=== PATIENT | male | born 1960 | race Caucasian/White ===

== ENCOUNTER 2017-11-13 08:59 | Emergency (ER) | payer OTHER ==
--- OUTSIDE RECORDS SUMMARY | 2017-11-13 09:12 | XMS REPORT ---
:1960 [facility] Address [address] [place], [place] [address] [place] [address] Care Team Providers Name Role Phone NASRIN YOUSUF LOERA Unavailable Unavailable FANNY, ARIF Unavailable Unavailable CIVUNIGUNTA, CRYSTAL Unavailable Unavailable CELIACATALINA JOSE J Unavailable Unavailable GADICHERBEATRIZ, JOSE MURALINATH Unavailable Unavailable TEAGUEDWIGHT FLORES Unavailable Unavailable YOUSUF NATHAN Unavailable Unavailable NATHALIE TERRAZAS Unavailable Unavailable ANDRESSA SCHILLING GO Unavailable Unavailable MINDIKNAIN KAYE JEFFERSON Unavailable Unavailable YOSEF RAMOS Unavailable Unavailable Problems This patient has no known problems. Allergies, Adverse Reactions, Alerts This patient has no known allergies or adverse reactions. Medications This patient has no known medications. Results Test Description Test Time Test Comments Text Results Atomic Results Result Comments SIROLIMUS LEVEL 2017-11-12 12:52:00 Test Item Value Reference Range Comments SIROLIMUS LEVEL BLOOD (BEAKER) (test ywzq=171) 6.8 ng/mL 5.0-15.0 [id number] 11:34:00 Test Item Value Reference Range Comments MAGNESIUM (BEAKER) (test vetl=516) 2.1 mg/dL 1.6-2.6 COMPREHENSIVE METABOLIC [id number] 11:34:00 Test Item Value Reference Range Comments TOTAL PROTEIN (BEAKER) 6.5 gm/dL 6.0-8.3 (test oihf=722) ALBUMIN (BEAKER) (test 3.3 g/dL 3.5-5.0 kksa=6554) ALKALINE PHOSPHATASE 96 U/L 40-150 (BEAKER) (test pqps=275) BILIRUBIN TOTAL (BEAKER) 0.4 mg/dL 0.2-1.2 (test lriv=199) SODIUM (BEAKER) (test 136 meq/L 136-145 vkto=549) POTASSIUM (BEAKER) (test 4.3 meq/L 3.5-5.1 cazo=444) CHLORIDE (BEAKER) (test 101 meq/L 98-107 egll=083) CO2 (BEAKER) (test 25 meq/L 22-29 tenp=744) BLOOD UREA NITROGEN 20 mg/dL 7-21 (BEAKER) (test ktvl=478) CREATININE (BEAKER) (test 0.72 mg/dL 0.57-1.25 ppec=082) GLUCOSE RANDOM (BEAKER) 103 mg/dL 70-105 (test hhwt=746) CALCIUM (BEAKER) (test 9.3 mg/dL 8.4-10.2 msap=580) AST (SGOT) (BEAKER) (test 16 U/L 5-34 dogg=550) ALT (SGPT) (BEAKER) (test 22 U/L 6-55 ykph=692) EGFR (BEAKER) (test 113 mL/min/1.73 sq ESTIMATED GFR IS NOT adcf=4459) m ACCURATE CREATININE CLEARANCE IN PREDICTING GLOMERULAR FILTRATION RATE. ESTIMATED GFR IS NOT APPLICABLE FOR DIALYSIS PATIENTS. BILIRUBIN, [id number] 11:34:00 Test Item Value Reference Range Comments BILIRUBIN DIRECT (BEAKER) (test lufj=641) 0.3 mg/dL 0.1-0.5 CBC W/PLT COUNT & AUTO [id number] 11:22:00 Test Item Value Reference Range Comments WHITE BLOOD CELL COUNT (BEAKER) (test izwn=897) 4.6 K/ L 3.5-10.5 RED BLOOD CELL COUNT (BEAKER) (test hmkm=816) 2.32 M/ L 4.63-6.08 HEMOGLOBIN (BEAKER) (test sqqt=357) 6.9 GM/DL 13.7-17.5 HEMATOCRIT (BEAKER) (test jegi=214) 20.7 % 40.1-51.0 MEAN CORPUSCULAR VOLUME (BEAKER) (test aqeg=044) 89.2 fL 79.0-92.2 MEAN CORPUSCULAR HEMOGLOBIN (BEAKER) (test 29.7 pg 25.7-32.2 jnis=092) MEAN CORPUSCULAR HEMOGLOBIN CONC (BEAKER) (test 33.3 GM/DL 32.3-36.5 qwfk=129) RED CELL DISTRIBUTION WIDTH (BEAKER) (test 15.8 % 11.6-14.4 rzml=571) PLATELET COUNT (BEAKER) (test sqzd=610) 143 K/CU MM 150-450 MEAN PLATELET VOLUME (BEAKER) (test gqss=622) 8.8 fL 9.4-12.4 NUCLEATED RED BLOOD CELLS (BEAKER) (test 0 /100 WBC 0-0 dxej=527) NEUTROPHILS RELATIVE PERCENT (BEAKER) (test 74 % xsvt=251) LYMPHOCYTES RELATIVE PERCENT (BEAKER) (test 11 % ujap=029) MONOCYTES RELATIVE PERCENT (BEAKER) (test 9 % xjoc=774) EOSINOPHILS RELATIVE PERCENT (BEAKER) (test 2 % zizz=646) BASOPHILS RELATIVE PERCENT (BEAKER) (test 0 % fcnr=803) NEUTROPHILS ABSOLUTE COUNT (BEAKER) (test 3.39 K/ L 1.78-5.38 eukm=843) LYMPHOCYTES ABSOLUTE COUNT (BEAKER) (test 0.52 K/ L 1.32-3.57 vtlw=910) MONOCYTES ABSOLUTE COUNT (BEAKER) (test 0.43 K/ L 0.30-0.82 lfgk=560) EOSINOPHILS ABSOLUTE COUNT (BEAKER) (test 0.09 K/ L 0.04-0.54 nhna=648) BASOPHILS ABSOLUTE COUNT (BEAKER) (test 0.01 K/ L 0.01-0.08 edhk=339) IMMATURE GRANULOCYTES-RELATIVE PERCENT (BEAKER) 3 % 0-1 (test gljo=2239) SIROLIMUS [id number] 13:26:00 Test Item Value Reference Range Comments SIROLIMUS LEVEL BLOOD (BEAKER) (test kqek=160) 9.1 ng/mL 5.0-15.0 [id number] 11:22:00 Test Item Value Reference Range Comments MAGNESIUM (BEAKER) (test teix=389) 2.2 mg/dL 1.6-2.6 COMPREHENSIVE METABOLIC [id number] 11:22:00 Test Item Value Reference Range Comments TOTAL PROTEIN (BEAKER) 6.4 gm/dL 6.0-8.3 (test vmla=539) ALBUMIN (BEAKER) (test 3.2 g/dL 3.5-5.0 kyck=3329) ALKALINE PHOSPHATASE 88 U/L 40-150 (BEAKER) (test xprs=775) BILIRUBIN TOTAL (BEAKER) 0.4 mg/dL 0.2-1.2 (test feyh=555) SODIUM (BEAKER) (test 138 meq/L 136-145 njnh=306) POTASSIUM (BEAKER) (test 4.2 meq/L 3.5-5.1 nvhb=629) CHLORIDE (BEAKER) (test 102 meq/L 98-107 zgqo=712) CO2 (BEAKER) (test 24 meq/L 22-29 araa=460) BLOOD UREA NITROGEN 17 mg/dL 7-21 (BEAKER) (test fqes=741) CREATININE (BEAKER) (test 0.75 mg/dL 0.57-1.25 jcqf=767) GLUCOSE RANDOM (BEAKER) 100 mg/dL 70-105 (test fcsf=480) CALCIUM (BEAKER) (test 9.5 mg/dL 8.4-10.2 cebv=259) AST (SGOT) (BEAKER) (test 13 U/L 5-34 gdcc=200) ALT (SGPT) (BEAKER) (test 16 U/L 6-55 ktoy=854) EGFR (BEAKER) (test 108 mL/min/1.73 sq ESTIMATED GFR IS NOT yaon=7677) m ACCURATE CREATININE CLEARANCE IN PREDICTING GLOMERULAR FILTRATION RATE. ESTIMATED GFR IS NOT APPLICABLE FOR DIALYSIS PATIENTS. BILIRUBIN, [id number] 11:22:00 Test Item Value Reference Range Comments BILIRUBIN DIRECT (BEAKER) (test qmgo=651) 0.3 mg/dL 0.1-0.5 CBC W/PLT COUNT & AUTO [id number] 10:32:00 Test Item Value Reference Range Comments WHITE BLOOD CELL COUNT (BEAKER) (test wyzd=853) 4.6 K/ L 3.5-10.5 RED BLOOD CELL COUNT (BEAKER) (test mqap=083) 2.78 M/ L 4.63-6.08 HEMOGLOBIN (BEAKER) (test smit=302) 8.3 GM/DL 13.7-17.5 HEMATOCRIT (BEAKER) (test pihl=647) 24.8 % 40.1-51.0 MEAN CORPUSCULAR VOLUME (BEAKER) (test acev=318) 89.2 fL 79.0-92.2 MEAN CORPUSCULAR HEMOGLOBIN (BEAKER) (test 29.9 pg 25.7-32.2 uirw=863) MEAN CORPUSCULAR HEMOGLOBIN CONC (BEAKER) (test 33.5 GM/DL 32.3-36.5 khre=117) RED CELL DISTRIBUTION WIDTH (BEAKER) (test 15.3 % 11.6-14.4 pbyc=469) PLATELET COUNT (BEAKER) (test lgxq=494) 180 K/CU MM 150-450 MEAN PLATELET VOLUME (BEAKER) (test ftsr=139) 8.9 fL 9.4-12.4 NUCLEATED RED BLOOD CELLS (BEAKER) (test 0 /100 WBC 0-0 yuyl=756) NEUTROPHILS RELATIVE PERCENT (BEAKER) (test 77 % mvbz=750) LYMPHOCYTES RELATIVE PERCENT (BEAKER) (test 10 % qypl=647) MONOCYTES RELATIVE PERCENT (BEAKER) (test 7 % qset=773) EOSINOPHILS RELATIVE PERCENT (BEAKER) (test 2 % jobn=467) BASOPHILS RELATIVE PERCENT (BEAKER) (test 0 % tzxn=103) NEUTROPHILS ABSOLUTE COUNT (BEAKER) (test 3.55 K/ L 1.78-5.38 wuqj=860) LYMPHOCYTES ABSOLUTE COUNT (BEAKER) (test 0.48 K/ L 1.32-3.57 upxa=072) MONOCYTES ABSOLUTE COUNT (BEAKER) (test 0.33 K/ L 0.30-0.82 ymjt=884) EOSINOPHILS ABSOLUTE COUNT (BEAKER) (test 0.10 K/ L 0.04-0.54 jrgm=930) BASOPHILS ABSOLUTE COUNT (BEAKER) (test 0.02 K/ L 0.01-0.08 lprl=970) IMMATURE GRANULOCYTES-RELATIVE PERCENT (BEAKER) 3 % 0-1 (test ydpf=6795) POCT-GLUCOSE [id number] 16:08:00 Test Item Value Reference Range Comments POC-GLUCOSE METER (BEAKER) 224 mg/dL 70-110 TESTED AT [facility] [address] [facility] (test zxdq=7410) [facility] [address] [id number] 15:31:00 Test Item Value Reference Range Comments FERRITIN (BEAKER) (test gdon=566) 1840 ng/mL 5-275 VITAMIN B12 AND [id number] 15:31:00 Test Item Value Reference Range Comments VITAMIN B12 (BEAKER) (test ppyv=599) 631 pg/mL 213-816 FOLATE (BEAKER) (test srux=717) 12.9 ng/mL >=7.0 IRON, TIBC, % SAT. (WITHOUT FERRITIN)2017-10-29 14:56:00 Test Item Value Reference Range Comments IRON (BEAKER) (test asoq=513) 24 ug/dL 40-160 TOTAL IRON BINDING CAPACITY (BEAKER) (test 168 ug/dL 250-450 ecop=928) IRON % SATURATION (2) (BEAKER) (test gddq=4106) 14 % 20-55 [id number] 14:33:00 Test Item Value Reference Range Comments MAGNESIUM (BEAKER) (test ghug=201) 2.0 mg/dL 1.6-2.6 BASIC METABOLIC [id number] 14:33:00 Test Item Value Reference Range Comments SODIUM (BEAKER) (test 135 meq/L 136-145 jnmo=777) POTASSIUM (BEAKER) (test 4.6 meq/L 3.5-5.1 sjgh=090) CHLORIDE (BEAKER) (test 99 meq/L 98-107 cusc=546) CO2 (BEAKER) (test 26 meq/L 22-29 mtzs=812) BLOOD UREA NITROGEN 19 mg/dL 7-21 (BEAKER) (test mbli=692) CREATININE (BEAKER) (test 0.82 mg/dL 0.57-1.25 jjmi=141) GLUCOSE RANDOM (BEAKER) 163 mg/dL 70-105 (test fqdq=929) CALCIUM (BEAKER) (test 9.3 mg/dL 8.4-10.2 frek=573) EGFR (BEAKER) (test 97 mL/min/1.73 sq m ESTIMATED GFR IS NOT lpdp=1859) ACCURATE CREATININE CLEARANCE IN PREDICTING GLOMERULAR FILTRATION RATE. ESTIMATED GFR IS NOT APPLICABLE FOR DIALYSIS PATIENTS. [id number] 14:28:00 Test Item Value Reference Range Comments PROTIME (BEAKER) (test rhfk=098) 14.5 seconds 11.7-14.7 INR (BEAKER) (test hsxs=415) 1.1 <=5.9 PARTIAL THROMBOPLASTIN TIME (BEAKER) (test 33.2 seconds 22.5-36.0 vtdn=514) RECOMMENDED COUMADIN/WARFARIN INR THERAPY RANGESSTANDARD DOSE: 2.0 - 3.0 Includes: PROPHYLAXIS forvenous thrombosis, systemic embolization; TREATMENT for venous thrombosis and/or pulmonary embolus.HIGH RISK: Target INR is 2.5-3.5 for patients with mechanical heart valves.CBC W/PLT COUNT & AUTO [id number] 14:28:00 Test Item Value Reference Range Comments WHITE BLOOD CELL COUNT (BEAKER) (test pqrw=495) 6.9 K/ L 3.5-10.5 RED BLOOD CELL COUNT (BEAKER) (test zsfq=929) 2.21 M/ L 4.63-6.08 HEMOGLOBIN (BEAKER) (test ycig=546) 6.5 GM/DL 13.7-17.5 HEMATOCRIT (BEAKER) (test hrnx=203) 19.5 % 40.1-51.0 MEAN CORPUSCULAR VOLUME (BEAKER) (test vybt=018) 88.2 fL 79.0-92.2 MEAN CORPUSCULAR HEMOGLOBIN (BEAKER) (test 29.4 pg 25.7-32.2 wahl=711) MEAN CORPUSCULAR HEMOGLOBIN CONC (BEAKER) (test 33.3 GM/DL 32.3-36.5 ukbu=630) RED CELL DISTRIBUTION WIDTH (BEAKER) (test 15.5 % 11.6-14.4 xqfy=174) PLATELET COUNT (BEAKER) (test xogi=523) 301 K/CU MM 150-450 MEAN PLATELET VOLUME (BEAKER) (test euhr=087) 8.5 fL 9.4-12.4 NUCLEATED RED BLOOD CELLS (BEAKER) (test 0 /100 WBC 0-0 xamt=116) NEUTROPHILS RELATIVE PERCENT (BEAKER) (test 85 % lobw=154) LYMPHOCYTES RELATIVE PERCENT (BEAKER) (test 5 % nlka=323) MONOCYTES RELATIVE PERCENT (BEAKER) (test 5 % cmhq=985) EOSINOPHILS RELATIVE PERCENT (BEAKER) (test 0 % cntw=946) BASOPHILS RELATIVE PERCENT (BEAKER) (test 0 % ymgz=924) NEUTROPHILS ABSOLUTE COUNT (BEAKER) (test 5.85 K/ L 1.78-5.38 ibat=746) LYMPHOCYTES ABSOLUTE COUNT (BEAKER) (test 0.34 K/ L 1.32-3.57 rikx=724) MONOCYTES ABSOLUTE COUNT (BEAKER) (test 0.33 K/ L 0.30-0.82 mgpu=069) EOSINOPHILS ABSOLUTE COUNT (BEAKER) (test 0.02 K/ L 0.04-0.54 pktb=714) BASOPHILS ABSOLUTE COUNT (BEAKER) (test 0.02 K/ L 0.01-0.08 pkyi=177) IMMATURE GRANULOCYTES-RELATIVE PERCENT (BEAKER) 5 % 0-1 (test ymmg=6775) SIROLIMUS [id number] 13:39:00 Test Item Value Reference Range Comments SIROLIMUS LEVEL BLOOD (BEAKER) (test pbln=380) 7.1 ng/mL 5.0-15.0 [id number] 09:05:00 Test Item Value Reference Range Comments MAGNESIUM (BEAKER) (test jdrx=775) 2.0 mg/dL 1.6-2.6 COMPREHENSIVE METABOLIC [id number] 09:05:00 Test Item Value Reference Range Comments TOTAL PROTEIN (BEAKER) 6.2 gm/dL 6.0-8.3 (test rvjb=588) ALBUMIN (BEAKER) (test 3.2 g/dL 3.5-5.0 rphu=0066) ALKALINE PHOSPHATASE 86 U/L 40-150 (BEAKER) (test xbsw=968) BILIRUBIN TOTAL (BEAKER) 0.4 mg/dL 0.2-1.2 (test zkgj=782) SODIUM (BEAKER) (test 136 meq/L 136-145 snuz=129) POTASSIUM (BEAKER) (test 4.5 meq/L 3.5-5.1 fjel=618) CHLORIDE (BEAKER) (test 101 meq/L 98-107 rpqw=990) CO2 (BEAKER) (test 25 meq/L 22-29 qxqs=900) BLOOD UREA NITROGEN 18 mg/dL 7-21 (BEAKER) (test snpa=534) CREATININE (BEAKER) (test 0.79 mg/dL 0.57-1.25 kkhn=580) GLUCOSE RANDOM (BEAKER) 119 mg/dL 70-105 (test qtua=734) CALCIUM (BEAKER) (test 9.1 mg/dL 8.4-10.2 ocfv=123) AST (SGOT) (BEAKER) (test 11 U/L 5-34 vosv=688) ALT (SGPT) (BEAKER) (test 13 U/L 6-55 clma=555) EGFR (BEAKER) (test 101 mL/min/1.73 sq ESTIMATED GFR IS NOT eazc=9473) m ACCURATE CREATININE CLEARANCE IN PREDICTING GLOMERULAR FILTRATION RATE. ESTIMATED GFR IS NOT APPLICABLE FOR DIALYSIS PATIENTS. BILIRUBIN, [id number] 09:05:00 Test Item Value Reference Range Comments BILIRUBIN DIRECT (BEAKER) (test hlhq=338) 0.3 mg/dL 0.1-0.5 CBC W/PLT COUNT & AUTO [id number] 09:01:00 Test Item Value Reference Range Comments WHITE BLOOD CELL COUNT (BEAKER) (test ctmi=203) 5.4 K/ L 3.5-10.5 RED BLOOD CELL COUNT (BEAKER) (test pygl=645) 2.15 M/ L 4.63-6.08 HEMOGLOBIN (BEAKER) (test afws=079) 6.2 GM/DL 13.7-17.5 HEMATOCRIT (BEAKER) (test mokg=358) 18.7 % 40.1-51.0 MEAN CORPUSCULAR VOLUME (BEAKER) (test nlcr=313) 87.0 fL 79.0-92.2 MEAN CORPUSCULAR HEMOGLOBIN (BEAKER) (test 28.8 pg 25.7-32.2 mcew=386) MEAN CORPUSCULAR HEMOGLOBIN CONC (BEAKER) (test 33.2 GM/DL 32.3-36.5 lfnk=255) RED CELL DISTRIBUTION WIDTH (BEAKER) (test 15.6 % 11.6-14.4 qxrz=429) PLATELET COUNT (BEAKER) (test xxup=501) 299 K/CU MM 150-450 MEAN PLATELET VOLUME (BEAKER) (test bgcv=491) 9.0 fL 9.4-12.4 NUCLEATED RED BLOOD CELLS (BEAKER) (test 0 /100 WBC 0-0 wtya=433) NEUTROPHILS RELATIVE PERCENT (BEAKER) (test 73 % ukzt=542) LYMPHOCYTES RELATIVE PERCENT (BEAKER) (test 12 % ngym=823) MONOCYTES RELATIVE PERCENT (BEAKER) (test 10 % vusg=948) EOSINOPHILS RELATIVE PERCENT (BEAKER) (test 1 % qzpg=465) BASOPHILS RELATIVE PERCENT (BEAKER) (test 1 % unfy=060) NEUTROPHILS ABSOLUTE COUNT (BEAKER) (test 3.96 K/ L 1.78-5.38 zotp=314) LYMPHOCYTES ABSOLUTE COUNT (BEAKER) (test 0.66 K/ L 1.32-3.57 llus=957) MONOCYTES ABSOLUTE COUNT (BEAKER) (test 0.53 K/ L 0.30-0.82 xmsa=642) EOSINOPHILS ABSOLUTE COUNT (BEAKER) (test 0.03 K/ L 0.04-0.54 djeh=562) BASOPHILS ABSOLUTE COUNT (BEAKER) (test 0.03 K/ L 0.01-0.08 gvak=133) IMMATURE GRANULOCYTES-RELATIVE PERCENT (BEAKER) 4 % 0-1 (test fvxi=3214) CBC W/PLT COUNT & AUTO [id number] 16:48:00 Test Item Value Reference Range Comments WHITE BLOOD CELL COUNT (BEAKER) (test mlnw=917) 3.1 K/ L 3.5-10.5 RED BLOOD CELL COUNT (BEAKER) (test eosy=479) 2.57 M/ L 4.63-6.08 HEMOGLOBIN (BEAKER) (test ytig=256) 7.6 GM/DL 13.7-17.5 HEMATOCRIT (BEAKER) (test doak=011) 23.0 % 40.1-51.0 MEAN CORPUSCULAR VOLUME (BEAKER) (test imys=922) 89.5 fL 79.0-92.2 MEAN CORPUSCULAR HEMOGLOBIN (BEAKER) (test 29.6 pg 25.7-32.2 rncv=441) MEAN CORPUSCULAR HEMOGLOBIN CONC (BEAKER) (test 33.0 GM/DL 32.3-36.5 tqlg=595) RED CELL DISTRIBUTION WIDTH (BEAKER) (test 15.2 % 11.6-14.4 qswc=792) PLATELET COUNT (BEAKER) (test muld=244) 278 K/CU MM 150-450 MEAN PLATELET VOLUME (BEAKER) (test wtyo=338) 9.3 fL 9.4-12.4 NUCLEATED RED BLOOD CELLS (BEAKER) (test 0 /100 WBC 0-0 bfbc=316) SIROLIMUS [id number] 14:58:00 Test Item Value Reference Range Comments SIROLIMUS LEVEL BLOOD (BEAKER) (test ycll=831) 5.2 ng/mL 5.0-15.0 [id number] 12:04:00 Test Item Value Reference Range Comments MAGNESIUM (BEAKER) (test rddq=285) 1.6 mg/dL 1.6-2.6 COMPREHENSIVE METABOLIC [id number] 12:04:00 Test Item Value Reference Range Comments TOTAL PROTEIN (BEAKER) 6.1 gm/dL 6.0-8.3 (test eljg=116) ALBUMIN (BEAKER) (test 3.2 g/dL 3.5-5.0 qusg=2104) ALKALINE PHOSPHATASE 106 U/L 40-150 (BEAKER) (test nuam=397) BILIRUBIN TOTAL (BEAKER) 0.6 mg/dL 0.2-1.2 (test izbi=743) SODIUM (BEAKER) (test 136 meq/L 136-145 hnxi=505) POTASSIUM (BEAKER) (test 4.2 meq/L 3.5-5.1 tgwg=215) CHLORIDE (BEAKER) (test 101 meq/L 98-107 irxz=774) CO2 (BEAKER) (test 26 meq/L 22-29 nqem=511) BLOOD UREA NITROGEN 19 mg/dL 7-21 (BEAKER) (test lujy=809) CREATININE (BEAKER) (test 0.77 mg/dL 0.57-1.25 ldgd=962) GLUCOSE RANDOM (BEAKER) 100 mg/dL 70-105 (test hgwy=360) CALCIUM (BEAKER) (test 8.9 mg/dL 8.4-10.2 qqbk=770) AST (SGOT) (BEAKER) (test 15 U/L 5-34 fbja=319) ALT (SGPT) (BEAKER) (test 22 U/L 6-55 zfgb=898) EGFR (BEAKER) (test 105 mL/min/1.73 sq ESTIMATED GFR IS NOT jezz=5927) m ACCURATE CREATININE CLEARANCE IN PREDICTING GLOMERULAR FILTRATION RATE. ESTIMATED GFR IS NOT APPLICABLE FOR DIALYSIS PATIENTS. BILIRUBIN, [id number] 12:04:00 Test Item Value Reference Range Comments BILIRUBIN DIRECT (BEAKER) (test nggu=482) 0.4 mg/dL 0.1-0.5 BLOOD [id number] 18:00:00 Test Item Value Reference Range Comments CULTURE (BEAKER) (test ydrm=5614) No growth in 5 days BLOOD [id number] 18:00:00 Test Item Value Reference Range Comments CULTURE (BEAKER) (test ddpu=6367) No growth in 5 days SIROLIMUS [id number] 11:01:00 Test Item Value Reference Range Comments SIROLIMUS LEVEL BLOOD (BEAKER) (test gdey=532) 11.9 ng/mL 5.0-15.0 CBC W/PLT COUNT & AUTO [id number] 10:11:00 Test Item Value Reference Range Comments WHITE BLOOD CELL COUNT (BEAKER) (test rrth=331) 3.0 K/ L 3.5-10.5 RED BLOOD CELL COUNT (BEAKER) (test ztte=188) 3.23 M/ L 4.63-6.08 HEMOGLOBIN (BEAKER) (test lvbj=085) 9.4 GM/DL 13.7-17.5 HEMATOCRIT (BEAKER) (test ymqw=813) 28.5 % 40.1-51.0 MEAN CORPUSCULAR VOLUME (BEAKER) (test ptcv=615) 88.2 fL 79.0-92.2 MEAN CORPUSCULAR HEMOGLOBIN (BEAKER) (test 29.1 pg 25.7-32.2 mtay=794) MEAN CORPUSCULAR HEMOGLOBIN CONC (BEAKER) (test 33.0 GM/DL 32.3-36.5 ymhp=356) RED CELL DISTRIBUTION WIDTH (BEAKER) (test 15.7 % 11.6-14.4 ckii=685) PLATELET COUNT (BEAKER) (test wcru=364) 95 K/CU MM 150-450 MEAN PLATELET VOLUME (BEAKER) (test zwyi=693) 9.6 fL 9.4-12.4 NUCLEATED RED BLOOD CELLS (BEAKER) (test 0 /100 WBC 0-0 pigi=249) NEUTROPHILS RELATIVE PERCENT (BEAKER) (test 73 % nfmp=758) LYMPHOCYTES RELATIVE PERCENT (BEAKER) (test 17 % agxd=655) MONOCYTES RELATIVE PERCENT (BEAKER) (test 8 % nopz=397) EOSINOPHILS RELATIVE PERCENT (BEAKER) (test 2 % payz=364) BASOPHILS RELATIVE PERCENT (BEAKER) (test 0 % necb=665) NEUTROPHILS ABSOLUTE COUNT (BEAKER) (test 2.17 K/ L 1.78-5.38 rrwg=891) LYMPHOCYTES ABSOLUTE COUNT (BEAKER) (test 0.50 K/ L 1.32-3.57 ksgt=270) MONOCYTES ABSOLUTE COUNT (BEAKER) (test brkp=063) 0.23 K/ L 0.30-0.82 EOSINOPHILS ABSOLUTE COUNT (BEAKER) (test 0.05 K/ L 0.04-0.54 byrn=855) BASOPHILS ABSOLUTE COUNT (BEAKER) (test vlgt=800) 0.01 K/ L 0.01-0.08 IMMATURE GRANULOCYTES-RELATIVE PERCENT (BEAKER) 1 % 0-1 (test nlyv=0653) VITAMIN D, [id number] 09:37:00 Test Item Value Reference Range Comments VITAMIN D 25-OH (BEAKER) (test hefw=2361) 17.6 ng/mL 6.6-49.9 Effective 03/04/2017: Reference Range ChangeNew: 6.6-49.9 ng/mL Previous: 13.0 -47.8 ng/mLRecommended Vitamin D Target Range: 30.0-40.0 ng/[id number] 09:23:00 Test Item Value Reference Range Comments PHOSPHORUS (BEAKER) (test vltg=362) 2.8 mg/dL 2.3-4.7 [id number] 09:23:00 Test Item Value Reference Range Comments MAGNESIUM (BEAKER) (test xdpr=963) 1.5 mg/dL 1.6-2.6 COMPREHENSIVE METABOLIC [id number] 09:23:00 Test Item Value Reference Range Comments TOTAL PROTEIN (BEAKER) 5.9 gm/dL 6.0-8.3 (test dpix=690) ALBUMIN (BEAKER) (test 3.1 g/dL 3.5-5.0 trwk=4807) ALKALINE PHOSPHATASE 130 U/L 40-150 (BEAKER) (test pwun=684) BILIRUBIN TOTAL (BEAKER) 1.0 mg/dL 0.2-1.2 (test qafk=323) SODIUM (BEAKER) (test 136 meq/L 136-145 ncso=693) POTASSIUM (BEAKER) (test 4.6 meq/L 3.5-5.1 bngd=673) CHLORIDE (BEAKER) (test 103 meq/L 98-107 gmzm=212) CO2 (BEAKER) (test 24 meq/L 22-29 uzfh=179) BLOOD UREA NITROGEN 16 mg/dL 7-21 (BEAKER) (test imng=150) CREATININE (BEAKER) (test 0.72 mg/dL 0.57-1.25 vdgv=468) GLUCOSE RANDOM (BEAKER) 81 mg/dL 70-105 (test ejjv=537) CALCIUM (BEAKER) (test 9.5 mg/dL 8.4-10.2 imxm=903) AST (SGOT) (BEAKER) (test 16 U/L 5-34 coop=569) ALT (SGPT) (BEAKER) (test 23 U/L 6-55 zday=998) EGFR (BEAKER) (test 113 mL/min/1.73 sq ESTIMATED GFR IS NOT izuw=9358) m ACCURATE CREATININE CLEARANCE IN PREDICTING GLOMERULAR FILTRATION RATE. ESTIMATED GFR IS NOT APPLICABLE FOR DIALYSIS PATIENTS. BILIRUBIN, [id number] 09:23:00 Test Item Value Reference Range Comments BILIRUBIN DIRECT (BEAKER) (test gdmm=103) 0.6 mg/dL 0.1-0.5 EBV VIRAL [id number] 15:13:00 Test Item Value Reference Range Comments EBV VIRAL LOAD - NEGATIVE Negative or below the linear (BEAKER) (test hpcm=8069) range of the assay (<500 copies/mL) This assay was performed by real-time PCR for the detection of the Kala-Soliz virus (EBV) gene EBNA-1. The test is composed of (1) DNA extraction from patient specimen, and (2) real-time PCR amplification and detection with EBNA-1- specific primers and probes. A well-conserved region of the EBNA-1 gene is targeted, along with an internal control sequence used to confirm PCR amplification. Asymptomatic carriers and viral genetic variation, among other factors, can affect the accuracy of nucleic acid testing; therefore, results should be interpreted in light of clinical data.This test was developedand its performance characteristics determined by the [facility] Pathology Department, Section of Molecular Pathology. It has not been cleared or approved by the U.S. Food and Drug Administration (FDA), since FDA approval is not required for clinical use of the test. Validation was doneas required by The Clinical Laboratory Improvement Amendments of 1988.HEPATITIS C PCR, [id number] 13:45:00 Test Item Value Reference Range Comments HCV RESULT COMPONENT (BEAKER) HCV RNA not detected HCV RNA not detected (test hkyu=2298) This test uses a Real-Time Polymerase Chain Reaction (RT-PCR) methodology and was performed using [employer] Ampliprep/KACEY TaqMan HCV test kit version 2.0 ( [employer]).Reportable range for this assay is 15 - 100,000, 000 IU per mL (1.18 - 8.00 Log IU/mL).URINE [id number] 10:51:00 Test Item Value Reference Range Comments CULTURE (BEAKER) (test qnyv=1218) No growth CMV PCR, [id number] 14:50:00 Test Item Value Reference Range Comments CMV VIRAL LOAD - NEGATIVE Negative or below the linear (BEAKER) (test jkbw=3776) range of the assay (<375 copies/mL) Cytomegalovirus (CMV) infection can cause significant disease in immunosuppressed patients. However,it is common for CMV to manifest as a limited infection which is of no clinical significance in immunosuppressed patients or in healthy individuals.Viral load measurements are helpful to identify clinical CMV infection and to guide the pre-emptive management of antiviral therapy. For treatment of CMVinfection due to reactivation in transplant recipients, a threshold between 4,000 and 5,000 copies/mL is suggested. For treatment of primary CMV infection, a lower threshold can be used.CMV infection may also be monitored using weekly serial measurements. Serial measurements of CMV DNA viral load canbe evaluated by identifying a 10- fold change, as well as assessing the CMV DNA viral load and the clinical context for each patient.The plasma CMV DNA viral load was detected using quantitative polymerase chain reaction and fluorescent monitoring of a specific hybridized probe. Genetic variation and other factors can affect the accuracy of nucleic acid testing. Therefore, the results should be interpreted in light of clinical data. A negative result may not exclude the presence of CMV disease.This test was developed and its performance characteristics determined by the [facility] Pathology Department, Section of Molecular Pathology. It has not been cleared or approved by the U.S. Food and Drug Administration (FDA), since FDA approval is not required for clinical use of the test. Validation was done as required by The Clinical Laboratory Improvement Amendments of 1988.POCT-GLUCOSE [id number] 12:26:00 Test Item Value Reference Range Comments POC-GLUCOSE METER (BEAKER) 115 mg/dL 70-110 TESTED AT [facility] [address] [facility] (test yzzv=7483) [facility] [address] BLOOD [id number] 12:00:00 Test Item Value Reference Range Comments CULTURE (BEAKER) (test hkcv=1466) No growth in 5 days BLOOD [id number] 12:00:00 Test Item Value Reference Range Comments CULTURE (BEAKER) (test whbd=8466) No growth in 5 days SIROLIMUS [id number] 10:04:00 Test Item Value Reference Range Comments SIROLIMUS LEVEL BLOOD (BEAKER) (test bazz=786) 10.2 ng/mL 5.0-15.0 POCT-GLUCOSE [id number] 08:08:00 Test Item Value Reference Range Comments POC-GLUCOSE METER (BEAKER) 103 mg/dL 70-110 TESTED AT [facility] [address] [facility] (test jyzz=3704) [facility] [address] [id number] 06:34:00 Test Item Value Reference Range Comments PHOSPHORUS (BEAKER) (test kgin=625) 4.0 mg/dL 2.3-4.7 [id number] 06:34:00 Test Item Value Reference Range Comments MAGNESIUM (BEAKER) (test ezql=717) 2.0 mg/dL 1.6-2.6 BASIC METABOLIC [id number] 06:34:00 Test Item Value Reference Range Comments SODIUM (BEAKER) (test 141 meq/L 136-145 kelp=847) POTASSIUM (BEAKER) (test 4.2 meq/L 3.5-5.1 furp=044) CHLORIDE (BEAKER) (test 107 meq/L 98-107 ffrw=805) CO2 (BEAKER) (test 25 meq/L 22-29 pges=409) BLOOD UREA NITROGEN 16 mg/dL 7-21 (BEAKER) (test dctt=017) CREATININE (BEAKER) (test 0.65 mg/dL 0.57-1.25 yvrq=738) GLUCOSE RANDOM (BEAKER) 87 mg/dL 70-105 (test xokr=945) CALCIUM (BEAKER) (test 8.7 mg/dL 8.4-10.2 sfqk=380) EGFR (BEAKER) (test 127 mL/min/1.73 sq m ESTIMATED GFR IS NOT ouck=7429) ACCURATE CREATININE CLEARANCE IN PREDICTING GLOMERULAR FILTRATION RATE. ESTIMATED GFR IS NOT APPLICABLE FOR DIALYSIS PATIENTS. HEPATIC FUNCTION [id number] 06:34:00 Test Item Value Reference Range Comments TOTAL PROTEIN (BEAKER) (test jsla=033) 5.5 gm/dL 6.0-8.3 ALBUMIN (BEAKER) (test swew=7146) 2.9 g/dL 3.5-5.0 BILIRUBIN TOTAL (BEAKER) (test ikds=488) 1.1 mg/dL 0.2-1.2 BILIRUBIN DIRECT (BEAKER) (test ivng=859) 0.6 mg/dL 0.1-0.5 ALKALINE PHOSPHATASE (BEAKER) (test wvrb=794) 119 U/L 40-150 AST (SGOT) (BEAKER) (test egur=151) 16 U/L 5-34 ALT (SGPT) (BEAKER) (test ruua=215) 23 U/L 6-55 [id number] 06:32:00 Test Item Value Reference Range Comments AMMONIA (BEAKER) (test xdel=893) 29 mol/L 18-72 [id number] 06:32:00 Test Item Value Reference Range Comments PARTIAL THROMBOPLASTIN TIME (BEAKER) (test 37.9 seconds 22.5-36.0 obok=031) PROTHROMBIN [id number] 06:31:00 Test Item Value Reference Range Comments PROTIME (BEAKER) (test gmje=833) 14.7 seconds 11.7-14.7 INR (BEAKER) (test aiyj=596) 1.2 <=5.9 RECOMMENDED COUMADIN/WARFARIN INR THERAPY RANGESSTANDARD DOSE: 2.0 - 3.0 Includes: PROPHYLAXIS forvenous thrombosis, systemic embolization; TREATMENT for venous thrombosis and/or pulmonary embolus.HIGH RISK: Target INR is 2.5-3.5 for patients with mechanical heart valves.CBC W/PLT COUNT & AUTO [id number] 06:05:00 Test Item Value Reference Range Comments WHITE BLOOD CELL COUNT (BEAKER) (test jfyg=588) 3.2 K/ L 3.5-10.5 RED BLOOD CELL COUNT (BEAKER) (test bket=135) 3.13 M/ L 4.63-6.08 HEMOGLOBIN (BEAKER) (test pwxe=168) 9.2 GM/DL 13.7-17.5 HEMATOCRIT (BEAKER) (test kymb=708) 27.6 % 40.1-51.0 MEAN CORPUSCULAR VOLUME (BEAKER) (test cmhm=474) 88.2 fL 79.0-92.2 MEAN CORPUSCULAR HEMOGLOBIN (BEAKER) (test 29.4 pg 25.7-32.2 dmdo=997) MEAN CORPUSCULAR HEMOGLOBIN CONC (BEAKER) (test 33.3 GM/DL 32.3-36.5 vyuz=635) RED CELL DISTRIBUTION WIDTH (BEAKER) (test 17.0 % 11.6-14.4 yqhp=931) PLATELET COUNT (BEAKER) (test tvvi=419) 66 K/CU MM 150-450 MEAN PLATELET VOLUME (BEAKER) (test ybka=149) 9.4 fL 9.4-12.4 NUCLEATED RED BLOOD CELLS (BEAKER) (test 0 /100 WBC 0-0 wnxl=363) NEUTROPHILS RELATIVE PERCENT (BEAKER) (test 78 % sxiw=530) LYMPHOCYTES RELATIVE PERCENT (BEAKER) (test 14 % zmpm=520) MONOCYTES RELATIVE PERCENT (BEAKER) (test 7 % zafh=495) EOSINOPHILS RELATIVE PERCENT (BEAKER) (test 1 % tttx=551) BASOPHILS RELATIVE PERCENT (BEAKER) (test 0 % wlzd=217) NEUTROPHILS ABSOLUTE COUNT (BEAKER) (test 2.50 K/ L 1.78-5.38 okdl=706) LYMPHOCYTES ABSOLUTE COUNT (BEAKER) (test 0.45 K/ L 1.32-3.57 fnnn=721) MONOCYTES ABSOLUTE COUNT (BEAKER) (test kqra=276) 0.23 K/ L 0.30-0.82 EOSINOPHILS ABSOLUTE COUNT (BEAKER) (test 0.03 K/ L 0.04-0.54 mzhw=788) BASOPHILS ABSOLUTE COUNT (BEAKER) (test ffrt=510) 0.00 K/ L 0.01-0.08 IMMATURE GRANULOCYTES-RELATIVE PERCENT (BEAKER) 1 % 0-1 (test xkek=0190) POCT-GLUCOSE [id number] 21:35:00 Test Item Value Reference Range Comments POC-GLUCOSE METER (BEAKER) 174 mg/dL 70-110 TESTED AT [facility] [address] (test voan=0865) [facility] [address] POCT-GLUCOSE [id number] 17:01:00 Test Item Value Reference Range Comments POC-GLUCOSE METER (BEAKER) 160 mg/dL 70-110 TESTED AT [facility] [address] [facility] (test hnhw=2503) [facility] [address] POCT-GLUCOSE [id number] 16:32:00 Test Item Value Reference Range Comments POC-GLUCOSE METER (BEAKER) 143 mg/dL 70-110 TESTED AT [facility] [address] [facility] (test nvik=7762) [facility] [address] URINALYSIS W/ REFLEX URINE [id number] 14:27:00 Test Item Value Reference Range Comments COLOR (BEAKER) (test iztn=122) Yellow CLARITY (BEAKER) (test qkcs=617) Clear SPECIFIC GRAVITY UA (BEAKER) (test bzpo=928) 1.007 1.001-1.035 PH UA (BEAKER) (test qcet=389) 6.0 5.0-8.0 PROTEIN UA (BEAKER) (test upxa=136) 50 mg/dL Negative GLUCOSE UA (BEAKER) (test leti=249) Negative Negative KETONES UA (BEAKER) (test beur=699) Negative Negative BILIRUBIN UA (BEAKER) (test mjsy=725) Negative Negative BLOOD UA (BEAKER) (test behr=719) Negative Negative NITRITE UA (BEAKER) (test ayee=420) Negative Negative LEUKOCYTE ESTERASE UA (BEAKER) (test lhur=418) Negative Negative UROBILINOGEN UA (BEAKER) (test ykeo=299) 0.2 mg/dL 0.2-1.0 RBC UA (BEAKER) (test zivz=505) < /HPF WBC UA (BEAKER) (test dzjb=936) 1 /HPF SQUAMOUS EPITHELIAL (BEAKER) (test pkkp=052) < /HPF CRYSTALS, URINE (BEAKER) (test fgem=2079) Rare SOURCE(BEAKER) (test uczg=9551) HEPATITIS B [id number] 12:02:00 Test Item Value Reference Range Comments HEPATITIS B CORE TOTAL ANTIBODY (BEAKER) (test Nonreactive Nonreactive epyr=905) HEPATITIS B SURFACE ANTIBODY (BEAKER) (test < mIU/mL <8.0 aums=465) HEPATITIS B SURFACE ANTIGEN (2) (BEAKER) (test Nonreactive Nonreactive pubg=7427) HEPATITIS A [id number] 11:56:00 Test Item Value Reference Range Comments HEPATITIS A IGM ANTIBODY (BEAKER) (test Nonreactive Nonreactive bhyq=687) HEPATITIS A IGG ANTIBODY (BEAKER) (test Reactive Nonreactive jvro=3805) SIROLIMUS [id number] 09:57:00 Test Item Value Reference Range Comments SIROLIMUS LEVEL BLOOD (BEAKER) (test uqst=450) 12.2 ng/mL 5.0-15.0 POCT-GLUCOSE [id number] 08:04:00 Test Item Value Reference Range Comments POC-GLUCOSE METER (BEAKER) 102 mg/dL 70-110 TESTED AT [facility] [address] [facility] (test ljnz=0338) [facility] [address] [id number] 07:00:00 Test Item Value Reference Range Comments PHOSPHORUS (BEAKER) (test zakd=803) 2.0 mg/dL 2.3-4.7 [id number] 07:00:00 Test Item Value Reference Range Comments MAGNESIUM (BEAKER) (test bnzx=017) 1.5 mg/dL 1.6-2.6 BASIC METABOLIC [id number] 07:00:00 Test Item Value Reference Range Comments SODIUM (BEAKER) (test 137 meq/L 136-145 uvdt=058) POTASSIUM (BEAKER) (test 4.3 meq/L 3.5-5.1 visp=486) CHLORIDE (BEAKER) (test 105 meq/L 98-107 dypi=532) CO2 (BEAKER) (test 25 meq/L 22-29 auqy=382) BLOOD UREA NITROGEN 16 mg/dL 7-21 (BEAKER) (test wuwz=803) CREATININE (BEAKER) (test 0.61 mg/dL 0.57-1.25 lhey=700) GLUCOSE RANDOM (BEAKER) 98 mg/dL 70-105 (test hgaw=027) CALCIUM (BEAKER) (test 8.7 mg/dL 8.4-10.2 jdgt=012) EGFR (BEAKER) (test 137 mL/min/1.73 sq m ESTIMATED GFR IS NOT tiay=9648) ACCURATE CREATININE CLEARANCE IN PREDICTING GLOMERULAR FILTRATION RATE. ESTIMATED GFR IS NOT APPLICABLE FOR DIALYSIS PATIENTS. HEPATIC FUNCTION [id number] 07:00:00 Test Item Value Reference Range Comments TOTAL PROTEIN (BEAKER) (test kjca=828) 5.2 gm/dL 6.0-8.3 ALBUMIN (BEAKER) (test qipr=8672) 2.9 g/dL 3.5-5.0 BILIRUBIN TOTAL (BEAKER) (test lqcj=997) 0.7 mg/dL 0.2-1.2 BILIRUBIN DIRECT (BEAKER) (test rljg=892) 0.5 mg/dL 0.1-0.5 ALKALINE PHOSPHATASE (BEAKER) (test ylyt=233) 118 U/L 40-150 AST (SGOT) (BEAKER) (test rzqx=769) 14 U/L 5-34 ALT (SGPT) (BEAKER) (test uqik=959) 22 U/L 6-55 [id number] 06:52:00 Test Item Value Reference Range Comments PREALBUMIN (BEAKER) (test zvkm=858) 15 mg/dL 14-45 [id number] 06:35:00 Test Item Value Reference Range Comments PARTIAL THROMBOPLASTIN TIME (BEAKER) (test 40.2 seconds 22.5-36.0 vkxq=304) PROTHROMBIN [id number] 06:34:00 Test Item Value Reference Range Comments PROTIME (BEAKER) (test pqdf=194) 15.2 seconds 11.7-14.7 INR (BEAKER) (test fvam=807) 1.2 <=5.9 RECOMMENDED COUMADIN/WARFARIN INR THERAPY RANGESSTANDARD DOSE: 2.0 - 3.0 Includes: PROPHYLAXIS forvenous thrombosis, systemic embolization; TREATMENT for venous thrombosis and/or pulmonary embolus.HIGH RISK: Target INR is 2.5-3.5 for patients with mechanical heart valves.CBC W/PLT COUNT & AUTO [id number] 06:32:00 Test Item Value Reference Range Comments WHITE BLOOD CELL COUNT (BEAKER) (test lsns=543) 3.5 K/ L 3.5-10.5 RED BLOOD CELL COUNT (BEAKER) (test krsp=358) 2.40 M/ L 4.63-6.08 HEMOGLOBIN (BEAKER) (test opxh=071) 7.2 GM/DL 13.7-17.5 HEMATOCRIT (BEAKER) (test ujmp=030) 21.9 % 40.1-51.0 MEAN CORPUSCULAR VOLUME (BEAKER) (test suad=233) 91.3 fL 79.0-92.2 MEAN CORPUSCULAR HEMOGLOBIN (BEAKER) (test 30.0 pg 25.7-32.2 djvn=429) MEAN CORPUSCULAR HEMOGLOBIN CONC (BEAKER) (test 32.9 GM/DL 32.3-36.5 kmjs=660) RED CELL DISTRIBUTION WIDTH (BEAKER) (test 15.6 % 11.6-14.4 zoct=418) PLATELET COUNT (BEAKER) (test tors=150) 59 K/CU MM 150-450 MEAN PLATELET VOLUME (BEAKER) (test ekfo=424) 9.5 fL 9.4-12.4 NUCLEATED RED BLOOD CELLS (BEAKER) (test 0 /100 WBC 0-0 jnmf=140) NEUTROPHILS RELATIVE PERCENT (BEAKER) (test 76 % ucuw=716) LYMPHOCYTES RELATIVE PERCENT (BEAKER) (test 14 % prwa=453) MONOCYTES RELATIVE PERCENT (BEAKER) (test 8 % jrwq=833) EOSINOPHILS RELATIVE PERCENT (BEAKER) (test 1 % wfez=696) BASOPHILS RELATIVE PERCENT (BEAKER) (test 0 % ufww=827) NEUTROPHILS ABSOLUTE COUNT (BEAKER) (test 2.70 K/ L 1.78-5.38 atgb=849) LYMPHOCYTES ABSOLUTE COUNT (BEAKER) (test 0.48 K/ L 1.32-3.57 pjcn=760) MONOCYTES ABSOLUTE COUNT (BEAKER) (test mzak=934) 0.29 K/ L 0.30-0.82 EOSINOPHILS ABSOLUTE COUNT (BEAKER) (test 0.03 K/ L 0.04-0.54 cjpb=077) BASOPHILS ABSOLUTE COUNT (BEAKER) (test kqkn=150) 0.00 K/ L 0.01-0.08 IMMATURE GRANULOCYTES-RELATIVE PERCENT (BEAKER) 1 % 0-1 (test ynwa=6359) [id number] 17:56:00 Test Item Value Reference Range Comments PROTIME (BEAKER) (test xepy=637) 66.5 seconds 11.7-14.7 INR (BEAKER) (test bjlp=450) 7.9 <=5.9 PARTIAL THROMBOPLASTIN TIME (BEAKER) (test 55.9 seconds 22.5-36.0 pnfd=612) RECOMMENDED COUMADIN/WARFARIN INR THERAPY RANGESSTANDARD DOSE: 2.0 - 3.0 Includes: PROPHYLAXIS forvenous thrombosis, systemic embolization; TREATMENT for venous thrombosis and/or pulmonary embolus.HIGH RISK: Target INR is 2.5-3.5 for patients with mechanical heart valves.POCT-GLUCOSE [id number] 15:54:00 Test Item Value Reference Range Comments POC-GLUCOSE METER (BEAKER) 274 mg/dL 70-110 TESTED AT [facility] [address] (test yfac=3955) [facility] [address] [id number] 14:52:00 Test Item Value Reference Range Comments PHOSPHORUS (BEAKER) (test zakt=311) 2.0 mg/dL 2.3-4.7 [id number] 14:52:00 Test Item Value Reference Range Comments MAGNESIUM (BEAKER) (test mnpj=010) 1.8 mg/dL 1.6-2.6 BASIC METABOLIC [id number] 14:52:00 Test Item Value Reference Range Comments SODIUM (BEAKER) (test 136 meq/L 136-145 bmmi=943) POTASSIUM (BEAKER) (test 4.3 meq/L 3.5-5.1 mmsz=545) CHLORIDE (BEAKER) (test 104 meq/L 98-107 erfe=187) CO2 (BEAKER) (test 25 meq/L 22-29 nlwv=709) BLOOD UREA NITROGEN 18 mg/dL 7-21 (BEAKER) (test qsbe=949) CREATININE (BEAKER) (test 0.66 mg/dL 0.57-1.25 utzm=409) GLUCOSE RANDOM (BEAKER) 172 mg/dL 70-105 (test btol=376) CALCIUM (BEAKER) (test 8.4 mg/dL 8.4-10.2 qput=118) EGFR (BEAKER) (test 125 mL/min/1.73 sq m ESTIMATED GFR IS NOT uizu=6649) ACCURATE CREATININE CLEARANCE IN PREDICTING GLOMERULAR FILTRATION RATE. ESTIMATED GFR IS NOT APPLICABLE FOR DIALYSIS PATIENTS. HEPATIC FUNCTION [id number] 14:52:00 Test Item Value Reference Range Comments TOTAL PROTEIN (BEAKER) (test hhgu=783) 5.4 gm/dL 6.0-8.3 ALBUMIN (BEAKER) (test yhel=2415) 3.0 g/dL 3.5-5.0 BILIRUBIN TOTAL (BEAKER) (test fqws=314) 1.0 mg/dL 0.2-1.2 BILIRUBIN DIRECT (BEAKER) (test iezs=786) 0.7 mg/dL 0.1-0.5 ALKALINE PHOSPHATASE (BEAKER) (test onsp=383) 134 U/L 40-150 AST (SGOT) (BEAKER) (test vpfq=688) 15 U/L 5-34 ALT (SGPT) (BEAKER) (test hvan=945) 22 U/L 6-55 CBC W/PLT COUNT & AUTO [id number] 12:05:00 Test Item Value Reference Range Comments WHITE BLOOD CELL COUNT (BEAKER) (test nqjt=015) 4.2 K/ L 3.5-10.5 RED BLOOD CELL COUNT (BEAKER) (test pfhf=569) 2.85 M/ L 4.63-6.08 HEMOGLOBIN (BEAKER) (test uxdr=130) 8.7 GM/DL 13.7-17.5 HEMATOCRIT (BEAKER) (test qblz=476) 26.5 % 40.1-51.0 MEAN CORPUSCULAR VOLUME (BEAKER) (test dbrw=922) 93.0 fL 79.0-92.2 MEAN CORPUSCULAR HEMOGLOBIN (BEAKER) (test 30.5 pg 25.7-32.2 jzck=182) MEAN CORPUSCULAR HEMOGLOBIN CONC (BEAKER) (test 32.8 GM/DL 32.3-36.5 xxws=366) RED CELL DISTRIBUTION WIDTH (BEAKER) (test 15.9 % 11.6-14.4 huvd=821) PLATELET COUNT (BEAKER) (test xbzt=307) 89 K/CU MM 150-450 MEAN PLATELET VOLUME (BEAKER) (test kgqe=802) 9.7 fL 9.4-12.4 NUCLEATED RED BLOOD CELLS (BEAKER) (test 0 /100 WBC 0-0 tnvv=485) NEUTROPHILS RELATIVE PERCENT (BEAKER) (test 78 % wvxr=925) LYMPHOCYTES RELATIVE PERCENT (BEAKER) (test 14 % jkdb=305) MONOCYTES RELATIVE PERCENT (BEAKER) (test 6 % dpmv=338) EOSINOPHILS RELATIVE PERCENT (BEAKER) (test 1 % uhvt=209) BASOPHILS RELATIVE PERCENT (BEAKER) (test 0 % azxe=512) NEUTROPHILS ABSOLUTE COUNT (BEAKER) (test 3.29 K/ L 1.78-5.38 jthl=026) LYMPHOCYTES ABSOLUTE COUNT (BEAKER) (test 0.58 K/ L 1.32-3.57 wabe=954) MONOCYTES ABSOLUTE COUNT (BEAKER) (test vrsk=418) 0.26 K/ L 0.30-0.82 EOSINOPHILS ABSOLUTE COUNT (BEAKER) (test 0.04 K/ L 0.04-0.54 wgww=233) BASOPHILS ABSOLUTE COUNT (BEAKER) (test wcbe=685) 0.01 K/ L 0.01-0.08 IMMATURE GRANULOCYTES-RELATIVE PERCENT (BEAKER) 1 % 0-1 (test llfz=7031) POCT-GLUCOSE [id number] 11:58:00 Test Item Value Reference Range Comments POC-GLUCOSE METER (BEAKER) 146 mg/dL 70-110 TESTED AT [facility] [address] (test nniq=2053) [facility] [address] [id number] 10:44:00 Test Item Value Reference Range Comments MAGNESIUM (BEAKER) (test 2.0 mg/dL 1.6-2.6 Specimen slightly hemolyzed kkvz=181) [id number] 10:44:00 Test Item Value Reference Range Comments PHOSPHORUS (BEAKER) (test 2.1 mg/dL 2.3-4.7 Specimen slightly hemolyzed vxed=159) BASIC METABOLIC [id number] 10:44:00 Test Item Value Reference Range Comments SODIUM (BEAKER) (test 137 meq/L 136-145 hhoq=706) POTASSIUM (BEAKER) (test 4.3 meq/L 3.5-5.1 Specimen slightly hizb=234) hemolyzed CHLORIDE (BEAKER) (test 104 meq/L 98-107 ajfk=368) CO2 (BEAKER) (test 22 meq/L 22-29 xnei=440) BLOOD UREA NITROGEN 19 mg/dL 7-21 (BEAKER) (test ckti=920) CREATININE (BEAKER) (test 0.65 mg/dL 0.57-1.25 Specimen slightly jzht=572) hemolyzed GLUCOSE RANDOM (BEAKER) 91 mg/dL 70-105 (test zuir=040) CALCIUM (BEAKER) (test 8.5 mg/dL 8.4-10.2 uxbn=141) EGFR (BEAKER) (test 127 mL/min/1.73 sq m ESTIMATED GFR IS NOT ojtf=7451) ACCURATE CREATININE CLEARANCE IN PREDICTING GLOMERULAR FILTRATION RATE. ESTIMATED GFR IS NOT APPLICABLE FOR DIALYSIS PATIENTS. HEPATIC FUNCTION [id number] 10:44:00 Test Item Value Reference Range Comments TOTAL PROTEIN (BEAKER) (test 5.7 gm/dL 6.0-8.3 Specimen slightly hemolyzed twbe=679) ALBUMIN (BEAKER) (test 3.0 g/dL 3.5-5.0 Specimen slightly hemolyzed pdus=0132) BILIRUBIN TOTAL (BEAKER) (test 0.8 mg/dL 0.2-1.2 Specimen slightly hemolyzed twkp=280) BILIRUBIN DIRECT (BEAKER) (test 0.4 mg/dL 0.1-0.5 Specimen slightly hemolyzed dxdd=102) ALKALINE PHOSPHATASE (BEAKER) 134 U/L 40-150 (test rnwz=597) AST (SGOT) (BEAKER) (test 20 U/L 5-34 Specimen slightly hemolyzed hdlf=653) ALT (SGPT) (BEAKER) (test 23 U/L 6-55 Specimen slightly hemolyzed ngrx=516) PROTHROMBIN [id number] 10:29:00 Test Item Value Reference Range Comments PROTIME (BEAKER) (test mzsi=551) 14.8 seconds 11.7-14.7 INR (BEAKER) (test nwmc=044) 1.2 <=5.9 RECOMMENDED COUMADIN/WARFARIN INR THERAPY RANGESSTANDARD DOSE: 2.0 - 3.0 Includes: PROPHYLAXIS forvenous thrombosis, systemic embolization; TREATMENT for venous thrombosis and/or pulmonary embolus.HIGH RISK: Target INR is 2.5-3.5 for patients with mechanical heart valves.[id number] 10:29:00 Test Item Value Reference Range Comments PARTIAL THROMBOPLASTIN TIME (BEAKER) (test 37.7 seconds 22.5-36.0 ghuq=592) SIROLIMUS [id number] 09:59:00 Test Item Value Reference Range Comments SIROLIMUS LEVEL BLOOD (BEAKER) (test mwxc=194) 14.6 ng/mL 5.0-15.0 POCT-GLUCOSE [id number] 07:26:00 Test Item Value Reference Range Comments POC-GLUCOSE METER (BEAKER) 130 mg/dL 70-110 TESTED AT [address] (test hjqz=5370) [place] [address] POCT-GLUCOSE [id number] 23:05:00 Test Item Value Reference Range Comments POC-GLUCOSE METER (BEAKER) 163 mg/dL 70-110 TESTED AT [address] (test mucb=9451) [place] [address] POCT-GLUCOSE [id number] 18:01:00 Test Item Value Reference Range Comments POC-GLUCOSE METER (BEAKER) 144 mg/dL 70-110 TESTED AT [address] (test giwx=9000) [place] [address] POCT-GLUCOSE [id number] 13:21:00 Test Item Value Reference Range Comments POC-GLUCOSE METER (BEAKER) 128 mg/dL 70-110 TESTED AT [address] (test kpve=5311) [place] [address] SIROLIMUS [id number] 11:52:00 Test Item Value Reference Range Comments SIROLIMUS LEVEL BLOOD (BEAKER) (test nepq=546) 24.3 ng/mL 5.0-15.0 POCT-GLUCOSE [id number] 06:38:00 Test Item Value Reference Range Comments POC-GLUCOSE METER (BEAKER) 100 mg/dL 70-110 TESTED AT [address] (test amgg=1068) [place] [address] POCT-GLUCOSE [id number] 17:50:00 Test Item Value Reference Range Comments POC-GLUCOSE METER (BEAKER) 209 mg/dL 70-110 TESTED AT [address] (test prmu=8097) [place] [address] TOXOPLASMA GONDII ANTIBODY, [id number] 14:56:00 Test Item Value Reference Range Comments TOXOPLASMA IGM ANTIBODY (BEAKER) (test ottk=245) Negative URINE [id number] 14:19:00 Test Item Value Reference Range Comments CULTURE (BEAKER) (test eede=9801) No growth POCT-GLUCOSE [id number] 12:07:00 Test Item Value Reference Range Comments POC-GLUCOSE METER (BEAKER) 154 mg/dL 70-110 TESTED AT [address] (test kvxl=2480) [place] [address] SIROLIMUS [id number] 10:44:00 Test Item Value Reference Range Comments SIROLIMUS LEVEL BLOOD (BEAKER) (test xzec=621) 9.5 ng/mL 5.0-15.0 [id number] 08:12:00 Test Item Value Reference Range Comments PHOSPHORUS (BEAKER) (test cavv=961) 2.5 mg/dL 2.3-4.7 [id number] 08:12:00 Test Item Value Reference Range Comments MAGNESIUM (BEAKER) (test zhsh=570) 1.7 mg/dL 1.6-2.6 BASIC METABOLIC [id number] 08:12:00 Test Item Value Reference Range Comments SODIUM (BEAKER) (test 139 meq/L 136-145 cqxb=661) POTASSIUM (BEAKER) (test 3.3 meq/L 3.5-5.1 jnqd=155) CHLORIDE (BEAKER) (test 108 meq/L 98-107 madp=257) CO2 (BEAKER) (test 22 meq/L 22-29 uzii=551) BLOOD UREA NITROGEN 28 mg/dL 7-21 (BEAKER) (test evep=587) CREATININE (BEAKER) (test 0.64 mg/dL 0.57-1.25 xcxo=315) GLUCOSE RANDOM (BEAKER) 114 mg/dL 70-105 (test kofd=968) CALCIUM (BEAKER) (test 8.3 mg/dL 8.4-10.2 txny=825) EGFR (BEAKER) (test 129 mL/min/1.73 sq m ESTIMATED GFR IS NOT nsec=0167) ACCURATE CREATININE CLEARANCE IN PREDICTING GLOMERULAR FILTRATION RATE. ESTIMATED GFR IS NOT APPLICABLE FOR DIALYSIS PATIENTS. HEPATIC FUNCTION [id number] 08:12:00 Test Item Value Reference Range Comments TOTAL PROTEIN (BEAKER) (test ghip=826) 5.2 gm/dL 6.0-8.3 ALBUMIN (BEAKER) (test cvab=2599) 2.9 g/dL 3.5-5.0 BILIRUBIN TOTAL (BEAKER) (test dnjy=209) 0.8 mg/dL 0.2-1.2 BILIRUBIN DIRECT (BEAKER) (test hywr=737) 0.5 mg/dL 0.1-0.5 ALKALINE PHOSPHATASE (BEAKER) (test sjnh=853) 127 U/L 40-150 AST (SGOT) (BEAKER) (test nmod=057) 16 U/L 5-34 ALT (SGPT) (BEAKER) (test ovlb=776) 21 U/L 6-55 PROTHROMBIN [id number] 08:03:00 Test Item Value Reference Range Comments PROTIME (BEAKER) (test eapy=855) 14.2 seconds 11.7-14.7 INR (BEAKER) (test auvl=591) 1.1 <=5.9 RECOMMENDED COUMADIN/WARFARIN INR THERAPY RANGESSTANDARD DOSE: 2.0 - 3.0 Includes: PROPHYLAXIS forvenous thrombosis, systemic embolization; TREATMENT for venous thrombosis and/or pulmonary embolus.HIGH RISK: Target INR is 2.5-3.5 for patients with mechanical heart valves.CBC W/PLT COUNT & AUTO [id number] 07:52:00 Test Item Value Reference Range Comments WHITE BLOOD CELL COUNT (BEAKER) (test uvus=263) 5.2 K/ L 3.5-10.5 RED BLOOD CELL COUNT (BEAKER) (test gtmy=295) 2.71 M/ L 4.63-6.08 HEMOGLOBIN (BEAKER) (test btmc=145) 8.3 GM/DL 13.7-17.5 HEMATOCRIT (BEAKER) (test ylwn=698) 24.7 % 40.1-51.0 MEAN CORPUSCULAR VOLUME (BEAKER) (test kpjf=487) 91.1 fL 79.0-92.2 MEAN CORPUSCULAR HEMOGLOBIN (BEAKER) (test 30.6 pg 25.7-32.2 lwmp=775) MEAN CORPUSCULAR HEMOGLOBIN CONC (BEAKER) (test 33.6 GM/DL 32.3-36.5 empa=981) RED CELL DISTRIBUTION WIDTH (BEAKER) (test 16.5 % 11.6-14.4 farv=676) PLATELET COUNT (BEAKER) (test orid=775) 57 K/CU MM 150-450 MEAN PLATELET VOLUME (BEAKER) (test srkg=509) 9.7 fL 9.4-12.4 NUCLEATED RED BLOOD CELLS (BEAKER) (test 0 /100 WBC 0-0 pkjb=056) NEUTROPHILS RELATIVE PERCENT (BEAKER) (test 80 % kjfo=435) LYMPHOCYTES RELATIVE PERCENT (BEAKER) (test 10 % gjgn=913) MONOCYTES RELATIVE PERCENT (BEAKER) (test 7 % ciiz=566) EOSINOPHILS RELATIVE PERCENT (BEAKER) (test 2 % ttca=643) BASOPHILS RELATIVE PERCENT (BEAKER) (test 0 % tuhh=983) NEUTROPHILS ABSOLUTE COUNT (BEAKER) (test 4.14 K/ L 1.78-5.38 uaqh=129) LYMPHOCYTES ABSOLUTE COUNT (BEAKER) (test 0.53 K/ L 1.32-3.57 zwkx=607) MONOCYTES ABSOLUTE COUNT (BEAKER) (test gcbf=326) 0.35 K/ L 0.30-0.82 EOSINOPHILS ABSOLUTE COUNT (BEAKER) (test 0.08 K/ L 0.04-0.54 smlq=786) BASOPHILS ABSOLUTE COUNT (BEAKER) (test enia=245) 0.01 K/ L 0.01-0.08 IMMATURE GRANULOCYTES-RELATIVE PERCENT (BEAKER) 2 % 0-1 (test atjp=5206) POCT-GLUCOSE [id number] 05:35:00 Test Item Value Reference Range Comments POC-GLUCOSE METER (BEAKER) 129 mg/dL 70-110 TESTED AT [address] (test dfqg=6631) [place] [address] POCT-GLUCOSE [id number] 23:44:00 Test Item Value Reference Range Comments POC-GLUCOSE METER (BEAKER) 175 mg/dL 70-110 TESTED AT [address] (test qsot=1070) [place] [address] POCT-GLUCOSE [id number] 17:21:00 Test Item Value Reference Range Comments POC-GLUCOSE METER (BEAKER) 161 mg/dL 70-110 TESTED AT [address] (test udpp=7176) [place] [address] POCT-GLUCOSE [id number] 13:11:00 Test Item Value Reference Range Comments POC-GLUCOSE METER (BEAKER) 189 mg/dL 70-110 TESTED AT [address] (test anlv=5497) [place] [address] URINALYSIS W/ REFLEX URINE [id number] 11:46:00 Test Item Value Reference Range Comments COLOR (BEAKER) (test fubn=843) Yellow CLARITY (BEAKER) (test lcgf=620) Clear SPECIFIC GRAVITY UA (BEAKER) (test wixt=678) 1.012 1.001-1.035 PH UA (BEAKER) (test eytl=487) 6.0 5.0-8.0 PROTEIN UA (BEAKER) (test coqe=399) 70 mg/dL Negative GLUCOSE UA (BEAKER) (test bmel=143) Negative Negative KETONES UA (BEAKER) (test untw=685) Negative Negative BILIRUBIN UA (BEAKER) (test qrxc=296) Negative Negative BLOOD UA (BEAKER) (test nbvp=068) Trace Negative NITRITE UA (BEAKER) (test rhvr=378) Negative Negative LEUKOCYTE ESTERASE UA (BEAKER) (test roia=064) Negative Negative UROBILINOGEN UA (BEAKER) (test heye=831) 0.2 mg/dL 0.2-1.0 RBC UA (BEAKER) (test qumw=165) < /HPF WBC UA (BEAKER) (test axbb=824) 1 /HPF MUCUS (BEAKER) (test mdht=2017) Rare SQUAMOUS EPITHELIAL (BEAKER) (test qabu=710) < /HPF AMORPHOUS CRYSTALS (BEAKER) (test uezy=1172) Rare SOURCE(BEAKER) (test uohw=5845) SIROLIMUS [id number] 09:13:00 Test Item Value Reference Range Comments SIROLIMUS LEVEL BLOOD (BEAKER) (test unke=201) 8.8 ng/mL 5.0-15.0 POCT-GLUCOSE [id number] 08:36:00 Test Item Value Reference Range Comments POC-GLUCOSE METER (BEAKER) 132 mg/dL 70-110 TESTED AT [facility] [address] [facility] (test fcka=5206) [facility] [address] CBC W/PLT COUNT & AUTO [id number] 08:25:00 Test Item Value Reference Range Comments WHITE BLOOD CELL COUNT (BEAKER) (test mjif=394) 5.5 K/ L 3.5-10.5 RED BLOOD CELL COUNT (BEAKER) (test kbed=006) 2.68 M/ L 4.63-6.08 HEMOGLOBIN (BEAKER) (test xjsl=313) 8.1 GM/DL 13.7-17.5 HEMATOCRIT (BEAKER) (test hwdm=108) 24.3 % 40.1-51.0 MEAN CORPUSCULAR VOLUME (BEAKER) (test hpcx=075) 90.7 fL 79.0-92.2 MEAN CORPUSCULAR HEMOGLOBIN (BEAKER) (test 30.2 pg 25.7-32.2 ldbq=788) MEAN CORPUSCULAR HEMOGLOBIN CONC (BEAKER) (test 33.3 GM/DL 32.3-36.5 tcvq=713) RED CELL DISTRIBUTION WIDTH (BEAKER) (test 16.7 % 11.6-14.4 tnuv=280) PLATELET COUNT (BEAKER) (test zham=495) 42 K/CU MM 150-450 MEAN PLATELET VOLUME (BEAKER) (test yuzf=547) 10.4 fL 9.4-12.4 NUCLEATED RED BLOOD CELLS (BEAKER) (test 0 /100 WBC 0-0 poyl=182) NEUTROPHILS RELATIVE PERCENT (BEAKER) (test 80 % krrp=549) LYMPHOCYTES RELATIVE PERCENT (BEAKER) (test 9 % tvtp=129) MONOCYTES RELATIVE PERCENT (BEAKER) (test 7 % qsns=548) EOSINOPHILS RELATIVE PERCENT (BEAKER) (test 1 % gvgl=169) BASOPHILS RELATIVE PERCENT (BEAKER) (test 0 % jbhg=815) NEUTROPHILS ABSOLUTE COUNT (BEAKER) (test 4.42 K/ L 1.78-5.38 vgtf=543) LYMPHOCYTES ABSOLUTE COUNT (BEAKER) (test 0.52 K/ L 1.32-3.57 bsqp=617) MONOCYTES ABSOLUTE COUNT (BEAKER) (test vrsj=329) 0.41 K/ L 0.30-0.82 EOSINOPHILS ABSOLUTE COUNT (BEAKER) (test 0.05 K/ L 0.04-0.54 uxub=218) BASOPHILS ABSOLUTE COUNT (BEAKER) (test krtg=501) 0.01 K/ L 0.01-0.08 IMMATURE GRANULOCYTES-RELATIVE PERCENT (BEAKER) 2 % 0-1 (test ydxr=3820) [id number] 07:21:00 Test Item Value Reference Range Comments PHOSPHORUS (BEAKER) (test xzgm=641) 1.7 mg/dL 2.3-4.7 [id number] 07:21:00 Test Item Value Reference Range Comments MAGNESIUM (BEAKER) (test rloj=752) 1.8 mg/dL 1.6-2.6 BASIC METABOLIC [id number] 07:21:00 Test Item Value Reference Range Comments SODIUM (BEAKER) (test 140 meq/L 136-145 siaf=328) POTASSIUM (BEAKER) (test 3.5 meq/L 3.5-5.1 tayw=673) CHLORIDE (BEAKER) (test 111 meq/L 98-107 ienu=068) CO2 (BEAKER) (test 23 meq/L 22-29 qdkj=157) BLOOD UREA NITROGEN 35 mg/dL 7-21 (BEAKER) (test xabz=224) CREATININE (BEAKER) (test 0.68 mg/dL 0.57-1.25 yxgo=483) GLUCOSE RANDOM (BEAKER) 118 mg/dL 70-105 (test iilp=523) CALCIUM (BEAKER) (test 8.2 mg/dL 8.4-10.2 hsfb=841) EGFR (BEAKER) (test 121 mL/min/1.73 sq m ESTIMATED GFR IS NOT alkg=6801) ACCURATE CREATININE CLEARANCE IN PREDICTING GLOMERULAR FILTRATION RATE. ESTIMATED GFR IS NOT APPLICABLE FOR DIALYSIS PATIENTS. HEPATIC FUNCTION [id number] 07:21:00 Test Item Value Reference Range Comments TOTAL PROTEIN (BEAKER) (test kzdt=737) 4.9 gm/dL 6.0-8.3 ALBUMIN (BEAKER) (test fzww=2862) 2.9 g/dL 3.5-5.0 BILIRUBIN TOTAL (BEAKER) (test wmyc=517) 0.7 mg/dL 0.2-1.2 BILIRUBIN DIRECT (BEAKER) (test tjji=523) 0.5 mg/dL 0.1-0.5 ALKALINE PHOSPHATASE (BEAKER) (test ecgt=308) 134 U/L 40-150 AST (SGOT) (BEAKER) (test hwou=343) 13 U/L 5-34 ALT (SGPT) (BEAKER) (test usov=746) 24 U/L 6-55 [id number] 07:17:00 Test Item Value Reference Range Comments PREALBUMIN (BEAKER) (test jjhe=895) 15 mg/dL 14-45 [id number] 07:06:00 Test Item Value Reference Range Comments PARTIAL THROMBOPLASTIN TIME (BEAKER) (test 40.1 seconds 22.5-36.0 zpfz=610) PROTHROMBIN TIME/[id number] 07:05:00 Test Item Value Reference Range Comments PROTIME (BEAKER) (test ihwr=831) 14.9 seconds 11.7-14.7 INR (BEAKER) (test tpab=405) 1.2 <=5.9 RECOMMENDED COUMADIN/WARFARIN INR THERAPY RANGESSTANDARD DOSE: 2.0 - 3.0 Includes: PROPHYLAXIS forvenous thrombosis, systemic embolization; TREATMENT for venous thrombosis and/or pulmonary embolus.HIGH RISK: Target INR is 2.5-3.5 for patients with mechanical heart valves.POCT-GLUCOSE [id number] 21:58:00 Test Item Value Reference Range Comments POC-GLUCOSE METER (BEAKER) 202 mg/dL 70-110 TESTED AT [address] (test pyup=6596) [place] [address] POCT-GLUCOSE [id number] 16:56:00 Test Item Value Reference Range Comments POC-GLUCOSE METER (BEAKER) 164 mg/dL 70-110 TESTED AT [address] (test suuz=8435) [place] [address] POCT-GLUCOSE [id number] 12:28:00 Test Item Value Reference Range Comments POC-GLUCOSE METER (BEAKER) 128 mg/dL 70-110 TESTED AT [address] (test mhyk=7639) [place] [address] POCT-GLUCOSE [id number] 09:36:00 Test Item Value Reference Range Comments POC-GLUCOSE METER (BEAKER) 132 mg/dL 70-110 TESTED AT [address] (test rgnl=2535) [place] [address] SIROLIMUS [id number] 09:36:00 Test Item Value Reference Range Comments SIROLIMUS LEVEL BLOOD (BEAKER) (test pjur=046) 8.6 ng/mL 5.0-15.0 SIROLIMUS [id number] 09:36:00 Test Item Value Reference Range Comments SIROLIMUS LEVEL BLOOD (BEAKER) (test ijmy=480) 7.8 ng/mL 5.0-15.0 POCT-GLUCOSE [id number] 09:23:00 Test Item Value Reference Range Comments POC-GLUCOSE METER (BEAKER) 122 mg/dL 70-110 TESTED AT [address] (test cssh=4240) [place] [address] TOXOPLASMA GONDII ANTIBODY, [id number] 08:33:00 Test Item Value Reference Range Comments TOXOPLASMA GONDII IGG (BEAKER) (test bggq=856) Negative [id number] 06:50:00 Test Item Value Reference Range Comments PHOSPHORUS (BEAKER) (test xozt=616) 2.4 mg/dL 2.3-4.7 [id number] 06:50:00 Test Item Value Reference Range Comments MAGNESIUM (BEAKER) (test jsbv=821) 1.5 mg/dL 1.6-2.6 BASIC METABOLIC [id number] 06:50:00 Test Item Value Reference Range Comments SODIUM (BEAKER) (test 140 meq/L 136-145 mdlq=550) POTASSIUM (BEAKER) (test 3.0 meq/L 3.5-5.1 etnz=091) CHLORIDE (BEAKER) (test 114 meq/L 98-107 krfy=329) CO2 (BEAKER) (test 21 meq/L 22-29 dlpw=923) BLOOD UREA NITROGEN 42 mg/dL 7-21 (BEAKER) (test myzf=822) CREATININE (BEAKER) (test 0.73 mg/dL 0.57-1.25 lnog=850) GLUCOSE RANDOM (BEAKER) 109 mg/dL 70-105 (test snmf=787) CALCIUM (BEAKER) (test 8.2 mg/dL 8.4-10.2 uwug=919) EGFR (BEAKER) (test 111 mL/min/1.73 sq m ESTIMATED GFR IS NOT nrsf=5707) ACCURATE CREATININE CLEARANCE IN PREDICTING GLOMERULAR FILTRATION RATE. ESTIMATED GFR IS NOT APPLICABLE FOR DIALYSIS PATIENTS. HEPATIC FUNCTION [id number] 06:50:00 Test Item Value Reference Range Comments TOTAL PROTEIN (BEAKER) (test meig=751) 4.7 gm/dL 6.0-8.3 ALBUMIN (BEAKER) (test ahru=9278) 2.8 g/dL 3.5-5.0 BILIRUBIN TOTAL (BEAKER) (test azpg=361) 1.0 mg/dL 0.2-1.2 BILIRUBIN DIRECT (BEAKER) (test zcgg=993) 0.6 mg/dL 0.1-0.5 ALKALINE PHOSPHATASE (BEAKER) (test raii=773) 161 U/L 40-150 AST (SGOT) (BEAKER) (test sxgx=717) 15 U/L 5-34 ALT (SGPT) (BEAKER) (test zgew=546) 27 U/L 6-55 GAMMA GLUTAMYL TRANSFERASE (GGT)2017-10-07 06:50:00 Test Item Value Reference Range Comments GAMMA GLUTAMYL TRANSFERASE (BEAKER) (test lvio=511) 177 U/L 9-64 [id number] 06:47:00 Test Item Value Reference Range Comments PARTIAL THROMBOPLASTIN TIME (BEAKER) (test 38.8 seconds 22.5-36.0 qvju=473) PROTHROMBIN TIME/[id number] 06:46:00 Test Item Value Reference Range Comments PROTIME (BEAKER) (test ahle=544) 14.8 seconds 11.7-14.7 INR (BEAKER) (test kzek=645) 1.2 <=5.9 RECOMMENDED COUMADIN/WARFARIN INR THERAPY RANGESSTANDARD DOSE: 2.0 - 3.0 Includes: PROPHYLAXIS forvenous thrombosis, systemic embolization; TREATMENT for venous thrombosis and/or pulmonary embolus.HIGH RISK: Target INR is 2.5-3.5 for patients with mechanical heart valves.CBC W/PLT COUNT & AUTO [id number] 06:31:00 Test Item Value Reference Range Comments WHITE BLOOD CELL COUNT (BEAKER) (test gvxs=524) 5.1 K/ L 3.5-10.5 RED BLOOD CELL COUNT (BEAKER) (test jywc=677) 2.45 M/ L 4.63-6.08 HEMOGLOBIN (BEAKER) (test sjjx=273) 7.5 GM/DL 13.7-17.5 HEMATOCRIT (BEAKER) (test liwj=712) 22.8 % 40.1-51.0 MEAN CORPUSCULAR VOLUME (BEAKER) (test wqvq=048) 93.1 fL 79.0-92.2 MEAN CORPUSCULAR HEMOGLOBIN (BEAKER) (test 30.6 pg 25.7-32.2 moei=205) MEAN CORPUSCULAR HEMOGLOBIN CONC (BEAKER) (test 32.9 GM/DL 32.3-36.5 jkso=989) RED CELL DISTRIBUTION WIDTH (BEAKER) (test 16.9 % 11.6-14.4 vtpc=153) PLATELET COUNT (BEAKER) (test svov=490) 37 K/CU MM 150-450 MEAN PLATELET VOLUME (BEAKER) (test sgzx=673) 10.7 fL 9.4-12.4 NUCLEATED RED BLOOD CELLS (BEAKER) (test 0 /100 WBC 0-0 avpp=794) NEUTROPHILS RELATIVE PERCENT (BEAKER) (test 77 % fcml=637) LYMPHOCYTES RELATIVE PERCENT (BEAKER) (test 12 % cphu=945) MONOCYTES RELATIVE PERCENT (BEAKER) (test 7 % mjlq=178) EOSINOPHILS RELATIVE PERCENT (BEAKER) (test 2 % ttam=170) BASOPHILS RELATIVE PERCENT (BEAKER) (test 0 % dysl=627) NEUTROPHILS ABSOLUTE COUNT (BEAKER) (test 3.94 K/ L 1.78-5.38 orhh=997) LYMPHOCYTES ABSOLUTE COUNT (BEAKER) (test 0.59 K/ L 1.32-3.57 xuut=376) MONOCYTES ABSOLUTE COUNT (BEAKER) (test pbbk=491) 0.35 K/ L 0.30-0.82 EOSINOPHILS ABSOLUTE COUNT (BEAKER) (test 0.12 K/ L 0.04-0.54 fntq=158) BASOPHILS ABSOLUTE COUNT (BEAKER) (test pied=996) 0.00 K/ L 0.01-0.08 IMMATURE GRANULOCYTES-RELATIVE PERCENT (BEAKER) 2 % 0-1 (test nysb=3652) POCT-GLUCOSE [id number] 00:26:00 Test Item Value Reference Range Comments POC-GLUCOSE METER (BEAKER) 122 mg/dL 70-110 TESTED AT [address] (test ilev=3629) [place] [address] BLOOD [id number] 18:00:00 Test Item Value Reference Range Comments CULTURE (BEAKER) (test abzs=3717) No growth in 5 days BLOOD [id number] 18:00:00 Test Item Value Reference Range Comments CULTURE (BEAKER) (test ktuh=3688) No growth in 5 days POCT-GLUCOSE [id number] 17:15:00 Test Item Value Reference Range Comments POC-GLUCOSE METER (BEAKER) 192 mg/dL 70-110 TESTED AT [address] (test cbdd=6469) [place] [address] POCT-GLUCOSE [id number] 12:58:00 Test Item Value Reference Range Comments POC-GLUCOSE METER (BEAKER) 190 mg/dL 70-110 TESTED AT [address] (test qkus=2578) [place] [address] SIROLIMUS [id number] 09:49:00 Test Item Value Reference Range Comments SIROLIMUS LEVEL BLOOD (BEAKER) (test yqfl=603) 3.7 ng/mL 5.0-15.0 POCT-GLUCOSE [id number] 08:32:00 Test Item Value Reference Range Comments POC-GLUCOSE METER (BEAKER) 106 mg/dL 70-110 TESTED AT [facility] [address] [facility] [facility] (test ykdz=4269) [facility] [address] [id number] 08:23:00 Test Item Value Reference Range Comments PREALBUMIN (BEAKER) (test sbfq=288) 17 mg/dL 14-45 [id number] 08:10:00 Test Item Value Reference Range Comments PHOSPHORUS (BEAKER) (test lzhf=868) 2.2 mg/dL 2.3-4.7 [id number] 08:10:00 Test Item Value Reference Range Comments MAGNESIUM (BEAKER) (test gqfb=937) 1.8 mg/dL 1.6-2.6 BASIC METABOLIC [id number] 08:10:00 Test Item Value Reference Range Comments SODIUM (BEAKER) (test 146 meq/L 136-145 qszn=933) POTASSIUM (BEAKER) (test 3.2 meq/L 3.5-5.1 xvjq=173) CHLORIDE (BEAKER) (test 119 meq/L 98-107 asdh=377) CO2 (BEAKER) (test 18 meq/L 22-29 mbae=935) BLOOD UREA NITROGEN 51 mg/dL 7-21 (BEAKER) (test ewxd=584) CREATININE (BEAKER) (test 0.85 mg/dL 0.57-1.25 mtkm=409) GLUCOSE RANDOM (BEAKER) 125 mg/dL 70-105 (test oqhz=296) CALCIUM (BEAKER) (test 8.3 mg/dL 8.4-10.2 izta=298) EGFR (BEAKER) (test 93 mL/min/1.73 sq m ESTIMATED GFR IS NOT ojnq=9436) ACCURATE CREATININE CLEARANCE IN PREDICTING GLOMERULAR FILTRATION RATE. ESTIMATED GFR IS NOT APPLICABLE FOR DIALYSIS PATIENTS. HEPATIC FUNCTION [id number] 08:10:00 Test Item Value Reference Range Comments TOTAL PROTEIN (BEAKER) (test vegj=271) 4.6 gm/dL 6.0-8.3 ALBUMIN (BEAKER) (test pnyb=5364) 2.9 g/dL 3.5-5.0 BILIRUBIN TOTAL (BEAKER) (test unqo=912) 1.2 mg/dL 0.2-1.2 BILIRUBIN DIRECT (BEAKER) (test vjll=515) 0.7 mg/dL 0.1-0.5 ALKALINE PHOSPHATASE (BEAKER) (test szme=815) 207 U/L 40-150 AST (SGOT) (BEAKER) (test yysf=671) 18 U/L 5-34 ALT (SGPT) (BEAKER) (test jfmu=922) 37 U/L 6-55 GAMMA GLUTAMYL TRANSFERASE (GGT)2017-10-06 08:10:00 Test Item Value Reference Range Comments GAMMA GLUTAMYL TRANSFERASE (BEAKER) (test oyux=873) 256 U/L 9-64 [id number] 06:48:00 Test Item Value Reference Range Comments FIBRINOGEN LEVEL (BEAKER) (test fylh=745) 384 mg/dl 225-434 [id number] 06:47:00 Test Item Value Reference Range Comments PARTIAL THROMBOPLASTIN TIME (BEAKER) (test 30.9 seconds 22.5-36.0 kelo=639) PROTHROMBIN TIME/[id number] 06:46:00 Test Item Value Reference Range Comments PROTIME (BEAKER) (test bdzl=399) 13.9 seconds 11.7-14.7 INR (BEAKER) (test zjgv=314) 1.1 <=5.9 RECOMMENDED COUMADIN/WARFARIN INR THERAPY RANGESSTANDARD DOSE: 2.0 - 3.0 Includes: PROPHYLAXIS forvenous thrombosis, systemic embolization; TREATMENT for venous thrombosis and/or pulmonary embolus.HIGH RISK: Target INR is 2.5-3.5 for patients with mechanical heart valves.CBC W/PLT COUNT & AUTO [id number] 06:27:00 Test Item Value Reference Range Comments WHITE BLOOD CELL COUNT (BEAKER) (test yzbx=354) 4.3 K/ L 3.5-10.5 RED BLOOD CELL COUNT (BEAKER) (test abmr=476) 2.65 M/ L 4.63-6.08 HEMOGLOBIN (BEAKER) (test qsug=888) 8.0 GM/DL 13.7-17.5 HEMATOCRIT (BEAKER) (test xujz=617) 24.4 % 40.1-51.0 MEAN CORPUSCULAR VOLUME (BEAKER) (test dlsu=180) 92.1 fL 79.0-92.2 MEAN CORPUSCULAR HEMOGLOBIN (BEAKER) (test 30.2 pg 25.7-32.2 kmqi=887) MEAN CORPUSCULAR HEMOGLOBIN CONC (BEAKER) (test 32.8 GM/DL 32.3-36.5 tulh=698) RED CELL DISTRIBUTION WIDTH (BEAKER) (test 16.9 % 11.6-14.4 vtqw=091) PLATELET COUNT (BEAKER) (test terh=200) 32 K/CU MM 150-450 MEAN PLATELET VOLUME (BEAKER) (test ouiy=903) 10.7 fL 9.4-12.4 NUCLEATED RED BLOOD CELLS (BEAKER) (test 0 /100 WBC 0-0 gqli=647) NEUTROPHILS RELATIVE PERCENT (BEAKER) (test 74 % xofs=885) LYMPHOCYTES RELATIVE PERCENT (BEAKER) (test 12 % fusp=537) MONOCYTES RELATIVE PERCENT (BEAKER) (test 6 % zcrn=783) EOSINOPHILS RELATIVE PERCENT (BEAKER) (test 3 % kmox=415) BASOPHILS RELATIVE PERCENT (BEAKER) (test 0 % nccv=166) NEUTROPHILS ABSOLUTE COUNT (BEAKER) (test 3.21 K/ L 1.78-5.38 pqby=239) LYMPHOCYTES ABSOLUTE COUNT (BEAKER) (test 0.52 K/ L 1.32-3.57 iuhb=074) MONOCYTES ABSOLUTE COUNT (BEAKER) (test xopa=727) 0.25 K/ L 0.30-0.82 EOSINOPHILS ABSOLUTE COUNT (BEAKER) (test 0.12 K/ L 0.04-0.54 zhws=676) BASOPHILS ABSOLUTE COUNT (BEAKER) (test bewq=162) 0.01 K/ L 0.01-0.08 IMMATURE GRANULOCYTES-RELATIVE PERCENT (BEAKER) 5 % 0-1 (test ccnq=1823) POCT-GLUCOSE [id number] 01:43:00 Test Item Value Reference Range Comments POC-GLUCOSE METER (BEAKER) 136 mg/dL 70-110 TESTED AT [facility] [address] [facility] (test xbcs=7008) [facility] [address] BLOOD [id number] 18:00:00 Test Item Value Reference Range Comments CULTURE (BEAKER) (test dnsw=5342) No growth in 5 days BLOOD [id number] 18:00:00 Test Item Value Reference Range Comments CULTURE (BEAKER) (test mneo=4986) No growth in 5 days POCT-GLUCOSE [id number] 16:28:00 Test Item Value Reference Range Comments POC-GLUCOSE METER (BEAKER) 196 mg/dL 70-110 TESTED AT [facility] [address] [facility] (test qdwr=6896) [facility] [address] CBC W/PLT COUNT & AUTO [id number] 14:16:00 Test Item Value Reference Range Comments WHITE BLOOD CELL COUNT (BEAKER) (test ppja=723) 4.7 K/ L 3.5-10.5 RED BLOOD CELL COUNT (BEAKER) (test xbjs=351) 2.80 M/ L 4.63-6.08 HEMOGLOBIN (BEAKER) (test cmvv=595) 8.6 GM/DL 13.7-17.5 HEMATOCRIT (BEAKER) (test mrfj=380) 25.6 % 40.1-51.0 MEAN CORPUSCULAR VOLUME (BEAKER) (test mejs=966) 91.4 fL 79.0-92.2 MEAN CORPUSCULAR HEMOGLOBIN (BEAKER) (test 30.7 pg 25.7-32.2 hseb=522) MEAN CORPUSCULAR HEMOGLOBIN CONC (BEAKER) (test 33.6 GM/DL 32.3-36.5 pcld=107) RED CELL DISTRIBUTION WIDTH (BEAKER) (test 16.7 % 11.6-14.4 dnct=095) PLATELET COUNT (BEAKER) (test btsb=321) 25 K/CU MM 150-450 MEAN PLATELET VOLUME (BEAKER) (test rrbd=950) 10.7 fL 9.4-12.4 NUCLEATED RED BLOOD CELLS (BEAKER) (test 0 /100 WBC 0-0 rogf=038) SIROLIMUS [id number] 12:32:00 Test Item Value Reference Range Comments SIROLIMUS LEVEL BLOOD (BEAKER) (test dycy=200) 3.0 ng/mL 5.0-15.0 GAMMA GLUTAMYL TRANSFERASE (GGT)2017-10-05 11:28:00 Test Item Value Reference Range Comments GAMMA GLUTAMYL TRANSFERASE (BEAKER) (test khhd=680) 347 U/L 9-64 EEG AWAKE AND [id number] 11:09:00For STAT EEG- after 5 PM weekdays, weekends and holidays, page the on-call EEG TechReason for exam:->AMS, seizuresDATE OF REPORT: 10/05/2017ACC: [id number]: [id number] time: 08:53Stop time: 09:17ICD-10: R56.9, R41.82CPT Code: 06357 HISTORY: 57 y/o man with a 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 DESCRIPTION OF RECORD: During the maximally alert state a 7-7.5 Hz posterior dominant rhythm was seen thatwas symmetric and reactive to eye opening. Generalized 5-7 Hz theta is further admixed in the background. More anteriorly, low voltage frontocentral beta predominated. Drowsiness was characterized byalpha attenuation and increased frontocentral theta, vertex sharp transients and POSTS. Stage 2 sleep was not reached. HV: Hyperventilation was not performed. . PHOTIC STIMULATION: Flash stimulationwas done from 3-30 Hz; no photic driving was seen; photoparoxysmal responses were absent. EVENTS: The patient had an event characterized clinically by moaning, left leg shaking, drawing his arms up with elbow flexion lasting 3 minutes. There are no associated epileptiform EEG changes. EKG: The EKG lead shows a regular rhythm and rate of 68 bpm. IMPRESSION: Abnormal awake and drowsy EEG 1. Mildslowing of the posterior dominant rhythm 2. Generalized theta range background slowing, reactive 3. Recorded event without EEG changes. There is one event characterized clinically by moaning, left leg shaking, and drawing arms up which is not associated with an epileptiform EEG change. CLINICAL CORRELATION: Background slowing as seen in this record is consistent with a mild degree of encephalopathy. An EEG without epileptiform discharges does not exclude the possibility of epilepsy. If the clinical suspicion of epilepsy remains, consider additional EEG recordings. Noy Jones MDNeurophysiology Fellow Darion Marquez M.D., FACNSProfessor of NeurologyBellflower Medical CenterDirector, [facility] Epile[facility] PROTHROMBIN TIME /[id number] 08:04:00 Test Item Value Reference Range Comments PROTIME (BEAKER) (test dtwi=505) 15.3 seconds 11.7-14.7 INR (BEAKER) (test xmti=938) 1.2 <=5.9 RECOMMENDED COUMADIN/WARFARIN INR THERAPY RANGESSTANDARD DOSE: 2.0 - 3.0 Includes: PROPHYLAXIS forvenous thrombosis, systemic embolization; TREATMENT for venous thrombosis and/or pulmonary embolus.HIGH RISK: Target INR is 2.5-3.5 for patients with mechanical heart valves.[id number] 08:02:00 Test Item Value Reference Range Comments PHOSPHORUS (BEAKER) (test mdpg=738) 2.1 mg/dL 2.3-4.7 [id number] 08:02:00 Test Item Value Reference Range Comments MAGNESIUM (BEAKER) (test zaqv=725) 1.5 mg/dL 1.6-2.6 BASIC METABOLIC [id number] 08:02:00 Test Item Value Reference Range Comments SODIUM (BEAKER) (test 142 meq/L 136-145 pgzo=638) POTASSIUM (BEAKER) (test 3.3 meq/L 3.5-5.1 uxqg=262) CHLORIDE (BEAKER) (test 116 meq/L 98-107 pely=492) CO2 (BEAKER) (test 22 meq/L 22-29 aucw=745) BLOOD UREA NITROGEN 56 mg/dL 7-21 (BEAKER) (test uawx=691) CREATININE (BEAKER) (test 0.90 mg/dL 0.57-1.25 fzcy=052) GLUCOSE RANDOM (BEAKER) 87 mg/dL 70-105 (test mumh=094) CALCIUM (BEAKER) (test 8.5 mg/dL 8.4-10.2 mmmv=624) EGFR (BEAKER) (test 87 mL/min/1.73 sq m ESTIMATED GFR IS NOT czkl=5447) ACCURATE CREATININE CLEARANCE IN PREDICTING GLOMERULAR FILTRATION RATE. ESTIMATED GFR IS NOT APPLICABLE FOR DIALYSIS PATIENTS. HEPATIC FUNCTION [id number] 08:02:00 Test Item Value Reference Range Comments TOTAL PROTEIN (BEAKER) (test zvws=663) 4.6 gm/dL 6.0-8.3 ALBUMIN (BEAKER) (test otih=6185) 2.9 g/dL 3.5-5.0 BILIRUBIN TOTAL (BEAKER) (test kcrj=205) 2.3 mg/dL 0.2-1.2 BILIRUBIN DIRECT (BEAKER) (test qijx=901) 1.5 mg/dL 0.1-0.5 ALKALINE PHOSPHATASE (BEAKER) (test yyzr=913) 237 U/L 40-150 AST (SGOT) (BEAKER) (test gczp=269) 30 U/L 5-34 ALT (SGPT) (BEAKER) (test maof=187) 45 U/L 6-55 [id number] 05:02:00 Test Item Value Reference Range Comments FIBRINOGEN LEVEL (BEAKER) (test njut=684) 356 mg/dl 225-434 [id number] 04:54:00 Test Item Value Reference Range Comments PREALBUMIN (BEAKER) (test xgsa=065) 18 mg/dL 14-45 POCT-GLUCOSE [id number] 23:40:00 Test Item Value Reference Range Comments POC-GLUCOSE METER (BEAKER) 122 mg/dL 70-110 TESTED AT [address] (test plei=5181) [facility] [id number] POCT-GLUCOSE [id number] 15:22:00 Test Item Value Reference Range Comments POC-GLUCOSE METER (BEAKER) 207 mg/dL 70-110 TESTED AT [address] (test esje=0601) [facility] [address] PROTHROMBIN [id number] 09:45:00 Test Item Value Reference Range Comments PROTIME (BEAKER) (test jdos=921) 15.4 seconds 11.7-14.7 INR (BEAKER) (test tjsr=851) 1.2 <=5.9 RECOMMENDED COUMADIN/WARFARIN INR THERAPY RANGESSTANDARD DOSE: 2.0 - 3.0 Includes: PROPHYLAXIS forvenous thrombosis, systemic embolization; TREATMENT for venous thrombosis and/or pulmonary embolus.HIGH RISK: Target INR is 2.5-3.5 for patients with mechanical heart valves.[id number] 09:45:00 Test Item Value Reference Range Comments FIBRINOGEN LEVEL (BEAKER) (test xjtv=693) 328 mg/dl 225-434 [id number] 09:45:00 Test Item Value Reference Range Comments PARTIAL THROMBOPLASTIN TIME (BEAKER) (test 28.6 seconds 22.5-36.0 knrm=069) PLATELET [id number] 09:33:00 Test Item Value Reference Range Comments PLATELET COUNT (BEAKER) (test uhgx=152) 32 K/CU MM 150-450 SIROLIMUS [id number] 09:03:00 Test Item Value Reference Range Comments SIROLIMUS LEVEL BLOOD (BEAKER) (test edrq=769) < ng/mL 5.0-15.0 POCT-GLUCOSE [id number] 06:37:00 Test Item Value Reference Range Comments POC-GLUCOSE METER (BEAKER) 161 mg/dL 70-110 TESTED AT [facility] [address] [facility] (test ubae=9551) [facility] [address] [id number] 06:35:00 Test Item Value Reference Range Comments PHOSPHORUS (BEAKER) (test hjha=927) 2.6 mg/dL 2.3-4.7 [id number] 06:35:00 Test Item Value Reference Range Comments MAGNESIUM (BEAKER) (test vvyg=719) 1.9 mg/dL 1.6-2.6 BASIC METABOLIC [id number] 06:35:00 Test Item Value Reference Range Comments SODIUM (BEAKER) (test 141 meq/L 136-145 cjso=260) POTASSIUM (BEAKER) (test 3.6 meq/L 3.5-5.1 agjp=115) CHLORIDE (BEAKER) (test 113 meq/L 98-107 luky=628) CO2 (BEAKER) (test 19 meq/L 22-29 dcyf=869) BLOOD UREA NITROGEN 70 mg/dL 7-21 (BEAKER) (test vlzn=963) CREATININE (BEAKER) (test 1.55 mg/dL 0.57-1.25 xexr=001) GLUCOSE RANDOM (BEAKER) 115 mg/dL 70-105 (test vhjh=553) CALCIUM (BEAKER) (test 8.8 mg/dL 8.4-10.2 ekao=858) EGFR (BEAKER) (test 47 mL/min/1.73 sq m ESTIMATED GFR IS NOT zsvn=5816) ACCURATE CREATININE CLEARANCE IN PREDICTING GLOMERULAR FILTRATION RATE. ESTIMATED GFR IS NOT APPLICABLE FOR DIALYSIS PATIENTS. HEPATIC FUNCTION [id number] 06:35:00 Test Item Value Reference Range Comments TOTAL PROTEIN (BEAKER) (test oxps=196) 4.9 gm/dL 6.0-8.3 ALBUMIN (BEAKER) (test zuzn=9649) 3.2 g/dL 3.5-5.0 BILIRUBIN TOTAL (BEAKER) (test yqtm=908) 2.2 mg/dL 0.2-1.2 BILIRUBIN DIRECT (BEAKER) (test zdjt=144) 1.4 mg/dL 0.1-0.5 ALKALINE PHOSPHATASE (BEAKER) (test fvge=733) 260 U/L 40-150 AST (SGOT) (BEAKER) (test gppz=343) 37 U/L 5-34 ALT (SGPT) (BEAKER) (test yggs=939) 44 U/L 6-55 CBC W/PLT COUNT & AUTO [id number] 06:00:00 Test Item Value Reference Range Comments WHITE BLOOD CELL COUNT (BEAKER) (test yjwq=051) 5.9 K/ L 3.5-10.5 RED BLOOD CELL COUNT (BEAKER) (test gbtw=426) 3.02 M/ L 4.63-6.08 HEMOGLOBIN (BEAKER) (test thyt=187) 9.1 GM/DL 13.7-17.5 HEMATOCRIT (BEAKER) (test rykp=631) 26.8 % 40.1-51.0 MEAN CORPUSCULAR VOLUME (BEAKER) (test xhmp=964) 88.7 fL 79.0-92.2 MEAN CORPUSCULAR HEMOGLOBIN (BEAKER) (test 30.1 pg 25.7-32.2 juya=793) MEAN CORPUSCULAR HEMOGLOBIN CONC (BEAKER) (test 34.0 GM/DL 32.3-36.5 fwyb=952) RED CELL DISTRIBUTION WIDTH (BEAKER) (test 16.6 % 11.6-14.4 lhxb=695) PLATELET COUNT (BEAKER) (test mrth=321) 29 K/CU MM 150-450 MEAN PLATELET VOLUME (BEAKER) (test nszb=510) 10.6 fL 9.4-12.4 NUCLEATED RED BLOOD CELLS (BEAKER) (test 0 /100 WBC 0-0 bfqj=533) NEUTROPHILS RELATIVE PERCENT (BEAKER) (test 77 % xiqr=465) LYMPHOCYTES RELATIVE PERCENT (BEAKER) (test 7 % jtvl=952) MONOCYTES RELATIVE PERCENT (BEAKER) (test 9 % vhgy=934) EOSINOPHILS RELATIVE PERCENT (BEAKER) (test 4 % yozt=207) BASOPHILS RELATIVE PERCENT (BEAKER) (test 0 % dchv=216) NEUTROPHILS ABSOLUTE COUNT (BEAKER) (test 4.52 K/ L 1.78-5.38 apdk=261) LYMPHOCYTES ABSOLUTE COUNT (BEAKER) (test 0.44 K/ L 1.32-3.57 pxcu=853) MONOCYTES ABSOLUTE COUNT (BEAKER) (test piua=181) 0.52 K/ L 0.30-0.82 EOSINOPHILS ABSOLUTE COUNT (BEAKER) (test 0.24 K/ L 0.04-0.54 wdxy=303) BASOPHILS ABSOLUTE COUNT (BEAKER) (test segi=049) 0.02 K/ L 0.01-0.08 IMMATURE GRANULOCYTES-RELATIVE PERCENT (BEAKER) 3 % 0-1 (test zxll=0313) POCT-GLUCOSE [id number] 18:50:00 Test Item Value Reference Range Comments POC-GLUCOSE METER (BEAKER) 184 mg/dL 70-110 TESTED AT [address] (test qwbj=6085) [place] [address] HEMOGLOBIN AND [id number] 17:54:00 Test Item Value Reference Range Comments HEMOGLOBIN (BEAKER) (test xhzh=333) 9.5 GM/DL 13.7-17.5 HEMATOCRIT (BEAKER) (test uocd=439) 27.4 % 40.1-51.0 URINE [id number] 11:36:00 Test Item Value Reference Range Comments CULTURE (BEAKER) (test qutb=7427) No growth POCT-GLUCOSE [id number] 11:31:00 Test Item Value Reference Range Comments POC-GLUCOSE METER (BEAKER) 137 mg/dL 70-110 TESTED AT [address] (test raua=8488) [place] [address] SIROLIMUS [id number] 10:23:00 Test Item Value Reference Range Comments SIROLIMUS LEVEL BLOOD (BEAKER) (test kwee=099) < ng/mL 5.0-15.0 POCT-GLUCOSE [id number] 06:34:00 Test Item Value Reference Range Comments POC-GLUCOSE METER (BEAKER) 88 mg/dL 70-110 TESTED AT [address] (test bwnv=6770) [facility] [address] POCT-GLUCOSE [id number] 06:34:00 Test Item Value Reference Range Comments POC-GLUCOSE METER (BEAKER) 217 mg/dL 70-110 TESTED AT [address] (test mbby=7299) [facility] [address] BLOOD [id number] 06:00:00 Test Item Value Reference Range Comments CULTURE (BEAKER) (test jach=6299) No growth in 5 days CBC W/PLT COUNT & AUTO [id number] 05:55:00 Test Item Value Reference Range Comments WHITE BLOOD CELL COUNT (BEAKER) (test gqqh=669) 5.9 K/ L 3.5-10.5 RED BLOOD CELL COUNT (BEAKER) (test xzwn=731) 2.63 M/ L 4.63-6.08 HEMOGLOBIN (BEAKER) (test ubfk=785) 8.1 GM/DL 13.7-17.5 HEMATOCRIT (BEAKER) (test kykk=838) 23.1 % 40.1-51.0 MEAN CORPUSCULAR VOLUME (BEAKER) (test xfeo=842) 87.8 fL 79.0-92.2 MEAN CORPUSCULAR HEMOGLOBIN (BEAKER) (test 30.8 pg 25.7-32.2 jpii=086) MEAN CORPUSCULAR HEMOGLOBIN CONC (BEAKER) (test 35.1 GM/DL 32.3-36.5 ekbi=516) RED CELL DISTRIBUTION WIDTH (BEAKER) (test 17.1 % 11.6-14.4 rlbv=806) PLATELET COUNT (BEAKER) (test dkzc=389) 25 K/CU MM 150-450 MEAN PLATELET VOLUME (BEAKER) (test nhrc=264) 11.2 fL 9.4-12.4 NUCLEATED RED BLOOD CELLS (BEAKER) (test 0 /100 WBC 0-0 tyxm=045) NEUTROPHILS RELATIVE PERCENT (BEAKER) (test 85 % fzim=492) LYMPHOCYTES RELATIVE PERCENT (BEAKER) (test 6 % ettm=220) MONOCYTES RELATIVE PERCENT (BEAKER) (test 7 % vfaa=498) EOSINOPHILS RELATIVE PERCENT (BEAKER) (test 1 % acgk=536) BASOPHILS RELATIVE PERCENT (BEAKER) (test 0 % ylgc=326) NEUTROPHILS ABSOLUTE COUNT (BEAKER) (test 5.02 K/ L 1.78-5.38 autk=572) LYMPHOCYTES ABSOLUTE COUNT (BEAKER) (test 0.34 K/ L 1.32-3.57 xmuf=922) MONOCYTES ABSOLUTE COUNT (BEAKER) (test ofgz=353) 0.39 K/ L 0.30-0.82 EOSINOPHILS ABSOLUTE COUNT (BEAKER) (test 0.06 K/ L 0.04-0.54 hbam=812) BASOPHILS ABSOLUTE COUNT (BEAKER) (test tlzi=693) 0.00 K/ L 0.01-0.08 IMMATURE GRANULOCYTES-RELATIVE PERCENT (BEAKER) 2 % 0-1 (test uogy=5716) [id number] 05:35:00 Test Item Value Reference Range Comments MAGNESIUM (BEAKER) (test 2.1 mg/dL 1.6-2.6 Specimen slightly hemolyzed otoa=303) [id number] 05:35:00 Test Item Value Reference Range Comments PHOSPHORUS (BEAKER) (test 4.2 mg/dL 2.3-4.7 Specimen slightly hemolyzed schy=489) BASIC METABOLIC [id number] 05:35:00 Test Item Value Reference Range Comments SODIUM (BEAKER) (test 139 meq/L 136-145 tkkm=309) POTASSIUM (BEAKER) (test 3.7 meq/L 3.5-5.1 Specimen slightly pbqx=790) hemolyzed CHLORIDE (BEAKER) (test 111 meq/L 98-107 xnnb=745) CO2 (BEAKER) (test 19 meq/L 22-29 kuol=622) BLOOD UREA NITROGEN 71 mg/dL 7-21 (BEAKER) (test ehtx=476) CREATININE (BEAKER) (test 1.87 mg/dL 0.57-1.25 Specimen slightly ddqv=841) hemolyzed GLUCOSE RANDOM (BEAKER) 105 mg/dL 70-105 (test rbtm=478) CALCIUM (BEAKER) (test 9.0 mg/dL 8.4-10.2 umjf=910) EGFR (BEAKER) (test 38 mL/min/1.73 sq m ESTIMATED GFR IS NOT guwe=2158) ACCURATE CREATININE CLEARANCE IN PREDICTING GLOMERULAR FILTRATION RATE. ESTIMATED GFR IS NOT APPLICABLE FOR DIALYSIS PATIENTS. HEPATIC FUNCTION [id number] 05:35:00 Test Item Value Reference Range Comments TOTAL PROTEIN (BEAKER) (test 4.9 gm/dL 6.0-8.3 Specimen slightly hemolyzed aewr=155) ALBUMIN (BEAKER) (test 3.3 g/dL 3.5-5.0 Specimen slightly hemolyzed ffqr=3746) BILIRUBIN TOTAL (BEAKER) (test 2.0 mg/dL 0.2-1.2 Specimen slightly hemolyzed svba=829) BILIRUBIN DIRECT (BEAKER) (test 1.1 mg/dL 0.1-0.5 Specimen slightly hemolyzed twhe=673) ALKALINE PHOSPHATASE (BEAKER) 191 U/L 40-150 (test orgo=232) AST (SGOT) (BEAKER) (test 32 U/L 5-34 Specimen slightly hemolyzed toct=424) ALT (SGPT) (BEAKER) (test 50 U/L 6-55 Specimen slightly hemolyzed qgse=006) PROTHROMBIN [id number] 05:10:00 Test Item Value Reference Range Comments PROTIME (BEAKER) (test dkix=872) 19.5 seconds 11.7-14.7 INR (BEAKER) (test cjdn=653) 1.7 <=5.9 RECOMMENDED COUMADIN/WARFARIN INR THERAPY RANGESSTANDARD DOSE: 2.0 - 3.0 Includes: PROPHYLAXIS forvenous thrombosis, systemic embolization; TREATMENT for venous thrombosis and/or pulmonary embolus.HIGH RISK: Target INR is 2.5-3.5 for patients with mechanical heart valves.CRYPTOCOCCAL [id number] 01:44: 00 Test Item Value Reference Range Comments CRYPTOCOCCAL ANTIGEN, SERUM (BEAKER) (test Negative Negative, Interference giqf=2004) RAD, ABDOMEN/KUB, 1 VIEW [id number] 00:45:00Reason for exam:->corpack placementShould this be performed at the bedside?->YesFINAL REPORT Abdomen one view Comparison: None. Reason for exam: corpack placement Findings: There is a feeding tube with tip in the second portion of the duodenum. There is mild gaseous distention of multiple small bowel loops which may represent an ileus. There are surgical skin adela overlying the abdomen. Signed: Cintia Small MDReport Verified Date/Time: 10/03/2017 00:45: 38 Reading Location: [facility] C013T Transitional Reading Room RAD, CHEST, 1 VIEW, NON [id number] 15:16:00Reason for exam:->central line placement Should this be performed at the bedside?->YesFINAL REPORT Chest one view AP 10/02/2017 3:15 PM CLINICAL INDICATION: centralline placement COMPARISON: 10/02/2017 at 0906 IMPRESSION: No pneumothorax is evident status post right internal jugular CVC placement, the tip of which projects over the superior vena cava. Hazy opacityin the right lower lung and hemithorax suggesting combination of small volume pleural fluid and atelectasis. There is subsegmental atelectasis in the left lower lung. Superimposed pneumonia should be excluded clinically. Signed: Alexander Fallonort Verified Date/Time: 15:16:31 ReadingLocation: [facility] C013W Consult Reading Room CT, BRAIN , WITHOUT [id number] 15:09:00[facility] contrast CLINICAL HISTORY: Encephalopathy TECHNIQUE: Contiguous axial images through the head without contrast. This exam was performed according to the departmental dose optimization program which includes automated exposure control, adjustment of the mA and/or kV according to the patient size, and/or use of an iterative reconstruction technique. COMPARISON: 09/01/2017 FINDINGS: There is no CT evidence of acute infarct or intracranial hemorrhage. 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 There is periventricular and subcortical white matter hypodensity which is nonspecific but compatible with chronic microvascular ischemic change. There are atherosclerotic calcifications of the intracranial circulation. There is generalized parenchymal volume loss without hydrocephalus, midline shift, or apparent mass effect. There are no extra-axial fluid collections. The skull is intact. The visualized paranasal sinuses are well-aerated. IMPRESSION: No CT evidence of acute infarct, hemorrhage, or hydrocephalus. Signed: Celestino Robins MDReport Verified Date/Time: 10/02/2017 15:09:11 Reading Location: [facility] B1 C013V Neuro Reading Room EBV VIRAL [id number] 14:24:00 Test Item Value Reference Range Comments EBV VIRAL LOAD - NEGATIVE Negative or below the linear (BEAKER) (test qcls=9356) range of the assay (<500 copies/mL) This assay was performed by real-time PCR for the detection of the Kala-Soliz virus (EBV) gene EBNA-1. The test is composed of (1) DNA extraction from patient specimen, and (2) real-time PCR amplification and detection with EBNA-1- specific primers and probes. A well-conserved region of the EBNA-1 gene is targeted, along with an internal control sequence used to confirm PCR amplification. Asymptomatic carriers and viral genetic variation, among other factors, can affect the accuracy of nucleic acid testing; therefore, results should be interpreted in light of clinical data.This test was developedand its performance characteristics determined by the [facility] Pathology Department, Section of Molecular Pathology. It has not been cleared or approved by the U.S. Food and Drug Administration (FDA), since FDA approval is not required for clinical use of the test. Validation was doneas required by The Clinical Laboratory Improvement Amendments of 1988.CMV PCR, [id number] 14:17:00 Test Item Value Reference Range Comments CMV VIRAL LOAD - NEGATIVE Negative or below the linear (BEAKER) (test aiux=1703) range of the assay (<375 copies/mL) Cytomegalovirus (CMV) infection can cause significant disease in immunosuppressed patients. However,it is common for CMV to manifest as a limited infection which is of no clinical significance in immunosuppressed patients or in healthy individuals.Viral load measurements are helpful to identify clinical CMV infection and to guide the pre-emptive management of antiviral therapy. For treatment of CMVinfection due to reactivation in transplant recipients, a threshold between 4,000 and 5,000 copies/mL is suggested. For treatment of primary CMV infection, a lower threshold can be used.CMV infection may also be monitored using weekly serial measurements. Serial measurements of CMV DNA viral load canbe evaluated by identifying a 10- fold change, as well as assessing the CMV DNA viral load and the clinical context for each patient.The plasma CMV DNA viral load was detected using quantitative polymerase chain reaction and fluorescent monitoring of a specific hybridized probe. Genetic variation and other factors can affect the accuracy of nucleic acid testing. Therefore, the results should be interpreted in light of clinical data. A negative result may not exclude the presence of CMV disease.This test was developed and its performance characteristics determined by the [facility] Pathology Department, Section of Molecular Pathology. It has not been cleared or approved by the U.S. Food and Drug Administration (FDA), since FDA approval is not required for clinical use of the test. Validation was done as required by The Clinical Laboratory Improvement Amendments of 1988.POCT-GLUCOSE [id number] 12:40:00 Test Item Value Reference Range Comments POC-GLUCOSE METER ([facility]) 103 mg/dL 70-110 TESTED AT [address] (test dfdg=5994) [facility] [address] TACROLIMUS [id number] 09:43:00 Test Item Value Reference Range Comments TACROLIMUS BLOOD ([facility]) (test fzok=434) 4.4 ng/mL 10.0-20.0 RAD, CHEST, 1 VIEW, NON [id number] 09:23:00Reason for exam:->Post- opShould this be performed at the bedside?->YesFINAL REPORT Chest one view AP 10/02/2017 9:23 AM CLINICAL INDICATION: Post- opCOMPARISON: 10/01/2017 IMPRESSION: Support hardware is unchanged in position. Cardiomediastinal contours are stable. There is mild pulmonary edema. There is a small volume right pleural effusion with adjacent dependent atelectasis. Superimposed pneumonia should be excluded clinically. Signed: Alexander Fallon Verified Date/Time: 10/02/2017 09:23:30 Reading Location: [facility] Radiology Reading Room POCT-GLUCOSE [id number] 08:15:00 Test Item Value Reference Range Comments POC-GLUCOSE METER (BEAKER) 93 mg/dL 70-110 TESTED AT [address] (test qkuo=7503) [facility] [address] POCT-GLUCOSE [id number] 08:15:00 Test Item Value Reference Range Comments POC-GLUCOSE METER (BEAKER) 81 mg/dL 70-110 TESTED AT [address] (test tgqc=2191) [facility] [address] POCT-GLUCOSE [id number] 08:15:00 Test Item Value Reference Range Comments POC-GLUCOSE METER (BEAKER) 213 mg/dL 70-110 TESTED AT [address] (test pjfo=7044) [facility] [address] POCT-GLUCOSE [id number] 08:15:00 Test Item Value Reference Range Comments POC-GLUCOSE METER (BEAKER) 98 mg/dL 70-110 TESTED AT [address] (test gxda=6736) [facility] [address] POCT-GLUCOSE [id number] 08:15:00 Test Item Value Reference Range Comments POC-GLUCOSE METER (BEAKER) 106 mg/dL 70-110 TESTED AT [address] (test utpp=7240) [facility] [address] HEPATIC FUNCTION [id number] 07:30:00 Test Item Value Reference Range Comments TOTAL PROTEIN (BEAKER) (test pvff=775) 5.1 gm/dL 6.0-8.3 ALBUMIN (BEAKER) (test xilg=9622) 3.5 g/dL 3.5-5.0 BILIRUBIN TOTAL (BEAKER) (test lkro=771) 2.7 mg/dL 0.2-1.2 BILIRUBIN DIRECT (BEAKER) (test adya=690) 2.1 mg/dL 0.1-0.5 ALKALINE PHOSPHATASE (BEAKER) (test tvig=491) 168 U/L 40-150 AST (SGOT) (BEAKER) (test wpzx=456) 84 U/L 5-34 ALT (SGPT) (BEAKER) (test qasb=574) 53 U/L 6-55 Specimen slightly ictericBASIC METABOLIC [id number] 04:21:00 Test Item Value Reference Range Comments SODIUM (BEAKER) (test 137 meq/L 136-145 sgzn=310) POTASSIUM (BEAKER) (test 3.5 meq/L 3.5-5.1 sooi=755) CHLORIDE (BEAKER) (test 108 meq/L 98-107 eula=818) CO2 (BEAKER) (test 18 meq/L 22-29 jlzu=205) BLOOD UREA NITROGEN 74 mg/dL 7-21 (BEAKER) (test izzd=668) CREATININE (BEAKER) (test 2.31 mg/dL 0.57-1.25 upxi=093) GLUCOSE RANDOM (BEAKER) 84 mg/dL 70-105 (test uyap=973) CALCIUM (BEAKER) (test 9.1 mg/dL 8.4-10.2 sdvm=171) EGFR (BEAKER) (test 29 mL/min/1.73 sq m ESTIMATED GFR IS NOT rihc=1117) ACCURATE CREATININE CLEARANCE IN PREDICTING GLOMERULAR FILTRATION RATE. ESTIMATED GFR IS NOT APPLICABLE FOR DIALYSIS PATIENTS. [id number] 04:18:00 Test Item Value Reference Range Comments PHOSPHORUS (BEAKER) (test ubns=962) 5.2 mg/dL 2.3-4.7 [id number] 04:18:00 Test Item Value Reference Range Comments MAGNESIUM (BEAKER) (test rcvz=407) 2.1 mg/dL 1.6-2.6 GAMMA GLUTAMYL TRANSFERASE (GGT)[id number] 04:18:00 Test Item Value Reference Range Comments GAMMA GLUTAMYL TRANSFERASE (BEAKER) (test wsmd=042) 237 U/L 9-64 PROTHROMBIN [id number] 04:14:00 Test Item Value Reference Range Comments PROTIME (BEAKER) (test rnie=295) 27.2 seconds 11.7-14.7 INR (BEAKER) (test frmx=023) 2.5 <=5.9 RECOMMENDED COUMADIN/WARFARIN INR THERAPY RANGESSTANDARD DOSE: 2.0 - 3.0 Includes: PROPHYLAXIS forvenous thrombosis, systemic embolization; TREATMENT for venous thrombosis and/or pulmonary embolus.HIGH RISK: Target INR is 2.5-3.5 for patients with mechanical heart valves.[id number] 04:14:00 Test Item Value Reference Range Comments PROTIME (BEAKER) (test ixym=248) 27.2 seconds 11.7-14.7 INR (BEAKER) (test udtl=944) 2.5 <=5.9 PARTIAL THROMBOPLASTIN TIME (BEAKER) (test 39.6 seconds 22.5-36.0 vogh=612) RECOMMENDED COUMADIN/WARFARIN INR THERAPY RANGESSTANDARD DOSE: 2.0 - 3.0 Includes: PROPHYLAXIS forvenous thrombosis, systemic embolization; TREATMENT for venous thrombosis and/or pulmonary embolus.HIGH RISK: Target INR is 2.5-3.5 for patients with mechanical heart valves.OXYGEN SATURATION, [id number] 04:13:00 Test Item Value Reference Range Comments O2 SATURATION (MEASURED) (BEAKER) (test qcml=8366) 56.9 % CBC W/PLT COUNT & AUTO [id number] 04:10:00 Test Item Value Reference Range Comments WHITE BLOOD CELL COUNT (BEAKER) (test lpsn=579) 6.4 K/ L 3.5-10.5 RED BLOOD CELL COUNT (BEAKER) (test hpgp=318) 2.91 M/ L 4.63-6.08 HEMOGLOBIN (BEAKER) (test udcx=585) 9.0 GM/DL 13.7-17.5 HEMATOCRIT (BEAKER) (test mdqi=133) 25.6 % 40.1-51.0 MEAN CORPUSCULAR VOLUME (BEAKER) (test xsls=821) 88.0 fL 79.0-92.2 MEAN CORPUSCULAR HEMOGLOBIN (BEAKER) (test 30.9 pg 25.7-32.2 dmdz=516) MEAN CORPUSCULAR HEMOGLOBIN CONC (BEAKER) (test 35.2 GM/DL 32.3-36.5 vjmp=097) RED CELL DISTRIBUTION WIDTH (BEAKER) (test 17.3 % 11.6-14.4 xrmv=371) PLATELET COUNT (BEAKER) (test zgsw=250) 20 K/CU MM 150-450 MEAN PLATELET VOLUME (BEAKER) (test ozrn=553) 9.6 fL 9.4-12.4 NUCLEATED RED BLOOD CELLS (BEAKER) (test 0 /100 WBC 0-0 bhkw=647) NEUTROPHILS RELATIVE PERCENT (BEAKER) (test 83 % ftya=228) LYMPHOCYTES RELATIVE PERCENT (BEAKER) (test 7 % skfe=511) MONOCYTES RELATIVE PERCENT (BEAKER) (test 7 % nlys=684) EOSINOPHILS RELATIVE PERCENT (BEAKER) (test 1 % eeuk=533) BASOPHILS RELATIVE PERCENT (BEAKER) (test 0 % jxfq=938) NEUTROPHILS ABSOLUTE COUNT (BEAKER) (test 5.31 K/ L 1.78-5.38 lqwz=059) LYMPHOCYTES ABSOLUTE COUNT (BEAKER) (test 0.47 K/ L 1.32-3.57 ibvk=958) MONOCYTES ABSOLUTE COUNT (BEAKER) (test dydi=310) 0.46 K/ L 0.30-0.82 EOSINOPHILS ABSOLUTE COUNT (BEAKER) (test 0.06 K/ L 0.04-0.54 stnb=923) BASOPHILS ABSOLUTE COUNT (BEAKER) (test jtdj=288) 0.00 K/ L 0.01-0.08 IMMATURE GRANULOCYTES-RELATIVE PERCENT (BEAKER) 2 % 0-1 (test nsnb=3946) HEPATITIS PANEL, [id number] 19:26:00 Test Item Value Reference Range Comments HEPATITIS A IGM ANTIBODY (BEAKER) (test Nonreactive Nonreactive oesi=188) HEPATITIS B CORE IGM ANTIBODY (BEAKER) (test Nonreactive Nonreactive dpva=772) HEPATITIS C ANTIBODY (BEAKER) (test trau=915) Nonreactive Nonreactive HEPATITIS B SURFACE ANTIGEN (2) (BEAKER) (test Nonreactive Nonreactive lsri=7189) U/S, ABDOMINAL, [id number] 13:15:00Abdomen limited area? Add comment if clarification is needed.->LiverReason for exam:->AMS s/p liver transplantShould this be performed at the bedside?->YesFINAL REPORT TECHNIQUE: Grayscale ultrasound of the right abdomen. INDICATION : 57-year-old man with altered mental status after recent liver transplant. COMPARISON: None. FINDINGS: MIDLINE VASCULATURE: The visualized inferior vena cava and abdominal aorta are unremarkable. Portal vein is patent and measures 1.1 cm in diameter. LIVER: Recent orthotopic liver transplantation. The transplanted liver is normal in size and echogenicity. Smooth liver contour. No focal lesions. BILIARY:Gallbladder: Recent cholecystectomy.Common bile duct measures 0.6 cm, within normal limits. No intrahepatic biliary ductal dilatation. PANCREAS: Visualized portions of the pancreas are unremarkable.PERITONEUM: Trace ascites. RIGHT KIDNEY: Normal in size. No hydronephrosis. No sonographically evident solid mass lesion. OTHER FINDINGS: Right pleural effusion. IMPRESSION:Unremarkable appearance of the recently transplanted liver. Portal vein is patent. Trace ascites. Signed: Nohemy Lewis MDReport Verified Date/Time: 10/01/2017 13:15:28 Reading Location: [facility] P006J Ultrasound Reading Room URINALYSIS W/ REFLEX URINE [id number] 12:09:00 Test Item Value Reference Range Comments COLOR (BEAKER) (test zemh=250) Yellow CLARITY (BEAKER) (test krss=482) Cloudy SPECIFIC GRAVITY UA (BEAKER) (test hycn=082) 1.013 1.001-1.035 PH UA (BEAKER) (test lajp=064) 5.5 5.0-8.0 PROTEIN UA (BEAKER) (test pxui=184) 50 mg/dL Negative GLUCOSE UA (BEAKER) (test kcmo=316) Negative Negative KETONES UA (BEAKER) (test tmnh=490) Negative Negative BILIRUBIN UA (BEAKER) (test jjod=553) Negative Negative BLOOD UA (BEAKER) (test sfsf=337) Moderate Negative NITRITE UA (BEAKER) (test zzzk=922) Negative Negative LEUKOCYTE ESTERASE UA (BEAKER) (test gfut=300) Negative Negative UROBILINOGEN UA (BEAKER) (test cyjk=955) 0.2 mg/dL 0.2-1.0 RBC UA (BEAKER) (test djgv=510) 63 /HPF WBC UA (BEAKER) (test krvw=440) 6 /HPF MUCUS (BEAKER) (test wvub=8909) Rare GRANULAR CASTS (BEAKER) (test wjjl=706) 40 /LPF SOURCE(BEAKER) (test ljad=4867) RAD, CHEST, 1 VIEW, NON [id number] 09:53:00Reason for exam:->ams s/p liver transplantShould this be performed at the bedside?->YesFINAL REPORT Chest one view AP 10/01/2017 9:52 AM CLINICAL INDICATION: ams s/pliver transplant COMPARISON: 09/28/2017 IMPRESSION: Cardiomediastinal contours are stable. There is mild pulmonary edema. Hazy bibasilar opacities suggesting combination of trace pleural fluid and atelectasis. A right IJ CVC is present. Signed: Alexander Fallon MDReport Verified Date/Time: 10/01/2017 09: 53:04 Reading Location: [facility] Radiology Reading Room TACROLIMUS [id number] 09:42:00 Test Item Value Reference Range Comments TACROLIMUS BLOOD (BEAKER) (test jxgu=193) 3.1 ng/mL 10.0-20.0 HEPATIC FUNCTION [id number] 06:36:00 Test Item Value Reference Range Comments TOTAL PROTEIN (BEAKER) (test cowf=879) 5.6 gm/dL 6.0-8.3 ALBUMIN (BEAKER) (test sedv=7869) 4.1 g/dL 3.5-5.0 BILIRUBIN TOTAL (BEAKER) (test vgfg=163) 2.8 mg/dL 0.2-1.2 BILIRUBIN DIRECT (BEAKER) (test sljg=912) 1.9 mg/dL 0.1-0.5 ALKALINE PHOSPHATASE (BEAKER) (test vgdx=216) 123 U/L 40-150 AST (SGOT) (BEAKER) (test tadh=772) 115 U/L 5-34 ALT (SGPT) (BEAKER) (test lpob=403) 61 U/L 6-55 Specimen slightly [id number] 05:09:00 Test Item Value Reference Range Comments PHOSPHORUS (BEAKER) (test wpwd=710) 6.3 mg/dL 2.3-4.7 [id number] 05:09:00 Test Item Value Reference Range Comments MAGNESIUM (BEAKER) (test upvs=423) 2.4 mg/dL 1.6-2.6 BASIC METABOLIC [id number] 05:09:00 Test Item Value Reference Range Comments SODIUM (BEAKER) (test 134 meq/L 136-145 xlyw=994) POTASSIUM (BEAKER) (test 4.0 meq/L 3.5-5.1 cure=606) CHLORIDE (BEAKER) (test 105 meq/L 98-107 jnfe=873) CO2 (BEAKER) (test 16 meq/L 22-29 dsak=428) BLOOD UREA NITROGEN 67 mg/dL 7-21 (BEAKER) (test cbmq=055) CREATININE (BEAKER) (test 2.42 mg/dL 0.57-1.25 cblg=818) GLUCOSE RANDOM (BEAKER) 106 mg/dL 70-105 (test oyus=948) CALCIUM (BEAKER) (test 9.2 mg/dL 8.4-10.2 ykcm=682) EGFR (BEAKER) (test 28 mL/min/1.73 sq m ESTIMATED GFR IS NOT rrbe=7045) ACCURATE CREATININE CLEARANCE IN PREDICTING GLOMERULAR FILTRATION RATE. ESTIMATED GFR IS NOT APPLICABLE FOR DIALYSIS PATIENTS. CALCIUM, [id number] 04:50:00 Test Item Value Reference Range Comments CALCIUM IONIZED (BEAKER) (test azfp=138) 1.16 mmol/L 1.12-1.27 PH, BLOOD (BEAKER) (test xgqq=5828) 7.40 [id number] 04:47:00 Test Item Value Reference Range Comments PROTIME (BEAKER) (test raqw=585) 21.1 seconds 11.7-14.7 INR (BEAKER) (test jbwn=100) 1.8 <=5.9 PARTIAL THROMBOPLASTIN TIME (BEAKER) (test 25.1 seconds 22.5-36.0 yzse=739) RECOMMENDED COUMADIN/WARFARIN INR THERAPY RANGESSTANDARD DOSE: 2.0 - 3.0 Includes: PROPHYLAXIS forvenous thrombosis, systemic embolization; TREATMENT for venous thrombosis and/or pulmonary embolus.HIGH RISK: Target INR is 2.5-3.5 for patients with mechanical heart valves.CBC W/PLT COUNT & AUTO [id number] 04:41:00 Test Item Value Reference Range Comments WHITE BLOOD CELL COUNT (BEAKER) (test kwng=771) 6.2 K/ L 3.5-10.5 RED BLOOD CELL COUNT (BEAKER) (test eeli=421) 2.96 M/ L 4.63-6.08 HEMOGLOBIN (BEAKER) (test lvkb=746) 9.0 GM/DL 13.7-17.5 HEMATOCRIT (BEAKER) (test spqg=140) 25.8 % 40.1-51.0 MEAN CORPUSCULAR VOLUME (BEAKER) (test ykes=834) 87.2 fL 79.0-92.2 MEAN CORPUSCULAR HEMOGLOBIN (BEAKER) (test 30.4 pg 25.7-32.2 feac=973) MEAN CORPUSCULAR HEMOGLOBIN CONC (BEAKER) (test 34.9 GM/DL 32.3-36.5 kwez=178) RED CELL DISTRIBUTION WIDTH (BEAKER) (test 17.8 % 11.6-14.4 bafw=808) PLATELET COUNT (BEAKER) (test kily=214) 18 K/CU MM 150-450 MEAN PLATELET VOLUME (BEAKER) (test yaoe=150) 9.7 fL 9.4-12.4 NUCLEATED RED BLOOD CELLS (BEAKER) (test 0 /100 WBC 0-0 gszb=494) NEUTROPHILS RELATIVE PERCENT (BEAKER) (test 84 % anrs=107) LYMPHOCYTES RELATIVE PERCENT (BEAKER) (test 6 % even=555) MONOCYTES RELATIVE PERCENT (BEAKER) (test 8 % aqdt=200) EOSINOPHILS RELATIVE PERCENT (BEAKER) (test 0 % zrmj=793) BASOPHILS RELATIVE PERCENT (BEAKER) (test 0 % gfuz=324) NEUTROPHILS ABSOLUTE COUNT (BEAKER) (test 5.21 K/ L 1.78-5.38 rcmn=866) LYMPHOCYTES ABSOLUTE COUNT (BEAKER) (test 0.39 K/ L 1.32-3.57 wsnn=039) MONOCYTES ABSOLUTE COUNT (BEAKER) (test gfbu=274) 0.48 K/ L 0.30-0.82 EOSINOPHILS ABSOLUTE COUNT (BEAKER) (test 0.01 K/ L 0.04-0.54 odyw=841) BASOPHILS ABSOLUTE COUNT (BEAKER) (test nhym=641) 0.00 K/ L 0.01-0.08 IMMATURE GRANULOCYTES-RELATIVE PERCENT (BEAKER) 2 % 0-1 (test nedo=4842) POCT-GLUCOSE [id number] 01:04:00 Test Item Value Reference Range Comments POC-GLUCOSE METER (BEAKER) 135 mg/dL 70-110 TESTED AT [address] (test vynu=8722) [facility] [address] POCT-GLUCOSE [id number] 01:04:00 Test Item Value Reference Range Comments POC-GLUCOSE METER (BEAKER) 133 mg/dL 70-110 TESTED AT [address] (test nnyy=6385) [facility] [address] POCT-GLUCOSE [id number] 01:04:00 Test Item Value Reference Range Comments POC-GLUCOSE METER (BEAKER) 155 mg/dL 70-110 TESTED AT [address] (test xdlm=1024) [facility] [address] BODY FLUID CULTURE + GRAM [id number] 16:23:00 Test Item Value Reference Range Comments CULTURE (BEAKER) (test oegt=4578) No growth GRAM STAIN RESULT (BEAKER) (test <1+ WBCs mtgg=9287) GRAM STAIN RESULT (BEAKER) (test No organisms seen khwt=38526) RAPID DRUG SCREEN, [id number] 15:56:00 Test Item Value Reference Range Comments BARBITURATE URINE (BEAKER) (test sovn=121) Negative Negative BENZODIAZEPINE SCREEN URINE (BEAKER) (test Positive Negative fpxt=464) COCAINE (METAB.) SCREEN (BEAKER) (test pinu=0755) Negative Negative METHADONE SCREEN (BEAKER) (test tbxl=2194) Negative Negative OPIATE SCREEN URINE (BEAKER) (test miyt=794) Negative Negative CANNABINOID SCREEN URINE (BEAKER) (test ipav=621) Negative Negative AMPH/METHAMPH SCREEN (BEAKER) (test kkne=0740) Negative Negative PHENCYCLIDINE SCREEN URINE (BEAKER) (test nrmq=883) Negative Negative OXYCODONE SCREEN URINE (BEAKER) (test vind=5793) Negative Negative DRUG CUTOFF CONC.Cocaine 300 ng/mL Cannabinoid 50 ng/mL Benzodiazepine 200 ng/mLBarbiturate 200 ng/ mLPhencyclidine 25 ng/mLOpiate 300 ng/mLMethadone 300 ng/mLAmphetamine/ 1000 ng/mL MethamphetamineOxycodone 300 ng/mLThis assay provides an unconfirmed qualitative test result for the clinical management of patients in emergency situations. Chain of custody not maintained. Some tduo-lkf-upkwwgz medications, as well as adulterants, may cause inaccurate results. Clinical correlation should be applied. A more comprehensive drug screen or confirmation of a detected drug may be performed upon request.POCT-GLUCOSE [id number] 15:53:00 Test Item Value Reference Range Comments POC-GLUCOSE METER (BEAKER) 151 mg/dL 70-110 TESTED AT [place] [id number] [facility] (test imgm=1279) [facility] [address] POCT-GLUCOSE [id number] 15:53:00 Test Item Value Reference Range Comments POC-GLUCOSE METER (BEAKER) 130 mg/dL 70-110 TESTED AT [facility] [address] (test hmnl=6747) [facility] [address] BLOOD GAS, [id number] 15:50:00 Test Item Value Reference Range Comments PH ARTERIAL (BEAKER) (test qsjy=686) 7.41 7.35-7.45 PCO2 ARTERIAL (BEAKER) (test kwko=899) 32 mmHg 35-45 PO2 ARTERIAL (BEAKER) (test qppo=006) 65 mmHg 80-90 O2 SATURATION ARTERIAL (BEAKER) (test pldo=766) 93.7 % 96.0-97.0 HCO3 ARTERIAL (BEAKER) (test wvgo=367) 20 mmol/L 21-29 BASE EXCESS ARTERIAL (BEAKER) (test zcac=117) -3.9 mmol/L -2.0-3.0 PATIENT TEMPERATURE (BEAKER) (test sgib=0971) 36.7 C FIO2 (BEAKER) (test iplx=1077) 60.0 % URINALYSIS W/ REFLEX URINE [id number] 15:49:00 Test Item Value Reference Range Comments COLOR (BEAKER) (test ltay=945) Red CLARITY (BEAKER) (test htom=171) Cloudy SPECIFIC GRAVITY UA (BEAKER) (test igap=188) 1.014 1.001-1.035 PH UA (BEAKER) (test mpjw=709) 5.5 5.0-8.0 PROTEIN UA (BEAKER) (test bdml=622) 100 mg/dL Negative GLUCOSE UA (BEAKER) (test qjlb=404) Negative Negative KETONES UA (BEAKER) (test eoen=850) Negative Negative BILIRUBIN UA (BEAKER) (test slrt=818) Negative Negative BLOOD UA (BEAKER) (test zuis=760) Large Negative NITRITE UA (BEAKER) (test lpny=290) Negative Negative LEUKOCYTE ESTERASE UA (BEAKER) (test mvyx=655) Small Negative UROBILINOGEN UA (BEAKER) (test zwjz=480) 0.2 mg/dL 0.2-1.0 RBC UA (BEAKER) (test iojt=617) > /HPF WBC UA (BEAKER) (test acdb=091) > /HPF MUCUS (BEAKER) (test uoic=5051) Few SOURCE(BESHAILA) (test pvge=2568) HEMOGLOBIN AND [id number] 11:22:00 Test Item Value Reference Range Comments HEMOGLOBIN (BEAKER) (test pvsp=870) 9.1 GM/DL 13.7-17.5 HEMATOCRIT (BEAKER) (test nksk=278) 26.9 % 40.1-51.0 After transfusionTISSUE [id number] 11:07:00Surgical Pathology Report Case: [id number] Authorizing Provider: Yousuf Hogan MD Collected: 09/28/2017 0859 Ordering Location: [facility] Received: 1107 PERIOPERATIVE SERVICES Pathologist: Eleno Dawn MD Specimens: A) - Liver, [place] Liver B) - Gallbladder, Donor Gallbladder A. CADDO LIVER, EXPLANT- CIRRHOSIS- NEGATIVE CYSTIC DUCT, HEPATIC ARTERY AND PORTAL VEIN MARGINS- GALLBLADDERCHRONIC CHOLECYSTITIS CHOLELITHIASIS CYSTIC DUCT, NO DIAGNOSTIC ALTERATIONB. GALLBLADDER, CHOLECYSTECTOMY- CHRONIC CHOLECYSTITIS- CYSTIC DUCT, NO DIAGNOSTIC ALTERATION Signing Pathologist Direct Phone Line: [phone] signed by Eleno Dawn MD on 09/30/2017 at11:07 [id number] x 4Alcoholic cirrhosis of liver with ascitesA. [place] liver; B. Donor gallbladderSpecimen A: Received fresh labeled "liver", description "[place] liver" is an 885 gm, 19.5 x 12.5 x 6.0 cm liver with attached 8.3 x 5.0 x 1.0 cm intact distended gallbladder. The capsular surface of the liver is purple-alfonso to hammonds-white, dusky, focally ragged and nodular. The liver is seriallysectioned to reveal a white-alfonso to hammonds-white, homogeneous, dense, nodular cut surface throughout. No discrete masses are identified. The serosal surface of the gallbladder is purple -alfonso and smooth. The lumen contains yellow-green to red mucoid bile and multiple irregular black calculi ranging in sizefrom 0.2 to 0.3 cm in greatest dimension. The mucosal surface is yellow-green to red, velvety and glistening. The wall measures up to 0.2 cm in maximum thickness. Section code: A1, parallel common bile duct, hepatic artery and portal vein resection margins; A2 , segment 1; A3, segment 2; A4, segment 3; A5, segment 4A; A6, segment 4B; A7, segment 5; A8, segment 6; A9, segment 7; A10, segment 8; A11, parallel cystic duct resection margin and one bisected cystic duct lymph node; A12, contact representative section of gallbladder. Specimen B: Received fresh labeled "gallbladder", description "donor gallbladder" is a 7.0 x 3.0 x 2.0 cm focally disrupted gallbladder. The serosal surface is purple-alfonso and exhibits cautery artifact on the hepatic surface. The lumen contains dark red mucoid bile and clotted blood. No calculi are observed. The mucosal surface is dark red, velvety and glistening. The wall measuresup to 0.2 cm in maximum thickness. Section code: B1, parallel cystic duct resection margin; B2, contact representative section of gallbladder. DB/pl A. Sections show nodular cirrhosis with hepatocyte ballooning. The fibrous bands show chronic inflammation as well as increased bile ducts and bile focally within the ducts. The common bile duct, hepatic artery and portal vein resection margins are negative. Trichrome and reticulin stains highlight thick bands of fibrosis. The iron stain shows an increase iron. PAS with diastase stain is negative for ybfxd-5-jnkncazgryf globules. The gallbladder shows an unremarkable cystic duct. The gallbladder walll has a thickened muscular layer with unremarkable mucosa. No malignancy is detected. The following special studies were performed on this case and the interpretation is incorporated in the diagnostic report above:PAS-D Negative for ctyud-9-swaobtblzge globulesTrichrome Highlights thick bands of fibrosisReticulin Highlights thick bands of fibrosisIron Increased ironTACROLIMUS [id number] 09:01:00 Test Item Value Reference Range Comments TACROLIMUS BLOOD (BEAKER) (test eqib=926) < ng/mL 10.0-20.0 BASIC METABOLIC [id number] 05:36:00 Test Item Value Reference Range Comments SODIUM (BEAKER) (test 132 meq/L 136-145 nzcr=937) POTASSIUM (BEAKER) (test 4.4 meq/L 3.5-5.1 huhd=656) CHLORIDE (BEAKER) (test 102 meq/L 98-107 amag=713) CO2 (BEAKER) (test 20 meq/L 22-29 dlmo=283) BLOOD UREA NITROGEN 56 mg/dL 7-21 (BEAKER) (test khpn=100) CREATININE (BEAKER) (test 2.33 mg/dL 0.57-1.25 jyiy=087) GLUCOSE RANDOM (BEAKER) 129 mg/dL 70-105 (test wyhc=988) CALCIUM (BEAKER) (test 8.9 mg/dL 8.4-10.2 uukx=923) EGFR (BEAKER) (test 29 mL/min/1.73 sq m ESTIMATED GFR IS NOT szlb=6749) ACCURATE CREATININE CLEARANCE IN PREDICTING GLOMERULAR FILTRATION RATE. ESTIMATED GFR IS NOT APPLICABLE FOR DIALYSIS PATIENTS. [id number] 05:30:00 Test Item Value Reference Range Comments PHOSPHORUS (BEAKER) (test dzaz=122) 6.8 mg/dL 2.3-4.7 [id number] 05:30:00 Test Item Value Reference Range Comments MAGNESIUM (BEAKER) (test jbcl=249) 2.3 mg/dL 1.6-2.6 HEPATIC FUNCTION [id number] 05:30:00 Test Item Value Reference Range Comments TOTAL PROTEIN (BEAKER) (test ihge=962) 5.1 gm/dL 6.0-8.3 ALBUMIN (BEAKER) (test mdra=5818) 3.7 g/dL 3.5-5.0 BILIRUBIN TOTAL (BEAKER) (test nyrx=841) 1.5 mg/dL 0.2-1.2 BILIRUBIN DIRECT (BEAKER) (test wlhj=514) 1.1 mg/dL 0.1-0.5 ALKALINE PHOSPHATASE (BEAKER) (test txdj=538) 77 U/L 40-150 AST (SGOT) (BEAKER) (test hhpm=178) 160 U/L 5-34 ALT (SGPT) (BEAKER) (test ejui=267) 127 U/L 6-55 [id number] 05:27:00 Test Item Value Reference Range Comments PARTIAL THROMBOPLASTIN TIME (BEAKER) (test 34.1 seconds 22.5-36.0 dirk=211) PROTHROMBIN [id number] 05:26:00 Test Item Value Reference Range Comments PROTIME (BEAKER) (test uzzo=363) 19.0 seconds 11.7-14.7 INR (BEAKER) (test nocc=417) 1.6 <=5.9 RECOMMENDED COUMADIN/WARFARIN INR THERAPY RANGESSTANDARD DOSE: 2.0 - 3.0 Includes: PROPHYLAXIS forvenous thrombosis, systemic embolization; TREATMENT for venous thrombosis and/or pulmonary embolus.HIGH RISK: Target INR is 2.5-3.5 for patients with mechanical heart valves.CBC W/PLT COUNT & AUTO [id number] 05:16:00 Test Item Value Reference Range Comments WHITE BLOOD CELL COUNT (BEAKER) (test qtxf=901) 5.5 K/ L 3.5-10.5 RED BLOOD CELL COUNT (BEAKER) (test imgl=051) 2.25 M/ L 4.63-6.08 HEMOGLOBIN (BEAKER) (test glna=355) 6.9 GM/DL 13.7-17.5 HEMATOCRIT (BEAKER) (test bpnn=019) 20.2 % 40.1-51.0 MEAN CORPUSCULAR VOLUME (BEAKER) (test jbam=516) 89.8 fL 79.0-92.2 MEAN CORPUSCULAR HEMOGLOBIN (BEAKER) (test 30.7 pg 25.7-32.2 nmvt=520) MEAN CORPUSCULAR HEMOGLOBIN CONC (BEAKER) (test 34.2 GM/DL 32.3-36.5 llop=965) RED CELL DISTRIBUTION WIDTH (BEAKER) (test 18.8 % 11.6-14.4 xhfi=927) PLATELET COUNT (BEAKER) (test mkkr=268) 20 K/CU MM 150-450 MEAN PLATELET VOLUME (BEAKER) (test kfyr=424) 10.2 fL 9.4-12.4 NUCLEATED RED BLOOD CELLS (BEAKER) (test 0 /100 WBC 0-0 cuwd=843) NEUTROPHILS RELATIVE PERCENT (BEAKER) (test 82 % crhy=956) LYMPHOCYTES RELATIVE PERCENT (BEAKER) (test 7 % wuhv=578) MONOCYTES RELATIVE PERCENT (BEAKER) (test 9 % zszf=021) EOSINOPHILS RELATIVE PERCENT (BEAKER) (test 0 % oads=178) BASOPHILS RELATIVE PERCENT (BEAKER) (test 0 % ttxo=851) NEUTROPHILS ABSOLUTE COUNT (BEAKER) (test 4.48 K/ L 1.78-5.38 ajmw=585) LYMPHOCYTES ABSOLUTE COUNT (BEAKER) (test 0.39 K/ L 1.32-3.57 bdlb=768) MONOCYTES ABSOLUTE COUNT (BEAKER) (test rwmq=120) 0.48 K/ L 0.30-0.82 EOSINOPHILS ABSOLUTE COUNT (BEAKER) (test 0.01 K/ L 0.04-0.54 tmde=667) BASOPHILS ABSOLUTE COUNT (BEAKER) (test fglp=213) 0.01 K/ L 0.01-0.08 IMMATURE GRANULOCYTES-RELATIVE PERCENT (BEAKER) 2 % 0-1 (test moad=3491) POCT-GLUCOSE [id number] 01:06:00 Test Item Value Reference Range Comments POC-GLUCOSE METER (BEAKER) 153 mg/dL 70-110 TESTED AT [facility] [address] [facility] (test yltu=7316) [facility] [address] [id number] 18:22:00 Test Item Value Reference Range Comments POTASSIUM (BEAKER) (test ojin=759) 4.5 meq/L 3.5-5.1 [id number] 18:22:00 Test Item Value Reference Range Comments MAGNESIUM (BEAKER) (test cztw=039) 2.3 mg/dL 1.6-2.6 [id number] 18:22:00 Test Item Value Reference Range Comments GLUCOSE RANDOM (BEAKER) (test jqyz=761) 122 mg/dL 70-105 HEMOGLOBIN AND [id number] 17:54:00 Test Item Value Reference Range Comments HEMOGLOBIN (BEAKER) (test uohw=075) 8.6 GM/DL 13.7-17.5 HEMATOCRIT (BEAKER) (test vxsa=804) 25.4 % 40.1-51.0 BASIC METABOLIC [id number] 17:06:00 Test Item Value Reference Range Comments SODIUM (BEAKER) (test 134 meq/L 136-145 urdi=861) POTASSIUM (BEAKER) (test 4.5 meq/L 3.5-5.1 xiir=579) CHLORIDE (BEAKER) (test 104 meq/L 98-107 qlqn=346) CO2 (BEAKER) (test 20 meq/L 22-29 lmxv=693) BLOOD UREA NITROGEN 47 mg/dL 7-21 (BEAKER) (test nitf=527) CREATININE (BEAKER) (test 2.14 mg/dL 0.57-1.25 itsm=978) GLUCOSE RANDOM (BEAKER) 110 mg/dL 70-105 (test hxfj=300) CALCIUM (BEAKER) (test 8.9 mg/dL 8.4-10.2 mgpt=157) EGFR (BEAKER) (test 32 mL/min/1.73 sq m ESTIMATED GFR IS NOT wgaj=6622) ACCURATE CREATININE CLEARANCE IN PREDICTING GLOMERULAR FILTRATION RATE. ESTIMATED GFR IS NOT APPLICABLE FOR DIALYSIS PATIENTS. POCT-GLUCOSE [id number] 13:38:00 Test Item Value Reference Range Comments POC-GLUCOSE METER (BEAKER) 150 mg/dL 70-110 TESTED AT [address] (test dyka=9772) [place] [address] POCT-GLUCOSE [id number] 13:38:00 Test Item Value Reference Range Comments POC-GLUCOSE METER (BEAKER) 167 mg/dL 70-110 TESTED AT [address] (test lrow=5088) [place] [address] [id number] 09:21:00 Test Item Value Reference Range Comments PARTIAL THROMBOPLASTIN TIME (BEAKER) (test 40.4 seconds 22.5-36.0 kzxd=335) PROTHROMBIN TIME/[id number] 09:20:00 Test Item Value Reference Range Comments PROTIME (BEAKER) (test smuc=285) 18.5 seconds 11.7-14.7 INR (BEAKER) (test ffua=130) 1.5 <=5.9 RECOMMENDED COUMADIN/WARFARIN INR THERAPY RANGESSTANDARD DOSE: 2.0 - 3.0 Includes: PROPHYLAXIS forvenous thrombosis, systemic embolization; TREATMENT for venous thrombosis and/or pulmonary embolus.HIGH RISK: Target INR is 2.5-3.5 for patients with mechanical heart valves.POCT-GLUCOSE [id number] 08:59:00 Test Item Value Reference Range Comments POC-GLUCOSE METER (BEAKER) 130 mg/dL 70-110 TESTED AT [address] (test tfle=8477) [place] [address] CBC W/PLT COUNT & AUTO [id number] 08:32:00 Test Item Value Reference Range Comments WHITE BLOOD CELL COUNT (BEAKER) (test jnnh=075) 6.4 K/ L 3.5-10.5 RED BLOOD CELL COUNT (BEAKER) (test fkgx=982) 2.90 M/ L 4.63-6.08 HEMOGLOBIN (BEAKER) (test ydsu=856) 8.8 GM/DL 13.7-17.5 HEMATOCRIT (BEAKER) (test ujyn=643) 24.8 % 40.1-51.0 MEAN CORPUSCULAR VOLUME (BEAKER) (test vnky=795) 85.5 fL 79.0-92.2 MEAN CORPUSCULAR HEMOGLOBIN (BEAKER) (test 30.3 pg 25.7-32.2 kkgg=238) MEAN CORPUSCULAR HEMOGLOBIN CONC (BEAKER) (test 35.5 GM/DL 32.3-36.5 qdbp=209) RED CELL DISTRIBUTION WIDTH (BEAKER) (test 18.5 % 11.6-14.4 tisb=370) PLATELET COUNT (BEAKER) (test dskp=619) 26 K/CU MM 150-450 MEAN PLATELET VOLUME (BEAKER) (test lrsf=967) 10.4 fL 9.4-12.4 NUCLEATED RED BLOOD CELLS (BEAKER) (test 0 /100 WBC 0-0 hasm=232) NEUTROPHILS RELATIVE PERCENT (BEAKER) (test 87 % mtxf=902) LYMPHOCYTES RELATIVE PERCENT (BEAKER) (test 4 % pqov=945) MONOCYTES RELATIVE PERCENT (BEAKER) (test 7 % epdq=281) EOSINOPHILS RELATIVE PERCENT (BEAKER) (test 0 % qlfi=664) BASOPHILS RELATIVE PERCENT (BEAKER) (test 0 % osft=615) NEUTROPHILS ABSOLUTE COUNT (BEAKER) (test 5.55 K/ L 1.78-5.38 wazp=843) LYMPHOCYTES ABSOLUTE COUNT (BEAKER) (test 0.28 K/ L 1.32-3.57 tkpy=062) MONOCYTES ABSOLUTE COUNT (BEAKER) (test tncn=638) 0.44 K/ L 0.30-0.82 EOSINOPHILS ABSOLUTE COUNT (BEAKER) (test 0.00 K/ L 0.04-0.54 wwko=363) BASOPHILS ABSOLUTE COUNT (BEAKER) (test cjsx=952) 0.01 K/ L 0.01-0.08 IMMATURE GRANULOCYTES-RELATIVE PERCENT (BEAKER) 1 % 0-1 (test iwlk=6015) [id number] 05:06:00 Test Item Value Reference Range Comments PHOSPHORUS (BEAKER) (test maea=405) 4.2 mg/dL 2.3-4.7 [id number] 05:06:00 Test Item Value Reference Range Comments MAGNESIUM (BEAKER) (test kqoz=212) 2.0 mg/dL 1.6-2.6 BASIC METABOLIC [id number] 05:06:00 Test Item Value Reference Range Comments SODIUM (BEAKER) (test 139 meq/L 136-145 plgp=796) POTASSIUM (BEAKER) (test 4.1 meq/L 3.5-5.1 tcvs=916) CHLORIDE (BEAKER) (test 109 meq/L 98-107 cqrb=930) CO2 (BEAKER) (test 19 meq/L 22-29 thdb=407) BLOOD UREA NITROGEN 36 mg/dL 7-21 (BEAKER) (test kudg=743) CREATININE (BEAKER) (test 1.54 mg/dL 0.57-1.25 drlu=418) GLUCOSE RANDOM (BEAKER) 130 mg/dL 70-105 (test vuil=163) CALCIUM (BEAKER) (test 8.7 mg/dL 8.4-10.2 avyb=284) EGFR (BEAKER) (test 47 mL/min/1.73 sq m ESTIMATED GFR IS NOT uiro=3810) ACCURATE CREATININE CLEARANCE IN PREDICTING GLOMERULAR FILTRATION RATE. ESTIMATED GFR IS NOT APPLICABLE FOR DIALYSIS PATIENTS. HEPATIC FUNCTION [id number] 05:06:00 Test Item Value Reference Range Comments TOTAL PROTEIN (BEAKER) (test xlmg=701) 4.9 gm/dL 6.0-8.3 ALBUMIN (BEAKER) (test nyxc=6716) 3.3 g/dL 3.5-5.0 BILIRUBIN TOTAL (BEAKER) (test izqj=785) 2.4 mg/dL 0.2-1.2 BILIRUBIN DIRECT (BEAKER) (test umrt=956) 1.8 mg/dL 0.1-0.5 ALKALINE PHOSPHATASE (BEAKER) (test kkww=010) 72 U/L 40-150 AST (SGOT) (BEAKER) (test eybr=436) 297 U/L 5-34 ALT (SGPT) (BEAKER) (test agea=978) 259 U/L 6-55 [id number] 04:57:00 Test Item Value Reference Range Comments PARTIAL THROMBOPLASTIN TIME (BEAKER) (test 39.7 seconds 22.5-36.0 imny=136) POCT-GLUCOSE [id number] 02:19:00 Test Item Value Reference Range Comments POC-GLUCOSE METER (BEAKER) 137 mg/dL 70-110 TESTED AT [address] (test nvgn=4946) [place] [id number] POCT-GLUCOSE [id number] 00:15:00 Test Item Value Reference Range Comments POC-GLUCOSE METER (BEAKER) 127 mg/dL 70-110 TESTED AT [address] (test cape=2249) [place] [address] POCT-GLUCOSE [id number] 23:24:00 Test Item Value Reference Range Comments POC-GLUCOSE METER (BEAKER) 124 mg/dL 70-110 TESTED AT [address] (test hjdj=9774) [place] [address] POCT-GLUCOSE [id number] 22:18:00 Test Item Value Reference Range Comments POC-GLUCOSE METER (BEAKER) 144 mg/dL 70-110 TESTED AT [address] (test goxi=7871) [place] [address] POCT-GLUCOSE [id number] 21:47:00 Test Item Value Reference Range Comments POC-GLUCOSE METER (BEAKER) 193 mg/dL 70-110 TESTED AT [address] (test xqgj=6717) [place] [address] POCT-GLUCOSE [id number] 21:18:00 Test Item Value Reference Range Comments POC-GLUCOSE METER (BEAKER) 155 mg/dL 70-110 TESTED AT [address] (test qrtv=2179) [place] [address] POCT-GLUCOSE [id number] 20:25:00 Test Item Value Reference Range Comments POC-GLUCOSE METER (BEAKER) 165 mg/dL 70-110 TESTED AT [address] (test nuyt=9920) [place] [address] [id number] 17:42:00 Test Item Value Reference Range Comments POTASSIUM (BEAKER) (test vohh=647) 4.1 meq/L 3.5-5.1 PRN - repeat potassium levels every 1 hour until glucose level is less than 450 mg/dLBLOOD GAS, [id number] 17:38:00 Test Item Value Reference Range Comments PH ARTERIAL (BEAKER) (test ieuj=295) 7.45 7.35-7.45 PCO2 ARTERIAL (BEAKER) (test amxk=711) 29 mmHg 35-45 PO2 ARTERIAL (BEAKER) (test rqdf=583) 203 mmHg 80-90 O2 SATURATION ARTERIAL (BEAKER) (test wisq=919) 99.5 % 96.0-97.0 HCO3 ARTERIAL (BEAKER) (test filu=746) 20 mmol/L 21-29 BASE EXCESS ARTERIAL (BEAKER) (test itvc=657) -3.4 mmol/L -2.0-3.0 PATIENT TEMPERATURE (BEAKER) (test higd=9672) 36.4 C FIO2 (BEAKER) (test yjqy=3137) 40.0 % POCT-GLUCOSE [id number] 17:27:00 Test Item Value Reference Range Comments POC-GLUCOSE METER (BEAKER) 209 mg/dL 70-110 TESTED AT [address] (test uxev=4186) [facility] [address] POCT-GLUCOSE [id number] 17:27:00 Test Item Value Reference Range Comments POC-GLUCOSE METER (BEAKER) 207 mg/dL 70-110 TESTED AT [address] (test daok=6047) [facility] [address] [id number] 16:13:00 Test Item Value Reference Range Comments MAGNESIUM (BEAKER) (test qshh=417) 1.6 mg/dL 1.6-2.6 [id number] 14:43:00 Test Item Value Reference Range Comments FIBRINOGEN LEVEL (BEAKER) (test msfg=404) 180 mg/dl 225-434 [id number] 14:43:00 Test Item Value Reference Range Comments PARTIAL THROMBOPLASTIN TIME (BEAKER) (test 63.7 seconds 22.5-36.0 cnva=152) PROTHROMBIN [id number] 14:42:00 Test Item Value Reference Range Comments PROTIME (BEAKER) (test dyrc=893) 25.7 seconds 11.7-14.7 INR (BEAKER) (test nxrc=244) 2.4 <=5.9 RECOMMENDED COUMADIN/WARFARIN INR THERAPY RANGESSTANDARD DOSE: 2.0 - 3.0 Includes: PROPHYLAXIS forvenous thrombosis, systemic embolization; TREATMENT for venous thrombosis and/or pulmonary embolus.HIGH RISK: Target INR is 2.5-3.5 for patients with mechanical heart valves.CBC W/PLT COUNT & AUTO [id number] 14:38:00 Test Item Value Reference Range Comments WHITE BLOOD CELL COUNT (BEAKER) (test epey=209) 3.1 K/ L 3.5-10.5 RED BLOOD CELL COUNT (BEAKER) (test duui=722) 3.18 M/ L 4.63-6.08 HEMOGLOBIN (BEAKER) (test lmvw=163) 9.6 GM/DL 13.7-17.5 HEMATOCRIT (BEAKER) (test zjkz=361) 28.2 % 40.1-51.0 MEAN CORPUSCULAR VOLUME (BEAKER) (test wwic=307) 88.7 fL 79.0-92.2 MEAN CORPUSCULAR HEMOGLOBIN (BEAKER) (test 30.2 pg 25.7-32.2 gmrx=715) MEAN CORPUSCULAR HEMOGLOBIN CONC (BEAKER) (test 34.0 GM/DL 32.3-36.5 khko=756) RED CELL DISTRIBUTION WIDTH (BEAKER) (test 17.0 % 11.6-14.4 sqwg=252) PLATELET COUNT (BEAKER) (test hsqq=108) 33 K/CU MM 150-450 MEAN PLATELET VOLUME (BEAKER) (test coqh=712) 9.9 fL 9.4-12.4 NUCLEATED RED BLOOD CELLS (BEAKER) (test 0 /100 WBC 0-0 gzaa=955) NEUTROPHILS RELATIVE PERCENT (BEAKER) (test 74 % duzk=447) LYMPHOCYTES RELATIVE PERCENT (BEAKER) (test 10 % yoss=153) MONOCYTES RELATIVE PERCENT (BEAKER) (test 14 % gqhu=162) EOSINOPHILS RELATIVE PERCENT (BEAKER) (test 0 % dtsb=657) BASOPHILS RELATIVE PERCENT (BEAKER) (test 0 % fued=315) NEUTROPHILS ABSOLUTE COUNT (BEAKER) (test 2.27 K/ L 1.78-5.38 rsle=549) LYMPHOCYTES ABSOLUTE COUNT (BEAKER) (test 0.31 K/ L 1.32-3.57 iqlq=609) MONOCYTES ABSOLUTE COUNT (BEAKER) (test jecs=284) 0.43 K/ L 0.30-0.82 EOSINOPHILS ABSOLUTE COUNT (BEAKER) (test 0.01 K/ L 0.04-0.54 hkpw=475) BASOPHILS ABSOLUTE COUNT (BEAKER) (test bfen=807) 0.00 K/ L 0.01-0.08 IMMATURE GRANULOCYTES-RELATIVE PERCENT (BEAKER) 1 % 0-1 (test mwmm=3144) BASIC METABOLIC [id number] 14:29:00 Test Item Value Reference Range Comments SODIUM (BEAKER) (test 141 meq/L 136-145 klqk=120) POTASSIUM (BEAKER) (test 3.2 meq/L 3.5-5.1 awxq=481) CHLORIDE (BEAKER) (test 110 meq/L 98-107 jmmm=956) CO2 (BEAKER) (test 22 meq/L 22-29 mzfd=343) BLOOD UREA NITROGEN 26 mg/dL 7-21 (BEAKER) (test tfcb=220) CREATININE (BEAKER) (test 1.50 mg/dL 0.57-1.25 flfg=861) GLUCOSE RANDOM (BEAKER) 243 mg/dL 70-105 (test mvqd=485) CALCIUM (BEAKER) (test 8.9 mg/dL 8.4-10.2 tmgn=391) EGFR (BEAKER) (test 48 mL/min/1.73 sq m ESTIMATED GFR IS NOT rhmq=3770) ACCURATE CREATININE CLEARANCE IN PREDICTING GLOMERULAR FILTRATION RATE. ESTIMATED GFR IS NOT APPLICABLE FOR DIALYSIS PATIENTS. Specimen slightly ictericLACTIC ACID, VENOUS, WHOLE [id number] 14:22:00 Test Item Value Reference Range Comments LACTATE BLOOD VENOUS (2) (BEAKER) (test 2.5 mmol/L 0.5-2.2 irui=0171) Effective 09/26/2015: Units/Reference Range ChangeNew: 0.5-2.2 mmol/L Previous: 5 -20 mg/dLSpecimen slightly ictericRAD, CHEST, 1 VIEW, NON [id number] 14:10: 00Reason for exam:->Central line placement, right IJ Reason for exam:-> ETT placement. Should this be performed at the bedside?->YesFINAL REPORT Chest 2 views AP 09/28/2017 2:10 PM CLINICAL INDICATION: Central line placement, right IJETT placement. COMPARISON: 09/27/2017 IMPRESSION: Support hardware is in satisfactory radiographic position. Cardiomediastinal contours are stable. The central pulmonary vasculatureis not engorged. The lungs are well aerated. Signed: Alxeander Fallon Verified Date/Time: 14:10:59 Reading Location: [facility] B1 [id number] Consult Reading Room POTASSIUM -STAT [id number] 14:03:00 Test Item Value Reference Range Comments POTASSIUM (BEAKER) (test lzcl=847) 3.0 meq/L 3.6-5.5 HGB/HCT (H&H) - STAT [id number] 14:03:00 Test Item Value Reference Range Comments HEMOGLOBIN (BEAKER) (test bkai=659) 11.8 g/dL 13.0-16.8 HEMATOCRIT (BEAKER) (test ilmm=964) 35.0 % 40.0-50.0 SODIUM NA-STAT [id number] 14:02:00 Test Item Value Reference Range Comments SODIUM (BEAKER) (test ewgd=771) 137 meq/L 135-148 CALCIUM, [id number] 14:02:00 Test Item Value Reference Range Comments CALCIUM IONIZED (BEAKER) (test tlez=620) 1.20 mmol/L 1.12-1.27 PH, BLOOD (BEAKER) (test phat=7038) 7.36 BLOOD GAS, [id number] 14:02:00 Test Item Value Reference Range Comments PH ARTERIAL (BEAKER) (test uvov=715) 7.37 7.35-7.45 PCO2 ARTERIAL (BEAKER) (test nnjt=214) 40 mmHg 35-45 PO2 ARTERIAL (BEAKER) (test riev=277) 260 mmHg 80-90 O2 SATURATION ARTERIAL (BEAKER) (test ooyl=929) 99.6 % 96.0-97.0 HCO3 ARTERIAL (BEAKER) (test vyqa=411) 23 mmol/L 21-29 BASE EXCESS ARTERIAL (BEAKER) (test wnnl=165) -2.1 mmol/L -2.0-3.0 PATIENT TEMPERATURE (BEAKER) (test ghsu=4301) 36.3 C FIO2 (BEAKER) (test jiwk=9979) 60.0 % GLUCOSE-STAT [id number] 14:02:00 Test Item Value Reference Range Comments GLUCOSE RANDOM (BEAKER) (test hvjb=575) 234 mg/dL 70-110 URINE [id number] 13:41:00 Test Item Value Reference Range Comments CULTURE (BEAKER) (test khti=9031) See comment <10,000 col/mL Gram Negative rods>100,000 col/mL skin floraBLOOD GAS, [id number] 12:11:00 Test Item Value Reference Range Comments PH ARTERIAL (BEAKER) (test hiuk=656) 7.41 7.35-7.45 PCO2 ARTERIAL (BEAKER) (test skzs=834) 36 mmHg 35-45 PO2 ARTERIAL (BEAKER) (test bmvo=631) 218 mmHg 80-90 O2 SATURATION ARTERIAL (BEAKER) (test jjvu=291) 99.5 % 96.0-97.0 HCO3 ARTERIAL (BEAKER) (test hiar=621) 23 mmol/L 21-29 BASE EXCESS ARTERIAL (BEAKER) (test ffgw=929) -2.0 mmol/L -2.0-3.0 PATIENT TEMPERATURE (BEAKER) (test yrzw=3974) 35.0 C FIO2 (BEAKER) (test vlxx=6508) 40.0 % GLUCOSE-STAT [id number] 12:11:00 Test Item Value Reference Range Comments GLUCOSE RANDOM (BEAKER) (test ybdr=321) 251 mg/dL 70-110 POTASSIUM-STAT [id number] 12:11:00 Test Item Value Reference Range Comments POTASSIUM (BEAKER) (test btmd=522) 3.4 meq/L 3.6-5.5 HGB/HCT (H&H) - STAT [id number] 12:11:00 Test Item Value Reference Range Comments HEMOGLOBIN (BEAKER) (test lfhl=998) 10.0 g/dL 13.0-16.8 HEMATOCRIT (BEAKER) (test yvqe=285) 29.0 % 40.0-50.0 SODIUM NA-STAT [id number] 12:10:00 Test Item Value Reference Range Comments SODIUM (BEAKER) (test pyiu=845) 138 meq/L 135-148 CALCIUM, [id number] 12:10:00 Test Item Value Reference Range Comments CALCIUM IONIZED (BEAKER) (test iech=665) 1.11 mmol/L 1.12-1.27 PH, BLOOD (BEAKER) (test hmnc=9626) 7.38 CALCIUM, [id number] 11:17:00 Test Item Value Reference Range Comments CALCIUM IONIZED (BEAKER) (test pmrt=553) 1.30 mmol/L 1.12-1.27 PH, BLOOD (BEAKER) (test gzpb=8586) 7.22 BLOOD GAS, [id number] 11:17:00 Test Item Value Reference Range Comments PH ARTERIAL (BEAKER) (test rnip=025) 7.23 7.35-7.45 PCO2 ARTERIAL (BEAKER) (test yesf=998) 42 mmHg 35-45 PO2 ARTERIAL (BEAKER) (test drov=349) 194 mmHg 80-90 O2 SATURATION ARTERIAL (BEAKER) (test fhnw=347) 99.1 % 96.0-97.0 HCO3 ARTERIAL (BEAKER) (test agck=189) 18 mmol/L 21-29 BASE EXCESS ARTERIAL (BEAKER) (test jpcw=692) -9.7 mmol/L -2.0-3.0 PATIENT TEMPERATURE (BEAKER) (test hfky=7219) 35.8 C FIO2 (BEAKER) (test nahy=8712) 100.0 % GLUCOSE-STAT [id number] 11:17:00 Test Item Value Reference Range Comments GLUCOSE RANDOM (BEAKER) (test eqpl=265) 268 mg/dL 70-110 SODIUM NA-STAT [id number] 11:17:00 Test Item Value Reference Range Comments SODIUM (BEAKER) (test xdbk=278) 133 meq/L 135-148 HGB/HCT (H&H) - STAT [id number] 11:17:00 Test Item Value Reference Range Comments HEMOGLOBIN (BEAKER) (test zalv=720) 11.2 g/dL 13.0-16.8 HEMATOCRIT (BEAKER) (test lwnv=171) 33.0 % 40.0-50.0 POTASSIUM-STAT [id number] 11:16:00 Test Item Value Reference Range Comments POTASSIUM (BEAKER) (test gzpt=335) 4.2 meq/L 3.6-5.5 CALCIUM, [id number] 10:33:00 Test Item Value Reference Range Comments CALCIUM IONIZED (BEAKER) (test prgs=575) 1.44 mmol/L 1.12-1.27 PH, BLOOD (BEAKER) (test nwyr=3461) 7.25 BLOOD GAS, [id number] 10:33:00 Test Item Value Reference Range Comments PH ARTERIAL (BEAKER) (test qlww=487) 7.28 7.35-7.45 PCO2 ARTERIAL (BEAKER) (test cmmb=786) 38 mmHg 35-45 PO2 ARTERIAL (BEAKER) (test oual=268) 232 mmHg 80-90 O2 SATURATION ARTERIAL (BEAKER) (test wxud=097) 99.4 % 96.0-97.0 HCO3 ARTERIAL (BEAKER) (test ogik=066) 18 mmol/L 21-29 BASE EXCESS ARTERIAL (BEAKER) (test knlz=342) -8.5 mmol/L -2.0-3.0 PATIENT TEMPERATURE (BEAKER) (test uwoo=2255) 34.6 C FIO2 (BEAKER) (test mxfb=7695) 40.0 % SODIUM NA-STAT [id number] 10:33:00 Test Item Value Reference Range Comments SODIUM (BEAKER) (test pcmv=408) 134 meq/L 135-148 POTASSIUM-STAT [id number] 10:33:00 Test Item Value Reference Range Comments POTASSIUM (BEAKER) (test yewh=178) 3.4 meq/L 3.6-5.5 GLUCOSE-STAT [id number] 10:33:00 Test Item Value Reference Range Comments GLUCOSE RANDOM (BEAKER) (test ofsl=875) 218 mg/dL 70-110 HGB/HCT (H&H) - STAT [id number] 10:33:00 Test Item Value Reference Range Comments HEMOGLOBIN (BEAKER) (test zpbh=022) 8.3 g/dL 13.0-16.8 HEMATOCRIT (BEAKER) (test lkmf=479) 24.0 % 40.0-50.0 BLOOD GAS, [id number] 09:22:00 Test Item Value Reference Range Comments PH ARTERIAL (BEAKER) (test uayj=950) 7.27 7.35-7.45 PCO2 ARTERIAL (BEAKER) (test tnic=776) 40 mmHg 35-45 PO2 ARTERIAL (BEAKER) (test qsay=885) 288 mmHg 80-90 O2 SATURATION ARTERIAL (BEAKER) (test rpqx=336) 99.6 % 96.0-97.0 HCO3 ARTERIAL (BEAKER) (test cigy=407) 18 mmol/L 21-29 BASE EXCESS ARTERIAL (BEAKER) (test nnap=174) -8.7 mmol/L -2.0-3.0 PATIENT TEMPERATURE (BEAKER) (test zumm=5355) 35.6 C FIO2 (BEAKER) (test jnpp=4181) 50.0 % GLUCOSE-STAT [id number] 09:22:00 Test Item Value Reference Range Comments GLUCOSE RANDOM (BEAKER) (test ikdl=534) 146 mg/dL 70-110 CALCIUM, [id number] 09:22:00 Test Item Value Reference Range Comments CALCIUM IONIZED (BEAKER) (test dwfi=158) 1.08 mmol/L 1.12-1.27 PH, BLOOD (BEAKER) (test cvsk=0495) 7.25 HGB/HCT (H&H) - STAT [id number] 09:22:00 Test Item Value Reference Range Comments HEMOGLOBIN (BEAKER) (test odfo=628) 10.6 g/dL 13.0-16.8 HEMATOCRIT (BEAKER) (test ovde=919) 31.0 % 40.0-50.0 SODIUM NA-STAT [id number] 09:22:00 Test Item Value Reference Range Comments SODIUM (BEAKER) (test jgko=101) 131 meq/L 135-148 POTASSIUM-STAT [id number] 09:21:00 Test Item Value Reference Range Comments POTASSIUM (BEAKER) (test cnxi=905) 3.6 meq/L 3.6-5.5 CALCIUM, [id number] 08:11:00 Test Item Value Reference Range Comments CALCIUM IONIZED (BEAKER) (test oxoa=064) 1.14 mmol/L 1.12-1.27 PH, BLOOD (BEAKER) (test ujov=0564) 7.44 SODIUM NA-STAT [id number] 08:11:00 Test Item Value Reference Range Comments SODIUM (BEAKER) (test ccou=800) 130 meq/L 135-148 POTASSIUM-STAT [id number] 08:11:00 Test Item Value Reference Range Comments POTASSIUM (BEAKER) (test aewz=838) 3.3 meq/L 3.6-5.5 HGB/HCT (H&H) - STAT [id number] 08:11:00 Test Item Value Reference Range Comments HEMOGLOBIN (BEAKER) (test cjzw=944) 8.8 g/dL 13.0-16.8 HEMATOCRIT (BEAKER) (test twox=559) 26.0 % 40.0-50.0 GLUCOSE-STAT [id number] 08:11:00 Test Item Value Reference Range Comments GLUCOSE RANDOM (BEAKER) (test cwce=541) 111 mg/dL 70-110 BLOOD GAS, [id number] 08:11:00 Test Item Value Reference Range Comments PH ARTERIAL (BEAKER) (test wkya=347) 7.45 7.35-7.45 PCO2 ARTERIAL (BEAKER) (test qfko=083) 29 mmHg 35-45 PO2 ARTERIAL (BEAKER) (test gexu=463) 375 mmHg 80-90 O2 SATURATION ARTERIAL (BEAKER) (test nopi=440) 99.8 % 96.0-97.0 HCO3 ARTERIAL (BEAKER) (test wszy=455) 20 mmol/L 21-29 BASE EXCESS ARTERIAL (BEAKER) (test omap=541) -3.6 mmol/L -2.0-3.0 PATIENT TEMPERATURE (BEAKER) (test rxzy=8094) 36.0 C FIO2 (BEAKER) (test trry=7646) 100.0 % [id number] 05:08:00 Test Item Value Reference Range Comments PARTIAL THROMBOPLASTIN TIME (BEAKER) (test 36.3 seconds 22.5-36.0 hfkq=232) HEPATIC FUNCTION [id number] 00:35:00 Test Item Value Reference Range Comments TOTAL PROTEIN (BEAKER) (test irnj=324) 7.2 gm/dL 6.0-8.3 ALBUMIN (BEAKER) (test hpwt=2992) 4.1 g/dL 3.5-5.0 BILIRUBIN TOTAL (BEAKER) (test axzw=748) 2.6 mg/dL 0.2-1.2 BILIRUBIN DIRECT (BEAKER) (test ersa=499) 1.0 mg/dL 0.1-0.5 ALKALINE PHOSPHATASE (BEAKER) (test qubt=863) 136 U/L 40-150 AST (SGOT) (BEAKER) (test sgns=893) 52 U/L 5-34 ALT (SGPT) (BEAKER) (test pgcp=155) 56 U/L 6-55 Specimen slightly [id number] 19:45:00 Test Item Value Reference Range Comments PREALBUMIN (BEAKER) (test txjz=900) 7 mg/dL 14-45 BASIC METABOLIC [id number] 19:43:00 Test Item Value Reference Range Comments SODIUM (BEAKER) (test 130 meq/L 136-145 oyca=796) POTASSIUM (BEAKER) (test 4.1 meq/L 3.5-5.1 mpir=307) CHLORIDE (BEAKER) (test 100 meq/L 98-107 btcz=585) CO2 (BEAKER) (test 17 meq/L 22-29 oppp=733) BLOOD UREA NITROGEN 22 mg/dL 7-21 (BEAKER) (test tira=441) CREATININE (BEAKER) (test 1.63 mg/dL 0.57-1.25 qlkq=251) GLUCOSE RANDOM (BEAKER) 150 mg/dL 70-105 (test wvbd=258) CALCIUM (BEAKER) (test 9.6 mg/dL 8.4-10.2 lyxt=822) EGFR (BEAKER) (test 44 mL/min/1.73 sq m ESTIMATED GFR IS NOT thdd=3714) ACCURATE CREATININE CLEARANCE IN PREDICTING GLOMERULAR FILTRATION RATE. ESTIMATED GFR IS NOT APPLICABLE FOR DIALYSIS PATIENTS. Specimen slightly [id number] 19:41:00 Test Item Value Reference Range Comments ETHANOL (BEAKER) (test yxwt=105) < mg/dL <=10 PROTHROMBIN TIME/[id number] 19:30:00 Test Item Value Reference Range Comments PROTIME (BEAKER) (test voov=754) 18.4 seconds 11.7-14.7 INR (BEAKER) (test phgm=240) 1.5 <=5.9 RECOMMENDED COUMADIN/WARFARIN INR THERAPY RANGESSTANDARD DOSE: 2.0 - 3.0 Includes: PROPHYLAXIS forvenous thrombosis, systemic embolization; TREATMENT for venous thrombosis and/or pulmonary embolus.HIGH RISK: Target INR is 2.5-3.5 for patients with mechanical heart valves.CBC W/PLT COUNT & AUTO [id number] 19:27:00 Test Item Value Reference Range Comments WHITE BLOOD CELL COUNT 7.3 K/ L 3.5-10.5 (BEAKER) (test iond=387) RED BLOOD CELL COUNT (BEAKER) 3.00 M/ L 4.63-6.08 (test gyvp=802) HEMOGLOBIN (BEAKER) (test 9.7 GM/DL 13.7-17.5 hdqh=829) HEMATOCRIT (BEAKER) (test 29.8 % 40.1-51.0 skqv=596) MEAN CORPUSCULAR VOLUME 99.3 fL 79.0-92.2 Discordant from previous (BEAKER) (test sbyz=243) results. Patient Transfused MEAN CORPUSCULAR HEMOGLOBIN 32.3 pg 25.7-32.2 (BEAKER) (test mcre=854) MEAN CORPUSCULAR HEMOGLOBIN 32.6 GM/DL 32.3-36.5 CONC (BEAKER) (test gbqb=979) RED CELL DISTRIBUTION WIDTH 19.9 % 11.6-14.4 (BEAKER) (test aivy=634) PLATELET COUNT (BEAKER) (test 73 K/CU MM 150-450 algv=145) MEAN PLATELET VOLUME (BEAKER) 9.5 fL 9.4-12.4 (test tnzf=037) NUCLEATED RED BLOOD CELLS 0 /100 WBC 0-0 (BEAKER) (test zksc=936) NEUTROPHILS RELATIVE PERCENT 72 % (BEAKER) (test iqxw=399) LYMPHOCYTES RELATIVE PERCENT 10 % (BEAKER) (test dill=694) MONOCYTES RELATIVE PERCENT 12 % (BEAKER) (test lque=853) EOSINOPHILS RELATIVE PERCENT 4 % (BEAKER) (test ryhi=770) BASOPHILS RELATIVE PERCENT 1 % (BEAKER) (test dhaw=293) NEUTROPHILS ABSOLUTE COUNT 5.32 K/ L 1.78-5.38 (BEAKER) (test hapk=067) LYMPHOCYTES ABSOLUTE COUNT 0.76 K/ L 1.32-3.57 (BEAKER) (test ijne=323) MONOCYTES ABSOLUTE COUNT 0.89 K/ L 0.30-0.82 (BEAKER) (test wkhj=276) EOSINOPHILS ABSOLUTE COUNT 0.27 K/ L 0.04-0.54 (BEAKER) (test hnky=684) BASOPHILS ABSOLUTE COUNT 0.05 K/ L 0.01-0.08 (BEAKER) (test cvzm=830) IMMATURE GRANULOCYTES-RELATIVE 1 % 0-1 PERCENT (BEAKER) (test hhla=1331) RAD, CHEST, 1 VIEW, NON [id number] 15:59:00Reason for exam:->r/o infectionShould this be performed at the bedside?->YesFINAL REPORT Chest one view AP 09/27/2017 3:58 PM CLINICAL INDICATION: infection COMPARISON: 09/26/2017 IMPRESSION: The lungs are hypoinflated, with bibasilar subsegmental atelectasis. Cardiomediastinal contours are within normal limits. The central pulmonary vasculature is not engorged. Signed: Alexander Fallon Verified Date/Time: 09/27/2017 15:59:08 Reading Location: [address] Neuro Reading Room Electronically signed by: ALEXANDER FALLON M.D. on 2017 03:59 PMCBC W/PLT COUNT & AUTO [id number] 11:59:00 Test Item Value Reference Range Comments WHITE BLOOD CELL COUNT (BEAKER) (test bylc=651) 4.6 K/ L 3.5-10.5 RED BLOOD CELL COUNT (BEAKER) (test lmnh=812) 2.39 M/ L 4.63-6.08 HEMOGLOBIN (BEAKER) (test rzhg=800) 7.8 GM/DL 13.7-17.5 HEMATOCRIT (BEAKER) (test mxsl=665) 22.3 % 40.1-51.0 MEAN CORPUSCULAR VOLUME (BEAKER) (test lcig=234) 93.3 fL 79.0-92.2 MEAN CORPUSCULAR HEMOGLOBIN (BEAKER) (test 32.6 pg 25.7-32.2 rcpa=969) MEAN CORPUSCULAR HEMOGLOBIN CONC (BEAKER) (test 35.0 GM/DL 32.3-36.5 afke=806) RED CELL DISTRIBUTION WIDTH (BEAKER) (test 19.3 % 11.6-14.4 bifh=945) PLATELET COUNT (BEAKER) (test yljp=618) 53 K/CU MM 150-450 MEAN PLATELET VOLUME (BEAKER) (test oubh=468) 9.7 fL 9.4-12.4 NUCLEATED RED BLOOD CELLS (BEAKER) (test 0 /100 WBC 0-0 jcxw=052) LACTIC ACID, VENOUS, WHOLE [id number] 11:53:00 Test Item Value Reference Range Comments LACTATE BLOOD VENOUS (2) (BEAKER) (test 1.1 mmol/L 0.5-2.2 rlnu=2633) Effective 09/26/2015: Units/Reference Range ChangeNew: 0.5-2.2 mmol/L Previous: 5 -20 mg/[id number] 11:51:00 Test Item Value Reference Range Comments AMMONIA (BEAKER) (test spjs=298) 116 mol/L 18-72 PT/[id number] 11:33:00 Test Item Value Reference Range Comments PROTIME (BEAKER) (test fnoi=648) 19.2 seconds 11.7-14.7 INR (BEAKER) (test lozl=455) 1.6 <=5.9 PARTIAL THROMBOPLASTIN TIME (BEAKER) (test 36.9 seconds 22.5-36.0 hdbv=654) RECOMMENDED COUMADIN/WARFARIN INR THERAPY RANGESSTANDARD DOSE: 2.0 - 3.0 Includes: PROPHYLAXIS forvenous thrombosis, systemic embolization; TREATMENT for venous thrombosis and/or pulmonary embolus.HIGH RISK: Target INR is 2.5-3.5 for patients with mechanical heart valves.URINALYSIS W/ [id number] 22 :52:00 Test Item Value Reference Range Comments COLOR (BEAKER) (test gktf=610) Yellow CLARITY (BEAKER) (test vzgb=955) Clear SPECIFIC GRAVITY UA (BEAKER) (test 1.014 1.001-1.035 anlw=273) PH UA (BEAKER) (test rpxj=059) 5.5 5.0-8.0 PROTEIN UA (BEAKER) (test rjtj=358) Negative Negative GLUCOSE UA (BEAKER) (test tosq=682) Negative Negative KETONES UA (BEAKER) (test lzvo=140) Negative Negative BILIRUBIN UA (BEAKER) (test txwu=665) Negative Negative BLOOD UA (BEAKER) (test fhxd=333) Negative Negative NITRITE UA (BEAKER) (test rxgo=536) Negative Negative LEUKOCYTE ESTERASE UA (BEAKER) (test Negative Negative oaiz=545) UROBILINOGEN UA (BEAKER) (test eusm=297) 0.2 mg/dL 0.2-1.0 RBC UA (BEAKER) (test aefb=493) 0 /HPF WBC UA (BEAKER) (test hmcm=632) 2 /HPF MUCUS (BEAKER) (test nukr=6131) Rare SOURCE(BEAKER) (test kdgk=5821) Urine, Clean Catch [id number] 18:55:00 Test Item Value Reference Range Comments T4 TOTAL (BEAKER) (test arfh=381) 3.3 ug/dL 4.9-11.7 [id number] 18:55:00 Test Item Value Reference Range Comments THYROID STIMULATING HORMONE (BEAKER) (test 1.26 uIU/mL 0.35-4.94 pyws=663) [id number] 18:55:00 Test Item Value Reference Range Comments T3 TOTAL (BEAKER) (test ovfd=373) 53 ng/dL 48-159 [id number] 18:32:00 Test Item Value Reference Range Comments PARTIAL THROMBOPLASTIN TIME (BEAKER) (test 36.6 seconds 22.5-36.0 weca=572) COMPREHENSIVE METABOLIC [id number] 18:32:00 Test Item Value Reference Range Comments TOTAL PROTEIN (BEAKER) 6.7 gm/dL 6.0-8.3 Specimen slightly (test ppbr=883) hemolyzed ALBUMIN (BEAKER) (test 3.9 g/dL 3.5-5.0 Specimen slightly jkha=1157) hemolyzed ALKALINE PHOSPHATASE 130 U/L 40-150 (BEAKER) (test ycgf=278) BILIRUBIN TOTAL (BEAKER) 2.3 mg/dL 0.2-1.2 Specimen slightly (test ypzn=494) hemolyzed SODIUM (BEAKER) (test 127 meq/L 136-145 zalk=302) POTASSIUM (BEAKER) (test 4.8 meq/L 3.5-5.1 Specimen slightly icde=216) hemolyzed CHLORIDE (BEAKER) (test 98 meq/L 98-107 olps=153) CO2 (BEAKER) (test 21 meq/L 22-29 yepf=843) BLOOD UREA NITROGEN 22 mg/dL 7-21 (BEAKER) (test zrda=217) CREATININE (BEAKER) (test 1.64 mg/dL 0.57-1.25 Specimen slightly sepg=145) hemolyzed GLUCOSE RANDOM (BEAKER) 118 mg/dL 70-105 (test uhmq=760) CALCIUM (BEAKER) (test 9.4 mg/dL 8.4-10.2 bxpy=536) AST (SGOT) (BEAKER) (test 60 U/L 5-34 Specimen slightly tugr=426) hemolyzed ALT (SGPT) (BEAKER) (test 56 U/L 6-55 Specimen slightly qpcq=491) hemolyzed EGFR (BEAKER) (test 44 mL/min/1.73 sq m ESTIMATED GFR IS NOT cttk=4807) ACCURATE CREATININE CLEARANCE IN PREDICTING GLOMERULAR FILTRATION RATE. ESTIMATED GFR IS NOT APPLICABLE FOR DIALYSIS PATIENTS. Specimen slightly ictericPROTHROMBIN TIME/[id number] 18:31:00 Test Item Value Reference Range Comments PROTIME (BEAKER) (test onnh=960) 18.6 seconds 11.7-14.7 INR (BEAKER) (test pyxa=061) 1.6 <=5.9 RECOMMENDED COUMADIN/WARFARIN INR THERAPY RANGESSTANDARD DOSE: 2.0 - 3.0 Includes: PROPHYLAXIS forvenous thrombosis, systemic embolization; TREATMENT for venous thrombosis and/or pulmonary embolus.HIGH RISK: Target INR is 2.5-3.5 for patients with mechanical heart valves.CBC W/PLT COUNT & AUTO [id number] 18:22:00 Test Item Value Reference Range Comments WHITE BLOOD CELL COUNT (BEAKER) (test lzcf=256) 4.3 K/ L 3.5-10.5 RED BLOOD CELL COUNT (BEAKER) (test lbmy=993) 2.59 M/ L 4.63-6.08 HEMOGLOBIN (BEAKER) (test onpc=356) 8.5 GM/DL 13.7-17.5 HEMATOCRIT (BEAKER) (test ocwd=068) 24.9 % 40.1-51.0 MEAN CORPUSCULAR VOLUME (BEAKER) (test gzjm=495) 96.1 fL 79.0-92.2 MEAN CORPUSCULAR HEMOGLOBIN (BEAKER) (test 32.8 pg 25.7-32.2 jweb=752) MEAN CORPUSCULAR HEMOGLOBIN CONC (BEAKER) (test 34.1 GM/DL 32.3-36.5 kjes=179) RED CELL DISTRIBUTION WIDTH (BEAKER) (test 19.8 % 11.6-14.4 qchm=119) PLATELET COUNT (BEAKER) (test smjr=775) 72 K/CU MM 150-450 MEAN PLATELET VOLUME (BEAKER) (test kbkx=245) 10.4 fL 9.4-12.4 NUCLEATED RED BLOOD CELLS (BEAKER) (test 0 /100 WBC 0-0 zanp=510) NEUTROPHILS RELATIVE PERCENT (BEAKER) (test 65 % dqtw=230) LYMPHOCYTES RELATIVE PERCENT (BEAKER) (test 13 % zmbs=432) MONOCYTES RELATIVE PERCENT (BEAKER) (test 16 % kzlv=634) EOSINOPHILS RELATIVE PERCENT (BEAKER) (test 4 % dwgx=217) BASOPHILS RELATIVE PERCENT (BEAKER) (test 0 % xqqt=259) NEUTROPHILS ABSOLUTE COUNT (BEAKER) (test 2.83 K/ L 1.78-5.38 yqqm=361) LYMPHOCYTES ABSOLUTE COUNT (BEAKER) (test 0.57 K/ L 1.32-3.57 jmuq=264) MONOCYTES ABSOLUTE COUNT (BEAKER) (test weyf=546) 0.67 K/ L 0.30-0.82 EOSINOPHILS ABSOLUTE COUNT (BEAKER) (test 0.19 K/ L 0.04-0.54 okeq=911) BASOPHILS ABSOLUTE COUNT (BEAKER) (test scyf=865) 0.01 K/ L 0.01-0.08 IMMATURE GRANULOCYTES-RELATIVE PERCENT (BEAKER) 1 % 0-1 (test fgwd=2772) RAD, CHEST, 1 VIEW, NON [id number] 18:05:00Chronic Liver Failure pending Transplantation.Reason for exam:->pre-opShould this be performed atthe bedside?->YesFINAL REPORT TECHNIQUE: Frontal view of the chest. INDICATION: 57-year-old man for preoperative evaluation. COMPARISON: Chest radiograph 08/26/2017. FINDINGS: LINES/TUBES: None. LUNGS: The lungs are well inflated and clear. PLEURA: No pneumothorax or significant pleural effusion.HEART AND MEDIASTINUM: The cardiomediastinal silhouette is within normal limits. SOFT TISSUES AND BONES: Degenerative changes of the visualized spine. Soft tissues are unremarkable. IMPRESSION:No acute cardiopulmonary abnormalities. Signed: Nohemy Lewis MDReport Verified Date/Time: 09/26/2017 18:05:27 Reading Location: [facility] C013Y CT Body Reading Room BODY FLUID CELL COUNT WITH [id number] 19:26:00 Test Item Value Reference Range Comments APPEARANCE FLUID (BEAKER) (test tyzp=708) Slightly Hazy Clear COLOR FLUID (BEAKER) (test utih=933) Yellow Colorless, Straw RBC FLUID (BEAKER) (test kchv=620) 1000 /cu mm <=1 ADJUSTED WBC FLUID (BEAKER) (test tfsu=5227) 68 /cu mm <=5 LINING CELLS (BEAKER) (test jqby=5232) 2 /cu mm <=1 NEUTROPHILS FLUID (BEAKER) (test xfnz=2516) 1 % LYMPHS FLUID (BEAKER) (test cbgq=224) 43 % MONO/MACROPHAGE FLUID (BEAKER) (test 56 % mwua=661) EOSINOPHILS FLUID (BEAKER) (test kemm=029) 0 % BASO FLUID (BEAKER) (test jabf=747) 0 % CONTAINER BODY FLUID (BEAKER) (test EDTA Tube fmqs=8178) U/S, [id number] 16:14:00Please limit to 5-6 litersReason for exam:-& gt;ascitesFINAL REPORT Paracentesis: Performing MD: Eulalia Craig M.D.Preoperative Diagnosis:AscitesPostoperative Diagnosis: AscitesAssistant: noneSpecimen: As requestedEstimated Blood Loss: less than 10 ccComplications: noneAnesthesia: local 2% subcutaneously at the insertion site Grafts or Implants: noneModality: sonographySedation: noneApproach: Right lower quadrant, anterior abdominalwall Technique: After informed written consent was obtained, the patient was prepped and draped in the usual sterile manner. Access was obtained using sonographic guidance. Images documented fluid.The images were saved to PACS. The right lower quadrant anterior abdominal wall was instrumented.A small bore catheter was advanced into the peritoneal space. The patient tolerated the procedure well. Impression:Successful, uncomplicated ultrasound guided paracentesis of the right lower quadrant peritoneal space. 6000 cc of serous fluid was removed. Signed: Eulalia Craig MDReport Verified Date/Time: 09/22/2017 16:14:49 Reading Location: [facility] P006J Ultrasound Reading Room [id number] 02:04:00 Test Item Value Reference Range Comments FERRITIN (BEAKER) (test nmcj=347) 998 ng/mL 5-275 VITAMIN B12 AND [id number] 02:04:00 Test Item Value Reference Range Comments VITAMIN B12 (BEAKER) (test jthp=732) 1195 pg/mL 213-816 FOLATE (BEAKER) (test ssso=398) 12.6 ng/mL >=7.0 COMPREHENSIVE METABOLIC [id number] 01:33:00 Test Item Value Reference Range Comments TOTAL PROTEIN (BEAKER) 6.4 gm/dL 6.0-8.3 (test zdnh=934) ALBUMIN (BEAKER) (test 3.7 g/dL 3.5-5.0 cpgg=4416) ALKALINE PHOSPHATASE 108 U/L 40-150 (BEAKER) (test ollx=692) BILIRUBIN TOTAL (BEAKER) 4.7 mg/dL 0.2-1.2 (test syla=336) SODIUM (BEAKER) (test 129 meq/L 136-145 hcbu=125) POTASSIUM (BEAKER) (test 4.7 meq/L 3.5-5.1 qryv=762) CHLORIDE (BEAKER) (test 98 meq/L 98-107 mnxw=036) CO2 (BEAKER) (test 22 meq/L 22-29 mflh=784) BLOOD UREA NITROGEN 28 mg/dL 7-21 (BEAKER) (test kvne=396) CREATININE (BEAKER) (test 1.47 mg/dL 0.57-1.25 xyix=851) GLUCOSE RANDOM (BEAKER) 91 mg/dL 70-105 (test lkzf=462) CALCIUM (BEAKER) (test 9.6 mg/dL 8.4-10.2 jteh=169) AST (SGOT) (BEAKER) (test 51 U/L 5-34 ncho=450) ALT (SGPT) (BEAKER) (test 60 U/L 6-55 vtxa=825) EGFR (BEAKER) (test 50 mL/min/1.73 sq m ESTIMATED GFR IS NOT hudv=4674) ACCURATE CREATININE CLEARANCE IN PREDICTING GLOMERULAR FILTRATION RATE. ESTIMATED GFR IS NOT APPLICABLE FOR DIALYSIS PATIENTS. Specimen moderately ictericIRON, TIBC, % SAT. (WITHOUT FERRITIN)2017-09-22 01:33 :00 Test Item Value Reference Range Comments IRON (BEAKER) (test gdbl=589) 124 ug/dL 40-160 TOTAL IRON BINDING CAPACITY (BEAKER) (test 121 ug/dL 250-450 vzwx=950) IRON % SATURATION (2) (BEAKER) (test kuvb=4311) 102 % 20-55 [id number] 01:27:00 Test Item Value Reference Range Comments PARTIAL THROMBOPLASTIN TIME (BEAKER) (test 36.7 seconds 22.5-36.0 tbtk=002) PROTHROMBIN TIME/[id number] 01:26:00 Test Item Value Reference Range Comments PROTIME (BEAKER) (test ucoz=078) 18.9 seconds 11.7-14.7 INR (BEAKER) (test vyyl=373) 1.6 <=5.9 RECOMMENDED COUMADIN/WARFARIN INR THERAPY RANGESSTANDARD DOSE: 2.0 - 3.0 Includes: PROPHYLAXIS forvenous thrombosis, systemic embolization; TREATMENT for venous thrombosis and/or pulmonary embolus.HIGH RISK: Target INR is 2.5-3.5 for patients with mechanical heart valves.[id number] 01:21:00 Test Item Value Reference Range Comments AMMONIA (BEAKER) (test guhe=226) 63 mol/L 18-72 CBC W/PLT COUNT & AUTO [id number] 01:17:00 Test Item Value Reference Range Comments WHITE BLOOD CELL COUNT (BEAKER) (test ctee=702) 5.2 K/ L 3.5-10.5 RED BLOOD CELL COUNT (BEAKER) (test avbz=774) 2.75 M/ L 4.63-6.08 HEMOGLOBIN (BEAKER) (test qipp=670) 8.8 GM/DL 13.7-17.5 HEMATOCRIT (BEAKER) (test fkuu=748) 26.0 % 40.1-51.0 MEAN CORPUSCULAR VOLUME (BEAKER) (test cfyc=404) 94.5 fL 79.0-92.2 MEAN CORPUSCULAR HEMOGLOBIN (BEAKER) (test 32.0 pg 25.7-32.2 ytqs=257) MEAN CORPUSCULAR HEMOGLOBIN CONC (BEAKER) (test 33.8 GM/DL 32.3-36.5 rjwa=356) RED CELL DISTRIBUTION WIDTH (BEAKER) (test 20.2 % 11.6-14.4 mqqw=351) PLATELET COUNT (BEAKER) (test aoqy=109) 55 K/CU MM 150-450 MEAN PLATELET VOLUME (BEAKER) (test cctd=637) 9.9 fL 9.4-12.4 NUCLEATED RED BLOOD CELLS (BEAKER) (test 0 /100 WBC 0-0 hmht=043) NEUTROPHILS RELATIVE PERCENT (BEAKER) (test 57 % ngyq=711) LYMPHOCYTES RELATIVE PERCENT (BEAKER) (test 17 % pxzt=673) MONOCYTES RELATIVE PERCENT (BEAKER) (test 16 % wetv=417) EOSINOPHILS RELATIVE PERCENT (BEAKER) (test 10 % accj=188) BASOPHILS RELATIVE PERCENT (BEAKER) (test 1 % botb=858) NEUTROPHILS ABSOLUTE COUNT (BEAKER) (test 2.95 K/ L 1.78-5.38 vhqw=379) LYMPHOCYTES ABSOLUTE COUNT (BEAKER) (test 0.86 K/ L 1.32-3.57 oiim=196) MONOCYTES ABSOLUTE COUNT (BEAKER) (test hwed=621) 0.80 K/ L 0.30-0.82 EOSINOPHILS ABSOLUTE COUNT (BEAKER) (test 0.50 K/ L 0.04-0.54 pcpy=446) BASOPHILS ABSOLUTE COUNT (BEAKER) (test ymxu=844) 0.03 K/ L 0.01-0.08 IMMATURE GRANULOCYTES-RELATIVE PERCENT (BEAKER) 1 % 0-1 (test hwob=5631) BODY FLUID CELL COUNT WITH [id number] 20:04:00 Test Item Value Reference Range Comments APPEARANCE FLUID (BEAKER) (test cwwo=123) Hazy Clear COLOR FLUID (BEAKER) (test mihp=591) Yellow Colorless, Straw RBC FLUID (BEAKER) (test axgb=985) 1310 /cu mm <=1 ADJUSTED WBC FLUID (BEAKER) (test bqsc=3812) 65 /cu mm <=5 LINING CELLS (BEAKER) (test glut=3487) 5 /cu mm <=1 NEUTROPHILS FLUID (BEAKER) (test lesh=3524) 1 % LYMPHS FLUID (BEAKER) (test drrw=560) 27 % MONO/MACROPHAGE FLUID (BEAKER) (test zmox=479) 72 % EOSINOPHILS FLUID (BEAKER) (test hjdb=908) 0 % BASO FLUID (BEAKER) (test umxm=817) 0 % CONTAINER BODY FLUID (BEAKER) (test yhom=9714) EDTA Tube U/S, [id number] 17:12:00Administer 200 mL of albumin 25% (50 grams) IV x1 after paracentesis if 3 or more liters removed.Send ascitic fluid for cell count and differential.Reason for Exam:->ascitesFINAL REPORT Ultrasound guided paracentesis, 09/14/2017. Clinical History: Ascites. Sedation: None. External Auditor: Kade Buck MD Towboat Captain: None. Estimated Blood Loss: < 1 cc. Specimen: 9000 cc of clear yellow fluid, samples sent to laboratory. Technique: Informed consent was obtained. The risks of pain, bleeding, infection, bowel perforation, injury to adjacent structures, and adverse medication reactions were discussed with the patient. After informed consent was obtained, the patient's abdomen was scanned. The right lower quadrant of theabdomen was selected for paracentesis. After the largest fluid pocket area was marked, and the anterior abdominal wall was evaluated with color Doppler to exclude presence of blood vessels traversing the area, the skin was prepped and draped in the usual sterile manner. After local anesthesia was achieved with 1% lidocaine, a 5 Indonesian one-step catheter was advanced into the peritoneal cavity under ultrasound guidance. After completion of drainage, the catheter was removed. There was no evidence ofcomplication. Patient Disposition: The patient was discharged from the ultrasound department after the paracentesis, in good condition. Impression:Successful ultrasound guided paracentesis. Signed: Kade Buck MDReport Verified Date/Time: 09/14/2017 17:12:27 Reading Location: [facility] [id number] Ultrasound Reading Room BLOOD [id number] 06:42:00 Test Item Value Reference Range Comments CULTURE (BEAKER) (test bpbu=7044) No growth in 5 days CALCIUM, [id number] 08:04:00 Test Item Value Reference Range Comments CALCIUM IONIZED (BEAKER) (test oidy=382) 1.09 mmol/L 1.12-1.27 PH, BLOOD (BEAKER) (test imku=3144) 7.49 [id number] 07:30:00 Test Item Value Reference Range Comments PHOSPHORUS (BEAKER) (test vvjc=358) 2.4 mg/dL 2.3-4.7 [id number] 07:30:00 Test Item Value Reference Range Comments MAGNESIUM (BEAKER) (test zhpg=971) 1.6 mg/dL 1.6-2.6 BASIC METABOLIC [id number] 07:30:00 Test Item Value Reference Range Comments SODIUM (BEAKER) (test 139 meq/L 136-145 urys=668) POTASSIUM (BEAKER) (test 3.8 meq/L 3.5-5.1 bzpe=011) CHLORIDE (BEAKER) (test 107 meq/L 98-107 ydji=722) CO2 (BEAKER) (test 23 meq/L 22-29 tcnu=566) BLOOD UREA NITROGEN 29 mg/dL 7-21 (BEAKER) (test pprn=519) CREATININE (BEAKER) (test 1.23 mg/dL 0.57-1.25 gdup=507) GLUCOSE RANDOM (BEAKER) 118 mg/dL 70-105 (test aaaj=077) CALCIUM (BEAKER) (test 9.3 mg/dL 8.4-10.2 qqmh=727) EGFR (BEAKER) (test 61 mL/min/1.73 sq m ESTIMATED GFR IS NOT hbxz=7482) ACCURATE CREATININE CLEARANCE IN PREDICTING GLOMERULAR FILTRATION RATE. ESTIMATED GFR IS NOT APPLICABLE FOR DIALYSIS PATIENTS. Specimen slightly ictericHEPATIC FUNCTION [id number] 07:30:00 Test Item Value Reference Range Comments TOTAL PROTEIN (BEAKER) (test edsi=975) 5.7 gm/dL 6.0-8.3 ALBUMIN (BEAKER) (test tslb=8177) 3.9 g/dL 3.5-5.0 BILIRUBIN TOTAL (BEAKER) (test ocyu=688) 3.8 mg/dL 0.2-1.2 BILIRUBIN DIRECT (BEAKER) (test dgbj=493) 0.8 mg/dL 0.1-0.5 ALKALINE PHOSPHATASE (BEAKER) (test ukqg=067) 79 U/L 40-150 AST (SGOT) (BEAKER) (test jfmr=813) 58 U/L 5-34 ALT (SGPT) (BEAKER) (test cgpu=150) 53 U/L 6-55 Specimen slightly ictericPROTHROMBIN [id number] 07:19:00 Test Item Value Reference Range Comments PROTIME (BEAKER) (test nnie=427) 20.4 seconds 11.7-14.7 INR (BEAKER) (test zhnb=845) 1.8 <=5.9 RECOMMENDED COUMADIN/WARFARIN INR THERAPY RANGESSTANDARD DOSE: 2.0 - 3.0 Includes: PROPHYLAXIS forvenous thrombosis, systemic embolization; TREATMENT for venous thrombosis and/or pulmonary embolus.HIGH RISK: Target INR is 2.5-3.5 for patients with mechanical heart valves.CBC W/PLT COUNT & AUTO [id number] 07:16:00 Test Item Value Reference Range Comments WHITE BLOOD CELL COUNT (BEAKER) (test gpqw=680) 10.2 K/ L 3.5-10.5 RED BLOOD CELL COUNT (BEAKER) (test upfy=680) 2.46 M/ L 4.63-6.08 HEMOGLOBIN (BEAKER) (test ytrw=958) 7.7 GM/DL 13.7-17.5 HEMATOCRIT (BEAKER) (test ajig=266) 23.2 % 40.1-51.0 MEAN CORPUSCULAR VOLUME (BEAKER) (test negu=874) 94.3 fL 79.0-92.2 MEAN CORPUSCULAR HEMOGLOBIN (BEAKER) (test 31.3 pg 25.7-32.2 xifg=338) MEAN CORPUSCULAR HEMOGLOBIN CONC (BEAKER) (test 33.2 GM/DL 32.3-36.5 auux=536) RED CELL DISTRIBUTION WIDTH (BEAKER) (test 18.6 % 11.6-14.4 xgwv=966) PLATELET COUNT (BEAKER) (test aahj=168) 32 K/CU MM 150-450 MEAN PLATELET VOLUME (BEAKER) (test ggbi=186) 10.3 fL 9.4-12.4 NUCLEATED RED BLOOD CELLS (BEAKER) (test 0 /100 WBC 0-0 lmjk=215) NEUTROPHILS RELATIVE PERCENT (BEAKER) (test 81 % zwua=467) LYMPHOCYTES RELATIVE PERCENT (BEAKER) (test 9 % qdea=014) MONOCYTES RELATIVE PERCENT (BEAKER) (test 8 % opbl=436) EOSINOPHILS RELATIVE PERCENT (BEAKER) (test 2 % uycm=570) BASOPHILS RELATIVE PERCENT (BEAKER) (test 0 % rpal=020) NEUTROPHILS ABSOLUTE COUNT (BEAKER) (test 8.23 K/ L 1.78-5.38 uvuk=286) LYMPHOCYTES ABSOLUTE COUNT (BEAKER) (test 0.88 K/ L 1.32-3.57 nolz=371) MONOCYTES ABSOLUTE COUNT (BEAKER) (test zscc=061) 0.80 K/ L 0.30-0.82 EOSINOPHILS ABSOLUTE COUNT (BEAKER) (test 0.20 K/ L 0.04-0.54 qozt=301) BASOPHILS ABSOLUTE COUNT (BEAKER) (test lcqe=882) 0.01 K/ L 0.01-0.08 IMMATURE GRANULOCYTES-RELATIVE PERCENT (BEAKER) 1 % 0-1 (test rcvn=1980) BLOOD [id number] 18:00:00 Test Item Value Reference Range Comments CULTURE (BEAKER) (test egmk=3286) No growth in 5 days BODY FLUID CULTURE + GRAM [id number] 11:05:00 Test Item Value Reference Range Comments CULTURE (BEAKER) (test xvnn=0625) No growth GRAM STAIN RESULT (BEAKER) (test 1+ WBCs lqph=5969) GRAM STAIN RESULT (BEAKER) (test No organisms seen gzkb=97869) CALCIUM, [id number] 07:48:00 Test Item Value Reference Range Comments CALCIUM IONIZED (BEAKER) (test wtel=952) 1.12 mmol/L 1.12-1.27 PH, BLOOD (BEAKER) (test kzxf=4334) 7.48 [id number] 07:23:00 Test Item Value Reference Range Comments PHOSPHORUS (BEAKER) (test fgzd=747) 2.7 mg/dL 2.3-4.7 [id number] 07:23:00 Test Item Value Reference Range Comments MAGNESIUM (BEAKER) (test bxcv=851) 1.8 mg/dL 1.6-2.6 COMPREHENSIVE METABOLIC [id number] 07:23:00 Test Item Value Reference Range Comments TOTAL PROTEIN (BEAKER) 5.5 gm/dL 6.0-8.3 (test ewdy=465) ALBUMIN (BEAKER) (test 3.8 g/dL 3.5-5.0 xcxm=0271) ALKALINE PHOSPHATASE 83 U/L 40-150 (BEAKER) (test ieyd=170) BILIRUBIN TOTAL (BEAKER) 2.9 mg/dL 0.2-1.2 (test jzbd=286) SODIUM (BEAKER) (test 139 meq/L 136-145 fdtc=939) POTASSIUM (BEAKER) (test 3.8 meq/L 3.5-5.1 vzor=946) CHLORIDE (BEAKER) (test 108 meq/L 98-107 mfzs=899) CO2 (BEAKER) (test 22 meq/L 22-29 glwu=104) BLOOD UREA NITROGEN 33 mg/dL 7-21 (BEAKER) (test njye=049) CREATININE (BEAKER) (test 1.40 mg/dL 0.57-1.25 rppr=886) GLUCOSE RANDOM (BEAKER) 130 mg/dL 70-105 (test covq=670) CALCIUM (BEAKER) (test 9.2 mg/dL 8.4-10.2 zapf=980) AST (SGOT) (BEAKER) (test 57 U/L 5-34 idqi=706) ALT (SGPT) (BEAKER) (test 51 U/L 6-55 xczb=522) EGFR (BEAKER) (test 52 mL/min/1.73 sq m ESTIMATED GFR IS NOT vtqc=7982) ACCURATE CREATININE CLEARANCE IN PREDICTING GLOMERULAR FILTRATION RATE. ESTIMATED GFR IS NOT APPLICABLE FOR DIALYSIS PATIENTS. Specimen slightly ictericHEPATIC FUNCTION [id number] 07:23:00 Test Item Value Reference Range Comments TOTAL PROTEIN (BEAKER) (test fheg=641) 5.5 gm/dL 6.0-8.3 ALBUMIN (BEAKER) (test tzdz=4576) 3.8 g/dL 3.5-5.0 BILIRUBIN TOTAL (BEAKER) (test inea=518) 2.9 mg/dL 0.2-1.2 BILIRUBIN DIRECT (BEAKER) (test dutr=310) 0.7 mg/dL 0.1-0.5 ALKALINE PHOSPHATASE (BEAKER) (test dgfs=064) 83 U/L 40-150 AST (SGOT) (BEAKER) (test ywyp=337) 57 U/L 5-34 ALT (SGPT) (BEAKER) (test jkui=023) 51 U/L 6-55 Specimen slightly ictericPROTHROMBIN [id number] 07:20:00 Test Item Value Reference Range Comments PROTIME (BEAKER) (test vbpl=232) 21.3 seconds 11.7-14.7 INR (BEAKER) (test omus=731) 1.9 <=5.9 RECOMMENDED COUMADIN/WARFARIN INR THERAPY RANGESSTANDARD DOSE: 2.0 - 3.0 Includes: PROPHYLAXIS forvenous thrombosis, systemic embolization; TREATMENT for venous thrombosis and/or pulmonary embolus.HIGH RISK: Target INR is 2.5-3.5 for patients with mechanical heart valves.CBC W/PLT COUNT & AUTO [id number] 07:13:00 Test Item Value Reference Range Comments WHITE BLOOD CELL COUNT (BEAKER) (test vnvz=143) 7.4 K/ L 3.5-10.5 RED BLOOD CELL COUNT (BEAKER) (test egom=872) 2.25 M/ L 4.63-6.08 HEMOGLOBIN (BEAKER) (test hjnd=707) 6.9 GM/DL 13.7-17.5 HEMATOCRIT (BEAKER) (test lcje=024) 21.3 % 40.1-51.0 MEAN CORPUSCULAR VOLUME (BEAKER) (test kztd=417) 94.7 fL 79.0-92.2 MEAN CORPUSCULAR HEMOGLOBIN (BEAKER) (test 30.7 pg 25.7-32.2 ymad=784) MEAN CORPUSCULAR HEMOGLOBIN CONC (BEAKER) (test 32.4 GM/DL 32.3-36.5 zncd=125) RED CELL DISTRIBUTION WIDTH (BEAKER) (test 19.3 % 11.6-14.4 nfzq=148) PLATELET COUNT (BEAKER) (test glwi=164) 43 K/CU MM 150-450 MEAN PLATELET VOLUME (BEAKER) (test futp=193) 11.0 fL 9.4-12.4 NUCLEATED RED BLOOD CELLS (BEAKER) (test 0 /100 WBC 0-0 hjgn=224) NEUTROPHILS RELATIVE PERCENT (BEAKER) (test 73 % otvy=014) LYMPHOCYTES RELATIVE PERCENT (BEAKER) (test 11 % tfap=055) MONOCYTES RELATIVE PERCENT (BEAKER) (test 11 % yiay=077) EOSINOPHILS RELATIVE PERCENT (BEAKER) (test 4 % ywaz=845) BASOPHILS RELATIVE PERCENT (BEAKER) (test 0 % ymvs=913) NEUTROPHILS ABSOLUTE COUNT (BEAKER) (test 5.36 K/ L 1.78-5.38 qmmf=096) LYMPHOCYTES ABSOLUTE COUNT (BEAKER) (test 0.81 K/ L 1.32-3.57 leod=121) MONOCYTES ABSOLUTE COUNT (BEAKER) (test wvyh=434) 0.82 K/ L 0.30-0.82 EOSINOPHILS ABSOLUTE COUNT (BEAKER) (test 0.30 K/ L 0.04-0.54 ahsu=970) BASOPHILS ABSOLUTE COUNT (BEAKER) (test jrbv=579) 0.01 K/ L 0.01-0.08 IMMATURE GRANULOCYTES-RELATIVE PERCENT (BEAKER) 1 % 0-1 (test gnhn=6595) CALCIUM, [id number] 06:40:00 Test Item Value Reference Range Comments CALCIUM IONIZED (BEAKER) (test itsi=842) 1.15 mmol/L 1.12-1.27 PH, BLOOD (BEAKER) (test ytal=9246) 7.53 [id number] 05:37:00 Test Item Value Reference Range Comments PHOSPHORUS (BEAKER) (test gypn=412) 2.4 mg/dL 2.3-4.7 [id number] 05:37:00 Test Item Value Reference Range Comments MAGNESIUM (BEAKER) (test owla=026) 1.8 mg/dL 1.6-2.6 COMPREHENSIVE METABOLIC [id number] 05:37:00 Test Item Value Reference Range Comments TOTAL PROTEIN (BEAKER) 5.8 gm/dL 6.0-8.3 (test vxsj=440) ALBUMIN (BEAKER) (test 4.1 g/dL 3.5-5.0 avpz=8212) ALKALINE PHOSPHATASE 74 U/L 40-150 (BEAKER) (test czum=035) BILIRUBIN TOTAL (BEAKER) 2.6 mg/dL 0.2-1.2 (test gplg=664) SODIUM (BEAKER) (test 137 meq/L 136-145 kewy=832) POTASSIUM (BEAKER) (test 3.8 meq/L 3.5-5.1 dnvl=014) CHLORIDE (BEAKER) (test 104 meq/L 98-107 luvw=948) CO2 (BEAKER) (test 24 meq/L 22-29 poea=999) BLOOD UREA NITROGEN 37 mg/dL 7-21 (BEAKER) (test ksts=329) CREATININE (BEAKER) (test 1.31 mg/dL 0.57-1.25 vujp=720) GLUCOSE RANDOM (BEAKER) 110 mg/dL 70-105 (test dkdq=811) CALCIUM (BEAKER) (test 9.9 mg/dL 8.4-10.2 vlaz=643) AST (SGOT) (BEAKER) (test 71 U/L 5-34 msod=849) ALT (SGPT) (BEAKER) (test 50 U/L 6-55 lhpv=699) EGFR (BEAKER) (test 57 mL/min/1.73 sq m ESTIMATED GFR IS NOT mdrv=7448) ACCURATE CREATININE CLEARANCE IN PREDICTING GLOMERULAR FILTRATION RATE. ESTIMATED GFR IS NOT APPLICABLE FOR DIALYSIS PATIENTS. Specimen slightly ictericHEPATIC FUNCTION [id number] 05:37:00 Test Item Value Reference Range Comments TOTAL PROTEIN (BEAKER) (test bvis=025) 5.8 gm/dL 6.0-8.3 ALBUMIN (BEAKER) (test zfvr=2600) 4.1 g/dL 3.5-5.0 BILIRUBIN TOTAL (BEAKER) (test sguj=336) 2.6 mg/dL 0.2-1.2 BILIRUBIN DIRECT (BEAKER) (test xtij=759) 0.7 mg/dL 0.1-0.5 ALKALINE PHOSPHATASE (BEAKER) (test ljqu=214) 74 U/L 40-150 AST (SGOT) (BEAKER) (test ynan=992) 71 U/L 5-34 ALT (SGPT) (BEAKER) (test owdz=259) 50 U/L 6-55 Specimen slightly ictericCBC W/PLT COUNT & AUTO [id number] 05:20 :00 Test Item Value Reference Range Comments WHITE BLOOD CELL COUNT (BEAKER) (test vrso=604) 7.5 K/ L 3.5-10.5 RED BLOOD CELL COUNT (BEAKER) (test grky=340) 2.26 M/ L 4.63-6.08 HEMOGLOBIN (BEAKER) (test mjjp=328) 7.0 GM/DL 13.7-17.5 HEMATOCRIT (BEAKER) (test sjuf=378) 21.0 % 40.1-51.0 MEAN CORPUSCULAR VOLUME (BEAKER) (test pczx=781) 92.9 fL 79.0-92.2 MEAN CORPUSCULAR HEMOGLOBIN (BEAKER) (test 31.0 pg 25.7-32.2 bmna=274) MEAN CORPUSCULAR HEMOGLOBIN CONC (BEAKER) (test 33.3 GM/DL 32.3-36.5 fzym=216) RED CELL DISTRIBUTION WIDTH (BEAKER) (test 18.6 % 11.6-14.4 rkvv=715) PLATELET COUNT (BEAKER) (test fjcb=150) 37 K/CU MM 150-450 MEAN PLATELET VOLUME (BEAKER) (test jxix=303) 10.5 fL 9.4-12.4 NUCLEATED RED BLOOD CELLS (BEAKER) (test 0 /100 WBC 0-0 zvge=521) NEUTROPHILS RELATIVE PERCENT (BEAKER) (test 71 % sexh=925) LYMPHOCYTES RELATIVE PERCENT (BEAKER) (test 14 % kzrf=437) MONOCYTES RELATIVE PERCENT (BEAKER) (test 12 % ttzv=595) EOSINOPHILS RELATIVE PERCENT (BEAKER) (test 2 % ncly=601) BASOPHILS RELATIVE PERCENT (BEAKER) (test 0 % jyxu=277) NEUTROPHILS ABSOLUTE COUNT (BEAKER) (test 5.36 K/ L 1.78-5.38 cizz=840) LYMPHOCYTES ABSOLUTE COUNT (BEAKER) (test 1.07 K/ L 1.32-3.57 eitk=349) MONOCYTES ABSOLUTE COUNT (BEAKER) (test dvtq=859) 0.93 K/ L 0.30-0.82 EOSINOPHILS ABSOLUTE COUNT (BEAKER) (test 0.11 K/ L 0.04-0.54 rqzt=196) BASOPHILS ABSOLUTE COUNT (BEAKER) (test vkdd=231) 0.00 K/ L 0.01-0.08 IMMATURE GRANULOCYTES-RELATIVE PERCENT (BEAKER) 0 % 0-1 (test trux=5104) PROTHROMBIN [id number] 05:17:00 Test Item Value Reference Range Comments PROTIME (BEAKER) (test kkop=029) 22.0 seconds 11.7-14.7 INR (BEAKER) (test dufh=292) 1.9 <=5.9 RECOMMENDED COUMADIN/WARFARIN INR THERAPY RANGESSTANDARD DOSE: 2.0 - 3.0 Includes: PROPHYLAXIS forvenous thrombosis, systemic embolization; TREATMENT for venous thrombosis and/or pulmonary embolus.HIGH RISK: Target INR is 2.5-3.5 for patients with mechanical heart valves.CALCIUM, [id number] 03:48:00 Test Item Value Reference Range Comments CALCIUM IONIZED (BEAKER) (test frez=985) 1.15 mmol/L 1.12-1.27 PH, BLOOD (BEAKER) (test sxop=6444) 7.46 [id number] 03:39:00 Test Item Value Reference Range Comments PHOSPHORUS (BEAKER) (test sfbo=862) 2.9 mg/dL 2.3-4.7 [id number] 03:39:00 Test Item Value Reference Range Comments MAGNESIUM (BEAKER) (test jzho=339) 2.2 mg/dL 1.6-2.6 BASIC METABOLIC [id number] 03:39:00 Test Item Value Reference Range Comments SODIUM (BEAKER) (test 139 meq/L 136-145 stxw=093) POTASSIUM (BEAKER) (test 4.2 meq/L 3.5-5.1 uzgp=439) CHLORIDE (BEAKER) (test 104 meq/L 98-107 xrrg=895) CO2 (BEAKER) (test 22 meq/L 22-29 rvfe=583) BLOOD UREA NITROGEN 45 mg/dL 7-21 (BEAKER) (test drng=350) CREATININE (BEAKER) (test 1.65 mg/dL 0.57-1.25 wjdx=551) GLUCOSE RANDOM (BEAKER) 147 mg/dL 70-105 (test lxub=224) CALCIUM (BEAKER) (test 10.7 mg/dL 8.4-10.2 ugcm=375) EGFR (BEAKER) (test 43 mL/min/1.73 sq m ESTIMATED GFR IS NOT vxpl=7537) ACCURATE CREATININE CLEARANCE IN PREDICTING GLOMERULAR FILTRATION RATE. ESTIMATED GFR IS NOT APPLICABLE FOR DIALYSIS PATIENTS. Specimen slightly ictericHEPATIC FUNCTION [id number] 03:39:00 Test Item Value Reference Range Comments TOTAL PROTEIN (BEAKER) (test ohad=476) 7.1 gm/dL 6.0-8.3 ALBUMIN (BEAKER) (test eods=7503) 5.1 g/dL 3.5-5.0 BILIRUBIN TOTAL (BEAKER) (test bqbi=295) 2.9 mg/dL 0.2-1.2 BILIRUBIN DIRECT (BEAKER) (test eybf=850) 0.8 mg/dL 0.1-0.5 ALKALINE PHOSPHATASE (BEAKER) (test qnam=545) 94 U/L 40-150 AST (SGOT) (BEAKER) (test yiyh=768) 81 U/L 5-34 ALT (SGPT) (BEAKER) (test jind=635) 53 U/L 6-55 Specimen slightly ictericPROTHROMBIN [id number] 03:32:00 Test Item Value Reference Range Comments PROTIME (BEAKER) (test spdd=907) 20.8 seconds 11.7-14.7 INR (BEAKER) (test qede=003) 1.8 <=5.9 RECOMMENDED COUMADIN/WARFARIN INR THERAPY RANGESSTANDARD DOSE: 2.0 - 3.0 Includes: PROPHYLAXIS forvenous thrombosis, systemic embolization; TREATMENT for venous thrombosis and/or pulmonary embolus.HIGH RISK: Target INR is 2.5-3.5 for patients with mechanical heart valves.CBC W/PLT COUNT & AUTO [id number] 03:19:00 Test Item Value Reference Range Comments WHITE BLOOD CELL COUNT (BEAKER) (test wqip=506) 6.5 K/ L 3.5-10.5 RED BLOOD CELL COUNT (BEAKER) (test vaso=202) 2.57 M/ L 4.63-6.08 HEMOGLOBIN (BEAKER) (test mgdn=543) 8.1 GM/DL 13.7-17.5 HEMATOCRIT (BEAKER) (test ukls=017) 24.3 % 40.1-51.0 MEAN CORPUSCULAR VOLUME (BEAKER) (test trdb=522) 94.6 fL 79.0-92.2 MEAN CORPUSCULAR HEMOGLOBIN (BEAKER) (test 31.5 pg 25.7-32.2 jlpn=910) MEAN CORPUSCULAR HEMOGLOBIN CONC (BEAKER) (test 33.3 GM/DL 32.3-36.5 xiwq=989) RED CELL DISTRIBUTION WIDTH (BEAKER) (test 18.7 % 11.6-14.4 ennj=015) PLATELET COUNT (BEAKER) (test vztq=874) 48 K/CU MM 150-450 MEAN PLATELET VOLUME (BEAKER) (test rxuy=674) 10.6 fL 9.4-12.4 NUCLEATED RED BLOOD CELLS (BEAKER) (test 0 /100 WBC 0-0 glzy=016) NEUTROPHILS RELATIVE PERCENT (BEAKER) (test 77 % yiex=639) LYMPHOCYTES RELATIVE PERCENT (BEAKER) (test 12 % opqp=647) MONOCYTES RELATIVE PERCENT (BEAKER) (test 10 % ovkk=263) EOSINOPHILS RELATIVE PERCENT (BEAKER) (test 0 % ixbx=101) BASOPHILS RELATIVE PERCENT (BEAKER) (test 0 % typk=154) NEUTROPHILS ABSOLUTE COUNT (BEAKER) (test 4.99 K/ L 1.78-5.38 jexp=917) LYMPHOCYTES ABSOLUTE COUNT (BEAKER) (test 0.81 K/ L 1.32-3.57 tvrz=529) MONOCYTES ABSOLUTE COUNT (BEAKER) (test tmbc=641) 0.63 K/ L 0.30-0.82 EOSINOPHILS ABSOLUTE COUNT (BEAKER) (test 0.02 K/ L 0.04-0.54 jzmo=407) BASOPHILS ABSOLUTE COUNT (BEAKER) (test bgju=448) 0.00 K/ L 0.01-0.08 IMMATURE GRANULOCYTES-RELATIVE PERCENT (BEAKER) 1 % 0-1 (test cgpx=7048) U/S, [id number] 17:24:00Reason for exam:->ascites, abdominal distentionFINAL REPORT Ultrasound guided paracentesis Clinical History: Ascites LocalAnesthesia: 5 cc of 1% lidocaine Technique: Informed consent is obtained. The risks of pain, bleeding, infection, bowel perforation, injury to adjacent structures, and adverse medication reactions are discussed with the patient. After informed consent is obtained, the patient's abdomen is scanned. The right lower quadrant of the abdomen is selected for paracentesis. After the largest fluid pocket area is marked, and the anterior abdominal wall is evaluated with color Doppler to exclude presence of blood vessels traversing the area, the skin is prepped and draped in the usual sterile manner.After local anesthesia is achieved, a 5 [place] catheter is advanced into the peritoneal cavity. Approximately 4000 cc. of serous fluid is drained, without immediate complications. Fluid is sent for analysis. Patient Disposition: The patient is discharged from the ultrasound department after the paracentesis, in good condition. Impression: Successful and uncomplicated ultrasound guided paracentesis is performed. Signed: Kade Ford MDReport Verified Date/Time: 09/06/2017 17:24:10 Reading Location: [facility] C013Y CT Body Reading Room BODY FLUID CELL COUNT WITH [id number] 16:55:00 Test Item Value Reference Range Comments APPEARANCE FLUID (BEAKER) (test siwc=766) Slightly Hazy Clear COLOR FLUID (BEAKER) (test ntdl=431) [place] Colorless, Straw RBC FLUID (BEAKER) (test zuwa=522) 3000 /cu mm <=1 ADJUSTED WBC FLUID (BEAKER) (test mnih=5680) 29 /cu mm <=5 LINING CELLS (BEAKER) (test ugbu=4980) 1 /cu mm <=1 NEUTROPHILS FLUID (BEAKER) (test awpk=8829) 1 % LYMPHS FLUID (BEAKER) (test suwa=847) 19 % MONO/MACROPHAGE FLUID (BEAKER) (test 80 % yczf=935) EOSINOPHILS FLUID (BEAKER) (test qlng=122) 0 % BASO FLUID (BEAKER) (test ohcb=107) 0 % CONTAINER BODY FLUID (BEAKER) (test EDTA Tube ufnr=4424) BLOOD [id number] 11:00:00 Test Item Value Reference Range Comments CULTURE (BEAKER) (test odbl=4190) No growth in 5 days CALCIUM, [id number] 07:42:00 Test Item Value Reference Range Comments CALCIUM IONIZED (BEAKER) (test dpwf=651) 1.12 mmol/L 1.12-1.27 PH, BLOOD (BEAKER) (test tkmt=3074) 7.42 [id number] 06:45:00 Test Item Value Reference Range Comments PHOSPHORUS (BEAKER) (test loug=611) 2.9 mg/dL 2.3-4.7 [id number] 06:45:00 Test Item Value Reference Range Comments MAGNESIUM (BEAKER) (test bufa=155) 2.0 mg/dL 1.6-2.6 BASIC METABOLIC [id number] 06:45:00 Test Item Value Reference Range Comments SODIUM (BEAKER) (test 138 meq/L 136-145 gqeq=956) POTASSIUM (BEAKER) (test 3.6 meq/L 3.5-5.1 zioi=711) CHLORIDE (BEAKER) (test 102 meq/L 98-107 ffow=396) CO2 (BEAKER) (test 23 meq/L 22-29 adfg=736) BLOOD UREA NITROGEN 52 mg/dL 7-21 (BEAKER) (test orsv=221) CREATININE (BEAKER) (test 1.93 mg/dL 0.57-1.25 tfsw=846) GLUCOSE RANDOM (BEAKER) 124 mg/dL 70-105 (test dzkx=120) CALCIUM (BEAKER) (test 10.1 mg/dL 8.4-10.2 hxuk=822) EGFR (BEAKER) (test 36 mL/min/1.73 sq m ESTIMATED GFR IS NOT tvgh=5060) ACCURATE CREATININE CLEARANCE IN PREDICTING GLOMERULAR FILTRATION RATE. ESTIMATED GFR IS NOT APPLICABLE FOR DIALYSIS PATIENTS. Specimen slightly ictericHEPATIC FUNCTION [id number] 06:45:00 Test Item Value Reference Range Comments TOTAL PROTEIN (BEAKER) (test lsky=409) 6.7 gm/dL 6.0-8.3 ALBUMIN (BEAKER) (test nvkv=3458) 4.5 g/dL 3.5-5.0 BILIRUBIN TOTAL (BEAKER) (test danf=602) 2.8 mg/dL 0.2-1.2 BILIRUBIN DIRECT (BEAKER) (test wotp=660) 0.8 mg/dL 0.1-0.5 ALKALINE PHOSPHATASE (BEAKER) (test vjtx=998) 101 U/L 40-150 AST (SGOT) (BEAKER) (test nbvn=631) 102 U/L 5-34 ALT (SGPT) (BEAKER) (test ocvn=907) 54 U/L 6-55 Specimen slightly ictericCBC W/PLT COUNT & AUTO [id number] 06:36 :00 Test Item Value Reference Range Comments WHITE BLOOD CELL COUNT (BEAKER) (test eqmy=336) 6.6 K/ L 3.5-10.5 RED BLOOD CELL COUNT (BEAKER) (test rsur=672) 2.66 M/ L 4.63-6.08 HEMOGLOBIN (BEAKER) (test bnbb=357) 8.2 GM/DL 13.7-17.5 HEMATOCRIT (BEAKER) (test iwcf=456) 25.1 % 40.1-51.0 MEAN CORPUSCULAR VOLUME (BEAKER) (test hoho=674) 94.4 fL 79.0-92.2 MEAN CORPUSCULAR HEMOGLOBIN (BEAKER) (test 30.8 pg 25.7-32.2 fput=315) MEAN CORPUSCULAR HEMOGLOBIN CONC (BEAKER) (test 32.7 GM/DL 32.3-36.5 erjr=545) RED CELL DISTRIBUTION WIDTH (BEAKER) (test 18.6 % 11.6-14.4 cvhq=040) PLATELET COUNT (BEAKER) (test nzxj=864) 53 K/CU MM 150-450 MEAN PLATELET VOLUME (BEAKER) (test uxdt=203) 10.3 fL 9.4-12.4 NUCLEATED RED BLOOD CELLS (BEAKER) (test 0 /100 WBC 0-0 koge=728) NEUTROPHILS RELATIVE PERCENT (BEAKER) (test 74 % lwts=028) LYMPHOCYTES RELATIVE PERCENT (BEAKER) (test 12 % abda=502) MONOCYTES RELATIVE PERCENT (BEAKER) (test 13 % jjvw=803) EOSINOPHILS RELATIVE PERCENT (BEAKER) (test 1 % xpvl=141) BASOPHILS RELATIVE PERCENT (BEAKER) (test 0 % jadg=108) NEUTROPHILS ABSOLUTE COUNT (BEAKER) (test 4.95 K/ L 1.78-5.38 ylhh=546) LYMPHOCYTES ABSOLUTE COUNT (BEAKER) (test 0.77 K/ L 1.32-3.57 ncbw=206) MONOCYTES ABSOLUTE COUNT (BEAKER) (test xlik=091) 0.84 K/ L 0.30-0.82 EOSINOPHILS ABSOLUTE COUNT (BEAKER) (test 0.03 K/ L 0.04-0.54 lrqf=720) BASOPHILS ABSOLUTE COUNT (BEAKER) (test fgbv=190) 0.00 K/ L 0.01-0.08 IMMATURE GRANULOCYTES-RELATIVE PERCENT (BEAKER) 1 % 0-1 (test fhol=8373) PROTHROMBIN [id number] 06:00:00 Test Item Value Reference Range Comments PROTIME (BEAKER) (test xjck=358) 20.4 seconds 11.7-14.7 INR (BEAKER) (test ximk=357) 1.7 <=5.9 RECOMMENDED COUMADIN/WARFARIN INR THERAPY RANGESSTANDARD DOSE: 2.0 - 3.0 Includes: PROPHYLAXIS forvenous thrombosis, systemic embolization; TREATMENT for venous thrombosis and/or pulmonary embolus.HIGH RISK: Target INR is 2.5-3.5 for patients with mechanical heart valves.[id number] 04:23:00 Test Item Value Reference Range Comments PHOSPHORUS (BEAKER) (test qdqk=015) 3.5 mg/dL 2.3-4.7 [id number] 04:23:00 Test Item Value Reference Range Comments MAGNESIUM (BEAKER) (test esvf=606) 2.0 mg/dL 1.6-2.6 BASIC METABOLIC [id number] 04:23:00 Test Item Value Reference Range Comments SODIUM (BEAKER) (test 142 meq/L 136-145 wqlb=760) POTASSIUM (BEAKER) (test 3.8 meq/L 3.5-5.1 kure=273) CHLORIDE (BEAKER) (test 108 meq/L 98-107 xyje=405) CO2 (BEAKER) (test 22 meq/L 22-29 fnqp=751) BLOOD UREA NITROGEN 61 mg/dL 7-21 (BEAKER) (test tnje=227) CREATININE (BEAKER) (test 2.27 mg/dL 0.57-1.25 lnil=058) GLUCOSE RANDOM (BEAKER) 131 mg/dL 70-105 (test imxd=334) CALCIUM (BEAKER) (test 9.7 mg/dL 8.4-10.2 nksi=237) EGFR (BEAKER) (test 30 mL/min/1.73 sq m ESTIMATED GFR IS NOT tewx=0791) ACCURATE CREATININE CLEARANCE IN PREDICTING GLOMERULAR FILTRATION RATE. ESTIMATED GFR IS NOT APPLICABLE FOR DIALYSIS PATIENTS. Specimen slightly ictericHEPATIC FUNCTION [id number] 04:23:00 Test Item Value Reference Range Comments TOTAL PROTEIN (BEAKER) (test dqtr=147) 5.8 gm/dL 6.0-8.3 ALBUMIN (BEAKER) (test ahaq=2492) 3.9 g/dL 3.5-5.0 BILIRUBIN TOTAL (BEAKER) (test xsmm=584) 3.0 mg/dL 0.2-1.2 BILIRUBIN DIRECT (BEAKER) (test woqw=962) 0.9 mg/dL 0.1-0.5 ALKALINE PHOSPHATASE (BEAKER) (test vrne=827) 81 U/L 40-150 AST (SGOT) (BEAKER) (test loia=212) 57 U/L 5-34 ALT (SGPT) (BEAKER) (test ohud=740) 31 U/L 6-55 Specimen slightly ictericCBC W/PLT COUNT & AUTO [id number] 04:16 :00 Test Item Value Reference Range Comments WHITE BLOOD CELL COUNT (BEAKER) (test jiyi=152) 7.0 K/ L 3.5-10.5 RED BLOOD CELL COUNT (BEAKER) (test mkqq=509) 2.48 M/ L 4.63-6.08 HEMOGLOBIN (BEAKER) (test hpap=417) 7.6 GM/DL 13.7-17.5 HEMATOCRIT (BEAKER) (test qvdg=762) 22.4 % 40.1-51.0 MEAN CORPUSCULAR VOLUME (BEAKER) (test ldzr=181) 90.3 fL 79.0-92.2 MEAN CORPUSCULAR HEMOGLOBIN (BEAKER) (test 30.6 pg 25.7-32.2 vglg=361) MEAN CORPUSCULAR HEMOGLOBIN CONC (BEAKER) (test 33.9 GM/DL 32.3-36.5 rbxw=497) RED CELL DISTRIBUTION WIDTH (BEAKER) (test 18.1 % 11.6-14.4 xsmk=873) PLATELET COUNT (BEAKER) (test gigp=867) 60 K/CU MM 150-450 MEAN PLATELET VOLUME (BEAKER) (test emeq=577) 10.4 fL 9.4-12.4 NUCLEATED RED BLOOD CELLS (BEAKER) (test 0 /100 WBC 0-0 jlij=513) NEUTROPHILS RELATIVE PERCENT (BEAKER) (test 75 % tsoh=132) LYMPHOCYTES RELATIVE PERCENT (BEAKER) (test 10 % simg=737) MONOCYTES RELATIVE PERCENT (BEAKER) (test 13 % emoi=364) EOSINOPHILS RELATIVE PERCENT (BEAKER) (test 1 % obbk=264) BASOPHILS RELATIVE PERCENT (BEAKER) (test 0 % cqhh=074) NEUTROPHILS ABSOLUTE COUNT (BEAKER) (test 5.28 K/ L 1.78-5.38 lwlq=960) LYMPHOCYTES ABSOLUTE COUNT (BEAKER) (test 0.71 K/ L 1.32-3.57 iznn=126) MONOCYTES ABSOLUTE COUNT (BEAKER) (test sqoy=517) 0.93 K/ L 0.30-0.82 EOSINOPHILS ABSOLUTE COUNT (BEAKER) (test 0.06 K/ L 0.04-0.54 wpgv=915) BASOPHILS ABSOLUTE COUNT (BEAKER) (test qagq=578) 0.01 K/ L 0.01-0.08 IMMATURE GRANULOCYTES-RELATIVE PERCENT (BEAKER) 1 % 0-1 (test lvyk=5424) PROTHROMBIN [id number] 04:15:00 Test Item Value Reference Range Comments PROTIME (BEAKER) (test aztf=542) 20.4 seconds 11.7-14.7 INR (BEAKER) (test kgjq=605) 1.7 <=5.9 RECOMMENDED COUMADIN/WARFARIN INR THERAPY RANGESSTANDARD DOSE: 2.0 - 3.0 Includes: PROPHYLAXIS forvenous thrombosis, systemic embolization; TREATMENT for venous thrombosis and/or pulmonary embolus.HIGH RISK: Target INR is 2.5-3.5 for patients with mechanical heart valves.CALCIUM, [id number] 04:07:00 Test Item Value Reference Range Comments CALCIUM IONIZED (BEAKER) (test ztgr=465) 1.07 mmol/L 1.12-1.27 PH, BLOOD (BEAKER) (test shpo=5175) 7.56 BODY FLUID CULTURE + GRAM [id number] 11:28:00 Test Item Value Reference Range Comments CULTURE (BEAKER) (test erso=3848) No growth GRAM STAIN RESULT (BEAKER) (test No WBCs dbmy=6660) GRAM STAIN RESULT (BEAKER) (test No organisms seen znir=88606) CALCIUM, [id number] 09:14:00 Test Item Value Reference Range Comments CALCIUM IONIZED (BEAKER) (test trnk=095) 1.01 mmol/L 1.12-1.27 PH, BLOOD (BEAKER) (test gthg=5064) 7.56 CBC W/PLT COUNT & AUTO [id number] 06:47:00 Test Item Value Reference Range Comments WHITE BLOOD CELL COUNT (BEAKER) (test kjrv=546) 6.9 K/ L 3.5-10.5 RED BLOOD CELL COUNT (BEAKER) (test acbl=304) 2.21 M/ L 4.63-6.08 HEMOGLOBIN (BEAKER) (test tpmb=928) 7.0 GM/DL 13.7-17.5 HEMATOCRIT (BEAKER) (test razf=204) 20.2 % 40.1-51.0 MEAN CORPUSCULAR VOLUME (BEAKER) (test tlfy=523) 91.4 fL 79.0-92.2 MEAN CORPUSCULAR HEMOGLOBIN (BEAKER) (test 31.7 pg 25.7-32.2 ohcc=740) MEAN CORPUSCULAR HEMOGLOBIN CONC (BEAKER) (test 34.7 GM/DL 32.3-36.5 uzfh=271) RED CELL DISTRIBUTION WIDTH (BEAKER) (test 17.8 % 11.6-14.4 zios=110) PLATELET COUNT (BEAKER) (test hekd=934) 50 K/CU MM 150-450 MEAN PLATELET VOLUME (BEAKER) (test lbas=218) 9.3 fL 9.4-12.4 NUCLEATED RED BLOOD CELLS (BEAKER) (test 0 /100 WBC 0-0 epus=780) NEUTROPHILS RELATIVE PERCENT (BEAKER) (test 77 % mqnz=544) LYMPHOCYTES RELATIVE PERCENT (BEAKER) (test 10 % mhcp=573) MONOCYTES RELATIVE PERCENT (BEAKER) (test 12 % ueth=942) EOSINOPHILS RELATIVE PERCENT (BEAKER) (test 0 % qjdk=670) BASOPHILS RELATIVE PERCENT (BEAKER) (test 0 % ltmw=960) NEUTROPHILS ABSOLUTE COUNT (BEAKER) (test 5.32 K/ L 1.78-5.38 ugte=066) LYMPHOCYTES ABSOLUTE COUNT (BEAKER) (test 0.68 K/ L 1.32-3.57 iemb=802) MONOCYTES ABSOLUTE COUNT (BEAKER) (test hafy=444) 0.83 K/ L 0.30-0.82 EOSINOPHILS ABSOLUTE COUNT (BEAKER) (test 0.03 K/ L 0.04-0.54 pmdw=048) BASOPHILS ABSOLUTE COUNT (BEAKER) (test mtpd=627) 0.00 K/ L 0.01-0.08 IMMATURE GRANULOCYTES-RELATIVE PERCENT (BEAKER) 1 % 0-1 (test ifmo=4764) BASIC METABOLIC [id number] 06:32:00 Test Item Value Reference Range Comments SODIUM (BEAKER) (test 137 meq/L 136-145 knwe=911) POTASSIUM (BEAKER) (test 3.9 meq/L 3.5-5.1 iain=893) CHLORIDE (BEAKER) (test 106 meq/L 98-107 cjdh=064) CO2 (BEAKER) (test 20 meq/L 22-29 xfqc=363) BLOOD UREA NITROGEN 60 mg/dL 7-21 (BEAKER) (test tjwx=880) CREATININE (BEAKER) (test 2.83 mg/dL 0.57-1.25 fcht=765) GLUCOSE RANDOM (BEAKER) 142 mg/dL 70-105 (test wxqe=622) CALCIUM (BEAKER) (test 9.2 mg/dL 8.4-10.2 fqie=361) EGFR (BEAKER) (test 23 mL/min/1.73 sq m ESTIMATED GFR IS NOT btar=8271) ACCURATE CREATININE CLEARANCE IN PREDICTING GLOMERULAR FILTRATION RATE. ESTIMATED GFR IS NOT APPLICABLE FOR DIALYSIS PATIENTS. Specimen slightly [id number] 06:25:00 Test Item Value Reference Range Comments PHOSPHORUS (BEAKER) (test sxzp=973) 3.5 mg/dL 2.3-4.7 [id number] 06:25:00 Test Item Value Reference Range Comments MAGNESIUM (BEAKER) (test usya=450) 2.0 mg/dL 1.6-2.6 HEPATIC FUNCTION [id number] 06:25:00 Test Item Value Reference Range Comments TOTAL PROTEIN (BEAKER) (test kcdc=179) 5.5 gm/dL 6.0-8.3 ALBUMIN (BEAKER) (test stii=6644) 3.7 g/dL 3.5-5.0 BILIRUBIN TOTAL (BEAKER) (test ybjr=242) 2.5 mg/dL 0.2-1.2 BILIRUBIN DIRECT (BEAKER) (test hgew=514) 0.8 mg/dL 0.1-0.5 ALKALINE PHOSPHATASE (BEAKER) (test asci=758) 77 U/L 40-150 AST (SGOT) (BEAKER) (test cdhq=204) 52 U/L 5-34 ALT (SGPT) (BEAKER) (test kzxk=722) 26 U/L 6-55 Specimen slightly [id number] 06:03:00 Test Item Value Reference Range Comments AMMONIA (BEAKER) (test luum=242) 105 mol/L 18-72 PROTHROMBIN [id number] 06:02:00 Test Item Value Reference Range Comments PROTIME (BEAKER) (test vitz=417) 22.1 seconds 11.7-14.7 INR (BEAKER) (test akyi=339) 1.9 <=5.9 RECOMMENDED COUMADIN/WARFARIN INR THERAPY RANGESSTANDARD DOSE: 2.0 - 3.0 Includes: PROPHYLAXIS forvenous thrombosis, systemic embolization; TREATMENT for venous thrombosis and/or pulmonary embolus.HIGH RISK: Target INR is 2.5-3.5 for patients with mechanical heart valves.URINE [id number] 13:10:00 Test Item Value Reference Range Comments CULTURE (BEAKER) (test ybgp=4575) No growth CALCIUM, [id number] 08:01:00 Test Item Value Reference Range Comments CALCIUM IONIZED (BEAKER) (test cehq=903) 1.00 mmol/L 1.12-1.27 PH, BLOOD (BEAKER) (test bjrg=3341) 7.54 BASIC METABOLIC [id number] 07:06:00 Test Item Value Reference Range Comments SODIUM (BEAKER) (test 134 meq/L 136-145 kmsl=211) POTASSIUM (BEAKER) (test 3.1 meq/L 3.5-5.1 qoju=649) CHLORIDE (BEAKER) (test 102 meq/L 98-107 osai=675) CO2 (BEAKER) (test 20 meq/L 22-29 uxcr=665) BLOOD UREA NITROGEN 59 mg/dL 7-21 (BEAKER) (test bqcn=571) CREATININE (BEAKER) (test 3.31 mg/dL 0.57-1.25 lrmo=801) GLUCOSE RANDOM (BEAKER) 135 mg/dL 70-105 (test mzyu=886) CALCIUM (BEAKER) (test 9.0 mg/dL 8.4-10.2 bknr=486) EGFR (BEAKER) (test 19 mL/min/1.73 sq m ESTIMATED GFR IS NOT jadv=5846) ACCURATE CREATININE CLEARANCE IN PREDICTING GLOMERULAR FILTRATION RATE. ESTIMATED GFR IS NOT APPLICABLE FOR DIALYSIS PATIENTS. Specimen slightly ictericPROTHROMBIN [id number] 06:55:00 Test Item Value Reference Range Comments PROTIME (BEAKER) (test hgee=006) 24.5 seconds 11.7-14.7 INR (BEAKER) (test txsj=336) 2.2 <=5.9 RECOMMENDED COUMADIN/WARFARIN INR THERAPY RANGESSTANDARD DOSE: 2.0 - 3.0 Includes: PROPHYLAXIS forvenous thrombosis, systemic embolization; TREATMENT for venous thrombosis and/or pulmonary embolus.HIGH RISK: Target INR is 2.5-3.5 for patients with mechanical heart valves.[id number] 06:53:00 Test Item Value Reference Range Comments PHOSPHORUS (BEAKER) (test gtnf=150) 4.0 mg/dL 2.3-4.7 [id number] 06:53:00 Test Item Value Reference Range Comments MAGNESIUM (BEAKER) (test adrl=481) 2.0 mg/dL 1.6-2.6 HEPATIC FUNCTION [id number] 06:53:00 Test Item Value Reference Range Comments TOTAL PROTEIN (BEAKER) (test dhlp=796) 5.5 gm/dL 6.0-8.3 ALBUMIN (BEAKER) (test xwvs=1079) 3.9 g/dL 3.5-5.0 BILIRUBIN TOTAL (BEAKER) (test ricj=253) 2.7 mg/dL 0.2-1.2 BILIRUBIN DIRECT (BEAKER) (test toks=033) 0.8 mg/dL 0.1-0.5 ALKALINE PHOSPHATASE (BEAKER) (test ohvz=617) 73 U/L 40-150 AST (SGOT) (BEAKER) (test erdu=192) 22 U/L 5-34 ALT (SGPT) (BEAKER) (test whwt=507) 16 U/L 6-55 Specimen slightly ictericCREATINE KINASE (CK), TOTAL AND [id number] 06:51:00 Test Item Value Reference Range Comments CREATINE KINASE TOTAL (BEAKER) (test soop=154) 27 U/L 29-200 CREATINE KINASE-MB (BEAKER) (test jqeb=493) 1.0 ng/mL 0.0-6.6 CREATINE KINASE-MB INDEX (BEAKER) (test jpga=701) 3.7 % CK-MB Reference Range:<6.7 Normal6.7-10.0 Borderline>10.0 AbnormalTROPONIN [id number] 06:51:00 Test Item Value Reference Range Comments TROPONIN I (BEAKER) (test lxlw=238) 0.04 ng/mL 0.00-0.03 Troponin I (TnI) levels must be interpreted in the context of the presenting symptoms and the clinical findings. Elevated TnI levels indicate myocardial damage, but are not specific for ischemic heart disease. Elevated TnI levels are seen in patients with other cardiac conditions (including myocarditis and congestive heart failure), and slight TnI elevations occur in patients with other conditions, including sepsis, renal failure, acidosis, acute neurological disease, and persistent tachyarrhythmia.CBC W/PLT COUNT & AUTO [id number] 06:49:00 Test Item Value Reference Range Comments WHITE BLOOD CELL COUNT (BEAKER) (test nrsy=857) 6.7 K/ L 3.5-10.5 RED BLOOD CELL COUNT (BEAKER) (test oofq=060) 2.24 M/ L 4.63-6.08 HEMOGLOBIN (BEAKER) (test tmed=866) 7.0 GM/DL 13.7-17.5 HEMATOCRIT (BEAKER) (test jvzy=326) 20.4 % 40.1-51.0 MEAN CORPUSCULAR VOLUME (BEAKER) (test bplk=301) 91.1 fL 79.0-92.2 MEAN CORPUSCULAR HEMOGLOBIN (BEAKER) (test 31.3 pg 25.7-32.2 mbwy=169) MEAN CORPUSCULAR HEMOGLOBIN CONC (BEAKER) (test 34.3 GM/DL 32.3-36.5 afqa=438) RED CELL DISTRIBUTION WIDTH (BEAKER) (test 17.4 % 11.6-14.4 hkvf=149) PLATELET COUNT (BEAKER) (test andm=541) 47 K/CU MM 150-450 MEAN PLATELET VOLUME (BEAKER) (test zsxo=236) 9.6 fL 9.4-12.4 NUCLEATED RED BLOOD CELLS (BEAKER) (test 0 /100 WBC 0-0 jqnj=653) NEUTROPHILS RELATIVE PERCENT (BEAKER) (test 69 % lozl=764) LYMPHOCYTES RELATIVE PERCENT (BEAKER) (test 13 % igfb=185) MONOCYTES RELATIVE PERCENT (BEAKER) (test 14 % bfxj=057) EOSINOPHILS RELATIVE PERCENT (BEAKER) (test 3 % idio=999) BASOPHILS RELATIVE PERCENT (BEAKER) (test 0 % btuy=994) NEUTROPHILS ABSOLUTE COUNT (BEAKER) (test 4.56 K/ L 1.78-5.38 bdab=084) LYMPHOCYTES ABSOLUTE COUNT (BEAKER) (test 0.89 K/ L 1.32-3.57 ulos=199) MONOCYTES ABSOLUTE COUNT (BEAKER) (test alxf=595) 0.96 K/ L 0.30-0.82 EOSINOPHILS ABSOLUTE COUNT (BEAKER) (test 0.20 K/ L 0.04-0.54 rzxl=312) BASOPHILS ABSOLUTE COUNT (BEAKER) (test drua=235) 0.01 K/ L 0.01-0.08 IMMATURE GRANULOCYTES-RELATIVE PERCENT (BEAKER) 1 % 0-1 (test renz=2522) CALCIUM, [id number] 06:52:00 Test Item Value Reference Range Comments CALCIUM IONIZED (BEAKER) (test urnx=192) 1.19 mmol/L 1.12-1.27 PH, BLOOD (BEAKER) (test bkxg=3603) 7.42 [id number] 06:48:00 Test Item Value Reference Range Comments PHOSPHORUS (BEAKER) (test qgmg=289) 5.6 mg/dL 2.3-4.7 [id number] 06:48:00 Test Item Value Reference Range Comments MAGNESIUM (BEAKER) (test spbb=220) 2.0 mg/dL 1.6-2.6 HEPATIC FUNCTION [id number] 06:48:00 Test Item Value Reference Range Comments TOTAL PROTEIN (BEAKER) (test fwlf=619) 6.1 gm/dL 6.0-8.3 ALBUMIN (BEAKER) (test zifj=2109) 4.5 g/dL 3.5-5.0 BILIRUBIN TOTAL (BEAKER) (test ykln=623) 2.5 mg/dL 0.2-1.2 BILIRUBIN DIRECT (BEAKER) (test tcwg=589) 0.7 mg/dL 0.1-0.5 ALKALINE PHOSPHATASE (BEAKER) (test wrcw=905) 73 U/L 40-150 AST (SGOT) (BEAKER) (test brax=249) 24 U/L 5-34 ALT (SGPT) (BEAKER) (test ghwr=748) 20 U/L 6-55 Specimen slightly ictericBASIC METABOLIC [id number] 06:48:00 Test Item Value Reference Range Comments SODIUM (BEAKER) (test 134 meq/L 136-145 iilb=028) POTASSIUM (BEAKER) (test 3.5 meq/L 3.5-5.1 waxm=567) CHLORIDE (BEAKER) (test 103 meq/L 98-107 hfzl=149) CO2 (BEAKER) (test 18 meq/L 22-29 pjyi=390) BLOOD UREA NITROGEN 53 mg/dL 7-21 (BEAKER) (test ufgi=242) CREATININE (BEAKER) (test 3.39 mg/dL 0.57-1.25 lgpz=661) GLUCOSE RANDOM (BEAKER) 144 mg/dL 70-105 (test gacv=665) CALCIUM (BEAKER) (test 10.1 mg/dL 8.4-10.2 rmzo=074) EGFR (BEAKER) (test 19 mL/min/1.73 sq m ESTIMATED GFR IS NOT goxf=7658) ACCURATE CREATININE CLEARANCE IN PREDICTING GLOMERULAR FILTRATION RATE. ESTIMATED GFR IS NOT APPLICABLE FOR DIALYSIS PATIENTS. Specimen slightly ictericLACTIC ACID, VENOUS, WHOLE [id number] 06:38:00 Test Item Value Reference Range Comments LACTATE BLOOD VENOUS (2) (BEAKER) (test 2.3 mmol/L 0.5-2.2 jzti=6663) Effective 09/26/2015: Units/Reference Range ChangeNew: 0.5-2.2 mmol/L Previous: 5 -20 mg/dLCBC W/PLT COUNT & AUTO [id number] 06:30:00 Test Item Value Reference Range Comments WHITE BLOOD CELL COUNT (BEAKER) (test afte=813) 6.6 K/ L 3.5-10.5 RED BLOOD CELL COUNT (BEAKER) (test uuzz=322) 2.18 M/ L 4.63-6.08 HEMOGLOBIN (BEAKER) (test rqad=561) 7.0 GM/DL 13.7-17.5 HEMATOCRIT (BEAKER) (test iqfk=497) 20.1 % 40.1-51.0 MEAN CORPUSCULAR VOLUME (BEAKER) (test hvxw=081) 92.2 fL 79.0-92.2 MEAN CORPUSCULAR HEMOGLOBIN (BEAKER) (test 32.1 pg 25.7-32.2 tvsk=560) MEAN CORPUSCULAR HEMOGLOBIN CONC (BEAKER) (test 34.8 GM/DL 32.3-36.5 zmga=075) RED CELL DISTRIBUTION WIDTH (BEAKER) (test 17.3 % 11.6-14.4 yzep=305) PLATELET COUNT (BEAKER) (test geau=864) 50 K/CU MM 150-450 MEAN PLATELET VOLUME (BEAKER) (test shsn=925) 9.0 fL 9.4-12.4 NUCLEATED RED BLOOD CELLS (BEAKER) (test 0 /100 WBC 0-0 cxrw=243) NEUTROPHILS RELATIVE PERCENT (BEAKER) (test 78 % gjol=907) LYMPHOCYTES RELATIVE PERCENT (BEAKER) (test 9 % uhnx=574) MONOCYTES RELATIVE PERCENT (BEAKER) (test 12 % kfnj=096) EOSINOPHILS RELATIVE PERCENT (BEAKER) (test 0 % rzmf=134) BASOPHILS RELATIVE PERCENT (BEAKER) (test 0 % immk=521) NEUTROPHILS ABSOLUTE COUNT (BEAKER) (test 5.16 K/ L 1.78-5.38 jowj=527) LYMPHOCYTES ABSOLUTE COUNT (BEAKER) (test 0.62 K/ L 1.32-3.57 rfam=139) MONOCYTES ABSOLUTE COUNT (BEAKER) (test xjak=447) 0.82 K/ L 0.30-0.82 EOSINOPHILS ABSOLUTE COUNT (BEAKER) (test 0.00 K/ L 0.04-0.54 hznq=323) BASOPHILS ABSOLUTE COUNT (BEAKER) (test hrnb=883) 0.00 K/ L 0.01-0.08 IMMATURE GRANULOCYTES-RELATIVE PERCENT (BEAKER) 1 % 0-1 (test dtwq=1366) PROTHROMBIN [id number] 06:26:00 Test Item Value Reference Range Comments PROTIME (BEAKER) (test crbr=188) 23.9 seconds 11.7-14.7 INR (BEAKER) (test altx=742) 2.1 <=5.9 RECOMMENDED COUMADIN/WARFARIN INR THERAPY RANGESSTANDARD DOSE: 2.0 - 3.0 Includes: PROPHYLAXIS forvenous thrombosis, systemic embolization; TREATMENT for venous thrombosis and/or pulmonary embolus.HIGH RISK: Target INR is 2.5-3.5 for patients with mechanical heart valves.BODY FLUID CELL COUNT WITH [id number] 18:33:00 Test Item Value Reference Range Comments APPEARANCE FLUID (BEAKER) (test jkxf=403) Hazy Clear COLOR FLUID (BEAKER) (test hrcn=080) [place] Colorless, Straw RBC FLUID (BEAKER) (test exmv=989) 6000 /cu mm <=1 ADJUSTED WBC FLUID (BEAKER) (test llgb=4838) 59 /cu mm <=5 LINING CELLS (BEAKER) (test nvjj=5228) 6 /cu mm <=1 NEUTROPHILS FLUID (BEAKER) (test iyfe=2090) 7 % LYMPHS FLUID (BEAKER) (test vytb=635) 49 % MONO/MACROPHAGE FLUID (BEAKER) (test hwpa=450) 43 % EOSINOPHILS FLUID (BEAKER) (test cclf=446) 0 % BASO FLUID (BEAKER) (test tvyj=964) 0 % CONTAINER BODY FLUID (BEAKER) (test hkab=2795) EDTA Tube U/S, [id number] 16:25:00Please limit para to 4 liters, give albumin 25% 50 gm IV after procedure.Reason for exam:->ascitesShould this be performed at the bedside?->NoFINAL REPORT Ultrasound guided paracentesis, 09/01/2017. Clinical History:Ascites. Sedation: None. External Auditor: Kade Buck MD Towboat Captain: None. Estimated Blood Loss: < 1 cc. Specimen: 4000 cc of idris fluid, samples sent to laboratory. Technique: Informed consent was obtained. The risks of pain, bleeding, infection, bowel perforation, injury to adjacent structures, and adverse medication reactions were discussed with the patient. After informed consent was obtained, the patient's abdomen was scanned. The right lower quadrant of the abdomen was selected for paracentesis. After the largest fluid pocket area was marked, and the anterior abdominal wall was evaluated with color Doppler to exclude presence of blood vessels traversing the area, the skin was prepped and draped in the usual sterile manner. After local anesthesia was achieved with 1% lidocaine, a 5 Indonesian one-step catheter was advanced into the peritoneal cavity under ultrasound guidance. After completion of drainage, the catheter was removed. There was no evidence of complication. Patient Disposition: The patient was discharged from the ultrasound department after the paracentesis, in good condition. Impression:Successful ultrasound guided paracentesis. Signed: Kade Buckort Verified Date/Time: 09/01 16:25:51 Reading Location: [address] Ultrasound Reading Room OCCULT BLOOD, [id number] 08:55:00 Test Item Value Reference Range Comments FECAL OCCULT BLOOD (BEAKER) (test lyva=848) Positive Negative BASIC METABOLIC [id number] 08:09:00 Test Item Value Reference Range Comments SODIUM (BEAKER) (test 134 meq/L 136-145 clxi=682) POTASSIUM (BEAKER) (test 3.8 meq/L 3.5-5.1 qbxj=482) CHLORIDE (BEAKER) (test 105 meq/L 98-107 hozz=826) CO2 (BEAKER) (test 16 meq/L 22-29 gzrj=284) BLOOD UREA NITROGEN 47 mg/dL 7-21 (BEAKER) (test irzs=555) CREATININE (BEAKER) (test 3.10 mg/dL 0.57-1.25 xlch=562) GLUCOSE RANDOM (BEAKER) 137 mg/dL 70-105 (test bwiy=252) CALCIUM (BEAKER) (test 10.3 mg/dL 8.4-10.2 robn=547) EGFR (BEAKER) (test 21 mL/min/1.73 sq m ESTIMATED GFR IS NOT dfas=4516) ACCURATE CREATININE CLEARANCE IN PREDICTING GLOMERULAR FILTRATION RATE. ESTIMATED GFR IS NOT APPLICABLE FOR DIALYSIS PATIENTS. [id number] 07:59:00 Test Item Value Reference Range Comments PHOSPHORUS (BEAKER) (test tmpn=674) 5.2 mg/dL 2.3-4.7 [id number] 07:59:00 Test Item Value Reference Range Comments MAGNESIUM (BEAKER) (test ynuc=838) 2.2 mg/dL 1.6-2.6 HEPATIC FUNCTION [id number] 07:59:00 Test Item Value Reference Range Comments TOTAL PROTEIN (BEAKER) (test bcqp=042) 6.6 gm/dL 6.0-8.3 ALBUMIN (BEAKER) (test henb=3803) 4.5 g/dL 3.5-5.0 BILIRUBIN TOTAL (BEAKER) (test paue=163) 2.0 mg/dL 0.2-1.2 BILIRUBIN DIRECT (BEAKER) (test fqmh=952) 0.6 mg/dL 0.1-0.5 ALKALINE PHOSPHATASE (BEAKER) (test hlig=748) 95 U/L 40-150 AST (SGOT) (BEAKER) (test nzgu=047) 42 U/L 5-34 ALT (SGPT) (BEAKER) (test bcpo=362) 25 U/L 6-55 CALCIUM, [id number] 07:56:00 Test Item Value Reference Range Comments CALCIUM IONIZED (BEAKER) (test zeys=644) 1.18 mmol/L 1.12-1.27 PH, BLOOD (BEAKER) (test xije=7914) 7.29 PROTHROMBIN [id number] 07:44:00 Test Item Value Reference Range Comments PROTIME (BEAKER) (test lsyt=005) 21.0 seconds 11.7-14.7 INR (BEAKER) (test eytn=690) 1.8 <=5.9 RECOMMENDED COUMADIN/WARFARIN INR THERAPY RANGESSTANDARD DOSE: 2.0 - 3.0 Includes: PROPHYLAXIS forvenous thrombosis, systemic embolization; TREATMENT for venous thrombosis and/or pulmonary embolus.HIGH RISK: Target INR is 2.5-3.5 for patients with mechanical heart valves.CBC W/PLT COUNT & AUTO [id number] 07:36:00 Test Item Value Reference Range Comments WHITE BLOOD CELL COUNT 7.5 K/ L 3.5-10.5 (BEAKER) (test lqss=211) RED BLOOD CELL COUNT (BEAKER) 2.44 M/ L 4.63-6.08 (test vrer=169) HEMOGLOBIN (BEAKER) (test 7.6 GM/DL 13.7-17.5 scnj=621) HEMATOCRIT (BEAKER) (test 23.2 % 40.1-51.0 txuq=711) MEAN CORPUSCULAR VOLUME 95.1 fL 79.0-92.2 Discordant result compared (BEAKER) (test ebro=750) to previous result; clinical correlation required. MEAN CORPUSCULAR HEMOGLOBIN 31.1 pg 25.7-32.2 (BEAKER) (test sila=097) MEAN CORPUSCULAR HEMOGLOBIN 32.8 GM/DL 32.3-36.5 CONC (BEAKER) (test olmd=679) RED CELL DISTRIBUTION WIDTH 17.7 % 11.6-14.4 (BEAKER) (test htsd=755) PLATELET COUNT (BEAKER) (test 57 K/CU MM 150-450 qgre=842) MEAN PLATELET VOLUME (BEAKER) 10.2 fL 9.4-12.4 (test lfgd=268) NUCLEATED RED BLOOD CELLS 0 /100 WBC 0-0 (BEAKER) (test jdyh=897) NEUTROPHILS RELATIVE PERCENT 79 % (BEAKER) (test vhkb=922) LYMPHOCYTES RELATIVE PERCENT 10 % (BEAKER) (test lmjh=058) MONOCYTES RELATIVE PERCENT 11 % (BEAKER) (test lljw=138) EOSINOPHILS RELATIVE PERCENT 0 % (BEAKER) (test jebu=455) BASOPHILS RELATIVE PERCENT 0 % (BEAKER) (test iqub=847) NEUTROPHILS ABSOLUTE COUNT 5.89 K/ L 1.78-5.38 (BEAKER) (test jayd=495) LYMPHOCYTES ABSOLUTE COUNT 0.71 K/ L 1.32-3.57 (BEAKER) (test pvyg=269) MONOCYTES ABSOLUTE COUNT 0.79 K/ L 0.30-0.82 (BEAKER) (test gsxt=389) EOSINOPHILS ABSOLUTE COUNT 0.02 K/ L 0.04-0.54 (BEAKER) (test kmdp=324) BASOPHILS ABSOLUTE COUNT 0.01 K/ L 0.01-0.08 (BEAKER) (test krgr=279) IMMATURE GRANULOCYTES-RELATIVE 1 % 0-1 PERCENT (BEAKER) (test dhlk=4257) CT, BRAIN, WITHOUT [id number] 05:35:00FINAL REPORT CT, BRAIN, WITHOUT CONTRAST INDICATION: Confusion/delirium, altered LOC , unexplained TECHNIQUE: Noncontrast axial imaging was obtained from the vertex to the skull base. Axial images were reconstructed using a bone algorithm. DOSE REDUCTION: Dose modulation, iterative reconstruction, and/or weight-based adjustment of the mA/kV was utilized to reduce the radiation dose to as low as reasonably achievable. COMPARISON: None. FINDINGS: Cerebral parenchyma: Diffuse parenchymal volume loss. Lacunar infarct in the left thalamus. No acute ischemic changes are present. There is no parenchymal hemorrhage.Midline structures: Normally positioned.Cerebellum and brainstem: Commensurate volume loss.Ventricles: Normal volume.Extra-axial spaces: Unremarkable. Calvarium and skullbase: Intact.Paranasal sinuses and mastoid air cells: Visible chambers are clear.Orbital contents: Included portions unremarkable. Additional findings: None. IMPRESSION: Chronic involutional changes without acute intracranial abnormality. If there is persistent clinical concern for intracranial pathology , MR examination is recommended for further characterization. Signed: JR Alfaro Robert MDReport Verified Date/Time: 09/01/2017 05:35:11 Reading Location: [facility] [id number] CT Body Reading Room URINALYSIS W/ REFLEX URINE [id number] 22:34:00 Test Item Value Reference Range Comments COLOR (BEAKER) (test klul=119) Yellow CLARITY (BEAKER) (test rqyr=376) Clear SPECIFIC GRAVITY UA (BEAKER) (test xpqr=578) 1.015 1.001-1.035 PH UA (BEAKER) (test atwu=889) 5.5 5.0-8.0 PROTEIN UA (BEAKER) (test sdap=359) 20 mg/dL Negative GLUCOSE UA (BEAKER) (test xylz=441) Negative Negative KETONES UA (BEAKER) (test zyta=426) Negative Negative BILIRUBIN UA (BEAKER) (test cvyr=947) Negative Negative BLOOD UA (BEAKER) (test rxct=625) Negative Negative NITRITE UA (BEAKER) (test ejix=281) Negative Negative LEUKOCYTE ESTERASE UA (BEAKER) (test nixy=878) Negative Negative UROBILINOGEN UA (BEAKER) (test zjau=224) 0.2 mg/dL 0.2-1.0 RBC UA (BEAKER) (test pkzw=738) < /HPF WBC UA (BEAKER) (test llar=747) 4 /HPF MUCUS (BEAKER) (test aahe=2139) Rare SQUAMOUS EPITHELIAL (BEAKER) (test vhnt=030) < /HPF HYALINE CASTS (BEAKER) (test gbsj=410) 19 /LPF SOURCE(BEAKER) (test mhqo=1948) EEG AWAKE AND [id number] 17:37:00Reason for exam:->right leg intermittent shakingNeurophysiology Electroencephalogram Report DATE OF EE08/31DATE OF REPORT: 08/31/2017ACC: [id number]: [id number] time: 1359hrsStop time: 1420hrsICD-10: R56.9CPT Code: 74486 HISTORY: Shena Castellano is a 57 year old male with cirrhosis, portal hypertension, ascites, and a past episode of hepaticencephalopathy. Neurology was consulted for a right leg tremor and EEG was obtained to assess. MEDICATIONS THAT COULD AFFECT EEG: None TECHNICAL SUMMARY: This is a digital EEG with video recorded with 32 input channels on a Powervation system and then reviewed with bipolar and referential montages using the modified combinatorial system nomenclature. DESCRIPTION OF RECORD: During the maximally alert state, there was no posterior dominant rhythm seen. The background was comprised mostly of moderate voltage (20-30 uV) 4-5 Hz theta slowing. There were 3 periods of generalized electrodecrement seen lasting 1- 1.5 seconds. Drowsiness was evident with loss of faster frequencies and mild generalized voltage attenuation. No epileptiform features were seen.Photic stimulation and hyperventilation were not conducted during this recording.No clinical events were documented or recorded during this recording. IMPRESSION: Abnormal awake and drowsy EEG due to:1. Generalized theta slowing, reactive2. Generalized electrodecremental EEG segments CLINICAL CORRELATION: The findings of moderate slowing with rare electrodecrement are nonspecific and support an underlying diagnosis of moderate degree of encephalopathy. There were no electrographic seizures noted. Manasa Yu MDEpilepsy Fellow, PGY-6 Darion Marquez M.D., FACNSProfessor of NeurologyBellflower Medical CenterDirector, [facility] Epilepsy [facility] PERIPHERAL BLOOD SMEAR - PATHOLOGIST [id number] 12:27:00 Test Item Value Reference Range Comments RBC MORPHOLOGY (BEAKER) Hypochromic, normocytic (test cmef=0932) anemia with mild anisopoikilocytosis, with few elliptocytes, occasional acanthocytes and rare schistocytes. Mild polychromasia. WBC MORPHOLOGY (BEAKER) Normal in number. (test jemh=1812) Primarily comprised by neutrophils. Mildly increased eosinophils. PLT MORPHOLOGY (BEAKER) Decreased platelets. (test xpdo=7017) Normal granular morphology. Occasional enlarged forms. No platelet clumping. [id number] Werner Garcia MD (BEAKER) (test (electronic vzda=6615) signature) BLOOD [id number] 11:00:00 Test Item Value Reference Range Comments CULTURE (BEAKER) (test aujf=0822) No growth in 5 days HEMOGLOBIN AND [id number] 10:16:00 Test Item Value Reference Range Comments HEMOGLOBIN (BEAKER) (test lmkb=784) 7.9 GM/DL 13.7-17.5 HEMATOCRIT (BEAKER) (test hkwn=213) 25.4 % 40.1-51.0 BASIC METABOLIC [id number] 08:04:00 Test Item Value Reference Range Comments SODIUM (BEAKER) (test 131 meq/L 136-145 ycyi=629) POTASSIUM (BEAKER) (test 3.7 meq/L 3.5-5.1 aref=518) CHLORIDE (BEAKER) (test 101 meq/L 98-107 mvoj=408) CO2 (BEAKER) (test 18 meq/L 22-29 zzoq=310) BLOOD UREA NITROGEN 43 mg/dL 7-21 (BEAKER) (test rqao=396) CREATININE (BEAKER) (test 2.55 mg/dL 0.57-1.25 gqpl=951) GLUCOSE RANDOM (BEAKER) 137 mg/dL 70-105 (test xxfq=942) CALCIUM (BEAKER) (test 10.0 mg/dL 8.4-10.2 isyp=565) EGFR (BEAKER) (test 26 mL/min/1.73 sq m ESTIMATED GFR IS NOT ljor=8655) ACCURATE CREATININE CLEARANCE IN PREDICTING GLOMERULAR FILTRATION RATE. ESTIMATED GFR IS NOT APPLICABLE FOR DIALYSIS PATIENTS. CALCIUM, [id number] 07:53:00 Test Item Value Reference Range Comments CALCIUM IONIZED (BEAKER) (test qncy=780) 1.18 mmol/L 1.12-1.27 PH, BLOOD (BEAKER) (test hfwf=4594) 7.39 [id number] 07:45:00 Test Item Value Reference Range Comments PHOSPHORUS (BEAKER) (test ihfb=551) 3.5 mg/dL 2.3-4.7 [id number] 07:45:00 Test Item Value Reference Range Comments MAGNESIUM (BEAKER) (test mssv=384) 2.3 mg/dL 1.6-2.6 HEPATIC FUNCTION [id number] 07:45:00 Test Item Value Reference Range Comments TOTAL PROTEIN (BEAKER) (test ljkf=638) 6.4 gm/dL 6.0-8.3 ALBUMIN (BEAKER) (test psjm=4365) 4.6 g/dL 3.5-5.0 BILIRUBIN TOTAL (BEAKER) (test azsf=847) 1.9 mg/dL 0.2-1.2 BILIRUBIN DIRECT (BEAKER) (test llgh=636) 0.6 mg/dL 0.1-0.5 ALKALINE PHOSPHATASE (BEAKER) (test qjns=331) 94 U/L 40-150 AST (SGOT) (BEAKER) (test jtmp=913) 30 U/L 5-34 ALT (SGPT) (BEAKER) (test mpns=823) 18 U/L 6-55 TSH/FREE T4 IF [id number] 07:42:00 Test Item Value Reference Range Comments THYROID STIMULATING HORMONE (BEAKER) (test 0.43 uIU/mL 0.35-4.94 xwng=576) CBC W/PLT COUNT & AUTO [id number] 07:31:00 Test Item Value Reference Range Comments WHITE BLOOD CELL COUNT (BEAKER) (test dret=371) 8.1 K/ L 3.5-10.5 RED BLOOD CELL COUNT (BEAKER) (test julg=982) 2.17 M/ L 4.63-6.08 HEMOGLOBIN (BEAKER) (test vorg=241) 6.8 GM/DL 13.7-17.5 HEMATOCRIT (BEAKER) (test pvlw=991) 19.5 % 40.1-51.0 MEAN CORPUSCULAR VOLUME (BEAKER) (test tint=998) 89.9 fL 79.0-92.2 MEAN CORPUSCULAR HEMOGLOBIN (BEAKER) (test 31.3 pg 25.7-32.2 sluw=276) MEAN CORPUSCULAR HEMOGLOBIN CONC (BEAKER) (test 34.9 GM/DL 32.3-36.5 eexg=374) RED CELL DISTRIBUTION WIDTH (BEAKER) (test 16.8 % 11.6-14.4 wrcu=178) PLATELET COUNT (BEAKER) (test dojm=096) 51 K/CU MM 150-450 MEAN PLATELET VOLUME (BEAKER) (test ihpc=148) 9.8 fL 9.4-12.4 NUCLEATED RED BLOOD CELLS (BEAKER) (test 0 /100 WBC 0-0 ngci=491) NEUTROPHILS RELATIVE PERCENT (BEAKER) (test 76 % bfut=600) LYMPHOCYTES RELATIVE PERCENT (BEAKER) (test 10 % lavi=547) MONOCYTES RELATIVE PERCENT (BEAKER) (test 11 % bytq=700) EOSINOPHILS RELATIVE PERCENT (BEAKER) (test 2 % krfg=062) BASOPHILS RELATIVE PERCENT (BEAKER) (test 0 % kwsg=645) NEUTROPHILS ABSOLUTE COUNT (BEAKER) (test 6.20 K/ L 1.78-5.38 ifyf=052) LYMPHOCYTES ABSOLUTE COUNT (BEAKER) (test 0.81 K/ L 1.32-3.57 boef=240) MONOCYTES ABSOLUTE COUNT (BEAKER) (test irxa=293) 0.88 K/ L 0.30-0.82 EOSINOPHILS ABSOLUTE COUNT (BEAKER) (test 0.17 K/ L 0.04-0.54 lkmg=965) BASOPHILS ABSOLUTE COUNT (BEAKER) (test qmks=212) 0.01 K/ L 0.01-0.08 IMMATURE GRANULOCYTES-RELATIVE PERCENT (BEAKER) 1 % 0-1 (test kdvz=5284) PROTHROMBIN [id number] 07:06:00 Test Item Value Reference Range Comments PROTIME (BEAKER) (test yhnb=620) 22.2 seconds 11.7-14.7 INR (BEAKER) (test nozx=202) 2.0 <=5.9 RECOMMENDED COUMADIN/WARFARIN INR THERAPY RANGESSTANDARD DOSE: 2.0 - 3.0 Includes: PROPHYLAXIS forvenous thrombosis, systemic embolization; TREATMENT for venous thrombosis and/or pulmonary embolus.HIGH RISK: Target INR is 2.5-3.5 for patients with mechanical heart valves.OCCULT BLOOD, [id number] 16:02:00 Test Item Value Reference Range Comments FECAL OCCULT BLOOD (BEAKER) (test zscu=311) Negative Negative LACTIC ACID, VENOUS, WHOLE [id number] 14:27:00 Test Item Value Reference Range Comments LACTATE BLOOD VENOUS (2) 3.6 mmol/L 0.5-2.2 Specimen slightly hemolyzed (BEAKER) (test crsl=5180) Effective 09/26/2015: Units/Reference Range ChangeNew: 0.5-2.2 mmol/L Previous: 5 -20 mg/dLSpecimen slightly ictericHEPATIC FUNCTION [id number] 09:38:00 Test Item Value Reference Range Comments TOTAL PROTEIN (BEAKER) (test pkiq=937) 6.6 gm/dL 6.0-8.3 ALBUMIN (BEAKER) (test fvdt=4797) 4.9 g/dL 3.5-5.0 BILIRUBIN TOTAL (BEAKER) (test ehbl=494) 2.9 mg/dL 0.2-1.2 BILIRUBIN DIRECT (BEAKER) (test epog=870) 0.7 mg/dL 0.1-0.5 ALKALINE PHOSPHATASE (BEAKER) (test wlgv=273) 94 U/L 40-150 AST (SGOT) (BEAKER) (test qzwv=383) 29 U/L 5-34 ALT (SGPT) (BEAKER) (test xaot=869) 16 U/L 6-55 Specimen slightly ictericCALCIUM, [id number] 08:34:00 Test Item Value Reference Range Comments CALCIUM IONIZED (BEAKER) (test kwsp=545) 1.13 mmol/L 1.12-1.27 PH, BLOOD (BEAKER) (test axys=0266) 7.49 [id number] 08:12:00 Test Item Value Reference Range Comments PHOSPHORUS (BEAKER) (test vjsc=091) 2.2 mg/dL 2.3-4.7 [id number] 08:12:00 Test Item Value Reference Range Comments MAGNESIUM (BEAKER) (test uozf=720) 2.2 mg/dL 1.6-2.6 BASIC METABOLIC [id number] 08:12:00 Test Item Value Reference Range Comments SODIUM (BEAKER) (test 131 meq/L 136-145 ocuj=335) POTASSIUM (BEAKER) (test 3.9 meq/L 3.5-5.1 etkt=524) CHLORIDE (BEAKER) (test 99 meq/L 98-107 dpdo=256) CO2 (BEAKER) (test 20 meq/L 22-29 bolt=934) BLOOD UREA NITROGEN 36 mg/dL 7-21 (BEAKER) (test xctv=796) CREATININE (BEAKER) (test 2.09 mg/dL 0.57-1.25 ecwl=378) GLUCOSE RANDOM (BEAKER) 130 mg/dL 70-105 (test ltxd=617) CALCIUM (BEAKER) (test 10.1 mg/dL 8.4-10.2 lkyn=424) EGFR (BEAKER) (test 33 mL/min/1.73 sq m ESTIMATED GFR IS NOT udkf=6976) ACCURATE CREATININE CLEARANCE IN PREDICTING GLOMERULAR FILTRATION RATE. ESTIMATED GFR IS NOT APPLICABLE FOR DIALYSIS PATIENTS. Specimen slightly ictericCBC W/PLT COUNT & AUTO [id number] 07:12 :00 Test Item Value Reference Range Comments WHITE BLOOD CELL COUNT (BEAKER) (test dxdi=016) 4.3 K/ L 3.5-10.5 RED BLOOD CELL COUNT (BEAKER) (test bxcp=908) 2.38 M/ L 4.63-6.08 HEMOGLOBIN (BEAKER) (test wneq=137) 7.2 GM/DL 13.7-17.5 HEMATOCRIT (BEAKER) (test talp=252) 21.1 % 40.1-51.0 MEAN CORPUSCULAR VOLUME (BEAKER) (test wtmt=764) 88.7 fL 79.0-92.2 MEAN CORPUSCULAR HEMOGLOBIN (BEAKER) (test 30.3 pg 25.7-32.2 hidt=280) MEAN CORPUSCULAR HEMOGLOBIN CONC (BEAKER) (test 34.1 GM/DL 32.3-36.5 ugzl=075) RED CELL DISTRIBUTION WIDTH (BEAKER) (test 16.6 % 11.6-14.4 ggmn=018) PLATELET COUNT (BEAKER) (test fwil=183) 53 K/CU MM 150-450 MEAN PLATELET VOLUME (BEAKER) (test crbo=053) 9.2 fL 9.4-12.4 NUCLEATED RED BLOOD CELLS (BEAKER) (test 0 /100 WBC 0-0 kxaf=714) NEUTROPHILS RELATIVE PERCENT (BEAKER) (test 84 % kaar=536) LYMPHOCYTES RELATIVE PERCENT (BEAKER) (test 9 % ujaa=618) MONOCYTES RELATIVE PERCENT (BEAKER) (test 6 % rgka=671) EOSINOPHILS RELATIVE PERCENT (BEAKER) (test 1 % bylr=033) BASOPHILS RELATIVE PERCENT (BEAKER) (test 0 % irhz=585) NEUTROPHILS ABSOLUTE COUNT (BEAKER) (test 3.62 K/ L 1.78-5.38 zozz=976) LYMPHOCYTES ABSOLUTE COUNT (BEAKER) (test 0.39 K/ L 1.32-3.57 idjf=650) MONOCYTES ABSOLUTE COUNT (BEAKER) (test aszo=263) 0.24 K/ L 0.30-0.82 EOSINOPHILS ABSOLUTE COUNT (BEAKER) (test 0.03 K/ L 0.04-0.54 ibdd=573) BASOPHILS ABSOLUTE COUNT (BEAKER) (test dwos=329) 0.01 K/ L 0.01-0.08 IMMATURE GRANULOCYTES-RELATIVE PERCENT (BEAKER) 1 % 0-1 (test cuhv=9124) PROTHROMBIN [id number] 06:53:00 Test Item Value Reference Range Comments PROTIME (BEAKER) (test ovmr=546) 22.9 seconds 11.7-14.7 INR (BEAKER) (test vntb=840) 2.0 <=5.9 RECOMMENDED COUMADIN/WARFARIN INR THERAPY RANGESSTANDARD DOSE: 2.0 - 3.0 Includes: PROPHYLAXIS forvenous thrombosis, systemic embolization; TREATMENT for venous thrombosis and/or pulmonary embolus.HIGH RISK: Target INR is 2.5-3.5 for patients with mechanical heart valves.U/S, ABDOMINAL, [id number] 18: 12:00Reason for exam:->left upper quadrant abdominal painShould this be performed at the bedside?->NoFINAL REPORT Ultrasound abdomen History: left upper quadrant abdominal pain Comparison: MRI from 2017 Technique: Real-time ultrasound of the abdomen was performed Findings: The liver demonstrates cirrhotic morphology. Hepatic length is 12.0 cm. No definite mass lesion is visualized. No evidence of gallstones. There is no gallbladder wall thickening or pericholecystic fluid. No sonographic Mclain sign was elicited. The common bile duct is normal in caliber, measuring 4 mm.The main portal vein is normal in caliber, measuring 7 mm. The spleen is borderline enlarged in size, measuring 4.6 cm in length. The pancreas is obscured by bowel gas. The visualized portion appears unremarkable. There is a moderate amount of ascites. The right kidney measures 11.6 cm in length and the left kidney measures 10.1 cm in length. No hydronephrosis, mass lesion or stones are visualized. The abdominal aorta and IVC are not well visualized. Impression: 1. Hepatic cirrhosis. Borderline splenomegaly.2. Moderate amount of ascites. Signed : Nolan Ortiz MDReport Verified Date/Time: 08/29/2017 18:12:18 Reading Location : [id number] Ortho Consult Reading Room CALCIUM, [id number] 06:24:00 Test Item Value Reference Range Comments CALCIUM IONIZED (BEAKER) (test nyiv=656) 1.04 mmol/L 1.12-1.27 PH, BLOOD (BEAKER) (test pduq=5456) 7.51 PROTHROMBIN [id number] 06:06:00 Test Item Value Reference Range Comments PROTIME (BEAKER) (test oosg=654) 22.9 seconds 11.7-14.7 INR (BEAKER) (test qqce=364) 2.0 <=5.9 RECOMMENDED COUMADIN/WARFARIN INR THERAPY RANGESSTANDARD DOSE: 2.0 - 3.0 Includes: PROPHYLAXIS forvenous thrombosis, systemic embolization; TREATMENT for venous thrombosis and/or pulmonary embolus.HIGH RISK: Target INR is 2.5-3.5 for patients with mechanical heart valves.[id number] 06:01:00 Test Item Value Reference Range Comments PHOSPHORUS (BEAKER) (test aexh=727) 2.9 mg/dL 2.3-4.7 [id number] 06:01:00 Test Item Value Reference Range Comments MAGNESIUM (BEAKER) (test qovm=380) 2.1 mg/dL 1.6-2.6 BASIC METABOLIC [id number] 06:01:00 Test Item Value Reference Range Comments SODIUM (BEAKER) (test 127 meq/L 136-145 ncnl=274) POTASSIUM (BEAKER) (test 3.4 meq/L 3.5-5.1 htfc=303) CHLORIDE (BEAKER) (test 97 meq/L 98-107 cgiv=172) CO2 (BEAKER) (test 20 meq/L 22-29 ewdz=140) BLOOD UREA NITROGEN 32 mg/dL 7-21 (BEAKER) (test lqeu=731) CREATININE (BEAKER) (test 1.83 mg/dL 0.57-1.25 rlax=795) GLUCOSE RANDOM (BEAKER) 121 mg/dL 70-105 (test telj=633) CALCIUM (BEAKER) (test 9.3 mg/dL 8.4-10.2 xipi=503) EGFR (BEAKER) (test 38 mL/min/1.73 sq m ESTIMATED GFR IS NOT mxbf=8268) ACCURATE CREATININE CLEARANCE IN PREDICTING GLOMERULAR FILTRATION RATE. ESTIMATED GFR IS NOT APPLICABLE FOR DIALYSIS PATIENTS. Specimen slightly ictericHEPATIC FUNCTION [id number] 06:01:00 Test Item Value Reference Range Comments TOTAL PROTEIN (BEAKER) (test cllz=616) 5.7 gm/dL 6.0-8.3 ALBUMIN (BEAKER) (test mvkk=9467) 4.0 g/dL 3.5-5.0 BILIRUBIN TOTAL (BEAKER) (test dlir=727) 3.2 mg/dL 0.2-1.2 BILIRUBIN DIRECT (BEAKER) (test thvo=648) 0.7 mg/dL 0.1-0.5 ALKALINE PHOSPHATASE (BEAKER) (test uugx=528) 112 U/L 40-150 AST (SGOT) (BEAKER) (test mazi=648) 34 U/L 5-34 ALT (SGPT) (BEAKER) (test vrtj=988) 18 U/L 6-55 Specimen slightly ictericCBC W/PLT COUNT & AUTO [id number] 05:27 :00 Test Item Value Reference Range Comments WHITE BLOOD CELL COUNT (BEAKER) (test kwep=370) 5.3 K/ L 3.5-10.5 RED BLOOD CELL COUNT (BEAKER) (test sufj=092) 2.56 M/ L 4.63-6.08 HEMOGLOBIN (BEAKER) (test nrlz=894) 8.1 GM/DL 13.7-17.5 HEMATOCRIT (BEAKER) (test lyup=305) 22.9 % 40.1-51.0 MEAN CORPUSCULAR VOLUME (BEAKER) (test rmwm=953) 89.5 fL 79.0-92.2 MEAN CORPUSCULAR HEMOGLOBIN (BEAKER) (test 31.6 pg 25.7-32.2 htie=253) MEAN CORPUSCULAR HEMOGLOBIN CONC (BEAKER) (test 35.4 GM/DL 32.3-36.5 splg=269) RED CELL DISTRIBUTION WIDTH (BEAKER) (test 16.5 % 11.6-14.4 uias=962) PLATELET COUNT (BEAKER) (test erng=968) 70 K/CU MM 150-450 MEAN PLATELET VOLUME (BEAKER) (test nzfq=826) 10.4 fL 9.4-12.4 NUCLEATED RED BLOOD CELLS (BEAKER) (test 0 /100 WBC 0-0 uimi=876) NEUTROPHILS RELATIVE PERCENT (BEAKER) (test 41 % cbcd=166) LYMPHOCYTES RELATIVE PERCENT (BEAKER) (test 21 % cnte=625) MONOCYTES RELATIVE PERCENT (BEAKER) (test 15 % hzub=393) EOSINOPHILS RELATIVE PERCENT (BEAKER) (test 22 % ivrj=187) BASOPHILS RELATIVE PERCENT (BEAKER) (test 0 % uswy=095) NEUTROPHILS ABSOLUTE COUNT (BEAKER) (test 2.20 K/ L 1.78-5.38 fnpp=210) LYMPHOCYTES ABSOLUTE COUNT (BEAKER) (test 1.13 K/ L 1.32-3.57 ggwj=339) MONOCYTES ABSOLUTE COUNT (BEAKER) (test wsnd=071) 0.78 K/ L 0.30-0.82 EOSINOPHILS ABSOLUTE COUNT (BEAKER) (test 1.16 K/ L 0.04-0.54 kcli=126) BASOPHILS ABSOLUTE COUNT (BEAKER) (test vpvj=800) 0.02 K/ L 0.01-0.08 IMMATURE GRANULOCYTES-RELATIVE PERCENT (BEAKER) 0 % 0-1 (test mfck=8818) (MANUAL DIFFERENTIAL)2017-08-28 19:55:00 Test Item Value Reference Range Comments NEUTROPHILS - REL (DIFF) (BEAKER) (test onbz=3279) 57 % LYMPHOCYTES - REL (DIFF) (BEAKER) (test sdbu=1308) 9 % MONOCYTES - REL (DIFF) (BEAKER) (test izzb=5261) 11 % EOSINOPHILS - REL (DIFF) (BEAKER) (test zgdu=8225) 20 % BASOPHILS - REL (DIFF) (BEAKER) (test zwmk=0670) 2 % BANDS - REL (DIFF) (BEAKER) (test qstv=1495) 1 % 0-10 NEUTROPHILS - ABS (DIFF) (BEAKER) (test qjxt=7687) 2.96 K/ L 1.80-8.00 LYMPHOCYTES - ABS (DIFF) (BEAKER) (test qzjp=4000) 0.47 K/ L 1.48-4.50 MONOCYTES - ABS (DIFF) (BEAKER) (test xoce=7861) 0.57 K/ L 0.00-1.30 EOSINOPHILS - ABS (DIFF) (BEAKER) (test zsfo=3965) 1.04 K/ L 0.00-0.50 BASOPHILS - ABS (DIFF) (BEAKER) (test iprf=2590) 0.10 K/ L 0.00-0.20 BANDS-ABS (DIFF) (BEAKER) (test jpdx=5464) 0.1 K/ L 0.0-0.8 TOTAL COUNTED (BEAKER) (test phgm=2069) 100 BANDS + SEGMENTED NEUTROPHILS (BEAKER) (test 3.02 htbl=8990) WBC MORPHOLOGY (BEAKER) (test tvii=157) Normal LARGE PLT(BEAKER) (test dzdj=7585) Present ANISOCYTOSIS (BEAKER) (test saoe=885) 1+ few ELLIPTOCYTES (BEAKER) (test rvar=987) 1+ few MACROCYTES (BEAKER) (test zxth=754) 1+ few EOSINOPHIL SMEAR, [id number] 19:11:00 Test Item Value Reference Range Comments EOSINOPHIL SMEAR, URINE (BEAKER) Rare EOS=less than 5% WBCs No EOS seen (test gfet=3109) seen are EOS BASIC METABOLIC [id number] 17:14:00 Test Item Value Reference Range Comments SODIUM (BEAKER) (test 127 meq/L 136-145 rrhq=177) POTASSIUM (BEAKER) (test 3.5 meq/L 3.5-5.1 gvxc=715) CHLORIDE (BEAKER) (test 96 meq/L 98-107 fqre=219) CO2 (BEAKER) (test 22 meq/L 22-29 pfrp=625) BLOOD UREA NITROGEN 29 mg/dL 7-21 (BEAKER) (test pnbs=069) CREATININE (BEAKER) (test 1.92 mg/dL 0.57-1.25 brvs=244) GLUCOSE RANDOM (BEAKER) 142 mg/dL 70-105 (test ztzx=929) CALCIUM (BEAKER) (test 9.4 mg/dL 8.4-10.2 ppgh=053) EGFR (BEAKER) (test 36 mL/min/1.73 sq m ESTIMATED GFR IS NOT cumt=7133) ACCURATE CREATININE CLEARANCE IN PREDICTING GLOMERULAR FILTRATION RATE. ESTIMATED GFR IS NOT APPLICABLE FOR DIALYSIS PATIENTS. Specimen slightly ictericCBC W/PLT COUNT & AUTO [id number] 17:07 :00 Test Item Value Reference Range Comments WHITE BLOOD CELL COUNT (BEAKER) (test rdla=288) 5.2 K/ L 3.5-10.5 RED BLOOD CELL COUNT (BEAKER) (test zqji=898) 2.63 M/ L 4.63-6.08 HEMOGLOBIN (BEAKER) (test frun=113) 8.3 GM/DL 13.7-17.5 HEMATOCRIT (BEAKER) (test tktp=434) 23.6 % 40.1-51.0 MEAN CORPUSCULAR VOLUME (BEAKER) (test biyv=074) 89.7 fL 79.0-92.2 MEAN CORPUSCULAR HEMOGLOBIN (BEAKER) (test 31.6 pg 25.7-32.2 pluf=743) MEAN CORPUSCULAR HEMOGLOBIN CONC (BEAKER) (test 35.2 GM/DL 32.3-36.5 eooe=704) RED CELL DISTRIBUTION WIDTH (BEAKER) (test 16.3 % 11.6-14.4 zlyf=506) PLATELET COUNT (BEAKER) (test nvjg=944) 62 K/CU MM 150-450 MEAN PLATELET VOLUME (BEAKER) (test rifl=647) 9.0 fL 9.4-12.4 NUCLEATED RED BLOOD CELLS (BEAKER) (test 0 /100 WBC 0-0 gbgr=935) NEUTROPHILS RELATIVE PERCENT (BEAKER) (test 48 % jqkl=313) LYMPHOCYTES RELATIVE PERCENT (BEAKER) (test 17 % jvoi=822) MONOCYTES RELATIVE PERCENT (BEAKER) (test 16 % osfg=787) EOSINOPHILS RELATIVE PERCENT (BEAKER) (test 18 % uemj=372) BASOPHILS RELATIVE PERCENT (BEAKER) (test 0 % lkqq=422) NEUTROPHILS ABSOLUTE COUNT (BEAKER) (test 2.51 K/ L 1.78-5.38 dizk=770) LYMPHOCYTES ABSOLUTE COUNT (BEAKER) (test 0.89 K/ L 1.32-3.57 nbhd=101) MONOCYTES ABSOLUTE COUNT (BEAKER) (test cgzr=021) 0.81 K/ L 0.30-0.82 EOSINOPHILS ABSOLUTE COUNT (BEAKER) (test 0.93 K/ L 0.04-0.54 spfm=045) BASOPHILS ABSOLUTE COUNT (BEAKER) (test cqgh=699) 0.02 K/ L 0.01-0.08 IMMATURE GRANULOCYTES-RELATIVE PERCENT (BEAKER) 1 % 0-1 (test fabp=0939) HEMOGLOBIN AND [id number] 16:55:00 Test Item Value Reference Range Comments HEMOGLOBIN (BEAKER) (test xiwf=846) 8.4 GM/DL 13.7-17.5 HEMATOCRIT (BEAKER) (test jxwn=153) 23.9 % 40.1-51.0 URINALYSIS W/ [id number] 15:54:00 Test Item Value Reference Range Comments COLOR (BEAKER) (test fnyt=445) Yellow CLARITY (BEAKER) (test gkqa=167) Clear SPECIFIC GRAVITY UA (BEAKER) (test nbfm=943) 1.015 1.001-1.035 PH UA (BEAKER) (test qvhq=030) 5.5 5.0-8.0 PROTEIN UA (BEAKER) (test kbxb=938) 10 mg/dL Negative GLUCOSE UA (BEAKER) (test zgsm=555) Negative Negative KETONES UA (BEAKER) (test lvbt=425) Negative Negative BILIRUBIN UA (BEAKER) (test mqbt=999) Negative Negative BLOOD UA (BEAKER) (test gxpo=776) Negative Negative NITRITE UA (BEAKER) (test aoix=254) Negative Negative LEUKOCYTE ESTERASE UA (BEAKER) (test bomk=168) Negative Negative UROBILINOGEN UA (BEAKER) (test sqvw=821) 0.2 mg/dL 0.2-1.0 RBC UA (BEAKER) (test hbxk=644) < /HPF WBC UA (BEAKER) (test hbav=129) 5 /HPF MUCUS (BEAKER) (test niyv=7942) Rare SQUAMOUS EPITHELIAL (BEAKER) (test ylhh=074) 1 /HPF HYALINE CASTS (BEAKER) (test kepx=855) 21 /LPF SOURCE(BEAKER) (test sbfp=2341) Urine, Voided CBC W/PLT COUNT & AUTO [id number] 12:55:00 Test Item Value Reference Range Comments WHITE BLOOD CELL COUNT (BEAKER) (test mmin=255) 4.5 K/ L 3.5-10.5 RED BLOOD CELL COUNT (BEAKER) (test jdas=043) 2.01 M/ L 4.63-6.08 HEMOGLOBIN (BEAKER) (test pzga=222) 6.4 GM/DL 13.7-17.5 HEMATOCRIT (BEAKER) (test ypmd=279) 18.4 % 40.1-51.0 MEAN CORPUSCULAR VOLUME (BEAKER) (test nszs=602) 91.5 fL 79.0-92.2 MEAN CORPUSCULAR HEMOGLOBIN (BEAKER) (test 31.8 pg 25.7-32.2 zoxb=112) MEAN CORPUSCULAR HEMOGLOBIN CONC (BEAKER) (test 34.8 GM/DL 32.3-36.5 vhra=814) RED CELL DISTRIBUTION WIDTH (BEAKER) (test 16.3 % 11.6-14.4 apqq=230) PLATELET COUNT (BEAKER) (test aeov=200) 58 K/CU MM 150-450 MEAN PLATELET VOLUME (BEAKER) (test flbd=248) 9.6 fL 9.4-12.4 NUCLEATED RED BLOOD CELLS (BEAKER) (test 0 /100 WBC 0-0 zjqv=958) NEUTROPHILS RELATIVE PERCENT (BEAKER) (test 38 % eevt=789) LYMPHOCYTES RELATIVE PERCENT (BEAKER) (test 23 % exol=890) MONOCYTES RELATIVE PERCENT (BEAKER) (test 17 % ntus=862) EOSINOPHILS RELATIVE PERCENT (BEAKER) (test 21 % rrtg=094) BASOPHILS RELATIVE PERCENT (BEAKER) (test 0 % mlho=637) NEUTROPHILS ABSOLUTE COUNT (BEAKER) (test 1.72 K/ L 1.78-5.38 zykm=552) LYMPHOCYTES ABSOLUTE COUNT (BEAKER) (test 1.03 K/ L 1.32-3.57 gdut=416) MONOCYTES ABSOLUTE COUNT (BEAKER) (test hvhq=902) 0.76 K/ L 0.30-0.82 EOSINOPHILS ABSOLUTE COUNT (BEAKER) (test 0.96 K/ L 0.04-0.54 ttnw=983) BASOPHILS ABSOLUTE COUNT (BEAKER) (test muwa=630) 0.02 K/ L 0.01-0.08 IMMATURE GRANULOCYTES-RELATIVE PERCENT (BEAKER) 0 % 0-1 (test zgxy=6883) (MANUAL DIFFERENTIAL)2017-08-28 12:55:00 Test Item Value Reference Range Comments TOTAL COUNTED (BEAKER) (test gbwq=6546) WBC MORPHOLOGY (BEAKER) (test uwjn=083) Normal PLT MORPHOLOGY (BEAKER) (test iujj=525) Normal RBC MORPHOLOGY (BEAKER) (test caxf=136) Normal CALCIUM, [id number] 06:57:00 Test Item Value Reference Range Comments CALCIUM IONIZED (BEAKER) (test hvmz=739) 1.08 mmol/L 1.12-1.27 PH, BLOOD (BEAKER) (test lyri=7299) 7.48 PROTHROMBIN [id number] 06:27:00 Test Item Value Reference Range Comments PROTIME (BEAKER) (test mrfp=866) 21.5 seconds 11.7-14.7 INR (BEAKER) (test xrjm=132) 1.9 <=5.9 RECOMMENDED COUMADIN/WARFARIN INR THERAPY RANGESSTANDARD DOSE: 2.0 - 3.0 Includes: PROPHYLAXIS forvenous thrombosis, systemic embolization; TREATMENT for venous thrombosis and/or pulmonary embolus.HIGH RISK: Target INR is 2.5-3.5 for patients with mechanical heart valves.[id number] 06:19:00 Test Item Value Reference Range Comments PHOSPHORUS (BEAKER) (test bysw=847) 3.3 mg/dL 2.3-4.7 [id number] 06:19:00 Test Item Value Reference Range Comments MAGNESIUM (BEAKER) (test dqam=821) 1.9 mg/dL 1.6-2.6 BASIC METABOLIC [id number] 06:19:00 Test Item Value Reference Range Comments SODIUM (BEAKER) (test 128 meq/L 136-145 erpk=020) POTASSIUM (BEAKER) (test 3.6 meq/L 3.5-5.1 wigf=227) CHLORIDE (BEAKER) (test 96 meq/L 98-107 jfdo=739) CO2 (BEAKER) (test 23 meq/L 22-29 wbwb=129) BLOOD UREA NITROGEN 29 mg/dL 7-21 (BEAKER) (test avsb=766) CREATININE (BEAKER) (test 1.76 mg/dL 0.57-1.25 fhyo=308) GLUCOSE RANDOM (BEAKER) 105 mg/dL 70-105 (test yupx=788) CALCIUM (BEAKER) (test 9.2 mg/dL 8.4-10.2 oqkr=504) EGFR (BEAKER) (test 40 mL/min/1.73 sq m ESTIMATED GFR IS NOT sxtb=3572) ACCURATE CREATININE CLEARANCE IN PREDICTING GLOMERULAR FILTRATION RATE. ESTIMATED GFR IS NOT APPLICABLE FOR DIALYSIS PATIENTS. Specimen slightly ictericHEPATIC FUNCTION [id number] 06:19:00 Test Item Value Reference Range Comments TOTAL PROTEIN (BEAKER) (test zmqa=082) 5.5 gm/dL 6.0-8.3 ALBUMIN (BEAKER) (test iikc=9926) 3.9 g/dL 3.5-5.0 BILIRUBIN TOTAL (BEAKER) (test tcyx=299) 2.1 mg/dL 0.2-1.2 BILIRUBIN DIRECT (BEAKER) (test pfoy=340) 0.6 mg/dL 0.1-0.5 ALKALINE PHOSPHATASE (BEAKER) (test sbfo=088) 114 U/L 40-150 AST (SGOT) (BEAKER) (test ztsk=640) 35 U/L 5-34 ALT (SGPT) (BEAKER) (test crmz=827) 18 U/L 6-55 Specimen slightly ictericCALCIUM, [id number] 05:56:00 Test Item Value Reference Range Comments CALCIUM IONIZED (BEAKER) (test allu=370) 1.09 mmol/L 1.12-1.27 PH, BLOOD (BEAKER) (test ghgd=9248) 7.47 [id number] 05:41:00 Test Item Value Reference Range Comments PHOSPHORUS (BEAKER) (test odrn=047) 2.7 mg/dL 2.3-4.7 [id number] 05:41:00 Test Item Value Reference Range Comments MAGNESIUM (BEAKER) (test lwdt=986) 2.0 mg/dL 1.6-2.6 BASIC METABOLIC [id number] 05:41:00 Test Item Value Reference Range Comments SODIUM (BEAKER) (test 126 meq/L 136-145 veuu=762) POTASSIUM (BEAKER) (test 3.6 meq/L 3.5-5.1 wvqj=994) CHLORIDE (BEAKER) (test 95 meq/L 98-107 dgvb=371) CO2 (BEAKER) (test 21 meq/L 22-29 flwg=496) BLOOD UREA NITROGEN 30 mg/dL 7-21 (BEAKER) (test reah=607) CREATININE (BEAKER) (test 1.60 mg/dL 0.57-1.25 bqpp=102) GLUCOSE RANDOM (BEAKER) 90 mg/dL 70-105 (test xlyc=320) CALCIUM (BEAKER) (test 9.1 mg/dL 8.4-10.2 fqpd=024) EGFR (BEAKER) (test 45 mL/min/1.73 sq m ESTIMATED GFR IS NOT vruj=5663) ACCURATE CREATININE CLEARANCE IN PREDICTING GLOMERULAR FILTRATION RATE. ESTIMATED GFR IS NOT APPLICABLE FOR DIALYSIS PATIENTS. Specimen slightly ictericHEPATIC FUNCTION [id number] 05:41:00 Test Item Value Reference Range Comments TOTAL PROTEIN (BEAKER) (test ktnt=856) 5.7 gm/dL 6.0-8.3 ALBUMIN (BEAKER) (test tdup=2548) 3.8 g/dL 3.5-5.0 BILIRUBIN TOTAL (BEAKER) (test yjvh=862) 2.1 mg/dL 0.2-1.2 BILIRUBIN DIRECT (BEAKER) (test kaww=330) 0.7 mg/dL 0.1-0.5 ALKALINE PHOSPHATASE (BEAKER) (test ktem=323) 128 U/L 40-150 AST (SGOT) (BEAKER) (test wfsg=000) 39 U/L 5-34 ALT (SGPT) (BEAKER) (test waxw=069) 19 U/L 6-55 Specimen slightly ictericCBC (HEMOGRAM ONLY)2017-08-27 05:36:00 Test Item Value Reference Range Comments WHITE BLOOD CELL COUNT (BEAKER) (test qiho=528) 5.3 K/ L 3.5-10.5 RED BLOOD CELL COUNT (BEAKER) (test dzhx=309) 2.16 M/ L 4.63-6.08 HEMOGLOBIN (BEAKER) (test spmx=330) 7.0 GM/DL 13.7-17.5 HEMATOCRIT (BEAKER) (test hwuc=776) 19.6 % 40.1-51.0 MEAN CORPUSCULAR VOLUME (BEAKER) (test mkbe=660) 90.7 fL 79.0-92.2 MEAN CORPUSCULAR HEMOGLOBIN (BEAKER) (test 32.4 pg 25.7-32.2 kedf=873) MEAN CORPUSCULAR HEMOGLOBIN CONC (BEAKER) (test 35.7 GM/DL 32.3-36.5 joyr=032) RED CELL DISTRIBUTION WIDTH (BEAKER) (test 15.9 % 11.6-14.4 owdf=400) PLATELET COUNT (BEAKER) (test fgxb=953) 58 K/CU MM 150-450 MEAN PLATELET VOLUME (BEAKER) (test laeq=055) 9.3 fL 9.4-12.4 NUCLEATED RED BLOOD CELLS (BEAKER) (test 0 /100 WBC 0-0 qtms=642) PROTHROMBIN [id number] 05:22:00 Test Item Value Reference Range Comments PROTIME (BEAKER) (test dwpk=389) 21.2 seconds 11.7-14.7 INR (BEAKER) (test xgwn=883) 1.8 <=5.9 RECOMMENDED COUMADIN/WARFARIN INR THERAPY RANGESSTANDARD DOSE: 2.0 - 3.0 Includes: PROPHYLAXIS forvenous thrombosis, systemic embolization; TREATMENT for venous thrombosis and/or pulmonary embolus.HIGH RISK: Target INR is 2.5-3.5 for patients with mechanical heart valves.EOSINOPHIL SMEAR, [id number] 21: 53:00 Test Item Value Reference Range Comments EOSINOPHIL SMEAR, URINE (BEAKER) Rare EOS=less than 5% WBCs No EOS seen (test tgvw=1483) seen are EOS RAPID DRUG SCREEN, [id number] 15:42:00 Test Item Value Reference Range Comments BARBITURATE URINE (BEAKER) (test aeyz=703) Negative Negative BENZODIAZEPINE SCREEN URINE (BEAKER) (test Negative Negative ogwc=626) COCAINE (METAB.) SCREEN (BEAKER) (test dlec=6087) Negative Negative METHADONE SCREEN (BEAKER) (test blcq=1162) Negative Negative OPIATE SCREEN URINE (BEAKER) (test ggrh=583) Positive Negative CANNABINOID SCREEN URINE (BEAKER) (test nwuh=978) Negative Negative AMPH/METHAMPH SCREEN (BEAKER) (test yeuk=5479) Negative Negative PHENCYCLIDINE SCREEN URINE (BEAKER) (test khfj=678) Negative Negative OXYCODONE SCREEN URINE (BEAKER) (test epdy=0754) Negative Negative DRUG CUTOFF CONC.Cocaine 300 ng/mL Cannabinoid 50 ng/mL Benzodiazepine 200 ng/mLBarbiturate 200 ng/ mLPhencyclidine 25 ng/mLOpiate 300 ng/mLMethadone 300 ng/mLAmphetamine/ 1000 ng/mL MethamphetamineOxycodone 300 ng/mLThis assay provides an unconfirmed qualitative test result for the clinical management of patients in emergency situations. Chain of custody not maintained. Some kjhz-blh-mfixiiw medications, as well as adulterants, may cause inaccurate results. Clinical correlation should be applied. A more comprehensive drug screen or confirmation of a detected drug may be performed upon request.SODIUM, RANDOM [id number] 14:30:00 Test Item Value Reference Range Comments SODIUM URINE (BEAKER) (test pazk=865) < meq/L Reference Range: No NormalsCREATININE, RANDOM [id number] 14:18:00 Test Item Value Reference Range Comments CREATININE URINE (BEAKER) (test zppc=323) 113.7 mg/dL Reference Range: No NormalsPROTEIN, RANDOM [id number] 14:18:00 Test Item Value Reference Range Comments PROTEIN, URINE (BEAKER) (test jfil=8405) 8 mg/dL 0-14 CBC W/PLT COUNT & AUTO [id number] 11:12:00 Test Item Value Reference Range Comments WHITE BLOOD CELL COUNT (BEAKER) (test jgiz=322) 5.1 K/ L 3.5-10.5 RED BLOOD CELL COUNT (BEAKER) (test cboo=008) 2.23 M/ L 4.63-6.08 HEMOGLOBIN (BEAKER) (test wfzc=771) 7.1 GM/DL 13.7-17.5 HEMATOCRIT (BEAKER) (test wthu=785) 20.4 % 40.1-51.0 MEAN CORPUSCULAR VOLUME (BEAKER) (test dsdi=513) 91.5 fL 79.0-92.2 MEAN CORPUSCULAR HEMOGLOBIN (BEAKER) (test 31.8 pg 25.7-32.2 tfly=230) MEAN CORPUSCULAR HEMOGLOBIN CONC (BEAKER) (test 34.8 GM/DL 32.3-36.5 patv=055) RED CELL DISTRIBUTION WIDTH (BEAKER) (test 16.1 % 11.6-14.4 ygvo=247) PLATELET COUNT (BEAKER) (test jqwu=563) 59 K/CU MM 150-450 MEAN PLATELET VOLUME (BEAKER) (test mkbm=125) 9.5 fL 9.4-12.4 NUCLEATED RED BLOOD CELLS (BEAKER) (test 0 /100 WBC 0-0 ktus=844) IMMATURE GRANULOCYTES-RELATIVE PERCENT (BEAKER) 0 % 0-1 (test htyw=6024) (MANUAL DIFFERENTIAL)2017-08-26 11:12:00 Test Item Value Reference Range Comments NEUTROPHILS - REL (DIFF) (BEAKER) (test cujk=8689) 42 % LYMPHOCYTES - REL (DIFF) (BEAKER) (test hbsr=7492) 24 % MONOCYTES - REL (DIFF) (BEAKER) (test stdd=1873) 6 % EOSINOPHILS - REL (DIFF) (BEAKER) (test xodz=5865) 26 % BASOPHILS - REL (DIFF) (BEAKER) (test gqjj=8872) 1 % BANDS - REL (DIFF) (BEAKER) (test sxog=0304) 1 % 0-10 NEUTROPHILS - ABS (DIFF) (BEAKER) (test ahqi=9310) 2.14 K/ L 1.80-8.00 LYMPHOCYTES - ABS (DIFF) (BEAKER) (test hcgf=2613) 1.22 K/ L 1.48-4.50 MONOCYTES - ABS (DIFF) (BEAKER) (test ttyh=0363) 0.31 K/ L 0.00-1.30 EOSINOPHILS - ABS (DIFF) (BEAKER) (test tcdk=3623) 1.33 K/ L 0.00-0.50 BASOPHILS - ABS (DIFF) (BEAKER) (test oydn=5984) 0.05 K/ L 0.00-0.20 BANDS-ABS (DIFF) (BEAKER) (test cayq=4055) 0.1 K/ L 0.0-0.8 TOTAL COUNTED (BEAKER) (test xpul=6461) 100 BANDS + SEGMENTED NEUTROPHILS (BEAKER) (test 2.19 zvai=3240) WBC MORPHOLOGY (BEAKER) (test cofr=386) Normal PLT MORPHOLOGY (BEAKER) (test auxh=618) Normal RBC MORPHOLOGY (BEAKER) (test fnrn=408) Normal RAD, CHEST, 1 VIEW, NON [id number] 11:10:00Reason for exam:->rule out infectionShould this be performed at the bedside?->YesFINAL REPORT Chest one view compared to July 24 Discussion: Heart, lungs, bones , soft tissues unremarkable. No effusion or pneumothorax. Signed: Yousuf Greggepdante Verified Date/Time: 08/26/2017 11:10:05 Reading Location: [facility] Radiology Reading Room BASIC METABOLIC [id number] 05:37:00 Test Item Value Reference Range Comments SODIUM (BEAKER) (test 123 meq/L 136-145 iihv=447) POTASSIUM (BEAKER) (test 3.9 meq/L 3.5-5.1 xefh=121) CHLORIDE (BEAKER) (test 94 meq/L 98-107 vvxb=673) CO2 (BEAKER) (test 20 meq/L 22-29 azoh=477) BLOOD UREA NITROGEN 31 mg/dL 7-21 (BEAKER) (test jdcy=483) CREATININE (BEAKER) (test 1.65 mg/dL 0.57-1.25 ufch=292) GLUCOSE RANDOM (BEAKER) 98 mg/dL 70-105 (test nusd=409) CALCIUM (BEAKER) (test 8.9 mg/dL 8.4-10.2 tibo=502) EGFR (BEAKER) (test 43 mL/min/1.73 sq m ESTIMATED GFR IS NOT hqxm=2167) ACCURATE CREATININE CLEARANCE IN PREDICTING GLOMERULAR FILTRATION RATE. ESTIMATED GFR IS NOT APPLICABLE FOR DIALYSIS PATIENTS. Specimen slightly ictericHEPATIC FUNCTION [id number] 05:37:00 Test Item Value Reference Range Comments TOTAL PROTEIN (BEAKER) (test sace=804) 5.5 gm/dL 6.0-8.3 ALBUMIN (BEAKER) (test xrue=4001) 3.6 g/dL 3.5-5.0 BILIRUBIN TOTAL (BEAKER) (test kpio=999) 2.3 mg/dL 0.2-1.2 BILIRUBIN DIRECT (BEAKER) (test riva=240) 0.7 mg/dL 0.1-0.5 ALKALINE PHOSPHATASE (BEAKER) (test goyb=803) 127 U/L 40-150 AST (SGOT) (BEAKER) (test khtm=145) 39 U/L 5-34 ALT (SGPT) (BEAKER) (test kcdw=027) 22 U/L 6-55 Specimen slightly ictericPROTHROMBIN [id number] 05:17:00 Test Item Value Reference Range Comments PROTIME (BEAKER) (test dxat=931) 20.4 seconds 11.7-14.7 INR (BEAKER) (test mttc=160) 1.8 <=5.9 RECOMMENDED COUMADIN/WARFARIN INR THERAPY RANGESSTANDARD DOSE: 2.0 - 3.0 Includes: PROPHYLAXIS forvenous thrombosis, systemic embolization; TREATMENT for venous thrombosis and/or pulmonary embolus.HIGH RISK: Target INR is 2.5-3.5 for patients with mechanical heart valves.CBC (HEMOGRAM ONLY)2017-08-26 05:07:00 Test Item Value Reference Range Comments WHITE BLOOD CELL COUNT (BEAKER) (test qlbo=312) 5.4 K/ L 3.5-10.5 RED BLOOD CELL COUNT (BEAKER) (test uzkx=368) 2.11 M/ L 4.63-6.08 HEMOGLOBIN (BEAKER) (test nkqb=376) 6.7 GM/DL 13.7-17.5 HEMATOCRIT (BEAKER) (test hnti=658) 19.1 % 40.1-51.0 MEAN CORPUSCULAR VOLUME (BEAKER) (test lufo=777) 90.5 fL 79.0-92.2 MEAN CORPUSCULAR HEMOGLOBIN (BEAKER) (test 31.8 pg 25.7-32.2 fqve=127) MEAN CORPUSCULAR HEMOGLOBIN CONC (BEAKER) (test 35.1 GM/DL 32.3-36.5 jmbu=532) RED CELL DISTRIBUTION WIDTH (BEAKER) (test 15.8 % 11.6-14.4 bwpv=631) PLATELET COUNT (BEAKER) (test eghu=877) 63 K/CU MM 150-450 MEAN PLATELET VOLUME (BEAKER) (test vaaw=116) 9.7 fL 9.4-12.4 NUCLEATED RED BLOOD CELLS (BEAKER) (test 0 /100 WBC 0-0 htlc=983) URINALYSIS W/ [id number] 15:10:00 Test Item Value Reference Range Comments COLOR (BEAKER) (test qcdq=342) Yellow CLARITY (BEAKER) (test pmdu=866) Clear SPECIFIC GRAVITY UA (BEAKER) (test hbfa=484) 1.014 1.001-1.035 PH UA (BEAKER) (test rcpv=937) 5.5 5.0-8.0 PROTEIN UA (BEAKER) (test njwq=863) Negative Negative GLUCOSE UA (BEAKER) (test tnwp=075) Negative Negative KETONES UA (BEAKER) (test fkvy=987) Negative Negative BILIRUBIN UA (BEAKER) (test pylg=605) Negative Negative BLOOD UA (BEAKER) (test jqrp=981) Negative Negative NITRITE UA (BEAKER) (test vzrd=015) Negative Negative LEUKOCYTE ESTERASE UA (BEAKER) (test uqeo=964) Negative Negative UROBILINOGEN UA (BEAKER) (test kqav=181) 0.2 mg/dL 0.2-1.0 RBC UA (BEAKER) (test qbqa=899) < /HPF WBC UA (BEAKER) (test ydif=417) 1 /HPF SOURCE(BEAKER) (test bsld=8276) ALPHA FETOPROTEIN (AFP), TUMOR [id number] 15:09:00 Test Item Value Reference Range Comments ALPHA-FETOPROTEIN (BEAKER) (test ihxf=2621) 5.6 ng/mL <10.0 [id number] 14:48:00 Test Item Value Reference Range Comments PHOSPHORUS (BEAKER) (test ailp=131) 2.7 mg/dL 2.3-4.7 [id number] 14:48:00 Test Item Value Reference Range Comments MAGNESIUM (BEAKER) (test rtbn=233) 2.0 mg/dL 1.6-2.6 COMPREHENSIVE METABOLIC [id number] 14:48:00 Test Item Value Reference Range Comments TOTAL PROTEIN (BEAKER) 6.7 gm/dL 6.0-8.3 (test exdd=642) ALBUMIN (BEAKER) (test 4.1 g/dL 3.5-5.0 kmkf=8986) ALKALINE PHOSPHATASE 161 U/L 40-150 (BEAKER) (test obhh=010) BILIRUBIN TOTAL (BEAKER) 2.6 mg/dL 0.2-1.2 (test xdtt=612) SODIUM (BEAKER) (test 124 meq/L 136-145 nvdj=510) POTASSIUM (BEAKER) (test 4.1 meq/L 3.5-5.1 yxgh=695) CHLORIDE (BEAKER) (test 91 meq/L 98-107 zlwo=385) CO2 (BEAKER) (test 21 meq/L 22-29 fbmt=038) BLOOD UREA NITROGEN 31 mg/dL 7-21 (BEAKER) (test zber=640) CREATININE (BEAKER) (test 1.84 mg/dL 0.57-1.25 yvnh=770) GLUCOSE RANDOM (BEAKER) 109 mg/dL 70-105 (test hyss=830) CALCIUM (BEAKER) (test 9.6 mg/dL 8.4-10.2 zsve=675) AST (SGOT) (BEAKER) (test 55 U/L 5-34 dill=167) ALT (SGPT) (BEAKER) (test 29 U/L 6-55 wsar=223) EGFR (BEAKER) (test 38 mL/min/1.73 sq m ESTIMATED GFR IS NOT qnzu=1876) ACCURATE CREATININE CLEARANCE IN PREDICTING GLOMERULAR FILTRATION RATE. ESTIMATED GFR IS NOT APPLICABLE FOR DIALYSIS PATIENTS. Specimen slightly ictericBILIRUBIN, [id number] 14:48:00 Test Item Value Reference Range Comments BILIRUBIN DIRECT (BEAKER) (test mxtw=074) 0.9 mg/dL 0.1-0.5 CBC W/PLT COUNT & AUTO [id number] 14:36:00 Test Item Value Reference Range Comments WHITE BLOOD CELL COUNT (BEAKER) (test pwrw=352) 5.9 K/ L 3.5-10.5 RED BLOOD CELL COUNT (BEAKER) (test psvt=612) 2.72 M/ L 4.63-6.08 HEMOGLOBIN (BEAKER) (test hcbd=674) 8.7 GM/DL 13.7-17.5 HEMATOCRIT (BEAKER) (test vwcy=668) 25.2 % 40.1-51.0 MEAN CORPUSCULAR VOLUME (BEAKER) (test sjgh=793) 92.6 fL 79.0-92.2 MEAN CORPUSCULAR HEMOGLOBIN (BEAKER) (test 32.0 pg 25.7-32.2 frdq=889) MEAN CORPUSCULAR HEMOGLOBIN CONC (BEAKER) (test 34.5 GM/DL 32.3-36.5 axgn=967) RED CELL DISTRIBUTION WIDTH (BEAKER) (test 16.1 % 11.6-14.4 qiow=332) PLATELET COUNT (BEAKER) (test jasc=729) 84 K/CU MM 150-450 MEAN PLATELET VOLUME (BEAKER) (test uwvy=819) 9.7 fL 9.4-12.4 NUCLEATED RED BLOOD CELLS (BEAKER) (test 0 /100 WBC 0-0 hsai=964) NEUTROPHILS RELATIVE PERCENT (BEAKER) (test 54 % juqe=134) LYMPHOCYTES RELATIVE PERCENT (BEAKER) (test 16 % dzri=478) MONOCYTES RELATIVE PERCENT (BEAKER) (test 14 % oqud=557) EOSINOPHILS RELATIVE PERCENT (BEAKER) (test 15 % rtrt=023) BASOPHILS RELATIVE PERCENT (BEAKER) (test 1 % kbon=283) NEUTROPHILS ABSOLUTE COUNT (BEAKER) (test 3.14 K/ L 1.78-5.38 uqcv=052) LYMPHOCYTES ABSOLUTE COUNT (BEAKER) (test 0.92 K/ L 1.32-3.57 fhkn=366) MONOCYTES ABSOLUTE COUNT (BEAKER) (test nojx=250) 0.84 K/ L 0.30-0.82 EOSINOPHILS ABSOLUTE COUNT (BEAKER) (test 0.88 K/ L 0.04-0.54 cxbq=278) BASOPHILS ABSOLUTE COUNT (BEAKER) (test ojej=095) 0.04 K/ L 0.01-0.08 IMMATURE GRANULOCYTES-RELATIVE PERCENT (BEAKER) 1 % 0-1 (test vztl=0230) PROTHROMBIN [id number] 14:28:00 Test Item Value Reference Range Comments PROTIME (BEAKER) (test carz=616) 19.2 seconds 11.7-14.7 INR (BEAKER) (test afxt=420) 1.6 <=5.9 RECOMMENDED COUMADIN/WARFARIN INR THERAPY RANGESSTANDARD DOSE: 2.0 - 3.0 Includes: PROPHYLAXIS forvenous thrombosis, systemic embolization; TREATMENT for venous thrombosis and/or pulmonary embolus.HIGH RISK: Target INR is 2.5-3.5 for patients with mechanical heart valves.BODY FLUID CELL COUNT WITH [id number] 17:10:00 Test Item Value Reference Range Comments APPEARANCE FLUID (BEAKER) (test bgoi=138) Hazy Clear COLOR FLUID (BEAKER) (test kcih=417) Yellow Colorless, Straw RBC FLUID (BEAKER) (test cvks=079) 2590 /cu mm <=1 ADJUSTED WBC FLUID (BEAKER) (test osml=7170) 80 /cu mm <=5 LINING CELLS (BEAKER) (test msqn=4310) 0 /cu mm <=1 NEUTROPHILS FLUID (BEAKER) (test mgty=8245) 1 % LYMPHS FLUID (BEAKER) (test yhyn=117) 18 % MONO/MACROPHAGE FLUID (BEAKER) (test cbjb=715) 81 % EOSINOPHILS FLUID (BEAKER) (test yakd=128) 0 % BASO FLUID (BEAKER) (test jasg=350) 0 % CONTAINER BODY FLUID (BEAKER) (test ohdb=7742) EDTA Tube U/S, [id number] 14:25:00Administer 200 mL of albumin 25% (50 grams) IV x1 after paracentesis if 3 or more liters removed.Send ascitic fluid for cell count and differential.Reason for Exam:->ascitesFINAL REPORT HISTORY : Ascites COMPARISON : None Comment : The procedure, including the risks and complications of the procedure, were explained to the patient and the patient consented. A pocket of fluid was identified in the right lower quadrant of the abdomen. This area was marked. The area was prepped and draped in the usual sterile fashion. 1% lidocaine was applied to the skin and deep soft tissues. A 5 Indonesian multi-sidehole catheter was inserted and removed from the peritoneal space and approximately 5.0 liters of idris-colored fluid was aspirated from the abdomen. Specimens were collected for the lab. There were no immediate complications. Impression: Successful ultrasound guided paracentesis with aspiration of 5.0 liters of idris-colored fluid. The patient requestedto have no more than 5 L drained. Signed: Eleni Rutledge Verified Date/Time: 08/21/2017 14:25:39 Reading Location: [place] [id number] Ultrasound Reading Room Electronically signed by: ELENI RUTLDEGE M.D. on 02:25 PMBODY FLUID CULTURE + GRAM [id number] 07:54:00 Test Item Value Reference Range Comments CULTURE (BEAKER) (test awer=6722) No growth GRAM STAIN RESULT (BEAKER) (test <1+ White blood cells seen jjqu=0164) GRAM STAIN RESULT (BEAKER) (test No organisms seen ifwd=58565) CBC W/PLT COUNT & AUTO [id number] 07:44:00 Test Item Value Reference Range Comments WHITE BLOOD CELL COUNT (BEAKER) (test gkdz=338) 5.4 K/ L 3.5-10.5 RED BLOOD CELL COUNT (BEAKER) (test xrzi=367) 2.52 M/ L 4.63-6.08 HEMOGLOBIN (BEAKER) (test intl=686) 8.1 GM/DL 13.7-17.5 HEMATOCRIT (BEAKER) (test sjij=767) 23.3 % 40.1-51.0 MEAN CORPUSCULAR VOLUME (BEAKER) (test brut=632) 92.5 fL 79.0-92.2 MEAN CORPUSCULAR HEMOGLOBIN (BEAKER) (test 32.1 pg 25.7-32.2 nmhn=662) MEAN CORPUSCULAR HEMOGLOBIN CONC (BEAKER) (test 34.8 GM/DL 32.3-36.5 hwzh=619) RED CELL DISTRIBUTION WIDTH (BEAKER) (test 15.9 % 11.6-14.4 plui=127) PLATELET COUNT (BEAKER) (test wmfw=625) 53 K/CU MM 150-450 MEAN PLATELET VOLUME (BEAKER) (test hxky=329) 9.5 fL 9.4-12.4 NUCLEATED RED BLOOD CELLS (BEAKER) (test 0 /100 WBC 0-0 yvlg=723) NEUTROPHILS RELATIVE PERCENT (BEAKER) (test 47 % qphi=678) LYMPHOCYTES RELATIVE PERCENT (BEAKER) (test 22 % upzc=826) MONOCYTES RELATIVE PERCENT (BEAKER) (test 14 % qmou=810) EOSINOPHILS RELATIVE PERCENT (BEAKER) (test 16 % xkrq=907) BASOPHILS RELATIVE PERCENT (BEAKER) (test 1 % bmap=630) NEUTROPHILS ABSOLUTE COUNT (BEAKER) (test 2.55 K/ L 1.78-5.38 epit=945) LYMPHOCYTES ABSOLUTE COUNT (BEAKER) (test 1.17 K/ L 1.32-3.57 xhnq=923) MONOCYTES ABSOLUTE COUNT (BEAKER) (test nvgf=019) 0.74 K/ L 0.30-0.82 EOSINOPHILS ABSOLUTE COUNT (BEAKER) (test 0.89 K/ L 0.04-0.54 jupb=667) BASOPHILS ABSOLUTE COUNT (BEAKER) (test exkv=365) 0.05 K/ L 0.01-0.08 IMMATURE GRANULOCYTES-RELATIVE PERCENT (BEAKER) 1 % 0-1 (test fvjr=2252) [id number] 07:34:00 Test Item Value Reference Range Comments PHOSPHORUS (BEAKER) (test kugd=481) 2.4 mg/dL 2.3-4.7 [id number] 07:34:00 Test Item Value Reference Range Comments MAGNESIUM (BEAKER) (test gtqj=416) 2.0 mg/dL 1.6-2.6 BASIC METABOLIC [id number] 07:34:00 Test Item Value Reference Range Comments SODIUM (BEAKER) (test 127 meq/L 136-145 tkct=801) POTASSIUM (BEAKER) (test 3.8 meq/L 3.5-5.1 tzcc=458) CHLORIDE (BEAKER) (test 97 meq/L 98-107 bxci=404) CO2 (BEAKER) (test 18 meq/L 22-29 uipk=861) BLOOD UREA NITROGEN 27 mg/dL 7-21 (BEAKER) (test rqrw=913) CREATININE (BEAKER) (test 1.64 mg/dL 0.57-1.25 xeto=942) GLUCOSE RANDOM (BEAKER) 89 mg/dL 70-105 (test gxnr=927) CALCIUM (BEAKER) (test 9.1 mg/dL 8.4-10.2 ltvg=037) EGFR (BEAKER) (test 44 mL/min/1.73 sq m ESTIMATED GFR IS NOT wtrf=9754) ACCURATE CREATININE CLEARANCE IN PREDICTING GLOMERULAR FILTRATION RATE. ESTIMATED GFR IS NOT APPLICABLE FOR DIALYSIS PATIENTS. Specimen slightly ictericHEPATIC FUNCTION [id number] 07:34:00 Test Item Value Reference Range Comments TOTAL PROTEIN (BEAKER) (test henf=606) 5.6 gm/dL 6.0-8.3 ALBUMIN (BEAKER) (test tclt=6045) 3.7 g/dL 3.5-5.0 BILIRUBIN TOTAL (BEAKER) (test zjgt=365) 2.5 mg/dL 0.2-1.2 BILIRUBIN DIRECT (BEAKER) (test nkgy=281) 0.6 mg/dL 0.1-0.5 ALKALINE PHOSPHATASE (BEAKER) (test qmrb=603) 113 U/L 40-150 AST (SGOT) (BEAKER) (test ekqn=919) 39 U/L 5-34 ALT (SGPT) (BEAKER) (test sxlf=118) 21 U/L 6-55 Specimen slightly ictericCALCIUM, [id number] 07:18:00 Test Item Value Reference Range Comments CALCIUM IONIZED (BEAKER) (test vdfo=622) 1.07 mmol/L 1.12-1.27 PH, BLOOD (BEAKER) (test rkye=0270) 7.48 PROTHROMBIN [id number] 06:54:00 Test Item Value Reference Range Comments PROTIME (BEAKER) (test qicj=018) 21.4 seconds 11.7-14.7 INR (BEAKER) (test rpfy=491) 1.9 <=5.9 RECOMMENDED COUMADIN/WARFARIN INR THERAPY RANGESSTANDARD DOSE: 2.0 - 3.0 Includes: PROPHYLAXIS forvenous thrombosis, systemic embolization; TREATMENT for venous thrombosis and/or pulmonary embolus.HIGH RISK: Target INR is 2.5-3.5 for patients with mechanical heart valves.BODY FLUID CELL COUNT WITH [id number] 20:53:00 Test Item Value Reference Range Comments APPEARANCE FLUID (BEAKER) (test kiro=014) Clear Clear COLOR FLUID (BEAKER) (test nhwx=920) Yellow Colorless, Straw RBC FLUID (BEAKER) (test cpkx=557) 100 /cu mm <=1 ADJUSTED WBC FLUID (BEAKER) (test jubx=1531) 65 /cu mm <=5 LINING CELLS (BEAKER) (test ynjj=8209) 0 /cu mm <=1 NEUTROPHILS FLUID (BEAKER) (test wjmp=3761) 1 % LYMPHS FLUID (BEAKER) (test xjri=885) 28 % MONO/MACROPHAGE FLUID (BEAKER) (test ydvj=337) 71 % EOSINOPHILS FLUID (BEAKER) (test tbay=088) 0 % BASO FLUID (BEAKER) (test wbhd=209) 0 % CONTAINER BODY FLUID (BEAKER) (test aweb=2627) EDTA Tube U/S, [id number] 17:43:00Limit fluid removal to no more than 5 liters.Reason for exam:->ascites, therapeuticShould this beperformed at the bedside?->NoFINAL REPORT Ultrasound guided paracentesis, 08/14/2017. Clinical History:Ascites. Sedation: None. External Auditor: Kade Buck MD Towboat Captain: None. Estimated Blood Loss: < 1 cc. Specimen: 5000 cc of serous fluid, samples sent to laboratory. Technique: Informed consent was obtained. The risks of pain, bleeding, infection, bowel perforation, injury to adjacent structures, and adverse medication reactions were discussed with the patient. After informed consent was obtained, the patient's abdomen was scanned. The right lower quadrant of the abdomen was selected for paracentesis. After the largest fluid pocket area was marked, and the anterior abdominal wall was evaluated with color Doppler to exclude presence of blood vessels traversing the area, the skin was prepped and draped in the usual sterile manner. After local anesthesia was achievedwith 1% lidocaine, a 5 Indonesian one-step catheter was advanced into the peritoneal cavity under ultrasound guidance. After completion of drainage, the catheter was removed. There was no evidence of complication. Patient Disposition: The patient was transferred back to the inpatient unit from the ultrasound department after the paracentesis, in good condition. Impression:Successful ultrasound guided paracentesis. Signed: Kade Buck MDReport Verified Date/ Time: 08/14/2017 17:43:57 Reading Location: [address] Ultrasound Reading Room BODY FLUID CULTURE + GRAM [id number] 14:11:00 Test Item Value Reference Range Comments CULTURE (BEAKER) (test fljj=9841) No growth GRAM STAIN RESULT (BEAKER) (test <1+ WBCs vfnl=0409) GRAM STAIN RESULT (BEAKER) (test No organisms seen rjfg=61811) CALCIUM, [id number] 06:29:00 Test Item Value Reference Range Comments CALCIUM IONIZED (BEAKER) (test wxdp=121) 1.09 mmol/L 1.12-1.27 PH, BLOOD (BEAKER) (test sfmn=9302) 7.44 BASIC METABOLIC [id number] 05:01:00 Test Item Value Reference Range Comments SODIUM (BEAKER) (test 127 meq/L 136-145 vrrz=829) POTASSIUM (BEAKER) (test 4.1 meq/L 3.5-5.1 vxtu=733) CHLORIDE (BEAKER) (test 97 meq/L 98-107 knyg=356) CO2 (BEAKER) (test 19 meq/L 22-29 wtbk=921) BLOOD UREA NITROGEN 21 mg/dL 7-21 (BEAKER) (test hhsa=923) CREATININE (BEAKER) (test 1.45 mg/dL 0.57-1.25 vmqa=938) GLUCOSE RANDOM (BEAKER) 103 mg/dL 70-105 (test bust=738) CALCIUM (BEAKER) (test 9.0 mg/dL 8.4-10.2 rwlu=498) EGFR (BEAKER) (test 50 mL/min/1.73 sq m ESTIMATED GFR IS NOT zdto=7436) ACCURATE CREATININE CLEARANCE IN PREDICTING GLOMERULAR FILTRATION RATE. ESTIMATED GFR IS NOT APPLICABLE FOR DIALYSIS PATIENTS. Specimen slightly ictericHEPATIC FUNCTION [id number] 05:01:00 Test Item Value Reference Range Comments TOTAL PROTEIN (BEAKER) (test cjup=115) 5.7 gm/dL 6.0-8.3 ALBUMIN (BEAKER) (test ofts=7473) 3.5 g/dL 3.5-5.0 BILIRUBIN TOTAL (BEAKER) (test slxn=697) 2.2 mg/dL 0.2-1.2 BILIRUBIN DIRECT (BEAKER) (test qtdk=617) 0.7 mg/dL 0.1-0.5 ALKALINE PHOSPHATASE (BEAKER) (test jyzj=471) 136 U/L 40-150 AST (SGOT) (BEAKER) (test jkyy=420) 44 U/L 5-34 ALT (SGPT) (BEAKER) (test qkin=358) 25 U/L 6-55 Specimen slightly [id number] 05:00:00 Test Item Value Reference Range Comments PHOSPHORUS (BEAKER) (test pbub=706) 2.3 mg/dL 2.3-4.7 [id number] 05:00:00 Test Item Value Reference Range Comments MAGNESIUM (BEAKER) (test cxvb=133) 2.0 mg/dL 1.6-2.6 CBC W/PLT COUNT & AUTO [id number] 04:53:00 Test Item Value Reference Range Comments WHITE BLOOD CELL COUNT (BEAKER) (test jmus=568) 6.1 K/ L 3.5-10.5 RED BLOOD CELL COUNT (BEAKER) (test uzsx=398) 2.63 M/ L 4.63-6.08 HEMOGLOBIN (BEAKER) (test qnkk=666) 8.5 GM/DL 13.7-17.5 HEMATOCRIT (BEAKER) (test cbge=333) 24.1 % 40.1-51.0 MEAN CORPUSCULAR VOLUME (BEAKER) (test frdm=279) 91.6 fL 79.0-92.2 MEAN CORPUSCULAR HEMOGLOBIN (BEAKER) (test 32.3 pg 25.7-32.2 fmrc=854) MEAN CORPUSCULAR HEMOGLOBIN CONC (BEAKER) (test 35.3 GM/DL 32.3-36.5 yxiu=695) RED CELL DISTRIBUTION WIDTH (BEAKER) (test 16.1 % 11.6-14.4 gkjp=168) PLATELET COUNT (BEAKER) (test lehi=395) 61 K/CU MM 150-450 MEAN PLATELET VOLUME (BEAKER) (test raqy=281) 9.7 fL 9.4-12.4 NUCLEATED RED BLOOD CELLS (BEAKER) (test 0 /100 WBC 0-0 flvz=824) NEUTROPHILS RELATIVE PERCENT (BEAKER) (test 51 % lcek=320) LYMPHOCYTES RELATIVE PERCENT (BEAKER) (test 20 % klbe=750) MONOCYTES RELATIVE PERCENT (BEAKER) (test 15 % qalp=561) EOSINOPHILS RELATIVE PERCENT (BEAKER) (test 13 % kzyh=818) BASOPHILS RELATIVE PERCENT (BEAKER) (test 1 % jwsm=451) NEUTROPHILS ABSOLUTE COUNT (BEAKER) (test 3.10 K/ L 1.78-5.38 zall=832) LYMPHOCYTES ABSOLUTE COUNT (BEAKER) (test 1.19 K/ L 1.32-3.57 ypgx=662) MONOCYTES ABSOLUTE COUNT (BEAKER) (test deqj=453) 0.91 K/ L 0.30-0.82 EOSINOPHILS ABSOLUTE COUNT (BEAKER) (test 0.79 K/ L 0.04-0.54 bllx=355) BASOPHILS ABSOLUTE COUNT (BEAKER) (test levg=151) 0.03 K/ L 0.01-0.08 IMMATURE GRANULOCYTES-RELATIVE PERCENT (BEAKER) 1 % 0-1 (test vews=5907) PROTHROMBIN [id number] 04:43:00 Test Item Value Reference Range Comments PROTIME (BEAKER) (test wrmu=686) 20.6 seconds 11.7-14.7 INR (BEAKER) (test hqzq=699) 1.8 <=5.9 RECOMMENDED COUMADIN/WARFARIN INR THERAPY RANGESSTANDARD DOSE: 2.0 - 3.0 Includes: PROPHYLAXIS forvenous thrombosis, systemic embolization; TREATMENT for venous thrombosis and/or pulmonary embolus.HIGH RISK: Target INR is 2.5-3.5 for patients with mechanical heart valves.CALCIUM, [id number] 09:16:00 Test Item Value Reference Range Comments CALCIUM IONIZED (BEAKER) (test ywvf=846) 0.81 mmol/L 1.12-1.27 PH, BLOOD (BEAKER) (test nbip=1601) 7.50 [id number] 04:56:00 Test Item Value Reference Range Comments MAGNESIUM (BEAKER) (test lruy=255) 2.1 mg/dL 1.6-2.6 BASIC METABOLIC [id number] 04:56:00 Test Item Value Reference Range Comments SODIUM (BEAKER) (test 125 meq/L 136-145 yvww=317) POTASSIUM (BEAKER) (test 4.1 meq/L 3.5-5.1 rtxt=574) CHLORIDE (BEAKER) (test 96 meq/L 98-107 vxdg=549) CO2 (BEAKER) (test 19 meq/L 22-29 fvsi=866) BLOOD UREA NITROGEN 19 mg/dL 7-21 (BEAKER) (test myhe=416) CREATININE (BEAKER) (test 1.21 mg/dL 0.57-1.25 aucq=092) GLUCOSE RANDOM (BEAKER) 113 mg/dL 70-105 (test eerd=665) CALCIUM (BEAKER) (test 8.9 mg/dL 8.4-10.2 zykx=642) EGFR (BEAKER) (test 62 mL/min/1.73 sq m ESTIMATED GFR IS NOT lixx=4872) ACCURATE CREATININE CLEARANCE IN PREDICTING GLOMERULAR FILTRATION RATE. ESTIMATED GFR IS NOT APPLICABLE FOR DIALYSIS PATIENTS. Specimen moderately ictericHEPATIC FUNCTION [id number] 04:56:00 Test Item Value Reference Range Comments TOTAL PROTEIN (BEAKER) (test mnix=467) 6.1 gm/dL 6.0-8.3 ALBUMIN (BEAKER) (test ocxm=6780) 3.7 g/dL 3.5-5.0 BILIRUBIN TOTAL (BEAKER) (test yaoc=272) 3.9 mg/dL 0.2-1.2 BILIRUBIN DIRECT (BEAKER) (test kjqc=990) 0.8 mg/dL 0.1-0.5 ALKALINE PHOSPHATASE (BEAKER) (test jetd=099) 145 U/L 40-150 AST (SGOT) (BEAKER) (test uqjv=513) 46 U/L 5-34 ALT (SGPT) (BEAKER) (test mobi=257) 25 U/L 6-55 Specimen moderately [id number] 04:55:00 Test Item Value Reference Range Comments PHOSPHORUS (BEAKER) (test bnha=359) 2.2 mg/dL 2.3-4.7 PROTHROMBIN [id number] 04:34:00 Test Item Value Reference Range Comments PROTIME (BEAKER) (test hjes=964) 20.6 seconds 11.7-14.7 INR (BEAKER) (test ldts=456) 1.8 <=5.9 RECOMMENDED COUMADIN/WARFARIN INR THERAPY RANGESSTANDARD DOSE: 2.0 - 3.0 Includes: PROPHYLAXIS forvenous thrombosis, systemic embolization; TREATMENT for venous thrombosis and/or pulmonary embolus.HIGH RISK: Target INR is 2.5-3.5 for patients with mechanical heart valves.CBC W/PLT COUNT & AUTO [id number] 04:29:00 Test Item Value Reference Range Comments WHITE BLOOD CELL COUNT (BEAKER) (test vuoh=460) 5.9 K/ L 3.5-10.5 RED BLOOD CELL COUNT (BEAKER) (test bsud=124) 2.61 M/ L 4.63-6.08 HEMOGLOBIN (BEAKER) (test zmms=183) 8.4 GM/DL 13.7-17.5 HEMATOCRIT (BEAKER) (test qsan=497) 24.0 % 40.1-51.0 MEAN CORPUSCULAR VOLUME (BEAKER) (test giyd=429) 92.0 fL 79.0-92.2 MEAN CORPUSCULAR HEMOGLOBIN (BEAKER) (test 32.2 pg 25.7-32.2 irpk=326) MEAN CORPUSCULAR HEMOGLOBIN CONC (BEAKER) (test 35.0 GM/DL 32.3-36.5 fxld=735) RED CELL DISTRIBUTION WIDTH (BEAKER) (test 15.8 % 11.6-14.4 bazq=889) PLATELET COUNT (BEAKER) (test dnaf=400) 60 K/CU MM 150-450 MEAN PLATELET VOLUME (BEAKER) (test efjc=241) 9.7 fL 9.4-12.4 NUCLEATED RED BLOOD CELLS (BEAKER) (test 0 /100 WBC 0-0 wwxl=643) NEUTROPHILS RELATIVE PERCENT (BEAKER) (test 53 % zkdv=276) LYMPHOCYTES RELATIVE PERCENT (BEAKER) (test 19 % hlgk=147) MONOCYTES RELATIVE PERCENT (BEAKER) (test 14 % sxca=707) EOSINOPHILS RELATIVE PERCENT (BEAKER) (test 13 % vael=175) BASOPHILS RELATIVE PERCENT (BEAKER) (test 1 % yrgj=712) NEUTROPHILS ABSOLUTE COUNT (BEAKER) (test 3.07 K/ L 1.78-5.38 bqsw=528) LYMPHOCYTES ABSOLUTE COUNT (BEAKER) (test 1.10 K/ L 1.32-3.57 zytj=661) MONOCYTES ABSOLUTE COUNT (BEAKER) (test mnox=273) 0.83 K/ L 0.30-0.82 EOSINOPHILS ABSOLUTE COUNT (BEAKER) (test 0.76 K/ L 0.04-0.54 ensm=315) BASOPHILS ABSOLUTE COUNT (BEAKER) (test dwwo=720) 0.06 K/ L 0.01-0.08 IMMATURE GRANULOCYTES-RELATIVE PERCENT (BEAKER) 1 % 0-1 (test fixj=3166) HEMOGLOBIN AND [id number] 20:53:00 Test Item Value Reference Range Comments HEMOGLOBIN (BEAKER) (test kkim=128) 8.3 GM/DL 13.7-17.5 HEMATOCRIT (BEAKER) (test cplk=877) 23.4 % 40.1-51.0 Post blood transfusionHEPATIC FUNCTION [id number] 12:17:00 Test Item Value Reference Range Comments TOTAL PROTEIN (BEAKER) (test qxwd=222) 5.7 gm/dL 6.0-8.3 ALBUMIN (BEAKER) (test zypi=8156) 3.6 g/dL 3.5-5.0 BILIRUBIN TOTAL (BEAKER) (test ifqj=329) 2.1 mg/dL 0.2-1.2 BILIRUBIN DIRECT (BEAKER) (test eukw=127) 0.6 mg/dL 0.1-0.5 ALKALINE PHOSPHATASE (BEAKER) (test ybhp=533) 123 U/L 40-150 AST (SGOT) (BEAKER) (test zfpn=904) 47 U/L 5-34 ALT (SGPT) (BEAKER) (test swyg=279) 25 U/L 6-55 Specimen slightly [id number] 08:26:00 Test Item Value Reference Range Comments PHOSPHORUS (BEAKER) (test cmxi=548) 1.8 mg/dL 2.3-4.7 [id number] 08:26:00 Test Item Value Reference Range Comments MAGNESIUM (BEAKER) (test chwr=814) 2.0 mg/dL 1.6-2.6 BASIC METABOLIC [id number] 08:26:00 Test Item Value Reference Range Comments SODIUM (BEAKER) (test 123 meq/L 136-145 ywae=111) POTASSIUM (BEAKER) (test 4.1 meq/L 3.5-5.1 sjsl=713) CHLORIDE (BEAKER) (test 95 meq/L 98-107 nwcd=347) CO2 (BEAKER) (test 19 meq/L 22-29 runa=355) BLOOD UREA NITROGEN 18 mg/dL 7-21 (BEAKER) (test gqlc=090) CREATININE (BEAKER) (test 1.30 mg/dL 0.57-1.25 lxgi=102) GLUCOSE RANDOM (BEAKER) 91 mg/dL 70-105 (test nzkw=705) CALCIUM (BEAKER) (test 8.8 mg/dL 8.4-10.2 chcg=085) EGFR (BEAKER) (test 57 mL/min/1.73 sq m ESTIMATED GFR IS NOT rchn=6043) ACCURATE CREATININE CLEARANCE IN PREDICTING GLOMERULAR FILTRATION RATE. ESTIMATED GFR IS NOT APPLICABLE FOR DIALYSIS PATIENTS. Specimen slightly ictericCALCIUM, [id number] 07:54:00 Test Item Value Reference Range Comments CALCIUM IONIZED (BEAKER) (test yvhi=183) 0.97 mmol/L 1.12-1.27 PH, BLOOD (BEAKER) (test qgvr=1578) 7.53 CBC W/PLT COUNT & AUTO [id number] 07:11:00 Test Item Value Reference Range Comments WHITE BLOOD CELL COUNT (BEAKER) (test tafw=619) 5.9 K/ L 3.5-10.5 RED BLOOD CELL COUNT (BEAKER) (test dxkv=046) 2.13 M/ L 4.63-6.08 HEMOGLOBIN (BEAKER) (test lzpi=601) 6.9 GM/DL 13.7-17.5 HEMATOCRIT (BEAKER) (test jvxi=325) 19.7 % 40.1-51.0 MEAN CORPUSCULAR VOLUME (BEAKER) (test yiux=941) 92.5 fL 79.0-92.2 MEAN CORPUSCULAR HEMOGLOBIN (BEAKER) (test 32.4 pg 25.7-32.2 sbxi=692) MEAN CORPUSCULAR HEMOGLOBIN CONC (BEAKER) (test 35.0 GM/DL 32.3-36.5 tqxs=824) RED CELL DISTRIBUTION WIDTH (BEAKER) (test 15.9 % 11.6-14.4 tces=707) PLATELET COUNT (BEAKER) (test uigo=575) 57 K/CU MM 150-450 MEAN PLATELET VOLUME (BEAKER) (test fyty=790) 9.3 fL 9.4-12.4 NUCLEATED RED BLOOD CELLS (BEAKER) (test 0 /100 WBC 0-0 rglo=388) NEUTROPHILS RELATIVE PERCENT (BEAKER) (test 52 % gxym=270) LYMPHOCYTES RELATIVE PERCENT (BEAKER) (test 20 % mncv=101) MONOCYTES RELATIVE PERCENT (BEAKER) (test 14 % rueh=024) EOSINOPHILS RELATIVE PERCENT (BEAKER) (test 14 % gejo=178) BASOPHILS RELATIVE PERCENT (BEAKER) (test 1 % krsg=863) NEUTROPHILS ABSOLUTE COUNT (BEAKER) (test 3.06 K/ L 1.78-5.38 qyvc=737) LYMPHOCYTES ABSOLUTE COUNT (BEAKER) (test 1.16 K/ L 1.32-3.57 rnju=762) MONOCYTES ABSOLUTE COUNT (BEAKER) (test wxev=537) 0.79 K/ L 0.30-0.82 EOSINOPHILS ABSOLUTE COUNT (BEAKER) (test 0.79 K/ L 0.04-0.54 jwjr=719) BASOPHILS ABSOLUTE COUNT (BEAKER) (test uolv=229) 0.04 K/ L 0.01-0.08 IMMATURE GRANULOCYTES-RELATIVE PERCENT (BEAKER) 0 % 0-1 (test pjdj=9516) [id number] 18:03:00 Test Item Value Reference Range Comments PHOSPHORUS (BEAKER) (test uysz=760) 2.1 mg/dL 2.3-4.[address] BLANCHARD WITH [id number] 18:03:00 Test Item Value Reference Range Comments MAGNESIUM (BEAKER) (test pmsf=183) 2.2 mg/dL 1.6-2.[address] BLANCHARD WITH RESULTSBODY FLUID CELL COUNT WITH [id number] 17: 04:00 Test Item Value Reference Range Comments APPEARANCE FLUID (BEAKER) (test yrmi=327) Clear Clear COLOR FLUID (BEAKER) (test cvrz=258) Yellow Colorless, Straw RBC FLUID (BEAKER) (test rbbd=539) 1000 /cu mm <=1 ADJUSTED WBC FLUID (BEAKER) (test xpru=3323) 72 /cu mm <=5 LINING CELLS (BEAKER) (test ntnh=1531) 2 /cu mm <=1 NEUTROPHILS FLUID (BEAKER) (test nanj=1294) 7 % LYMPHS FLUID (BEAKER) (test lsnk=808) 32 % MONO/MACROPHAGE FLUID (BEAKER) (test esbs=520) 60 % EOSINOPHILS FLUID (BEAKER) (test qnmb=525) 1 % BASO FLUID (BEAKER) (test gxvu=103) 0 % CONTAINER BODY FLUID (BEAKER) (test hple=4573) EDTA Tube [id number] 16:57:00 Test Item Value Reference Range Comments SODIUM (BEAKER) (test jgwk=146) 122 meq/L 136-145 POTASSIUM (BEAKER) (test ychq=420) 3.5 meq/L 3.5-5.1 CHLORIDE (BEAKER) (test axco=812) 93 meq/L 98-107 CO2 (BEAKER) (test bucg=673) 20 meq/L 22-[address] BLANCHARD WITH RESULTSSODIUM, RANDOM [id number] 14:08:00 Test Item Value Reference Range Comments SODIUM URINE (BEAKER) (test cewu=345) < meq/L Reference Range: No NormalsCREATININE, RANDOM [id number] 14:05:00 Test Item Value Reference Range Comments CREATININE URINE (BEAKER) (test rcja=428) 113.1 mg/dL Reference Range: No NormalsPROTEIN, RANDOM [id number] 14:05:00 Test Item Value Reference Range Comments PROTEIN, URINE (BEAKER) (test mqyi=9530) 10 mg/dL 0-14 OSMOLALITY, [id number] 12:14:00 Test Item Value Reference Range Comments OSMOLALITY URINE (BEAKER) (test krnu=406) 442 mOsm/kg 40-1400 U/S, [id number] 09:44:00Reason for exam:->ascitesShould this be performed at the bedside?->NoFINAL REPORT Ultrasound guided paracentesis, 08/11/2017. Clinical History:Ascites. Sedation: None. External Auditor: Kade Buck MD Towboat Captain: None. Estimated Blood Loss: < 1 cc. Specimen: 5000 cc of clear yellow fluid, samples sent to laboratory. Technique: Informed consent was obtained. The risks of pain, bleeding, infection, bowel perforation, injury to adjacent structures, and adverse medication reactions were discussed with the patient. After informed consent was obtained, the patient's abdomen was scanned. The right lower quadrant of theabdomen was selected for paracentesis. After the largest fluid pocket area was marked, and the anterior abdominal wall was evaluated with color Doppler to exclude presence of blood vessels traversing the area, the skin was prepped and draped in the usual sterile manner. After local anesthesia was achieved with 1% lidocaine, a 5 Indonesian one-step catheter was advanced into the peritoneal cavity under ultrasound guidance. After completion of drainage, the catheter was removed. There was no evidence ofcomplication. Patient Disposition: The patient was transferred to the inpatient unit from the ultrasound department after the paracentesis, in good condition. Impression :Successful ultrasound guided paracentesis. Signed: Kade Buck Verified Date/Time: 08/11/2017 09:44:27 Reading Location: [facility] [id number] Ultrasound Reading Room BASIC METABOLIC [id number] 07:37:00 Test Item Value Reference Range Comments SODIUM (BEAKER) (test 119 meq/L 136-145 uqzi=706) POTASSIUM (BEAKER) (test 3.1 meq/L 3.5-5.1 anai=888) CHLORIDE (BEAKER) (test 91 meq/L 98-107 lsxu=969) CO2 (BEAKER) (test 18 meq/L 22-29 xqwe=960) BLOOD UREA NITROGEN 20 mg/dL 7-21 (BEAKER) (test tsxq=263) CREATININE (BEAKER) (test 1.52 mg/dL 0.57-1.25 iids=657) GLUCOSE RANDOM (BEAKER) 112 mg/dL 70-105 (test xqnh=600) CALCIUM (BEAKER) (test 9.0 mg/dL 8.4-10.2 somh=251) EGFR (BEAKER) (test 48 mL/min/1.73 sq m ESTIMATED GFR IS NOT ghlu=4145) ACCURATE CREATININE CLEARANCE IN PREDICTING GLOMERULAR FILTRATION RATE. ESTIMATED GFR IS NOT APPLICABLE FOR DIALYSIS PATIENTS. Specimen slightly ictericPH, [id number] 07:29:00 Test Item Value Reference Range Comments PH VENOUS (BEAKER) (test kshq=157) 7.52 7.32-7.42 BASIC METABOLIC [id number] 07:24:00 Test Item Value Reference Range Comments SODIUM (BEAKER) (test 121 meq/L 136-145 kvwe=613) POTASSIUM (BEAKER) (test 3.1 meq/L 3.5-5.1 pbam=873) CHLORIDE (BEAKER) (test 91 meq/L 98-107 oanz=169) CO2 (BEAKER) (test 18 meq/L 22-29 txbz=904) BLOOD UREA NITROGEN 20 mg/dL 7-21 (BEAKER) (test capr=835) CREATININE (BEAKER) (test 1.54 mg/dL 0.57-1.25 dmqu=650) GLUCOSE RANDOM (BEAKER) 112 mg/dL 70-105 (test boxs=885) CALCIUM (BEAKER) (test 9.1 mg/dL 8.4-10.2 zrcl=638) EGFR (BEAKER) (test 47 mL/min/1.73 sq m ESTIMATED GFR IS NOT iaew=5486) ACCURATE CREATININE CLEARANCE IN PREDICTING GLOMERULAR FILTRATION RATE. ESTIMATED GFR IS NOT APPLICABLE FOR DIALYSIS PATIENTS. Call if Na < 121 or K < 3.2Specimen slightly ictericCREATINE KINASE (CK) 2017-08-11 07:24:00 Test Item Value Reference Range Comments CREATINE KINASE TOTAL (BEAKER) (test ypxe=848) 160 U/L 29-200 Call if Na < 121 or K < [id number] 07:22:00 Test Item Value Reference Range Comments PHOSPHORUS (BEAKER) (test qtua=928) 2.2 mg/dL 2.3-4.7 [id number] 07:22:00 Test Item Value Reference Range Comments MAGNESIUM (BEAKER) (test ppjm=146) 2.0 mg/dL 1.6-2.6 OSMOLALITY, [id number] 06:55:00 Test Item Value Reference Range Comments OSMOLALITY, SERUM (BEAKER) (test ezcu=564) 261 mOsm/kg 275-295 [id number] 05:41:00 Test Item Value Reference Range Comments PROTIME (BEAKER) (test vgrg=663) 19.9 seconds 11.7-14.7 INR (BEAKER) (test imuy=840) 1.7 <=5.9 PARTIAL THROMBOPLASTIN TIME (BEAKER) (test 40.5 seconds 22.5-36.0 igzw=173) RECOMMENDED COUMADIN/WARFARIN INR THERAPY RANGESSTANDARD DOSE: 2.0 - 3.0 Includes: PROPHYLAXIS forvenous thrombosis, systemic embolization; TREATMENT for venous thrombosis and/or pulmonary embolus.HIGH RISK: Target INR is 2.5-3.5 for patients with mechanical heart valves.LACTIC ACID, VENOUS, WHOLE [id number] 05:38:00 Test Item Value Reference Range Comments LACTATE BLOOD VENOUS (2) (BEAKER) (test 1.9 mmol/L 0.5-2.2 bhso=7352) Effective 09/26/2015: Units/Reference Range ChangeNew: 0.5-2.2 mmol/L Previous: 5 -20 mg/dLSpecimen slightly ictericCBC W/PLT COUNT & AUTO [id number] 05:24:00 Test Item Value Reference Range Comments WHITE BLOOD CELL COUNT (BEAKER) (test zqhr=896) 6.7 K/ L 3.5-10.5 RED BLOOD CELL COUNT (BEAKER) (test oamt=979) 2.36 M/ L 4.63-6.08 HEMOGLOBIN (BEAKER) (test ijwd=343) 7.7 GM/DL 13.7-17.5 HEMATOCRIT (BEAKER) (test oaho=845) 21.6 % 40.1-51.0 MEAN CORPUSCULAR VOLUME (BEAKER) (test iuma=850) 91.5 fL 79.0-92.2 MEAN CORPUSCULAR HEMOGLOBIN (BEAKER) (test 32.6 pg 25.7-32.2 qfwj=034) MEAN CORPUSCULAR HEMOGLOBIN CONC (BEAKER) (test 35.6 GM/DL 32.3-36.5 gtyx=614) RED CELL DISTRIBUTION WIDTH (BEAKER) (test 15.7 % 11.6-14.4 klkj=016) PLATELET COUNT (BEAKER) (test hpmt=869) 67 K/CU MM 150-450 MEAN PLATELET VOLUME (BEAKER) (test nury=938) 9.6 fL 9.4-12.4 NUCLEATED RED BLOOD CELLS (BEAKER) (test 0 /100 WBC 0-0 riug=860) NEUTROPHILS RELATIVE PERCENT (BEAKER) (test 51 % wtec=997) LYMPHOCYTES RELATIVE PERCENT (BEAKER) (test 20 % tosx=254) MONOCYTES RELATIVE PERCENT (BEAKER) (test 13 % jmmz=925) EOSINOPHILS RELATIVE PERCENT (BEAKER) (test 15 % magw=562) BASOPHILS RELATIVE PERCENT (BEAKER) (test 1 % gloc=541) NEUTROPHILS ABSOLUTE COUNT (BEAKER) (test 3.40 K/ L 1.78-5.38 puso=712) LYMPHOCYTES ABSOLUTE COUNT (BEAKER) (test 1.31 K/ L 1.32-3.57 hvbp=026) MONOCYTES ABSOLUTE COUNT (BEAKER) (test rjjo=106) 0.88 K/ L 0.30-0.82 EOSINOPHILS ABSOLUTE COUNT (BEAKER) (test 1.01 K/ L 0.04-0.54 zeiq=982) BASOPHILS ABSOLUTE COUNT (BEAKER) (test itdc=024) 0.03 K/ L 0.01-0.08 IMMATURE GRANULOCYTES-RELATIVE PERCENT (BEAKER) 1 % 0-1 (test ulno=6629) URINALYSIS W/ [id number] 20:45:00 Test Item Value Reference Range Comments COLOR (BEAKER) (test dxia=282) Yellow CLARITY (BEAKER) (test jrtx=929) Clear SPECIFIC GRAVITY UA (BEAKER) (test 1.015 1.001-1.035 dgwg=533) PH UA (BEAKER) (test mywy=646) 6.0 5.0-8.0 PROTEIN UA (BEAKER) (test dzzz=571) Negative Negative GLUCOSE UA (BEAKER) (test zpsx=740) Negative Negative KETONES UA (BEAKER) (test zrzm=647) Negative Negative BILIRUBIN UA (BEAKER) (test ilic=027) Negative Negative BLOOD UA (BEAKER) (test bzxw=108) Negative Negative NITRITE UA (BEAKER) (test sfax=129) Negative Negative LEUKOCYTE ESTERASE UA (BEAKER) (test Negative Negative ywak=845) UROBILINOGEN UA (BEAKER) (test uhap=995) 0.2 mg/dL 0.2-1.0 RBC UA (BEAKER) (test qapj=120) < /HPF WBC UA (BEAKER) (test edbq=491) < /HPF SOURCE(BEAKER) (test ovqi=1255) Urine, Clean Catch OSMOLALITY, [id number] 20:45:00 Test Item Value Reference Range Comments OSMOLALITY URINE (BEAKER) (test jkyf=819) 444 mOsm/kg 40-1400 CREATINE KINASE (CK), TOTAL AND [id number] 17:21:00 Test Item Value Reference Range Comments CREATINE KINASE TOTAL (BEAKER) (test bnjd=882) 190 U/L 29-200 CREATINE KINASE-MB (BEAKER) (test yupu=388) 3.9 ng/mL 0.0-6.6 CREATINE KINASE-MB INDEX (BEAKER) (test nwsz=055) 2.1 % CK-MB Reference Range:<6.7 Normal6.7-10.0 Borderline>10.0 AbnormalTROPONIN [id number] 17:21:00 Test Item Value Reference Range Comments TROPONIN I (BEAKER) (test iicp=441) 0.01 ng/mL 0.00-0.03 Troponin I (TnI) levels must be interpreted in the context of the presenting symptoms and the clinical findings. Elevated TnI levels indicate myocardial damage, but are not specific for ischemic heart disease. Elevated TnI levels are seen in patients with other cardiac conditions (including myocarditis and congestive heart failure), and slight TnI elevations occur in patients with other conditions, including sepsis, renal failure, acidosis, acute neurological disease, and persistent tachyarrhythmia.BASIC METABOLIC [id number] 17:16:00 Test Item Value Reference Range Comments SODIUM (BEAKER) (test 121 meq/L 136-145 reoy=134) POTASSIUM (BEAKER) (test 2.7 meq/L 3.5-5.1 Specimen slightly izti=624) hemolyzed CHLORIDE (BEAKER) (test 88 meq/L 98-107 hndu=772) CO2 (BEAKER) (test 18 meq/L 22-29 oejn=588) BLOOD UREA NITROGEN 21 mg/dL 7-21 (BEAKER) (test khij=212) CREATININE (BEAKER) (test 1.84 mg/dL 0.57-1.25 Specimen slightly jgnf=572) hemolyzed GLUCOSE RANDOM (BEAKER) 172 mg/dL 70-105 (test lyib=358) CALCIUM (BEAKER) (test 9.1 mg/dL 8.4-10.2 vadg=186) EGFR (BEAKER) (test 38 mL/min/1.73 sq m ESTIMATED GFR IS NOT fayr=2061) ACCURATE CREATININE CLEARANCE IN PREDICTING GLOMERULAR FILTRATION RATE. ESTIMATED GFR IS NOT APPLICABLE FOR DIALYSIS PATIENTS. Specimen slightly ictericHEPATIC FUNCTION [id number] 17:13:00 Test Item Value Reference Range Comments TOTAL PROTEIN (BEAKER) (test 6.5 gm/dL 6.0-8.3 Specimen slightly hemolyzed jbtt=891) ALBUMIN (BEAKER) (test 3.6 g/dL 3.5-5.0 Specimen slightly hemolyzed dfcz=2426) BILIRUBIN TOTAL (BEAKER) (test 2.2 mg/dL 0.2-1.2 Specimen slightly hemolyzed hpmt=779) BILIRUBIN DIRECT (BEAKER) (test 0.9 mg/dL 0.1-0.5 Specimen slightly hemolyzed srri=768) ALKALINE PHOSPHATASE (BEAKER) 155 U/L 40-150 (test asxx=088) AST (SGOT) (BEAKER) (test 62 U/L 5-34 Specimen slightly hemolyzed msut=119) ALT (SGPT) (BEAKER) (test 35 U/L 6-55 Specimen slightly hemolyzed wvml=593) Specimen slightly ictericCBC W/PLT COUNT & AUTO [id number] 16:53 :00 Test Item Value Reference Range Comments WHITE BLOOD CELL COUNT (BEAKER) (test cjfu=539) 7.9 K/ L 3.5-10.5 RED BLOOD CELL COUNT (BEAKER) (test hszp=435) 2.41 M/ L 4.63-6.08 HEMOGLOBIN (BEAKER) (test igqt=189) 8.0 GM/DL 13.7-17.5 HEMATOCRIT (BEAKER) (test pnkm=644) 22.6 % 40.1-51.0 MEAN CORPUSCULAR VOLUME (BEAKER) (test pxlf=696) 93.8 fL 79.0-92.2 MEAN CORPUSCULAR HEMOGLOBIN (BEAKER) (test 33.2 pg 25.7-32.2 daem=823) MEAN CORPUSCULAR HEMOGLOBIN CONC (BEAKER) (test 35.4 GM/DL 32.3-36.5 ilep=603) RED CELL DISTRIBUTION WIDTH (BEAKER) (test 15.9 % 11.6-14.4 taaa=304) PLATELET COUNT (BEAKER) (test piba=990) 88 K/CU MM 150-450 MEAN PLATELET VOLUME (BEAKER) (test rgai=877) 10.1 fL 9.4-12.4 NUCLEATED RED BLOOD CELLS (BEAKER) (test 0 /100 WBC 0-0 dxky=870) NEUTROPHILS RELATIVE PERCENT (BEAKER) (test 62 % edxc=946) LYMPHOCYTES RELATIVE PERCENT (BEAKER) (test 13 % pcss=631) MONOCYTES RELATIVE PERCENT (BEAKER) (test 13 % ezau=651) EOSINOPHILS RELATIVE PERCENT (BEAKER) (test 11 % rjzc=025) BASOPHILS RELATIVE PERCENT (BEAKER) (test 0 % eygy=824) NEUTROPHILS ABSOLUTE COUNT (BEAKER) (test 4.89 K/ L 1.78-5.38 dgep=075) LYMPHOCYTES ABSOLUTE COUNT (BEAKER) (test 0.98 K/ L 1.32-3.57 fxcu=899) MONOCYTES ABSOLUTE COUNT (BEAKER) (test jnnm=607) 1.04 K/ L 0.30-0.82 EOSINOPHILS ABSOLUTE COUNT (BEAKER) (test 0.89 K/ L 0.04-0.54 hqga=103) BASOPHILS ABSOLUTE COUNT (BEAKER) (test qpao=118) 0.03 K/ L 0.01-0.08 IMMATURE GRANULOCYTES-RELATIVE PERCENT (BEAKER) 1 % 0-1 (test wykf=9337) BLOOD [id number] 17:00:00 Test Item Value Reference Range Comments CULTURE (BEAKER) (test vkyz=1251) No growth in 5 days BODY FLUID CULTURE + GRAM [id number] 11:54:00 Test Item Value Reference Range Comments CULTURE (BEAKER) (test eovs=3309) No growth GRAM STAIN RESULT (BEAKER) (test 1+ WBCs srbr=7097) GRAM STAIN RESULT (BEAKER) (test No organisms seen bjap=02828) CALCIUM, [id number] 06:07:00 Test Item Value Reference Range Comments CALCIUM IONIZED (BEAKER) (test dgus=245) 1.05 mmol/L 1.12-1.27 PH, BLOOD (BEAKER) (test xnun=9293) 7.51 [id number] 04:42:00 Test Item Value Reference Range Comments PHOSPHORUS (BEAKER) (test pspm=626) 2.6 mg/dL 2.3-4.7 [id number] 04:42:00 Test Item Value Reference Range Comments MAGNESIUM (BEAKER) (test wzom=379) 2.1 mg/dL 1.6-2.6 BASIC METABOLIC [id number] 04:42:00 Test Item Value Reference Range Comments SODIUM (BEAKER) (test 129 meq/L 136-145 dbfk=875) POTASSIUM (BEAKER) (test 3.1 meq/L 3.5-5.1 haso=522) CHLORIDE (BEAKER) (test 100 meq/L 98-107 hlzv=421) CO2 (BEAKER) (test 20 meq/L 22-29 msge=439) BLOOD UREA NITROGEN 35 mg/dL 7-21 (BEAKER) (test simq=611) CREATININE (BEAKER) (test 1.77 mg/dL 0.57-1.25 ivwm=986) GLUCOSE RANDOM (BEAKER) 117 mg/dL 70-105 (test ibag=022) CALCIUM (BEAKER) (test 9.4 mg/dL 8.4-10.2 qxdt=212) EGFR (BEAKER) (test 40 mL/min/1.73 sq m ESTIMATED GFR IS NOT gyez=3393) ACCURATE CREATININE CLEARANCE IN PREDICTING GLOMERULAR FILTRATION RATE. ESTIMATED GFR IS NOT APPLICABLE FOR DIALYSIS PATIENTS. Specimen slightly ictericHEPATIC FUNCTION [id number] 04:42:00 Test Item Value Reference Range Comments TOTAL PROTEIN (BEAKER) (test musi=351) 6.2 gm/dL 6.0-8.3 ALBUMIN (BEAKER) (test ambc=4166) 3.7 g/dL 3.5-5.0 BILIRUBIN TOTAL (BEAKER) (test zlnj=824) 2.9 mg/dL 0.2-1.2 BILIRUBIN DIRECT (BEAKER) (test alyp=572) 0.7 mg/dL 0.1-0.5 ALKALINE PHOSPHATASE (BEAKER) (test oqos=421) 112 U/L 40-150 AST (SGOT) (BEAKER) (test hygc=375) 34 U/L 5-34 ALT (SGPT) (BEAKER) (test yxjx=826) 22 U/L 6-55 Specimen slightly ictericPROTHROMBIN [id number] 04:20:00 Test Item Value Reference Range Comments PROTIME (BEAKER) (test hlvj=723) 19.3 seconds 11.7-14.7 INR (BEAKER) (test qvmm=077) 1.6 <=5.9 RECOMMENDED COUMADIN/WARFARIN INR THERAPY RANGESSTANDARD DOSE: 2.0 - 3.0 Includes: PROPHYLAXIS forvenous thrombosis, systemic embolization; TREATMENT for venous thrombosis and/or pulmonary embolus.HIGH RISK: Target INR is 2.5-3.5 for patients with mechanical heart valves.CBC W/PLT COUNT & AUTO [id number] 04:15:00 Test Item Value Reference Range Comments WHITE BLOOD CELL COUNT (BEAKER) (test azky=072) 5.9 K/ L 3.5-10.5 RED BLOOD CELL COUNT (BEAKER) (test drvz=945) 2.79 M/ L 4.63-6.08 HEMOGLOBIN (BEAKER) (test aswe=639) 8.8 GM/DL 13.7-17.5 HEMATOCRIT (BEAKER) (test vurw=552) 25.9 % 40.1-51.0 MEAN CORPUSCULAR VOLUME (BEAKER) (test qkkd=610) 92.8 fL 79.0-92.2 MEAN CORPUSCULAR HEMOGLOBIN (BEAKER) (test 31.5 pg 25.7-32.2 bqcs=872) MEAN CORPUSCULAR HEMOGLOBIN CONC (BEAKER) (test 34.0 GM/DL 32.3-36.5 psvf=374) RED CELL DISTRIBUTION WIDTH (BEAKER) (test 14.8 % 11.6-14.4 aknt=111) PLATELET COUNT (BEAKER) (test gpwv=684) 65 K/CU MM 150-450 MEAN PLATELET VOLUME (BEAKER) (test srhu=072) 9.7 fL 9.4-12.4 NUCLEATED RED BLOOD CELLS (BEAKER) (test 0 /100 WBC 0-0 ravs=837) NEUTROPHILS RELATIVE PERCENT (BEAKER) (test 52 % nytd=228) LYMPHOCYTES RELATIVE PERCENT (BEAKER) (test 21 % azwt=730) MONOCYTES RELATIVE PERCENT (BEAKER) (test 15 % moct=869) EOSINOPHILS RELATIVE PERCENT (BEAKER) (test 12 % bcyx=200) BASOPHILS RELATIVE PERCENT (BEAKER) (test 1 % pupv=207) NEUTROPHILS ABSOLUTE COUNT (BEAKER) (test 3.04 K/ L 1.78-5.38 fzcj=491) LYMPHOCYTES ABSOLUTE COUNT (BEAKER) (test 1.21 K/ L 1.32-3.57 nucj=673) MONOCYTES ABSOLUTE COUNT (BEAKER) (test ynwg=283) 0.85 K/ L 0.30-0.82 EOSINOPHILS ABSOLUTE COUNT (BEAKER) (test 0.67 K/ L 0.04-0.54 zevb=052) BASOPHILS ABSOLUTE COUNT (BEAKER) (test zbbv=556) 0.05 K/ L 0.01-0.08 IMMATURE GRANULOCYTES-RELATIVE PERCENT (BEAKER) 1 % 0-1 (test bixq=7230) URINALYSIS W/ REFLEX URINE [id number] 18:42:00 Test Item Value Reference Range Comments COLOR (BEAKER) (test vrme=946) Yellow CLARITY (BEAKER) (test gezs=263) Clear SPECIFIC GRAVITY UA (BEAKER) (test eidr=902) 1.019 1.001-1.035 PH UA (BEAKER) (test srzq=169) 5.5 5.0-8.0 PROTEIN UA (BEAKER) (test vlvg=091) 20 mg/dL Negative GLUCOSE UA (BEAKER) (test aaqk=773) Negative Negative KETONES UA (BEAKER) (test qvku=783) Trace Negative BILIRUBIN UA (BEAKER) (test uowe=581) Negative Negative BLOOD UA (BEAKER) (test swja=072) Negative Negative NITRITE UA (BEAKER) (test okri=960) Negative Negative LEUKOCYTE ESTERASE UA (BEAKER) (test xvwq=016) Trace Negative UROBILINOGEN UA (BEAKER) (test risc=911) 0.2 mg/dL 0.2-1.0 RBC UA (BEAKER) (test slol=077) 2 /HPF WBC UA (BEAKER) (test zzcd=443) 7 /HPF MUCUS (BEAKER) (test rdmb=4252) Rare SQUAMOUS EPITHELIAL (BEAKER) (test wnmz=504) 1 /HPF HYALINE CASTS (BEAKER) (test zegz=855) 36 /LPF SOURCE(BEAKER) (test elwb=1696) LACTIC ACID, VENOUS, WHOLE [id number] 17:14:00 Test Item Value Reference Range Comments LACTATE BLOOD VENOUS (2) (BEAKER) (test 1.8 mmol/L 0.5-2.2 alnj=5137) Effective 09/26/2015: Units/Reference Range ChangeNew: 0.5-2.2 mmol/L Previous: 5 -20 mg/dLSpecimen slightly ictericBODY FLUID CELL COUNT WITH [id number] 12:42:00 Test Item Value Reference Range Comments APPEARANCE FLUID (BEAKER) (test gitd=616) Slightly Hazy Clear COLOR FLUID (BEAKER) (test hylt=943) Yellow Colorless, Straw RBC FLUID (BEAKER) (test ocwg=986) 2000 /cu mm <=1 ADJUSTED WBC FLUID (BEAKER) (test ijkr=4828) 111 /cu mm <=5 LINING CELLS (BEAKER) (test afjg=2356) 0 /cu mm <=1 NEUTROPHILS FLUID (BEAKER) (test rbit=5130) 3 % LYMPHS FLUID (BEAKER) (test wknc=981) 38 % MONO/MACROPHAGE FLUID (BEAKER) (test 59 % zriu=093) EOSINOPHILS FLUID (BEAKER) (test lmfw=459) 0 % BASO FLUID (BEAKER) (test amfc=841) 0 % CONTAINER BODY FLUID (BEAKER) (test EDTA Tube svjx=9504) ALBUMIN, BODY [id number] 12:39:00 Test Item Value Reference Range Comments ALBUMIN FLUID (BEAKER) (test euvf=170) 0.8 gm/dL Reference Range: No Normals Assay performance has not been validated for this type of specimen.U/S, [id number] 11:37:00Reason for exam:-> Diagnostic only. send samples as ordered please, thank you.FINAL REPORT Ultrasound guided paracentesis Clinical History: Ascites LocalAnesthesia: 5 cc of 1% lidocaine Technique: Informed consent is obtained. The risks of pain, bleeding, infection, bowel perforation, injury to adjacent structures, and adverse medication reactions are discussed with the patient. After informed consent is obtained, the patient's abdomen is scanned. The right lower quadrant of the abdomen is selected for paracentesis. After the largest fluid pocket area is marked, and the anterior abdominal wall is evaluated with color Doppler to exclude presence of blood vessels traversing the area, the skin is prepped and draped in the usual sterile manner.After local anesthesia is achieved, a 5 Indonesian catheter is advanced into the peritoneal cavity. Approximately 3000 cc of clear yellow fluid is drained, without immediate complications. Fluid is sent for analysis. Patient Disposition: The patient is discharged from the ultrasound department after the paracentesis, in good condition. Impression: Successful and uncomplicated ultrasound guided paracentesis is performed. Signed: Magali Espinoza Verified Date/Time: 07/27/2017 11:37:12 Reading Location: [address] Ultrasound Reading Room Electronically signed by: MAGALI ESPINOZA M.D. 07/27/2017 11:37 AMPOCT-GLUCOSE [id number] 08:51:00 Test Item Value Reference Range Comments POC-GLUCOSE METER (BEAKER) 137 mg/dL 70-110 TESTED AT [facility] [address] (test rths=9480) [facility] [address] BASIC METABOLIC [id number] 06:05:00 Test Item Value Reference Range Comments SODIUM (BEAKER) (test 128 meq/L 136-145 ajbc=695) POTASSIUM (BEAKER) (test 3.0 meq/L 3.5-5.1 Specimen slightly uqkv=741) hemolyzed CHLORIDE (BEAKER) (test 98 meq/L 98-107 cfqf=420) CO2 (BEAKER) (test 17 meq/L 22-29 bvnm=113) BLOOD UREA NITROGEN 38 mg/dL 7-21 (BEAKER) (test phfa=325) CREATININE (BEAKER) (test 2.15 mg/dL 0.57-1.25 Specimen slightly idnd=317) hemolyzed GLUCOSE RANDOM (BEAKER) 114 mg/dL 70-105 (test ftlh=312) CALCIUM (BEAKER) (test 9.3 mg/dL 8.4-10.2 xhcd=773) EGFR (BEAKER) (test 32 mL/min/1.73 sq m ESTIMATED GFR IS NOT jwvy=6909) ACCURATE CREATININE CLEARANCE IN PREDICTING GLOMERULAR FILTRATION RATE. ESTIMATED GFR IS NOT APPLICABLE FOR DIALYSIS PATIENTS. Specimen moderately ictericCBC W/PLT COUNT & AUTO [id number] 05: 32:00 Test Item Value Reference Range Comments WHITE BLOOD CELL COUNT (BEAKER) (test nqjl=408) 5.6 K/ L 3.5-10.5 RED BLOOD CELL COUNT (BEAKER) (test fcvk=413) 2.32 M/ L 4.63-6.08 HEMOGLOBIN (BEAKER) (test bxqy=214) 7.5 GM/DL 13.7-17.5 HEMATOCRIT (BEAKER) (test qfcp=505) 21.3 % 40.1-51.0 MEAN CORPUSCULAR VOLUME (BEAKER) (test wyii=348) 91.8 fL 79.0-92.2 MEAN CORPUSCULAR HEMOGLOBIN (BEAKER) (test 32.3 pg 25.7-32.2 zhah=826) MEAN CORPUSCULAR HEMOGLOBIN CONC (BEAKER) (test 35.2 GM/DL 32.3-36.5 iktt=808) RED CELL DISTRIBUTION WIDTH (BEAKER) (test 14.8 % 11.6-14.4 iznl=973) PLATELET COUNT (BEAKER) (test enlo=780) 56 K/CU MM 150-450 MEAN PLATELET VOLUME (BEAKER) (test mgbi=228) 9.5 fL 9.4-12.4 NUCLEATED RED BLOOD CELLS (BEAKER) (test 0 /100 WBC 0-0 bitt=165) NEUTROPHILS RELATIVE PERCENT (BEAKER) (test 50 % xnea=072) LYMPHOCYTES RELATIVE PERCENT (BEAKER) (test 22 % jeku=745) MONOCYTES RELATIVE PERCENT (BEAKER) (test 17 % wuxb=678) EOSINOPHILS RELATIVE PERCENT (BEAKER) (test 10 % cwgd=696) BASOPHILS RELATIVE PERCENT (BEAKER) (test 1 % micq=504) NEUTROPHILS ABSOLUTE COUNT (BEAKER) (test 2.84 K/ L 1.78-5.38 eqsp=186) LYMPHOCYTES ABSOLUTE COUNT (BEAKER) (test 1.22 K/ L 1.32-3.57 qtvr=697) MONOCYTES ABSOLUTE COUNT (BEAKER) (test utgo=979) 0.96 K/ L 0.30-0.82 EOSINOPHILS ABSOLUTE COUNT (BEAKER) (test 0.54 K/ L 0.04-0.54 oadp=792) BASOPHILS ABSOLUTE COUNT (BEAKER) (test ntjq=868) 0.04 K/ L 0.01-0.08 IMMATURE GRANULOCYTES-RELATIVE PERCENT (BEAKER) 1 % 0-1 (test qecd=0453) PROTHROMBIN [id number] 05:17:00 Test Item Value Reference Range Comments PROTIME (BEAKER) (test uieu=611) 18.7 seconds 11.7-14.7 INR (BEAKER) (test gkym=461) 1.6 <=5.9 RECOMMENDED COUMADIN/WARFARIN INR THERAPY RANGESSTANDARD DOSE: 2.0 - 3.0 Includes: PROPHYLAXIS forvenous thrombosis, systemic embolization; TREATMENT for venous thrombosis and/or pulmonary embolus.HIGH RISK: Target INR is 2.5-3.5 for patients with mechanical heart valves.[id number] 15:45:00 Test Item Value Reference Range Comments AMMONIA (BEAKER) (test qyrc=946) 83 mol/L 18-72 VITAMIN [id number] 06:43:00 Test Item Value Reference Range Comments VITAMIN B12 (BEAKER) (test qnbc=221) 1184 pg/mL 213-816 FOLATE, [id number] 06:43:00 Test Item Value Reference Range Comments FOLATE (BEAKER) (test qvtl=137) 12.4 ng/mL >=7.0 [id number] 06:17:00 Test Item Value Reference Range Comments PHOSPHORUS (BEAKER) (test ddmh=511) 3.6 mg/dL 2.3-4.7 [id number] 06:17:00 Test Item Value Reference Range Comments MAGNESIUM (BEAKER) (test fsjk=229) 2.0 mg/dL 1.6-2.6 BASIC METABOLIC [id number] 06:17:00 Test Item Value Reference Range Comments SODIUM (BEAKER) (test 124 meq/L 136-145 lisc=203) POTASSIUM (BEAKER) (test 3.8 meq/L 3.5-5.1 xwlj=247) CHLORIDE (BEAKER) (test 94 meq/L 98-107 fyhc=241) CO2 (BEAKER) (test 19 meq/L 22-29 ynki=788) BLOOD UREA NITROGEN 37 mg/dL 7-21 (BEAKER) (test jnwb=368) CREATININE (BEAKER) (test 2.15 mg/dL 0.57-1.25 zuja=982) GLUCOSE RANDOM (BEAKER) 95 mg/dL 70-105 (test dvie=487) CALCIUM (BEAKER) (test 9.2 mg/dL 8.4-10.2 aazu=365) EGFR (BEAKER) (test 32 mL/min/1.73 sq m ESTIMATED GFR IS NOT qcpx=7042) ACCURATE CREATININE CLEARANCE IN PREDICTING GLOMERULAR FILTRATION RATE. ESTIMATED GFR IS NOT APPLICABLE FOR DIALYSIS PATIENTS. Specimen slightly ictericCBC W/PLT COUNT & AUTO [id number] 06:14 :00 Test Item Value Reference Range Comments WHITE BLOOD CELL COUNT (BEAKER) (test gkmy=601) 5.5 K/ L 3.5-10.5 RED BLOOD CELL COUNT (BEAKER) (test qfit=274) 2.12 M/ L 4.63-6.08 HEMOGLOBIN (BEAKER) (test xmtm=927) 6.9 GM/DL 13.7-17.5 HEMATOCRIT (BEAKER) (test vwqr=975) 20.1 % 40.1-51.0 MEAN CORPUSCULAR VOLUME (BEAKER) (test terh=318) 94.8 fL 79.0-92.2 MEAN CORPUSCULAR HEMOGLOBIN (BEAKER) (test 32.5 pg 25.7-32.2 umoy=505) MEAN CORPUSCULAR HEMOGLOBIN CONC (BEAKER) (test 34.3 GM/DL 32.3-36.5 tifv=228) RED CELL DISTRIBUTION WIDTH (BEAKER) (test 14.6 % 11.6-14.4 clix=738) PLATELET COUNT (BEAKER) (test kbkf=214) 78 K/CU MM 150-450 MEAN PLATELET VOLUME (BEAKER) (test yqzr=508) 10.1 fL 9.4-12.4 NUCLEATED RED BLOOD CELLS (BEAKER) (test 0 /100 WBC 0-0 pfwr=580) NEUTROPHILS RELATIVE PERCENT (BEAKER) (test 52 % efqp=531) LYMPHOCYTES RELATIVE PERCENT (BEAKER) (test 22 % ihhs=640) MONOCYTES RELATIVE PERCENT (BEAKER) (test 14 % rjtr=866) EOSINOPHILS RELATIVE PERCENT (BEAKER) (test 11 % zzwj=082) BASOPHILS RELATIVE PERCENT (BEAKER) (test 1 % vqcp=991) NEUTROPHILS ABSOLUTE COUNT (BEAKER) (test 2.86 K/ L 1.78-5.38 xrrr=948) LYMPHOCYTES ABSOLUTE COUNT (BEAKER) (test 1.20 K/ L 1.32-3.57 brzx=207) MONOCYTES ABSOLUTE COUNT (BEAKER) (test aqir=526) 0.77 K/ L 0.30-0.82 EOSINOPHILS ABSOLUTE COUNT (BEAKER) (test 0.60 K/ L 0.04-0.54 iwvg=836) BASOPHILS ABSOLUTE COUNT (BEAKER) (test voul=972) 0.03 K/ L 0.01-0.08 IMMATURE GRANULOCYTES-RELATIVE PERCENT (BEAKER) 1 % 0-1 (test zgat=8130) PROTHROMBIN [id number] 06:07:00 Test Item Value Reference Range Comments PROTIME (BEAKER) (test gzcd=574) 18.8 seconds 11.7-14.7 INR (BEAKER) (test oiqo=808) 1.6 <=5.9 RECOMMENDED COUMADIN/WARFARIN INR THERAPY RANGESSTANDARD DOSE: 2.0 - 3.0 Includes: PROPHYLAXIS forvenous thrombosis, systemic embolization; TREATMENT for venous thrombosis and/or pulmonary embolus.HIGH RISK: Target INR is 2.5-3.5 for patients with mechanical heart valves.BASIC METABOLIC [id number] 19:57: 00 Test Item Value Reference Range Comments SODIUM (BEAKER) (test 124 meq/L 136-145 jybu=464) POTASSIUM (BEAKER) (test 3.8 meq/L 3.5-5.1 ybri=409) CHLORIDE (BEAKER) (test 93 meq/L 98-107 wrad=273) CO2 (BEAKER) (test 18 meq/L 22-29 neto=416) BLOOD UREA NITROGEN 37 mg/dL 7-21 (BEAKER) (test aiii=550) CREATININE (BEAKER) (test 2.18 mg/dL 0.57-1.25 nayn=385) GLUCOSE RANDOM (BEAKER) 121 mg/dL 70-105 (test ocsr=548) CALCIUM (BEAKER) (test 8.8 mg/dL 8.4-10.2 guuh=660) EGFR (BEAKER) (test 31 mL/min/1.73 sq m ESTIMATED GFR IS NOT xims=8019) ACCURATE CREATININE CLEARANCE IN PREDICTING GLOMERULAR FILTRATION RATE. ESTIMATED GFR IS NOT APPLICABLE FOR DIALYSIS PATIENTS. PLEASE CALL DR DOHERTY WITH NA RESULTS [phone] 17:51:00 Test Item Value Reference Range Comments CORTISOL, TOTAL (BEAKER) (test gxvv=7967) 8.5 ug/dL 3.7-19.4 POCT-GLUCOSE [id number] 11:45:00 Test Item Value Reference Range Comments POC-GLUCOSE METER (BEAKER) 153 mg/dL 70-110 TESTED AT [facility] [address] [facility] (test rvgw=9000) [facility] [address] BASIC METABOLIC [id number] 08:04:00 Test Item Value Reference Range Comments SODIUM (BEAKER) (test 121 meq/L 136-145 tpue=610) POTASSIUM (BEAKER) (test 4.4 meq/L 3.5-5.1 yuch=122) CHLORIDE (BEAKER) (test 92 meq/L 98-107 wzib=461) CO2 (BEAKER) (test 19 meq/L 22-29 jmtt=863) BLOOD UREA NITROGEN 36 mg/dL 7-21 (BEAKER) (test ewjb=173) CREATININE (BEAKER) (test 2.07 mg/dL 0.57-1.25 qfwr=488) GLUCOSE RANDOM (BEAKER) 94 mg/dL 70-105 (test lzkl=518) CALCIUM (BEAKER) (test 8.6 mg/dL 8.4-10.2 rlva=827) EGFR (BEAKER) (test 33 mL/min/1.73 sq m ESTIMATED GFR IS NOT yzfq=1013) ACCURATE CREATININE CLEARANCE IN PREDICTING GLOMERULAR FILTRATION RATE. ESTIMATED GFR IS NOT APPLICABLE FOR DIALYSIS PATIENTS. Notify renal service of sodium, potassium levels at 6 pm and 10 pmThen call for Na < 120 and K > 5.3BASIC METABOLIC [id number] 03:58:00 Test Item Value Reference Range Comments SODIUM (BEAKER) (test 117 meq/L 136-145 rkdw=473) POTASSIUM (BEAKER) (test 4.3 meq/L 3.5-5.1 rrol=069) CHLORIDE (BEAKER) (test 89 meq/L 98-107 objy=565) CO2 (BEAKER) (test 19 meq/L 22-29 rain=353) BLOOD UREA NITROGEN 37 mg/dL 7-21 (BEAKER) (test lmdh=162) CREATININE (BEAKER) (test 2.20 mg/dL 0.57-1.25 ktxb=980) GLUCOSE RANDOM (BEAKER) 110 mg/dL 70-105 (test imax=516) CALCIUM (BEAKER) (test 8.7 mg/dL 8.4-10.2 pehh=818) EGFR (BEAKER) (test 31 mL/min/1.73 sq m ESTIMATED GFR IS NOT bctp=8816) ACCURATE CREATININE CLEARANCE IN PREDICTING GLOMERULAR FILTRATION RATE. ESTIMATED GFR IS NOT APPLICABLE FOR DIALYSIS PATIENTS. Notify renal service of sodium, potassium levels at 6 pm and 10 pmThen call for Na < 120 and K > [id number] 03:26:00 Test Item Value Reference Range Comments PHOSPHORUS (BEAKER) (test wjzd=105) 4.0 mg/dL 2.3-4.7 [id number] 03:26:00 Test Item Value Reference Range Comments MAGNESIUM (BEAKER) (test ykmu=320) 1.9 mg/dL 1.6-2.6 CBC W/PLT COUNT & AUTO [id number] 03:13:00 Test Item Value Reference Range Comments WHITE BLOOD CELL COUNT (BEAKER) (test iwie=137) 6.5 K/ L 3.5-10.5 RED BLOOD CELL COUNT (BEAKER) (test uxso=439) 2.22 M/ L 4.63-6.08 HEMOGLOBIN (BEAKER) (test ejuw=366) 7.3 GM/DL 13.7-17.5 HEMATOCRIT (BEAKER) (test deoq=324) 20.7 % 40.1-51.0 MEAN CORPUSCULAR VOLUME (BEAKER) (test pcbl=269) 93.2 fL 79.0-92.2 MEAN CORPUSCULAR HEMOGLOBIN (BEAKER) (test 32.9 pg 25.7-32.2 iwlb=162) MEAN CORPUSCULAR HEMOGLOBIN CONC (BEAKER) (test 35.3 GM/DL 32.3-36.5 iufv=282) RED CELL DISTRIBUTION WIDTH (BEAKER) (test 14.2 % 11.6-14.4 etmv=166) PLATELET COUNT (BEAKER) (test yklz=248) 95 K/CU MM 150-450 MEAN PLATELET VOLUME (BEAKER) (test mdhk=154) 10.7 fL 9.4-12.4 NUCLEATED RED BLOOD CELLS (BEAKER) (test 0 /100 WBC 0-0 qaxg=960) NEUTROPHILS RELATIVE PERCENT (BEAKER) (test 51 % xyjz=483) LYMPHOCYTES RELATIVE PERCENT (BEAKER) (test 21 % nxwu=441) MONOCYTES RELATIVE PERCENT (BEAKER) (test 14 % pyhh=040) EOSINOPHILS RELATIVE PERCENT (BEAKER) (test 12 % hlgl=171) BASOPHILS RELATIVE PERCENT (BEAKER) (test 1 % eojb=042) NEUTROPHILS ABSOLUTE COUNT (BEAKER) (test 3.33 K/ L 1.78-5.38 pcio=033) LYMPHOCYTES ABSOLUTE COUNT (BEAKER) (test 1.38 K/ L 1.32-3.57 ogpd=112) MONOCYTES ABSOLUTE COUNT (BEAKER) (test sdpm=800) 0.89 K/ L 0.30-0.82 EOSINOPHILS ABSOLUTE COUNT (BEAKER) (test 0.80 K/ L 0.04-0.54 pgqr=137) BASOPHILS ABSOLUTE COUNT (BEAKER) (test hbou=026) 0.03 K/ L 0.01-0.08 IMMATURE GRANULOCYTES-RELATIVE PERCENT (BEAKER) 1 % 0-1 (test oppx=5321) BASIC METABOLIC [id number] 23:10:00 Test Item Value Reference Range Comments SODIUM (BEAKER) (test 114 meq/L 136-145 gndv=216) POTASSIUM (BEAKER) (test 4.6 meq/L 3.5-5.1 Specimen slightly cptb=639) hemolyzed CHLORIDE (BEAKER) (test 88 meq/L 98-107 hiye=878) CO2 (BEAKER) (test 18 meq/L 22-29 itzb=438) BLOOD UREA NITROGEN 36 mg/dL 7-21 (BEAKER) (test nmoh=725) CREATININE (BEAKER) (test 2.19 mg/dL 0.57-1.25 Specimen slightly fcqy=912) hemolyzed GLUCOSE RANDOM (BEAKER) 134 mg/dL 70-105 (test rmps=388) CALCIUM (BEAKER) (test 8.2 mg/dL 8.4-10.2 dmek=682) EGFR (BEAKER) (test 31 mL/min/1.73 sq m ESTIMATED GFR IS NOT mqsd=3923) ACCURATE CREATININE CLEARANCE IN PREDICTING GLOMERULAR FILTRATION RATE. ESTIMATED GFR IS NOT APPLICABLE FOR DIALYSIS PATIENTS. Notify renal service of sodium, potassium levels at 6 pm and 10 pmThen call for Na < 120 and K > 5.3BASIC METABOLIC [id number] 19:01:00 Test Item Value Reference Range Comments SODIUM (BEAKER) (test 118 meq/L 136-145 dopo=772) POTASSIUM (BEAKER) (test 5.3 meq/L 3.5-5.1 zxqy=991) CHLORIDE (BEAKER) (test 92 meq/L 98-107 egug=066) CO2 (BEAKER) (test 20 meq/L 22-29 qpyv=921) BLOOD UREA NITROGEN 34 mg/dL 7-21 (BEAKER) (test bvmk=973) CREATININE (BEAKER) (test 2.09 mg/dL 0.57-1.25 vgpv=186) GLUCOSE RANDOM (BEAKER) 73 mg/dL 70-105 (test otxx=844) CALCIUM (BEAKER) (test 9.1 mg/dL 8.4-10.2 nxbg=876) EGFR (BEAKER) (test 33 mL/min/1.73 sq m ESTIMATED GFR IS NOT rdou=7446) ACCURATE CREATININE CLEARANCE IN PREDICTING GLOMERULAR FILTRATION RATE. ESTIMATED GFR IS NOT APPLICABLE FOR DIALYSIS PATIENTS. Notify renal service of sodium, potassium levels at 6 pm and 10 pmThen call for Na < 120 and K > 5.3CREATINE KINASE (CK)2017-07-24 19:00:00 Test Item Value Reference Range Comments CREATINE KINASE TOTAL (BEAKER) (test skhv=595) 145 U/L 29-200 RAD, CHEST, 1 VIEW, NON [id number] 18:23:00Reason for exam:->ABNORMAL LABReason for exam:->GENERALIZED WEAKNESS, NOT ASSOCIATED WITH EXTREMITIESsince last paracentesis 11 days agoShould this be performed at the bedside?->YesFINAL REPORT INDICATION: ABNORMAL LABGENERALIZED WEAKNESS, NOT ASSOCIATED WITH EXTREMITIES COMPARISON: June TECHNIQUE: Chest radiograph, single view, portable technique. FINDINGS / IMPRESSION: There is no evidence of pneumonia or pulmonary edema. Cardiac and mediastinal contours are unremarkable. No pleural effusion or pneumothorax is demonstrated. Osseous structures are unremarkable. Signed: Mack Hein MDReport Verified Date/Time: 07/24/2017 18:23:36 Reading Location: [address] Consult Reading Room Electronically signed by: MACK HEIN M.D.on 07/24/2017 06:23 PMOSMOLALITY, [id number] 17:12:00 Test Item Value Reference Range Comments OSMOLALITY, SERUM (BEAKER) (test ofed=576) 266 mOsm/kg 275-295 PROTHROMBIN TIME/[id number] 16:55:00 Test Item Value Reference Range Comments PROTIME (BEAKER) (test pdsq=690) 17.0 seconds 11.7-14.7 INR (BEAKER) (test oefa=457) 1.4 <=5.9 RECOMMENDED COUMADIN/WARFARIN INR THERAPY RANGESSTANDARD DOSE: 2.0 - 3.0 Includes: PROPHYLAXIS forvenous thrombosis, systemic embolization; TREATMENT for venous thrombosis and/or pulmonary embolus.HIGH RISK: Target INR is 2.5-3.5 for patients with mechanical heart valves.[id number] 16:55:00 Test Item Value Reference Range Comments PARTIAL THROMBOPLASTIN TIME (BEAKER) (test 36.6 seconds 22.5-36.0 zmgo=626) BASIC METABOLIC [id number] 16:03:00 Test Item Value Reference Range Comments SODIUM (BEAKER) (test 116 meq/L 136-145 uego=561) POTASSIUM (BEAKER) (test 6.2 meq/L 3.5-5.1 yrzh=999) CHLORIDE (BEAKER) (test 90 meq/L 98-107 poeq=836) CO2 (BEAKER) (test 21 meq/L 22-29 enbf=474) BLOOD UREA NITROGEN 34 mg/dL 7-21 (BEAKER) (test lbvg=101) CREATININE (BEAKER) (test 2.11 mg/dL 0.57-1.25 tljp=777) GLUCOSE RANDOM (BEAKER) 96 mg/dL 70-105 (test bscl=350) CALCIUM (BEAKER) (test 9.1 mg/dL 8.4-10.2 tjzh=117) EGFR (BEAKER) (test 33 mL/min/1.73 sq m ESTIMATED GFR IS NOT qiem=5580) ACCURATE CREATININE CLEARANCE IN PREDICTING GLOMERULAR FILTRATION RATE. ESTIMATED GFR IS NOT APPLICABLE FOR DIALYSIS PATIENTS. [id number] 15:58:00 Test Item Value Reference Range Comments LIPASE (BEAKER) (test pgoy=783) 88 U/L 8-78 [id number] 15:58:00 Test Item Value Reference Range Comments AMYLASE (BEAKER) (test evog=029) 43 U/L 25-125 HEPATIC FUNCTION [id number] 15:58:00 Test Item Value Reference Range Comments TOTAL PROTEIN (BEAKER) (test nwva=109) 6.6 gm/dL 6.0-8.3 ALBUMIN (BEAKER) (test sjdo=0442) 3.0 g/dL 3.5-5.0 BILIRUBIN TOTAL (BEAKER) (test swzj=266) 1.4 mg/dL 0.2-1.2 BILIRUBIN DIRECT (BEAKER) (test gkza=624) 0.7 mg/dL 0.1-0.5 ALKALINE PHOSPHATASE (BEAKER) (test jecw=185) 203 U/L 40-150 AST (SGOT) (BEAKER) (test zxzp=622) 75 U/L 5-34 ALT (SGPT) (BEAKER) (test ttqs=743) 44 U/L 6-55 CBC W/PLT COUNT & AUTO [id number] 14:24:00 Test Item Value Reference Range Comments WHITE BLOOD CELL COUNT (BEAKER) (test tryy=421) 7.1 K/ L 3.5-10.5 RED BLOOD CELL COUNT (BEAKER) (test cgof=117) 2.72 M/ L 4.63-6.08 HEMOGLOBIN (BEAKER) (test wfxv=367) 8.8 GM/DL 13.7-17.5 HEMATOCRIT (BEAKER) (test nlzc=800) 25.8 % 40.1-51.0 MEAN CORPUSCULAR VOLUME (BEAKER) (test mxxx=862) 94.9 fL 79.0-92.2 MEAN CORPUSCULAR HEMOGLOBIN (BEAKER) (test 32.4 pg 25.7-32.2 ytbn=979) MEAN CORPUSCULAR HEMOGLOBIN CONC (BEAKER) (test 34.1 GM/DL 32.3-36.5 rree=352) RED CELL DISTRIBUTION WIDTH (BEAKER) (test 14.4 % 11.6-14.4 ejix=804) PLATELET COUNT (BEAKER) (test krnw=352) 130 K/CU MM 150-450 MEAN PLATELET VOLUME (BEAKER) (test poay=287) 10.4 fL 9.4-12.4 NUCLEATED RED BLOOD CELLS (BEAKER) (test 0 /100 WBC 0-0 mfiq=684) NEUTROPHILS RELATIVE PERCENT (BEAKER) (test 57 % miju=488) LYMPHOCYTES RELATIVE PERCENT (BEAKER) (test 18 % fxmb=993) MONOCYTES RELATIVE PERCENT (BEAKER) (test 14 % hywn=420) EOSINOPHILS RELATIVE PERCENT (BEAKER) (test 9 % cpkk=450) BASOPHILS RELATIVE PERCENT (BEAKER) (test 1 % ehvw=672) NEUTROPHILS ABSOLUTE COUNT (BEAKER) (test 4.02 K/ L 1.78-5.38 oqaz=797) LYMPHOCYTES ABSOLUTE COUNT (BEAKER) (test 1.24 K/ L 1.32-3.57 jcij=599) MONOCYTES ABSOLUTE COUNT (BEAKER) (test 1.00 K/ L 0.30-0.82 ylai=143) EOSINOPHILS ABSOLUTE COUNT (BEAKER) (test 0.63 K/ L 0.04-0.54 mkfd=370) BASOPHILS ABSOLUTE COUNT (BEAKER) (test 0.05 K/ L 0.01-0.08 oafe=985) IMMATURE GRANULOCYTES-RELATIVE PERCENT (BEAKER) 2 % 0-1 (test iezi=0890) PT/[id number] 14:18:00 Test Item Value Reference Range Comments PROTIME (BEAKER) (test yzlm=232) 16.4 seconds 11.7-14.7 INR (BEAKER) (test qnif=019) 1.3 <=5.9 PARTIAL THROMBOPLASTIN TIME (BEAKER) (test 34.7 seconds 22.5-36.0 bjku=394) RECOMMENDED COUMADIN/WARFARIN INR THERAPY RANGESSTANDARD DOSE: 2.0 - 3.0 Includes: PROPHYLAXIS forvenous thrombosis, systemic embolization; TREATMENT for venous thrombosis and/or pulmonary embolus.HIGH RISK: Target INR is 2.5-3.5 for patients with mechanical heart valves.COMPREHENSIVE METABOLIC [id number] 11:33:00 Test Item Value Reference Range Comments TOTAL PROTEIN (BEAKER) 7.1 gm/dL 6.0-8.3 (test sypc=285) ALBUMIN (BEAKER) (test 3.2 g/dL 3.5-5.0 yzzn=3899) ALKALINE PHOSPHATASE 229 U/L 40-150 (BEAKER) (test nqtx=773) BILIRUBIN TOTAL (BEAKER) 1.2 mg/dL 0.2-1.2 (test flbs=751) SODIUM (BEAKER) (test 117 meq/L 136-145 xafp=808) POTASSIUM (BEAKER) (test 5.9 meq/L 3.5-5.1 rvca=225) CHLORIDE (BEAKER) (test 90 meq/L 98-107 wfxu=859) CO2 (BEAKER) (test 19 meq/L 22-29 gshf=347) BLOOD UREA NITROGEN 33 mg/dL 7-21 (BEAKER) (test npqp=155) CREATININE (BEAKER) (test 2.24 mg/dL 0.57-1.25 dbjd=192) GLUCOSE RANDOM (BEAKER) 111 mg/dL 70-105 (test jplq=496) CALCIUM (BEAKER) (test 9.1 mg/dL 8.4-10.2 fedr=303) AST (SGOT) (BEAKER) (test 72 U/L 5-34 qzig=043) ALT (SGPT) (BEAKER) (test 41 U/L 6-55 oash=841) EGFR (BEAKER) (test 30 mL/min/1.73 sq m ESTIMATED GFR IS NOT epsx=2649) ACCURATE CREATININE CLEARANCE IN PREDICTING GLOMERULAR FILTRATION RATE. ESTIMATED GFR IS NOT APPLICABLE FOR DIALYSIS PATIENTS. CBC W/PLT COUNT & AUTO [id number] 11:23:00 Test Item Value Reference Range Comments WHITE BLOOD CELL COUNT (BEAKER) (test gobv=464) 7.1 K/ L 3.5-10.5 RED BLOOD CELL COUNT (BEAKER) (test xjmh=422) 2.77 M/ L 4.63-6.08 HEMOGLOBIN (BEAKER) (test ilvy=263) 9.1 GM/DL 13.7-17.5 HEMATOCRIT (BEAKER) (test aoor=685) 26.5 % 40.1-51.0 MEAN CORPUSCULAR VOLUME (BEAKER) (test iglu=585) 95.7 fL 79.0-92.2 MEAN CORPUSCULAR HEMOGLOBIN (BEAKER) (test 32.9 pg 25.7-32.2 rkik=785) MEAN CORPUSCULAR HEMOGLOBIN CONC (BEAKER) (test 34.3 GM/DL 32.3-36.5 ilju=524) RED CELL DISTRIBUTION WIDTH (BEAKER) (test 14.5 % 11.6-14.4 svna=577) PLATELET COUNT (BEAKER) (test aqjp=094) 117 K/CU MM 150-450 MEAN PLATELET VOLUME (BEAKER) (test bvog=762) 9.5 fL 9.4-12.4 NUCLEATED RED BLOOD CELLS (BEAKER) (test 0 /100 WBC 0-0 ubqs=530) NEUTROPHILS RELATIVE PERCENT (BEAKER) (test 49 % qxck=365) LYMPHOCYTES RELATIVE PERCENT (BEAKER) (test 21 % nqwu=454) MONOCYTES RELATIVE PERCENT (BEAKER) (test 15 % nibf=175) EOSINOPHILS RELATIVE PERCENT (BEAKER) (test 13 % ubjf=771) BASOPHILS RELATIVE PERCENT (BEAKER) (test 1 % fcpj=148) NEUTROPHILS ABSOLUTE COUNT (BEAKER) (test 3.50 K/ L 1.78-5.38 ljos=896) LYMPHOCYTES ABSOLUTE COUNT (BEAKER) (test 1.47 K/ L 1.32-3.57 ascq=966) MONOCYTES ABSOLUTE COUNT (BEAKER) (test 1.09 K/ L 0.30-0.82 xkqd=660) EOSINOPHILS ABSOLUTE COUNT (BEAKER) (test 0.89 K/ L 0.04-0.54 xbes=926) BASOPHILS ABSOLUTE COUNT (BEAKER) (test 0.05 K/ L 0.01-0.08 xwli=652) IMMATURE GRANULOCYTES-RELATIVE PERCENT (BEAKER) 1 % 0-1 (test vxzo=4819) BILIRUBIN, [id number] 11:17:00 Test Item Value Reference Range Comments BILIRUBIN DIRECT (BEAKER) (test mbvb=571) 0.7 mg/dL 0.1-0.5 PROTHROMBIN TIME/[id number] 11:03:00 Test Item Value Reference Range Comments PROTIME (BEAKER) (test bcjd=438) 17.0 seconds 11.7-14.7 INR (BEAKER) (test smiq=628) 1.4 <=5.9 RECOMMENDED COUMADIN/WARFARIN INR THERAPY RANGESSTANDARD DOSE: 2.0 - 3.0 Includes: PROPHYLAXIS forvenous thrombosis, systemic embolization; TREATMENT for venous thrombosis and/or pulmonary embolus.HIGH RISK: Target INR is 2.5-3.5 for patients with mechanical heart valves.BODY FLUID CELL COUNT WITH [id number] 17:58:00 Test Item Value Reference Range Comments APPEARANCE FLUID (BEAKER) (test yozf=483) Slightly Hazy Clear COLOR FLUID (BEAKER) (test joku=273) Straw Colorless, Straw RBC FLUID (BEAKER) (test yywq=035) 370 /cu mm <=1 ADJUSTED WBC FLUID (BEAKER) (test sols=2437) 115 /cu mm <=5 LINING CELLS (BEAKER) (test asfy=9920) 5 /cu mm <=1 NEUTROPHILS FLUID (BEAKER) (test yumr=1388) 1 % LYMPHS FLUID (BEAKER) (test hxpk=918) 15 % MONO/MACROPHAGE FLUID (BEAKER) (test 84 % uhea=565) EOSINOPHILS FLUID (BEAKER) (test uxkq=101) 0 % BASO FLUID (BEAKER) (test vafw=588) 0 % CONTAINER BODY FLUID (BEAKER) (test EDTA Tube xlfz=6652) U/S, [id number] 14:47:00Administer 200 mL of albumin 25% (50 grams) IV x1 after paracentesis if 3 or more liters removed.Send ascitic fluid for cell count and differential.Reason for Exam:->ascitesFINAL REPORT Ultrasound guided paracentesis, 07/14/2017. Clinical History: Ascites. Sedation: None. External Auditor: Nicole. Towboat Captain: None. Estimated Blood Loss: < 1 cc. Specimen: 10,600 cc of clear yellow fluid, samples sent to laboratory. Technique: Informed consent was obtained. The risks of pain, bleeding, infection, bowel perforation, injury to adjacent structures, and adverse medication reactions were discussed with the patient. After informedconsent was obtained, the patient's abdomen was scanned. The right lower quadrant of the abdomen was selected for paracentesis. After the largest fluid pocket area was marked, and the anterior abdominal wall was evaluated with color Doppler to exclude presence of blood vessels traversing the area, the skin was prepped and draped in the usual sterile manner. After local anesthesia was achieved with1% lidocaine, a 5 Indonesian one-step catheter was advanced into the peritoneal cavity under ultrasound guidance. After completion of drainage, the catheter was removed. There was no evidence of complication. Patient Disposition: The patient was discharged from the ultrasound department after the paracentesis, in good condition. Impression: Successful ultrasound guided paracentesis. Signed: Ac Rivera MDReport Verified Date/Time: 07/14/2017 14:47:17 Reading Location: [address] Ultrasound Reading Room BODY FLUID CELL COUNT WITH [id number] 18:16:00 Test Item Value Reference Range Comments APPEARANCE FLUID (BEAKER) (test yrjx=231) Hazy Clear COLOR FLUID (BEAKER) (test zeky=648) Yellow Colorless, Straw RBC FLUID (BEAKER) (test rpig=919) 2180 /cu mm <=1 ADJUSTED WBC FLUID (BEAKER) (test runk=0260) 57 /cu mm <=5 LINING CELLS (BEAKER) (test jmpo=3910) 1 /cu mm <=1 NEUTROPHILS FLUID (BEAKER) (test gqjx=2681) 17 % LYMPHS FLUID (BEAKER) (test ohiz=583) 26 % MONO/MACROPHAGE FLUID (BEAKER) (test zlom=680) 54 % EOSINOPHILS FLUID (BEAKER) (test lqoy=171) 2 % BASO FLUID (BEAKER) (test jyqj=422) 1 % CONTAINER BODY FLUID (BEAKER) (test pext=3689) EDTA Tube U/S, [id number] 15:18:00If Cr > 1.5, do not remove more than 4 L of ascitic fluid.If more than 3L fluid is removed, administer 50g of 25% albumin IV after paracentesis. Send fluid for analysis of cell count and culture.Reason for Exam:->ascitesFINAL REPORT Paracentesis dated 07/01/2017 Procedure: Ultrasound-guided paracentesis. Preprocedure diagnosis: Ascites Postprocedure diagnosis: Ascites Conscious sedation: None. Radiologist: Timmy Andrews M.D. Towboat Captain: None Anesthesia: 1% Xylocaine mixed with sodium bicarbonate local anesthesia. Technique: After obtaining informed consent, ultrasound-guided paracentesis was performed under usual sterile technique. Using a 5 luxembourger drainage catheter, puncture was made in the right lower quadrant abdomen. Approximately 4000 cc of serous fluid was removed. Patient tolerated the procedure well without complication. Complication : None Graft/Implant: None Estimated Blood Loss: NoneImpression: Ultrasound- guided paracentesis. Signed: [facility] Verified Date/Time: 2017 15:18:47 Reading Location: [address] Ultrasound Reading Room POCT- [id number] 14:07:00 Test Item Value Reference Range Comments POC-CREATININE (BEAKER) 2.1 mg/dL 0.6-1.3 TESTED AT [facility] [address] [facility] (test hqgb=1413) [facility] [address] POC-EGFR (BEAKER) (test 33 mL/min/1.73M2 nffz=5835) MISCELLANEOUS LAB [id number] 10:32:00 Test Item Value Reference Range Comments SCAN RESULT (test iidh=[id number]) HEPATITIS A ANTIBODY, [id number] 22:21:00 Test Item Value Reference Range Comments HEPATITIS A IGM ANTIBODY (BEAKER) (test Nonreactive Nonreactive jvwf=943) MR, ABDOMEN, [id number] 16:53:00FINAL REPORT MRI of the abdomen dated the 2017 Comment: Multiplanar T1 and T2-weighted images of the abdomen, postcontrast axial and coronal T1-weighted images of the abdomen were obtained. The liver is cirrhotic in appearance with irregular margins. No abnormal enhancement or suspicious mass is seen in the liver. Spleen is enlarged measuring approximately 12 x 4.6 x 10 cm. The splenic, spleen mesenteric, portal, and hepatic veins are patent. Main portal vein measures approximately 14 mm in diameter. No portal vein thrombosis is seen. Gallbladder is minimally distended.No gallstone or biliary dilatation is seen. Pancreas and adrenals are unremarkable. Both kidneys arenormal in size and functioning with bilateral excretion. Moderate to large amount of ascites is seenin the abdomen. The visualized small and large bowel are unremarkable. IMPRESSION:1. Cirrhosis with splenomegaly and portal hypertension.2. No suspicious hepatic mass.3. Ascites. Signed: Timmy Andrews Verified Date/ Time: 06/25/2017 16:53:10 Reading Location: [facility] C013Y CT Body Reading Room RAD, MANDIBLE, MIN 4 [id number] 12:29:00Reason for Exam:->evaluation for liver transplantFINAL REPORT MANDIBLE History provided: Liver transplant evaluation The patient is largely edentulous. No bony destructive changes are apparent. Impacted wisdom teeth are present, which, if of concern, would be best evaluated with a Panorex. No fracture or dislocation. Signed: Anabell Wilderort Verified Date/Time: 06/25/2017 12:29:05 Reading Location: [address] Radiology Reading Room RAD, CHEST, 2 [id number] 12:22: 00Reason for Exam:->evaluation for liver transplantFINAL REPORT CHEST PA AND LATERAL Comparison exam: 05/30/2017 History provided: Liver transplant evaluation Radiographically normal-appearing heart and lungs. IMPRESSION: Clear chest. Signed: Anabell Wilder MDReport Verified Date/Time: 05/2017 12:22:27 Reading Location: [address] Radiology Reading Room RAD, BONE DENSITY [id number] 12:13:00Reason for Exam:->evaluation for liver transplantFINAL REPORT Bone mineral density study 2017. History Provided: Evaluation for liver transplant COMPARISON: None available FINDINGS: Evaluation of the left and right femoral necks and lumbar spine was performed utilizing a bone densitometer. Data reflect young adult matched T-scores and age-matched Z scores. IMPRESSION: The left femoral neck bone mineral density is 1.323gm/cm2, the T-score is 1.9, and the Z-score is 2.8. The right femoral neck total bone mineral density is 1.313gm/cm2, the T- score is 1.9, and the Z-score is 2.7. The lumbar spine total bone mineral density is 1.246gm/cm2, the T-score is 0.2, and the Z-score is 0.6. Signed: Mary Mckenna Verified Date/Time: 06/25/2017 12:13:56 [facility] CRYPTOCOCCAL [id number] 19:33:00 Test Item Value Reference Range Comments CRYPTOCOCCAL ANTIGEN, SERUM (BEAKER) (test Negative Negative, Interference ifrm=6761) [id number] 15:37:00 Test Item Value Reference Range Comments RPR SCREEN (BEAKER) (test gvyx=677) Nonreactive Nonreactive CYTOMEGALOVIRUS ANTIBODY, [id number] 13:58:00 Test Item Value Reference Range Comments CYTOMEGALOVIRUS IGG ANTIBODY (BEAKER) (test Negative xjsl=422) CYTOMEGALOVIRUS ANTIBODY, [id number] 13:58:00 Test Item Value Reference Range Comments CYTOMEGALOVIRUS IGM ANTIBODY (BEAKER) (test Negative oerh=608) EBV-VCA ANTIBODY, [id number] 13:58:00 Test Item Value Reference Range Comments KALA-SOLIZ VCA IGG (BEAKER) (test flps=595) Positive EBV-VCA ANTIBODY, [id number] 13:58:00 Test Item Value Reference Range Comments KALA-SOLIZ VCA IGM (BEAKER) (test pkpe=699) Negative HEMOGLOBIN [id number] 11:29:00 Test Item Value Reference Range Comments HEMOGLOBIN A1C (BEAKER) (test diyu=714) 4.7 % 4.3-6.1 BLOOD GAS, [id number] 10:38:00 Test Item Value Reference Range Comments PH ARTERIAL (BEAKER) (test xzlg=472) 7.50 7.35-7.45 PCO2 ARTERIAL (BEAKER) (test ywrp=719) 25 mmHg 35-45 PO2 ARTERIAL (BEAKER) (test ywvh=991) 136 mmHg 80-90 O2 SATURATION ARTERIAL (BEAKER) (test iscm=097) 99.0 % 96.0-97.0 HCO3 ARTERIAL (BEAKER) (test oiug=178) 19 mmol/L 21-29 BASE EXCESS ARTERIAL (BEAKER) (test tgvo=605) -3.0 mmol/L -2.0-3.0 PATIENT TEMPERATURE (BEAKER) (test niop=4223) 37.0 C FIO2 (BEAKER) (test gzeu=2324) 21.0 % URINALYSIS W/ [id number] 09:45:00 Test Item Value Reference Range Comments COLOR (BEAKER) (test zwtv=946) Yellow CLARITY (BEAKER) (test rvdp=975) Clear SPECIFIC GRAVITY UA (BEAKER) (test xhms=773) 1.016 1.001-1.035 PH UA (BEAKER) (test nrcb=330) 5.5 5.0-8.0 PROTEIN UA (BEAKER) (test otiq=436) 10 mg/dL Negative GLUCOSE UA (BEAKER) (test aram=600) Negative Negative KETONES UA (BEAKER) (test vxbx=626) Negative Negative BILIRUBIN UA (BEAKER) (test eqxh=935) Negative Negative BLOOD UA (BEAKER) (test gpug=727) Negative Negative NITRITE UA (BEAKER) (test yqhl=163) Negative Negative LEUKOCYTE ESTERASE UA (BEAKER) (test ltab=450) Negative Negative UROBILINOGEN UA (BEAKER) (test eyha=958) 0.2 mg/dL 0.2-1.0 RBC UA (BEAKER) (test xxru=665) 0 /HPF WBC UA (BEAKER) (test vjhj=595) 4 /HPF SQUAMOUS EPITHELIAL (BEAKER) (test zpkb=834) < /HPF HYALINE CASTS (BEAKER) (test amks=797) 15 /LPF SOURCE(BEAKER) (test eatl=8600) [id number] 08:58:00 Test Item Value Reference Range Comments PROSTATE SPECIFIC ANTIGEN (BEAKER) (test kjsy=739) 0.2 ng/mL 0.0-4.0 HIV-1 ANTIGEN WITH HIV-1/2 [id number] 08:57:00 Test Item Value Reference Range Comments HIV-1 ANTIGEN WITH HIV 1\\T\\2 ANTIBODY (2) Nonreactive Nonreactive (BEAKER) (test qsdn=8318) [id number] 08:51:00 Test Item Value Reference Range Comments T4 TOTAL (BEAKER) (test rujl=678) 4.9 ug/dL 4.9-11.7 [id number] 08:51:00 Test Item Value Reference Range Comments THYROID STIMULATING HORMONE (BEAKER) (test 2.21 uIU/mL 0.35-4.94 tnyp=712) [id number] 08:51:00 Test Item Value Reference Range Comments T3 TOTAL (BEAKER) (test rrbn=221) 80 ng/dL 48-159 VITAMIN D, [id number] 08:51:00 Test Item Value Reference Range Comments VITAMIN D 25-OH (BEAKER) (test vffv=7351) 17.3 ng/mL 6.6-49.9 Effective 03/04/2017: Reference Range ChangeNew: 6.6-49.9 ng/mL Previous: 13.0 -47.8 ng/mLRecommended Vitamin D Target Range: 30.0-40.0 ng/mLCARCINOEMBRYONIC ANTIGEN (CEA)2017-06-24 08:50:00 Test Item Value Reference Range Comments CARCINOEMBRYONIC ANTIGEN (BEAKER) (test ezbw=839) 6.0 ng/mL 0.0-5.0 [id number] 08:50:00 Test Item Value Reference Range Comments FERRITIN (BEAKER) (test huko=118) 776 ng/mL 5-275 [id number] 08:32:00 Test Item Value Reference Range Comments TRANSFERRIN (BEAKER) (test bjtv=905) 115 mg/dL 174-382 CBC W/PLT COUNT & AUTO [id number] 08:28:00 Test Item Value Reference Range Comments WHITE BLOOD CELL COUNT (BEAKER) (test crok=628) 5.9 K/ L 3.5-10.5 RED BLOOD CELL COUNT (BEAKER) (test rjlb=805) 2.73 M/ L 4.63-6.08 HEMOGLOBIN (BEAKER) (test gvkc=963) 9.0 GM/DL 13.7-17.5 HEMATOCRIT (BEAKER) (test wqvd=933) 26.4 % 40.1-51.0 MEAN CORPUSCULAR VOLUME (BEAKER) (test dbrq=428) 96.7 fL 79.0-92.2 MEAN CORPUSCULAR HEMOGLOBIN (BEAKER) (test 33.0 pg 25.7-32.2 rcuq=760) MEAN CORPUSCULAR HEMOGLOBIN CONC (BEAKER) (test 34.1 GM/DL 32.3-36.5 pvse=041) RED CELL DISTRIBUTION WIDTH (BEAKER) (test 14.0 % 11.6-14.4 dmlp=744) PLATELET COUNT (BEAKER) (test ydhc=859) 87 K/CU MM 150-450 MEAN PLATELET VOLUME (BEAKER) (test mfxs=740) 10.2 fL 9.4-12.4 NUCLEATED RED BLOOD CELLS (BEAKER) (test 0 /100 WBC 0-0 pkou=660) NEUTROPHILS RELATIVE PERCENT (BEAKER) (test 47 % hrag=199) LYMPHOCYTES RELATIVE PERCENT (BEAKER) (test 25 % fknu=484) MONOCYTES RELATIVE PERCENT (BEAKER) (test 15 % mnti=146) EOSINOPHILS RELATIVE PERCENT (BEAKER) (test 11 % wnew=619) BASOPHILS RELATIVE PERCENT (BEAKER) (test 1 % nwbb=125) NEUTROPHILS ABSOLUTE COUNT (BEAKER) (test 2.79 K/ L 1.78-5.38 lfdg=023) LYMPHOCYTES ABSOLUTE COUNT (BEAKER) (test 1.50 K/ L 1.32-3.57 uihd=667) MONOCYTES ABSOLUTE COUNT (BEAKER) (test ihqf=004) 0.89 K/ L 0.30-0.82 EOSINOPHILS ABSOLUTE COUNT (BEAKER) (test 0.66 K/ L 0.04-0.54 qlfe=867) BASOPHILS ABSOLUTE COUNT (BEAKER) (test mmqf=523) 0.04 K/ L 0.01-0.08 IMMATURE GRANULOCYTES-RELATIVE PERCENT (BEAKER) 1 % 0-1 (test trku=4971) IRON, TIBC, % SAT. (WITHOUT FERRITIN)2017-06-24 08:27:00 Test Item Value Reference Range Comments IRON (BEAKER) (test kiur=049) 105 ug/dL 40-160 TOTAL IRON BINDING CAPACITY (BEAKER) (test 151 ug/dL 250-450 yyga=547) IRON % SATURATION (2) (BEAKER) (test nkfj=6208) 70 % 20-55 URIC [id number] 08:16:00 Test Item Value Reference Range Comments URIC ACID (BEAKER) (test lbgc=262) 9.1 mg/dL 2.6-7.2 [id number] 08:16:00 Test Item Value Reference Range Comments MAGNESIUM (BEAKER) (test lvjv=136) 2.2 mg/dL 1.6-2.6 [id number] 08:16:00 Test Item Value Reference Range Comments PHOSPHORUS (BEAKER) (test ryov=708) 2.9 mg/dL 2.3-4.7 COMPREHENSIVE METABOLIC [id number] 08:16:00 Test Item Value Reference Range Comments TOTAL PROTEIN (BEAKER) 7.5 gm/dL 6.0-8.3 (test qxce=936) ALBUMIN (BEAKER) (test 3.5 g/dL 3.5-5.0 bukq=3855) ALKALINE PHOSPHATASE 226 U/L 40-150 (BEAKER) (test hnec=053) BILIRUBIN TOTAL (BEAKER) 1.9 mg/dL 0.2-1.2 (test myjx=585) SODIUM (BEAKER) (test 125 meq/L 136-145 alpi=504) POTASSIUM (BEAKER) (test 4.3 meq/L 3.5-5.1 ecyg=542) CHLORIDE (BEAKER) (test 92 meq/L 98-107 cmkt=252) CO2 (BEAKER) (test 24 meq/L 22-29 qiny=893) BLOOD UREA NITROGEN 29 mg/dL 7-21 (BEAKER) (test emxj=399) CREATININE (BEAKER) (test 1.88 mg/dL 0.57-1.25 dwgs=250) GLUCOSE RANDOM (BEAKER) 99 mg/dL 70-105 (test hgvj=710) CALCIUM (BEAKER) (test 9.3 mg/dL 8.4-10.2 ggil=386) AST (SGOT) (BEAKER) (test 75 U/L 5-34 aate=872) ALT (SGPT) (BEAKER) (test 52 U/L 6-55 yibe=375) EGFR (BEAKER) (test 37 mL/min/1.73 sq m ESTIMATED GFR IS NOT jrou=7376) ACCURATE CREATININE CLEARANCE IN PREDICTING GLOMERULAR FILTRATION RATE. ESTIMATED GFR IS NOT APPLICABLE FOR DIALYSIS PATIENTS. LIPID [id number] 08:16:00 Test Item Value Reference Range Comments TRIGLYCERIDES (BEAKER) (test ggxt=109) 40 mg/dL CHOLESTEROL (BEAKER) (test bxwy=058) 112 mg/dL HDL CHOLESTEROL (BEAKER) (test rktp=735) 32 mg/dL LDL CHOLESTEROL CALCULATED (BEAKER) (test 72 mg/dL oxqa=050) Triglyceride Reference Range: Low Risk <150 Borderline 150- 199 High Risk 200-499 Very High Risk >=500Cholesterol Reference Range: Low Risk <200 Borderline 200-239 High Risk > 240HDL Cholesterol Reference Range: Low Risk >=60 High Risk <40LDL Cholesterol Reference Range: Optimal <100 Near Optimal 100-129 Borderline 130-159 High 160-189 Very High >=190BILIRUBIN, [id number] 08:16:00 Test Item Value Reference Range Comments BILIRUBIN DIRECT (BEAKER) (test cdnh=948) 0.9 mg/dL 0.1-0.5 GAMMA GLUTAMYL TRANSFERASE (GGT)2017-06-24 08:16:00 Test Item Value Reference Range Comments GAMMA GLUTAMYL TRANSFERASE (BEAKER) (test rrpw=518) 57 U/L 9-64 [id number] 08:15:00 Test Item Value Reference Range Comments ETHANOL (BEAKER) (test nowp=983) < mg/dL <=10 [id number] 08:09:00 Test Item Value Reference Range Comments PARTIAL THROMBOPLASTIN TIME (BEAKER) (test 37.3 seconds 22.5-36.0 ophs=763) CALCIUM, [id number] 08:08:00 Test Item Value Reference Range Comments CALCIUM IONIZED (BEAKER) (test otzk=434) 0.85 mmol/L 1.12-1.27 PH, BLOOD (BEAKER) (test imqo=6506) 7.38 PROTHROMBIN TIME/[id number] 08:08:00 Test Item Value Reference Range Comments PROTIME (BEAKER) (test anqx=608) 17.6 seconds 11.7-14.7 INR (BEAKER) (test rmoq=432) 1.5 <=5.9 RECOMMENDED COUMADIN/WARFARIN INR THERAPY RANGESSTANDARD DOSE: 2.0 - 3.0 Includes: PROPHYLAXIS forvenous thrombosis, systemic embolization; TREATMENT for venous thrombosis and/or pulmonary embolus.HIGH RISK: Target INR is 2.5-3.5 for patients with mechanical heart valves.[id number] 08:08:00 Test Item Value Reference Range Comments FIBRINOGEN LEVEL (BEAKER) (test cjho=131) 255 mg/dl 225-434 U/S, [id number] 17:18:00If Cr > 1.5, do not remove more than 4 L of ascitic fluid.If more than 3L fluid is removed, administer 50g of 25% albumin IV after paracentesis. Send fluid for analysis of cell count and culture.Reason for Exam:->ascitesFINAL REPORT Paracentesis dated 06/16/2017 Procedure: Ultrasound-guided paracentesis. Preprocedure diagnosis: Ascites Postprocedure diagnosis: Ascites Conscious sedation: None. Radiologist: Timmy Andrews M.D. Towboat Captain: None Anesthesia: 1% Xylocaine mixed with sodium bicarbonate local anesthesia. Technique: After obtaining informed consent, ultrasound-guided paracentesis was performed under usual sterile technique. Using a 5 luxembourger drainage catheter, puncture was made in the right lower quadrant abdomen. Approximately 5700 cc of serous fluid was removed. Patient tolerated the procedure well without complication. Complication : None Graft/Implant: None Estimated Blood Loss: None Impression: Ultrasound- guided paracentesis. Signed: Timmy Andrews MDReport Verified Date/Time: 2017 17:18:31 Reading Location: [facility] P006J Ultrasound Reading Room BODY FLUID CELL COUNT WITH [id number] 16:55:00 Test Item Value Reference Range Comments APPEARANCE FLUID (BEAKER) (test pesk=103) Moderately Cloudy Clear COLOR FLUID (BEAKER) (test dput=092) Yellow Colorless, Straw RBC FLUID (BEAKER) (test oizp=059) 3000 /cu mm <=1 ADJUSTED WBC FLUID (BEAKER) (test 120 /cu mm <=5 kzdm=4625) LINING CELLS (BEAKER) (test ovyq=8639) 2 /cu mm <=1 NEUTROPHILS FLUID (BEAKER) (test 4 % zerj=6264) LYMPHS FLUID (BEAKER) (test lqkq=561) 36 % MONO/MACROPHAGE FLUID (BEAKER) (test 59 % vair=293) EOSINOPHILS FLUID (BEAKER) (test 1 % gekc=373) BASO FLUID (BEAKER) (test dtyz=859) 0 % CONTAINER BODY FLUID (BEAKER) (test EDTA Tube ihcm=8727) [id number] 11:26:00 Test Item Value Reference Range Comments POC-CREATININE (BEAKER) 1.3 mg/dL 0.6-1.3 TESTED AT [address] (test jesr=6857) [facility] [address] POC-EGFR (BEAKER) (test 57 mL/min/1.73M2 dicv=9794) BODY FLUID CELL COUNT WITH [id number] 18:05:00 Test Item Value Reference Range Comments APPEARANCE FLUID (BEAKER) (test rpsp=480) Hazy Clear COLOR FLUID (BEAKER) (test xzkb=817) Yellow Colorless, Straw RBC FLUID (BEAKER) (test utpi=824) 5920 /cu mm <=1 ADJUSTED WBC FLUID (BEAKER) (test amuf=3573) 50 /cu mm <=5 LINING CELLS (BEAKER) (test tooi=5227) 0 /cu mm <=1 NEUTROPHILS FLUID (BEAKER) (test lfmh=1570) 1 % LYMPHS FLUID (BEAKER) (test vvmz=589) 27 % MONO/MACROPHAGE FLUID (BEAKER) (test upcc=571) 71 % EOSINOPHILS FLUID (BEAKER) (test tpds=154) 1 % BASO FLUID (BEAKER) (test ypma=985) 0 % CONTAINER BODY FLUID (BEAKER) (test wcbd=2875) EDTA Tube U/S, [id number] 13:12:00If Cr > 1.5, do not remove more than 4 L of ascitic fluid.If more than 3L fluid is removed, administer 50g of 25% albumin IV after paracentesis. Send fluid for analysis of cell count and culture.Reason for Exam:->ascitesFINAL REPORT HISTORY : Ascites COMPARISON : None Comment : The procedure, including the risks and complications of the procedure, were explained to the patient and the patient consented. A pocket of fluid was identified in the right lower quadrant of the abdomen. This area was marked. The area was prepped and draped in the usual sterile fashion. 1% lidocaine was applied to theskin and deep soft tissues. A 5 Indonesian multi-sidehole catheter was inserted and removed from the peritoneal space and approximately 7.5 liters of yellow serous fluid was aspirated from the abdomen. Specimens were collected for the lab. There were no immediate complications. Impression: Successful ultrasound guided paracentesis with aspiration of 7.5 liters of yellow serous fluid. Signed: Ghassan Rutledge Verified Date/Time: 06/04/2017 13:12:07 Reading Location: [address] Ultrasound Reading Room [id number] 11:56:00 Test Item Value Reference Range Comments POC-CREATININE (BEAKER) 1.4 mg/dL 0.6-1.3 TESTED AT [address] (test zhpx=3322) [facility] [address] POC-EGFR (BEAKER) (test 53 mL/min/1.73M2 deao=0471) BODY FLUID CULTURE + GRAM [id number] 11:57:00 Test Item Value Reference Range Comments CULTURE (BEAKER) (test snfm=5474) No growth GRAM STAIN RESULT (BEAKER) (test <1+ WBCs whin=6134) GRAM STAIN RESULT (BEAKER) (test No organisms seen avrf=79481) BLOOD [id number] 23:00:00 Test Item Value Reference Range Comments CULTURE (BEAKER) (test ygdn=3704) No growth in 5 days BLOOD [id number] 23:00:00 Test Item Value Reference Range Comments CULTURE (BEAKER) (test dwpn=0828) No growth in 5 days [id number] 05:58:00 Test Item Value Reference Range Comments PHOSPHORUS (BEAKER) (test uhyz=863) 3.2 mg/dL 2.3-4.[address] Blanchard with sodium [id number] 05:58:00 Test Item Value Reference Range Comments MAGNESIUM (BEAKER) (test hggr=193) 2.1 mg/dL 1.6-2.[address] Blanchard with sodium resultBASIC METABOLIC [id number] 05:58:00 Test Item Value Reference Range Comments SODIUM (BEAKER) (test 125 meq/L 136-145 mfmn=553) POTASSIUM (BEAKER) (test 4.3 meq/L 3.5-5.1 qfoj=595) CHLORIDE (BEAKER) (test 99 meq/L 98-107 orzr=156) CO2 (BEAKER) (test 20 meq/L 22-29 iiec=566) BLOOD UREA NITROGEN 24 mg/dL 7-21 (BEAKER) (test rbly=015) CREATININE (BEAKER) (test 1.51 mg/dL 0.57-1.25 cqov=736) GLUCOSE RANDOM (BEAKER) 122 mg/dL 70-105 (test lpzd=059) CALCIUM (BEAKER) (test 8.7 mg/dL 8.4-10.2 gmrv=983) EGFR (BEAKER) (test 48 mL/min/1.73 sq m ESTIMATED GFR IS NOT bxzs=6463) ACCURATE CREATININE CLEARANCE IN PREDICTING GLOMERULAR FILTRATION RATE. ESTIMATED GFR IS NOT APPLICABLE FOR DIALYSIS PATIENTS. Notify Dr. Blanchard with sodium resultHEPATIC FUNCTION [id number] 05:58:00 Test Item Value Reference Range Comments TOTAL PROTEIN (BEAKER) (test rbaa=734) 5.8 gm/dL 6.0-8.3 ALBUMIN (BEAKER) (test apch=0179) 2.9 g/dL 3.5-5.0 BILIRUBIN TOTAL (BEAKER) (test rosz=500) 1.8 mg/dL 0.2-1.2 BILIRUBIN DIRECT (BEAKER) (test zhgb=200) 0.8 mg/dL 0.1-0.5 ALKALINE PHOSPHATASE (BEAKER) (test dtmx=563) 118 U/L 40-150 AST (SGOT) (BEAKER) (test qipn=515) 49 U/L 5-34 ALT (SGPT) (BEAKER) (test yvrd=348) 31 U/L 6-[address] Blanchard with sodium resultCBC W/PLT COUNT & AUTO [id number] 05:34:00 Test Item Value Reference Range Comments WHITE BLOOD CELL COUNT (BEAKER) (test tqmm=970) 4.1 K/ L 3.5-10.5 RED BLOOD CELL COUNT (BEAKER) (test aiyg=327) 2.11 M/ L 4.63-6.08 HEMOGLOBIN (BEAKER) (test trar=299) 7.3 GM/DL 13.7-17.5 HEMATOCRIT (BEAKER) (test llgz=347) 21.4 % 40.1-51.0 MEAN CORPUSCULAR VOLUME (BEAKER) (test lefc=037) 101.4 fL 79.0-92.2 MEAN CORPUSCULAR HEMOGLOBIN (BEAKER) (test 34.6 pg 25.7-32.2 ugpw=200) MEAN CORPUSCULAR HEMOGLOBIN CONC (BEAKER) (test 34.1 GM/DL 32.3-36.5 kohy=372) RED CELL DISTRIBUTION WIDTH (BEAKER) (test 14.1 % 11.6-14.4 ovgr=279) PLATELET COUNT (BEAKER) (test gdfd=479) 50 K/CU MM 150-450 MEAN PLATELET VOLUME (BEAKER) (test jwaj=957) 9.5 fL 9.4-12.4 NUCLEATED RED BLOOD CELLS (BEAKER) (test 0 /100 WBC 0-0 voze=324) NEUTROPHILS RELATIVE PERCENT (BEAKER) (test 67 % vwhm=486) LYMPHOCYTES RELATIVE PERCENT (BEAKER) (test 15 % rlzg=837) MONOCYTES RELATIVE PERCENT (BEAKER) (test 13 % ttnl=447) EOSINOPHILS RELATIVE PERCENT (BEAKER) (test 4 % odnf=375) BASOPHILS RELATIVE PERCENT (BEAKER) (test 1 % jpgk=732) NEUTROPHILS ABSOLUTE COUNT (BEAKER) (test 2.76 K/ L 1.78-5.38 ghja=741) LYMPHOCYTES ABSOLUTE COUNT (BEAKER) (test 0.61 K/ L 1.32-3.57 xzzy=321) MONOCYTES ABSOLUTE COUNT (BEAKER) (test lqng=527) 0.55 K/ L 0.30-0.82 EOSINOPHILS ABSOLUTE COUNT (BEAKER) (test 0.17 K/ L 0.04-0.54 khba=030) BASOPHILS ABSOLUTE COUNT (BEAKER) (test bdtt=306) 0.02 K/ L 0.01-0.08 IMMATURE GRANULOCYTES-RELATIVE PERCENT (BEAKER) 1 % 0-1 (test xrbw=4340) CALCIUM, [id number] 05:21:00 Test Item Value Reference Range Comments CALCIUM IONIZED (BEAKER) (test zfvw=627) 1.06 mmol/L 1.12-1.27 PH, BLOOD (BEAKER) (test jwoj=8088) 7.48 CORTISOL,60 [id number] 04:45:00 Test Item Value Reference Range Comments CORTISOL BASELINE NETWORKED (BEAKER) (test 13.3 mcg/dL vqlm=3069) CORTISOL 30 MINUTE NETWORKED (BEAKER) (test 18.8 mcg/dL kzvp=8553) CORTISOL, 60 MINUTE (BEAKER) (test fxjb=6169) 23.3 ug/dL ACTH STIMULATION TEST INTERPRETATION GUIDELINES(Synonyms: Cortrosyn Test, Cosyntropin or Corticotropin Stimulation Test)Adenocorticotropic hormone (ACTH) is a tropic hormone, made in the pituitary gland, which travels trhough the bloodstream and stimulates the cortex of the adrenal glands to release cortisol. Cortisol is a primary hormone, which aids the body's metabolism of fats, carbohydrates, and protein as well as sodium and potassium regulation.ACTH Stimulation Test: Exogenous administrationof biologically active ACTH stimulates the secretion of cortisol from the adrenal gland. This test is used to evaluate adrenal function by measuring cortisol levels at baseline and at 30 and 60 minutesafter the administration of 250 micrograms of cosyntropin (Cortrosyn). Patients who have received exogenous corticosteroids immediately prior to performing the ACTH Stimulation Test will often have elevated baseline cortisol levels, which may lead to erroneous interpretation of test results. The notable exception is with dexamethasone.Normal Response: An increase in cortisol after stimulation by ACTHis normal. Post-stimulation cortisol concentration should be greater than 20 mcg/dL or the rate of rise from baseline cortisol should be greater than or equal to 9 mcg/dL.Patients with sepsis or septicshock: According to a study by Anthony et al (MALATHI 2000,283( 8):1038-45), the ACTH Stimulation Test provides important prognostic information. This study defined 3 groups of patients with sepsis or septic shock : 1. Good Survival: Low basal cortisol (<or=34 mcg/dL) and high ACTH response (>9mcg/dL) 2. Intermediate Survival: Low basal cortisol (< 34 mcg/dL) and low response to ACTH (<or=9 mcg/dL) OR High basal cortisol (>34 mcg/dL) or high ACTH response (>9 mcg/dL) 3.Poor Survival: High basal cortisol (>34 mcg/dL) and low ACTH response (<or=9 mcg/dL) .Treatment of patients with relative adrenal dysfunction may be indicated based on test results and the clinical condition of the patient. Additional information, including treatment recommendations, is available in critically ill patients, approved by the Pharmacy, Nutrition, and Therapeutics Committee on 05/03/2004 and available through the Pharmacy Policy and Procedure Section on The Source.Do not run this test if systemic hydrocortisone, methylprednisolone, prednisolone or prednisone has been administered within the past 24 hours. Draw baseline cortisol level just prior to cosyntropin administration. Administer cosyntropin 0.25 mg diluted in 2-5 mL of normal saline slow IV Push over a period of 2 minutes. Draw serum cortisol level 30 minutes after cosyntropin administration. Draw serum cortisollevel 60 minutes after cosyntropin administration.CORTISOL,30 [id number] 04:06:00 Test Item Value Reference Range Comments CORTISOL BASELINE NETWORKED (BEAKER) (test 13.3 mcg/dL jurm=1962) CORTISOL, 30 MINUTE (BEAKER) (test ezze=5652) 18.8 ug/dL ACTH STIMULATION TEST INTERPRETATION GUIDELINES(Synonyms: Cortrosyn Test, Cosyntropin or Corticotropin Stimulation Test)Adenocorticotropic hormone (ACTH) is a tropic hormone, made in the pituitary gland, which travels trhough the bloodstream and stimulates the cortex of the adrenal glands to release cortisol. Cortisol is a primary hormone, which aids the body's metabolism of fats, carbohydrates, and protein as well as sodium and potassium regulation.ACTH Stimulation Test: Exogenous administrationof biologically active ACTH stimulates the secretion of cortisol from the adrenal gland. This test is used to evaluate adrenal function by measuring cortisol levels at baseline and at 30 and 60 minutesafter the administration of 250 micrograms of cosyntropin (Cortrosyn). Patients who have received exogenous corticosteroids immediately prior to performing the ACTH Stimulation Test will often have elevated baseline cortisol levels, which may lead to erroneous interpretation of test results. The notable exception is with dexamethasone.Normal Response: An increase in cortisol after stimulation by ACTHis normal. Post-stimulation cortisol concentration should be greater than 20 mcg/dL or the rate of rise from baseline cortisol should be greater than or equal to 9 mcg/dL.Patients with sepsis or septicshock: According to a study by Anthony et al (MALATHI 2000,283( 8):0997-45), the ACTH Stimulation Test provides important prognostic information. This study defined 3 groups of patients with sepsis or septic shock : 1. Good Survival: Low basal cortisol (<or=34 mcg/dL) and high ACTH response (>9mcg/dL) 2. Intermediate Survival: Low basal cortisol (< 34 mcg/dL) and low response to ACTH (<or=9 mcg/dL) OR High basal cortisol (>34 mcg/dL) or high ACTH response (>9 mcg/dL) 3.Poor Survival: High basal cortisol (>34 mcg/dL) and low ACTH response (<or=9 mcg/dL) .Treatment of patients with relative adrenal dysfunction may be indicated based on test results and the clinical condition of the patient. Additional information, including treatment recommendations, is available in critically ill patients, approved by the Pharmacy, Nutrition, and Therapeutics Committee on 05/03/2004 and available through the Pharmacy Policy and Procedure Section on [employer].Do not run this test if systemic hydrocortisone, methylprednisolone, prednisolone or prednisone has been administered within the past 24 hours. Draw baseline cortisol level just prior to cosyntropin administration. Administer cosyntropin 0.25 mg diluted in 2-5 mL of normal saline slow IV Push over a period of 2 minutes. Draw serum cortisol level 30 minutes after cosyntropin administration. Draw serum cortisollevel 60 minutes after cosyntropin administration.CORTISOL,[id number] 21:50:00 Test Item Value Reference Range Comments CORTISOL, BASELINE (AMANDA) (test uuvq=6247) 13.3 ug/dL ACTH STIMULATION TEST INTERPRETATION GUIDELINES(Synonyms: Cortrosyn Test, Cosyntropin or Corticotropin Stimulation Test)Adenocorticotropic hormone (ACTH) is a tropic hormone, made in the pituitary gland, which travels trhough the bloodstream and stimulates the cortex of the adrenal glands to release cortisol. Cortisol is a primary hormone, which aids the body's metabolism of fats, carbohydrates, and protein as well as sodium and potassium regulation.ACTH Stimulation Test: Exogenous administrationof biologically active ACTH stimulates the secretion of cortisol from the adrenal gland. This test is used to evaluate adrenal function by measuring cortisol levels at baseline and at 30 and 60 minutesafter the administration of 250 micrograms of cosyntropin (Cortrosyn). Patients who have received exogenous corticosteroids immediately prior to performing the ACTH Stimulation Test will often have elevated baseline cortisol levels, which may lead to erroneous interpretation of test results. The notable exception is with dexamethasone.Normal Response: An increase in cortisol after stimulation by ACTHis normal. Post-stimulation cortisol concentration should be greater than 20 mcg/dL or the rate of rise from baseline cortisol should be greater than or equal to 9 mcg/dL.Patients with sepsis or septicshock: According to a study by Anthony et al (MALATHI 2000,283( 8):1038-45), the ACTH Stimulation Test provides important prognostic information. This study defined 3 groups of patients with sepsis or septic shock : 1. Good Survival: Low basal cortisol (<or=34 mcg/dL) and high ACTH response (>9mcg/dL) 2. Intermediate Survival: Low basal cortisol (< 34 mcg/dL) and low response to ACTH (<or=9 mcg/dL) OR High basal cortisol (>34 mcg/dL) or high ACTH response (>9 mcg/dL) 3.Poor Survival: High basal cortisol (>34 mcg/dL) and low ACTH response (<or=9 mcg/dL) .Treatment of patients with relative adrenal dysfunction may be indicated based on test results and the clinical condition of the patient. Additional information, including treatment recommendations, is available in critically ill patients, approved by the Pharmacy, Nutrition, and Therapeutics Committee on 05/03/2004 and available through the Pharmacy Policy and Procedure Section on [employer].Do not run this test if systemic hydrocortisone, methylprednisolone, prednisolone or prednisone has been administered within the past 24 hours. Draw baseline cortisol level just prior to cosyntropin administration. Administer cosyntropin 0.25 mg diluted in 2-5 mL of normal saline slow IV Push over a period of 2 minutes. Draw serum cortisol level 30 minutes after cosyntropin administration. Draw serum cortisollevel 60 minutes after cosyntropin administration.CBC W/PLT COUNT & AUTO [id number] 11:31:00 Test Item Value Reference Range Comments WHITE BLOOD CELL COUNT (BEAKER) (test bsks=652) 4.6 K/ L 3.5-10.5 RED BLOOD CELL COUNT (BEAKER) (test bhjp=679) 1.99 M/ L 4.63-6.08 HEMOGLOBIN (BEAKER) (test dsru=899) 6.9 GM/DL 13.7-17.5 HEMATOCRIT (BEAKER) (test piyp=575) 20.5 % 40.1-51.0 MEAN CORPUSCULAR VOLUME (BEAKER) (test jxns=807) 103.0 fL 79.0-92.2 MEAN CORPUSCULAR HEMOGLOBIN (BEAKER) (test 34.7 pg 25.7-32.2 znnk=250) MEAN CORPUSCULAR HEMOGLOBIN CONC (BEAKER) (test 33.7 GM/DL 32.3-36.5 ckkg=778) RED CELL DISTRIBUTION WIDTH (BEAKER) (test 14.2 % 11.6-14.4 gali=200) PLATELET COUNT (BEAKER) (test gsfr=395) 54 K/CU MM 150-450 MEAN PLATELET VOLUME (BEAKER) (test zrlw=302) 10.1 fL 9.4-12.4 NUCLEATED RED BLOOD CELLS (BEAKER) (test 0 /100 WBC 0-0 nvkf=415) NEUTROPHILS RELATIVE PERCENT (BEAKER) (test 46 % aoqb=084) LYMPHOCYTES RELATIVE PERCENT (BEAKER) (test 22 % gqzb=291) MONOCYTES RELATIVE PERCENT (BEAKER) (test 16 % awdh=227) EOSINOPHILS RELATIVE PERCENT (BEAKER) (test 16 % zbiz=672) BASOPHILS RELATIVE PERCENT (BEAKER) (test 0 % ynuo=794) NEUTROPHILS ABSOLUTE COUNT (BEAKER) (test 2.09 K/ L 1.78-5.38 eyff=537) LYMPHOCYTES ABSOLUTE COUNT (BEAKER) (test 1.02 K/ L 1.32-3.57 pzhf=936) MONOCYTES ABSOLUTE COUNT (BEAKER) (test oaiq=757) 0.72 K/ L 0.30-0.82 EOSINOPHILS ABSOLUTE COUNT (BEAKER) (test 0.71 K/ L 0.04-0.54 toag=227) BASOPHILS ABSOLUTE COUNT (BEAKER) (test eusp=641) 0.01 K/ L 0.01-0.08 IMMATURE GRANULOCYTES-RELATIVE PERCENT (BEAKER) 0 % 0-1 (test hclj=9379) (MANUAL DIFFERENTIAL)2017-05-31 11:31:00 Test Item Value Reference Range Comments TOTAL COUNTED (BEAKER) (test hayt=7897) WBC MORPHOLOGY (BEAKER) (test quzu=479) Normal PLT MORPHOLOGY (BEAKER) (test xype=521) Normal RBC MORPHOLOGY (BEAKER) (test umuf=406) Normal [id number] 10:02:00 Test Item Value Reference Range Comments PHOSPHORUS (BEAKER) (test xljr=658) 2.8 mg/dL 2.3-4.[address] Blanchard with sodium [id number] 10:02:00 Test Item Value Reference Range Comments MAGNESIUM (BEAKER) (test naej=574) 1.9 mg/dL 1.6-2.[address] Blanchard with sodium resultBASIC METABOLIC [id number] 10:02:00 Test Item Value Reference Range Comments SODIUM (BEAKER) (test 121 meq/L 136-145 haut=950) POTASSIUM (BEAKER) (test 4.2 meq/L 3.5-5.1 fftn=808) CHLORIDE (BEAKER) (test 96 meq/L 98-107 kypl=180) CO2 (BEAKER) (test 19 meq/L 22-29 nish=686) BLOOD UREA NITROGEN 22 mg/dL 7-21 (BEAKER) (test aotz=622) CREATININE (BEAKER) (test 1.29 mg/dL 0.57-1.25 mhyw=961) GLUCOSE RANDOM (BEAKER) 91 mg/dL 70-105 (test fyxl=360) CALCIUM (BEAKER) (test 8.1 mg/dL 8.4-10.2 wjzk=556) EGFR (BEAKER) (test 58 mL/min/1.73 sq m ESTIMATED GFR IS NOT thds=0126) ACCURATE CREATININE CLEARANCE IN PREDICTING GLOMERULAR FILTRATION RATE. ESTIMATED GFR IS NOT APPLICABLE FOR DIALYSIS PATIENTS. Notify Dr. Blanchard with sodium resultSpecimen slightly ictericHEPATIC FUNCTION [id number] 10:02:00 Test Item Value Reference Range Comments TOTAL PROTEIN (BEAKER) (test oyke=498) 5.4 gm/dL 6.0-8.3 ALBUMIN (BEAKER) (test cdle=2275) 2.8 g/dL 3.5-5.0 BILIRUBIN TOTAL (BEAKER) (test qsml=518) 1.9 mg/dL 0.2-1.2 BILIRUBIN DIRECT (BEAKER) (test sssd=356) 0.7 mg/dL 0.1-0.5 ALKALINE PHOSPHATASE (BEAKER) (test tprh=038) 110 U/L 40-150 AST (SGOT) (BEAKER) (test wngl=602) 48 U/L 5-34 ALT (SGPT) (BEAKER) (test avvy=640) 27 U/L 6-[address] Blanchard with sodium resultSpecimen slightly ictericCALCIUM, [id number] 07:08:00 Test Item Value Reference Range Comments CALCIUM IONIZED (BEAKER) (test shdu=691) 1.03 mmol/L 1.12-1.27 PH, BLOOD (BEAKER) (test kdlv=6132) 7.54 EOSINOPHIL SMEAR, [id number] 19:39:00 Test Item Value Reference Range Comments EOSINOPHIL SMEAR, URINE (BEAKER) Rare EOS=less than 5% WBCs No EOS seen (test tauj=7837) seen are EOS RAD, CHEST, PA OR AP, 1 [id number] 14:57:00Reason for exam:->r/o possible lung malignancyFINAL REPORT History: Lung mass Comparison: No comparison chest imaging Findings: The lungs are clear. No pleural effusions or pneumothorax. The heart shadow is normal in size. The thoracic aorta is mildly tortuous. Hypertrophic changes are present in the spine. Impression: No evidence of acute cardiopulmonary disease. Signed: Mary Babin MDReport Verified Date/Time: 05/30/2017 14:57:51 Reading Location: [facility] [id number] Ortho Consult Reading Room BODY FLUID CELL COUNT WITH [id number] 14:52:00 Test Item Value Reference Range Comments APPEARANCE FLUID (BEAKER) (test svoe=069) Cloudy Clear COLOR FLUID (BEAKER) (test fxhs=119) [place] Colorless, Straw RBC FLUID (BEAKER) (test ipaj=027) 8000 /cu mm <=1 ADJUSTED WBC FLUID (BEAKER) (test iftw=5236) 60 /cu mm <=5 LINING CELLS (BEAKER) (test cxgo=3633) 2 /cu mm <=1 NEUTROPHILS FLUID (BEAKER) (test rliw=6601) 4 % LYMPHS FLUID (BEAKER) (test zgpz=661) 60 % MONO/MACROPHAGE FLUID (BEAKER) (test athz=912) 36 % EOSINOPHILS FLUID (BEAKER) (test vpuz=836) 0 % BASO FLUID (BEAKER) (test voro=296) 0 % CONTAINER BODY FLUID (BEAKER) (test hhmh=7999) EDTA Tube URINALYSIS W/ [id number] 14:18:00 Test Item Value Reference Range Comments COLOR (BEAKER) (test zlaq=015) Yellow CLARITY (BEAKER) (test ljfj=595) Clear SPECIFIC GRAVITY UA (BEAKER) (test wfmr=147) 1.017 1.001-1.035 PH UA (BEAKER) (test druk=192) 5.5 5.0-8.0 PROTEIN UA (BEAKER) (test iuij=055) 20 mg/dL Negative GLUCOSE UA (BEAKER) (test bmzr=828) Negative Negative KETONES UA (BEAKER) (test cliu=796) Negative Negative BILIRUBIN UA (BEAKER) (test bwhu=416) Negative Negative BLOOD UA (BEAKER) (test zhyp=343) Negative Negative NITRITE UA (BEAKER) (test dypu=968) Negative Negative LEUKOCYTE ESTERASE UA (BEAKER) (test hiqv=045) Negative Negative UROBILINOGEN UA (BEAKER) (test yiwc=643) 0.2 mg/dL 0.2-1.0 RBC UA (BEAKER) (test ybir=302) < /HPF WBC UA (BEAKER) (test uxzc=962) 3 /HPF BACTERIA (BEAKER) (test wgmt=756) Rare MUCUS (BEAKER) (test tmzx=3726) Rare HYALINE CASTS (BEAKER) (test oalw=782) 20 /LPF SOURCE(BEAKER) (test bbwj=9400) Urine, Voided U/S, [id number] 13:30:00Limit fluid removal to no more than 5LReason for exam:->ascites, abdominal distention.FINAL REPORT Portable ultrasound-guided paracentesis. Clinical History: Ascites Informed consent was obtained from the patient and the risks of the procedure were explained including bleeding, infection, pneumothorax and visceral injury. Sedation: 1% Xylocaine was used as local sedation. Conscious sedation protocol was not utilized as no systemic analgesia was administered. Technique: Using sterile technique, ultrasound guidance and a 5 Indonesian coaxial needle, a single pass right paracentesis was performed yielding 5000 cc of serosanguineous fluid. No immediate complications developed. Estimated blood loss: None Patient disposition: The patient was in the same state postprocedure as preprocedure. Impression: Successful paracentesis yielding 5000 cc of fluid. Signed: Emmanuel Khanna MDReport Verified Date/Time: 05/30/2017 13:30:27 Reading Location: [address] Body Reading Room [id number] 08:00:00 Test Item Value Reference Range Comments HAPTOGLOBIN (BEAKER) (test sfhd=404) 49 mg/dL 14-258 [id number] 06:53:00 Test Item Value Reference Range Comments PHOSPHORUS (BEAKER) (test ptsr=078) 2.9 mg/dL 2.3-4.[address] Blanchard with sodium [id number] 06:53:00 Test Item Value Reference Range Comments MAGNESIUM (BEAKER) (test cbjb=566) 1.7 mg/dL 1.6-2.[address] Blanchard with sodium resultBASIC METABOLIC [id number] 06:53:00 Test Item Value Reference Range Comments SODIUM (BEAKER) (test 122 meq/L 136-145 fnpg=035) POTASSIUM (BEAKER) (test 4.2 meq/L 3.5-5.1 zgju=632) CHLORIDE (BEAKER) (test 95 meq/L 98-107 bbfm=734) CO2 (BEAKER) (test 21 meq/L 22-29 yxzz=844) BLOOD UREA NITROGEN 25 mg/dL 7-21 (BEAKER) (test cilp=253) CREATININE (BEAKER) (test 1.36 mg/dL 0.57-1.25 hbrk=836) GLUCOSE RANDOM (BEAKER) 106 mg/dL 70-105 (test lrrl=504) CALCIUM (BEAKER) (test 8.3 mg/dL 8.4-10.2 rhbe=507) EGFR (BEAKER) (test 54 mL/min/1.73 sq m ESTIMATED GFR IS NOT uufi=7740) ACCURATE CREATININE CLEARANCE IN PREDICTING GLOMERULAR FILTRATION RATE. ESTIMATED GFR IS NOT APPLICABLE FOR DIALYSIS PATIENTS. Notify Dr. Blanchard with sodium resultHEPATIC FUNCTION [id number] 06:53:00 Test Item Value Reference Range Comments TOTAL PROTEIN (BEAKER) (test fjyk=948) 5.9 gm/dL 6.0-8.3 ALBUMIN (BEAKER) (test pqmu=3320) 2.6 g/dL 3.5-5.0 BILIRUBIN TOTAL (BEAKER) (test zjqh=145) 1.7 mg/dL 0.2-1.2 BILIRUBIN DIRECT (BEAKER) (test nnwl=659) 0.8 mg/dL 0.1-0.5 ALKALINE PHOSPHATASE (BEAKER) (test mziv=130) 148 U/L 40-150 AST (SGOT) (BEAKER) (test oeqq=959) 63 U/L 5-34 ALT (SGPT) (BEAKER) (test gias=678) 40 U/L 6-[address] Blanchard with sodium resultLACTATE DEHYDROGENASE (LDH)2017-05-30 06:53: 00 Test Item Value Reference Range Comments LACTATE DEHYDROGENASE (BEAKER) (test fiqa=240) 264 U/L 125-[address] Blanchard with sodium resultCBC W/PLT COUNT & AUTO [id number] 06:33:00 Test Item Value Reference Range Comments WHITE BLOOD CELL COUNT (BEAKER) (test inav=430) 5.9 K/ L 3.5-10.5 RED BLOOD CELL COUNT (BEAKER) (test mlgr=303) 2.20 M/ L 4.63-6.08 HEMOGLOBIN (BEAKER) (test qsox=831) 7.7 GM/DL 13.7-17.5 HEMATOCRIT (BEAKER) (test lsmk=075) 22.0 % 40.1-51.0 MEAN CORPUSCULAR VOLUME (BEAKER) (test rpvq=182) 100.0 fL 79.0-92.2 MEAN CORPUSCULAR HEMOGLOBIN (BEAKER) (test 35.0 pg 25.7-32.2 drmw=061) MEAN CORPUSCULAR HEMOGLOBIN CONC (BEAKER) (test 35.0 GM/DL 32.3-36.5 tbzb=620) RED CELL DISTRIBUTION WIDTH (BEAKER) (test 13.9 % 11.6-14.4 remc=836) PLATELET COUNT (BEAKER) (test dnfi=977) 71 K/CU MM 150-450 MEAN PLATELET VOLUME (BEAKER) (test cunt=569) 9.6 fL 9.4-12.4 NUCLEATED RED BLOOD CELLS (BEAKER) (test 0 /100 WBC 0-0 sqra=378) NEUTROPHILS RELATIVE PERCENT (BEAKER) (test 49 % uhwr=098) LYMPHOCYTES RELATIVE PERCENT (BEAKER) (test 20 % vycn=482) MONOCYTES RELATIVE PERCENT (BEAKER) (test 16 % qmgz=926) EOSINOPHILS RELATIVE PERCENT (BEAKER) (test 13 % pfwl=638) BASOPHILS RELATIVE PERCENT (BEAKER) (test 1 % zwew=566) NEUTROPHILS ABSOLUTE COUNT (BEAKER) (test 2.89 K/ L 1.78-5.38 hidx=758) LYMPHOCYTES ABSOLUTE COUNT (BEAKER) (test 1.14 K/ L 1.32-3.57 ajub=473) MONOCYTES ABSOLUTE COUNT (BEAKER) (test viwr=360) 0.95 K/ L 0.30-0.82 EOSINOPHILS ABSOLUTE COUNT (BEAKER) (test 0.78 K/ L 0.04-0.54 sahe=348) BASOPHILS ABSOLUTE COUNT (BEAKER) (test euvg=859) 0.04 K/ L 0.01-0.08 IMMATURE GRANULOCYTES-RELATIVE PERCENT (BEAKER) 1 % 0-1 (test ucbd=2242) PROTHROMBIN [id number] 05:41:00 Test Item Value Reference Range Comments PROTIME (BEAKER) (test xghn=302) 17.0 seconds 11.7-14.7 INR (BEAKER) (test hxhh=198) 1.4 <=5.9 RECOMMENDED COUMADIN/WARFARIN INR THERAPY RANGESSTANDARD DOSE: 2.0 - 3.0 Includes: PROPHYLAXIS forvenous thrombosis, systemic embolization; TREATMENT for venous thrombosis and/or pulmonary embolus.HIGH RISK: Target INR is 2.5-3.5 for patients with mechanical heart valves.CALCIUM, [id number] 05:25:00 Test Item Value Reference Range Comments CALCIUM IONIZED (BEAKER) (test ddkp=979) 1.02 mmol/L 1.12-1.27 PH, BLOOD (BEAKER) (test bvjw=3979) 7.49 [id number] 16:40:00 Test Item Value Reference Range Comments SODIUM (BEAKER) (test jafn=570) 120 meq/L 136-145 POTASSIUM (BEAKER) (test 4.7 meq/L 3.5-5.1 Specimen slightly hemolyzed flda=063) CHLORIDE (BEAKER) (test 93 meq/L 98-107 drjo=490) CO2 (BEAKER) (test aqtf=157) 17 meq/L 22-29 [id number] 11:14:00 Test Item Value Reference Range Comments SODIUM (BEAKER) (test xhne=202) 120 meq/L 136-145 POTASSIUM (BEAKER) (test 4.5 meq/L 3.5-5.1 Specimen slightly hemolyzed kxpv=417) CHLORIDE (BEAKER) (test 93 meq/L 98-107 wgdr=988) CO2 (BEAKER) (test fdab=904) 18 meq/L 22-29 HEPATIC FUNCTION [id number] 09:30:00 Test Item Value Reference Range Comments TOTAL PROTEIN (BEAKER) (test rzed=070) 5.4 gm/dL 6.0-8.3 ALBUMIN (BEAKER) (test ezca=5523) 2.4 g/dL 3.5-5.0 BILIRUBIN TOTAL (BEAKER) (test rwod=673) 1.8 mg/dL 0.2-1.2 BILIRUBIN DIRECT (BEAKER) (test sqow=403) 0.9 mg/dL 0.1-0.5 ALKALINE PHOSPHATASE (BEAKER) (test pnwv=711) 134 U/L 40-150 AST (SGOT) (BEAKER) (test purj=172) 59 U/L 5-34 ALT (SGPT) (BEAKER) (test ndlg=428) 36 U/L 6-55 BASIC METABOLIC [id number] 06:13:00 Test Item Value Reference Range Comments SODIUM (BEAKER) (test 118 meq/L 136-145 lcjg=030) POTASSIUM (BEAKER) (test 4.2 meq/L 3.5-5.1 swwr=913) CHLORIDE (BEAKER) (test 93 meq/L 98-107 yciw=683) CO2 (BEAKER) (test 21 meq/L 22-29 znyx=007) BLOOD UREA NITROGEN 24 mg/dL 7-21 (BEAKER) (test sorx=407) CREATININE (BEAKER) (test 1.18 mg/dL 0.57-1.25 ieth=993) GLUCOSE RANDOM (BEAKER) 108 mg/dL 70-105 (test cank=512) CALCIUM (BEAKER) (test 7.8 mg/dL 8.4-10.2 vlcx=276) EGFR (BEAKER) (test 64 mL/min/1.73 sq m ESTIMATED GFR IS NOT mxhl=5512) ACCURATE CREATININE CLEARANCE IN PREDICTING GLOMERULAR FILTRATION RATE. ESTIMATED GFR IS NOT APPLICABLE FOR DIALYSIS PATIENTS. CALCIUM, [id number] 05:15:00 Test Item Value Reference Range Comments CALCIUM IONIZED (BEAKER) (test wycl=402) 1.03 mmol/L 1.12-1.27 PH, BLOOD (BEAKER) (test lnet=5136) 7.51 CBC W/PLT COUNT & AUTO [id number] 05:12:00 Test Item Value Reference Range Comments WHITE BLOOD CELL COUNT (BEAKER) (test frgr=169) 5.7 K/ L 3.5-10.5 RED BLOOD CELL COUNT (BEAKER) (test alpp=873) 2.05 M/ L 4.63-6.08 HEMOGLOBIN (BEAKER) (test dtxx=089) 7.1 GM/DL 13.7-17.5 HEMATOCRIT (BEAKER) (test cjxo=583) 20.4 % 40.1-51.0 MEAN CORPUSCULAR VOLUME (BEAKER) (test jbwv=017) 99.5 fL 79.0-92.2 MEAN CORPUSCULAR HEMOGLOBIN (BEAKER) (test 34.6 pg 25.7-32.2 lfrx=363) MEAN CORPUSCULAR HEMOGLOBIN CONC (BEAKER) (test 34.8 GM/DL 32.3-36.5 kfbc=529) RED CELL DISTRIBUTION WIDTH (BEAKER) (test 13.8 % 11.6-14.4 jrkg=432) PLATELET COUNT (BEAKER) (test yfmh=639) 69 K/CU MM 150-450 MEAN PLATELET VOLUME (BEAKER) (test mhum=816) 9.3 fL 9.4-12.4 NUCLEATED RED BLOOD CELLS (BEAKER) (test 0 /100 WBC 0-0 iwha=214) NEUTROPHILS RELATIVE PERCENT (BEAKER) (test 50 % mbxw=026) LYMPHOCYTES RELATIVE PERCENT (BEAKER) (test 21 % mrlg=098) MONOCYTES RELATIVE PERCENT (BEAKER) (test 14 % ftgb=901) EOSINOPHILS RELATIVE PERCENT (BEAKER) (test 13 % zvnx=633) BASOPHILS RELATIVE PERCENT (BEAKER) (test 1 % dast=883) NEUTROPHILS ABSOLUTE COUNT (BEAKER) (test 2.83 K/ L 1.78-5.38 akkk=224) LYMPHOCYTES ABSOLUTE COUNT (BEAKER) (test 1.19 K/ L 1.32-3.57 fvzy=432) MONOCYTES ABSOLUTE COUNT (BEAKER) (test zroy=332) 0.82 K/ L 0.30-0.82 EOSINOPHILS ABSOLUTE COUNT (BEAKER) (test 0.76 K/ L 0.04-0.54 ielc=462) BASOPHILS ABSOLUTE COUNT (BEAKER) (test lhjn=108) 0.03 K/ L 0.01-0.08 IMMATURE GRANULOCYTES-RELATIVE PERCENT (BEAKER) 1 % 0-1 (test lnzq=5409) [id number] 05:08:00 Test Item Value Reference Range Comments PHOSPHORUS (BEAKER) (test wfog=533) 2.6 mg/dL 2.3-4.7 [id number] 05:08:00 Test Item Value Reference Range Comments MAGNESIUM (BEAKER) (test pfxc=965) 1.6 mg/dL 1.6-2.6 [id number] 04:45:00 Test Item Value Reference Range Comments AMMONIA (BEAKER) (test xqgs=155) 112 mol/L 18-72 [id number] 22:12:00 Test Item Value Reference Range Comments SODIUM (BEAKER) (test ifxs=775) 121 meq/L 136-145 POTASSIUM (BEAKER) (test 4.2 meq/L 3.5-5.1 Specimen slightly hemolyzed wjdb=551) CHLORIDE (BEAKER) (test 93 meq/L 98-107 yyvs=100) CO2 (BEAKER) (test ztrl=402) 21 meq/L 22-[address] Blanchard with resultsBASI METABOLIC [id number] 17:09:00 Test Item Value Reference Range Comments SODIUM (BEAKER) (test 120 meq/L 136-145 rhjm=615) POTASSIUM (BEAKER) (test 3.7 meq/L 3.5-5.1 sroa=785) CHLORIDE (BEAKER) (test 93 meq/L 98-107 qime=621) CO2 (BEAKER) (test 21 meq/L 22-29 mcex=101) BLOOD UREA NITROGEN 24 mg/dL 7-21 (BEAKER) (test cgyi=424) CREATININE (BEAKER) (test 1.24 mg/dL 0.57-1.25 povo=369) GLUCOSE RANDOM (BEAKER) 155 mg/dL 70-105 (test ijyf=323) CALCIUM (BEAKER) (test 8.1 mg/dL 8.4-10.2 ylgu=502) EGFR (BEAKER) (test 61 mL/min/1.73 sq m ESTIMATED GFR IS NOT xysi=0433) ACCURATE CREATININE CLEARANCE IN PREDICTING GLOMERULAR FILTRATION RATE. ESTIMATED GFR IS NOT APPLICABLE FOR DIALYSIS PATIENTS. Notify Dr. Blanchard with sodium [id number] 12:52:00 Test Item Value Reference Range Comments SODIUM (BEAKER) (test lesx=660) 118 meq/L 136-145 POTASSIUM (BEAKER) (test sped=218) 4.2 meq/L 3.5-5.1 CHLORIDE (BEAKER) (test xbsd=875) 92 meq/L 98-107 CO2 (BEAKER) (test fweh=587) 20 meq/L 22-29 Call [id number] METABOLIC [id number] 09:07:00 Test Item Value Reference Range Comments SODIUM (BEAKER) (test 117 meq/L 136-145 ujew=130) POTASSIUM (BEAKER) (test 4.5 meq/L 3.5-5.1 wpqh=972) CHLORIDE (BEAKER) (test 91 meq/L 98-107 xztp=184) CO2 (BEAKER) (test 20 meq/L 22-29 qsbm=253) BLOOD UREA NITROGEN 23 mg/dL 7-21 (BEAKER) (test bqwp=521) CREATININE (BEAKER) (test 1.08 mg/dL 0.57-1.25 vdgx=516) GLUCOSE RANDOM (BEAKER) 110 mg/dL 70-105 (test ikih=165) CALCIUM (BEAKER) (test 8.0 mg/dL 8.4-10.2 xcbk=880) EGFR (BEAKER) (test 71 mL/min/1.73 sq m ESTIMATED GFR IS NOT cdwg=6868) ACCURATE CREATININE CLEARANCE IN PREDICTING GLOMERULAR FILTRATION RATE. ESTIMATED GFR IS NOT APPLICABLE FOR DIALYSIS PATIENTS. Notify Dr. Blanchard with sodium resultCBC W/PLT COUNT & AUTO [id number] 07:32:00 Test Item Value Reference Range Comments WHITE BLOOD CELL COUNT (BEAKER) (test suhd=615) 6.2 K/ L 3.5-10.5 RED BLOOD CELL COUNT (BEAKER) (test lkye=852) 2.13 M/ L 4.63-6.08 HEMOGLOBIN (BEAKER) (test bwik=326) 7.5 GM/DL 13.7-17.5 HEMATOCRIT (BEAKER) (test sshx=427) 21.3 % 40.1-51.0 MEAN CORPUSCULAR VOLUME (BEAKER) (test toyt=967) 100.0 fL 79.0-92.2 MEAN CORPUSCULAR HEMOGLOBIN (BEAKER) (test 35.2 pg 25.7-32.2 enqd=967) MEAN CORPUSCULAR HEMOGLOBIN CONC (BEAKER) (test 35.2 GM/DL 32.3-36.5 xotx=963) RED CELL DISTRIBUTION WIDTH (BEAKER) (test 13.8 % 11.6-14.4 xbsa=536) PLATELET COUNT (BEAKER) (test blny=279) 82 K/CU MM 150-450 MEAN PLATELET VOLUME (BEAKER) (test dlaq=474) 10.0 fL 9.4-12.4 NUCLEATED RED BLOOD CELLS (BEAKER) (test 0 /100 WBC 0-0 miqb=759) NEUTROPHILS RELATIVE PERCENT (BEAKER) (test 51 % filw=549) LYMPHOCYTES RELATIVE PERCENT (BEAKER) (test 20 % qxoi=054) MONOCYTES RELATIVE PERCENT (BEAKER) (test 15 % qwnv=307) EOSINOPHILS RELATIVE PERCENT (BEAKER) (test 13 % mpln=000) BASOPHILS RELATIVE PERCENT (BEAKER) (test 1 % seju=791) NEUTROPHILS ABSOLUTE COUNT (BEAKER) (test 3.16 K/ L 1.78-5.38 tudz=447) LYMPHOCYTES ABSOLUTE COUNT (BEAKER) (test 1.22 K/ L 1.32-3.57 luti=293) MONOCYTES ABSOLUTE COUNT (BEAKER) (test udmd=057) 0.92 K/ L 0.30-0.82 EOSINOPHILS ABSOLUTE COUNT (BEAKER) (test 0.77 K/ L 0.04-0.54 kmts=338) BASOPHILS ABSOLUTE COUNT (BEAKER) (test fmdo=254) 0.06 K/ L 0.01-0.08 IMMATURE GRANULOCYTES-RELATIVE PERCENT (BEAKER) 1 % 0-1 (test lzqx=8851) BASIC METABOLIC [id number] 07:01:00 Test Item Value Reference Range Comments SODIUM (BEAKER) (test 117 meq/L 136-145 bgls=198) POTASSIUM (BEAKER) (test 4.6 meq/L 3.5-5.1 auas=076) CHLORIDE (BEAKER) (test 92 meq/L 98-107 uqvi=400) CO2 (BEAKER) (test 19 meq/L 22-29 fmix=976) BLOOD UREA NITROGEN 23 mg/dL 7-21 (BEAKER) (test cmhs=180) CREATININE (BEAKER) (test 1.08 mg/dL 0.57-1.25 salf=460) GLUCOSE RANDOM (BEAKER) 103 mg/dL 70-105 (test ucwz=497) CALCIUM (BEAKER) (test 7.9 mg/dL 8.4-10.2 vbka=955) EGFR (BEAKER) (test 71 mL/min/1.73 sq m ESTIMATED GFR IS NOT vpeh=6109) ACCURATE CREATININE CLEARANCE IN PREDICTING GLOMERULAR FILTRATION RATE. ESTIMATED GFR IS NOT APPLICABLE FOR DIALYSIS PATIENTS. Notify Dr. Blanchard with sodium resultURIC [id number] 06:48:00 Test Item Value Reference Range Comments URIC ACID (BEAKER) (test pjwf=177) 6.8 mg/dL 2.6-7.[address] Blanchard with sodium [id number] 06:48:00 Test Item Value Reference Range Comments MAGNESIUM (BEAKER) (test xnxa=523) 1.7 mg/dL 1.6-2.[address] Blanchard with sodium [id number] 06:48:00 Test Item Value Reference Range Comments PHOSPHORUS (BEAKER) (test ieio=087) 2.4 mg/dL 2.3-4.[address] Blanchard with sodium resultTSH/FREE T4 IF [id number] 06:48:00 Test Item Value Reference Range Comments THYROID STIMULATING HORMONE (BEAKER) (test 0.56 uIU/mL 0.35-4.94 pkkt=291) CALCIUM, [id number] 06:05:00 Test Item Value Reference Range Comments CALCIUM IONIZED (BEAKER) (test ollh=239) 0.95 mmol/L 1.12-1.27 PH, BLOOD (BEAKER) (test opxu=7395) 7.49 [id number] 02:36:00 Test Item Value Reference Range Comments SODIUM (BEAKER) (test uiye=865) 116 meq/L 136-[address] BLANCHARD IF SODIUM IS GREATER THAN [id number] 23:03:00 Test Item Value Reference Range Comments SODIUM (BEAKER) (test qklq=986) 117 meq/L 136-145 OSMOLALITY, [id number] 20:21:00 Test Item Value Reference Range Comments OSMOLALITY, SERUM (BEAKER) (test wtpr=457) 258 mOsm/kg 275-295 [id number] 19:54:00 Test Item Value Reference Range Comments CORTISOL, TOTAL (BEAKER) (test ctky=5781) 13.0 ug/dL 3.7-19.4 BASIC METABOLIC [id number] 19:36:00 Test Item Value Reference Range Comments SODIUM (BEAKER) (test 117 meq/L 136-145 cosg=059) POTASSIUM (BEAKER) (test 4.4 meq/L 3.5-5.1 iidz=336) CHLORIDE (BEAKER) (test 90 meq/L 98-107 hgul=462) CO2 (BEAKER) (test 20 meq/L 22-29 slsm=666) BLOOD UREA NITROGEN 22 mg/dL 7-21 (BEAKER) (test nket=489) CREATININE (BEAKER) (test 1.21 mg/dL 0.57-1.25 lxor=929) GLUCOSE RANDOM (BEAKER) 129 mg/dL 70-105 (test dtjo=371) CALCIUM (BEAKER) (test 8.4 mg/dL 8.4-10.2 uykx=902) EGFR (BEAKER) (test 62 mL/min/1.73 sq m ESTIMATED GFR IS NOT ozty=0142) ACCURATE CREATININE CLEARANCE IN PREDICTING GLOMERULAR FILTRATION RATE. ESTIMATED GFR IS NOT APPLICABLE FOR DIALYSIS PATIENTS. Notify Dr. Blanchard with sodium resultBASIC METABOLIC [id number] 16:47:00 Test Item Value Reference Range Comments SODIUM (BEAKER) (test 116 meq/L 136-145 gxyl=481) POTASSIUM (BEAKER) (test 4.8 meq/L 3.5-5.1 Specimen slightly azwd=048) hemolyzed CHLORIDE (BEAKER) (test 88 meq/L 98-107 ngsb=090) CO2 (BEAKER) (test 20 meq/L 22-29 hcyy=685) BLOOD UREA NITROGEN 23 mg/dL 7-21 (BEAKER) (test jfaq=352) CREATININE (BEAKER) (test 1.27 mg/dL 0.57-1.25 Specimen slightly kazi=495) hemolyzed GLUCOSE RANDOM (BEAKER) 100 mg/dL 70-105 (test yqrz=770) CALCIUM (BEAKER) (test 8.6 mg/dL 8.4-10.2 ixjj=447) EGFR (BEAKER) (test 59 mL/min/1.73 sq m ESTIMATED GFR IS NOT eovt=6798) ACCURATE CREATININE CLEARANCE IN PREDICTING GLOMERULAR FILTRATION RATE. ESTIMATED GFR IS NOT APPLICABLE FOR DIALYSIS PATIENTS. Specimen slightly ictericSODIUM, RANDOM [id number] 16:46:00 Test Item Value Reference Range Comments SODIUM URINE (BEAKER) (test gzpi=783) < meq/L Reference Range: No NormalsOSMOLALITY, [id number] 16:43:00 Test Item Value Reference Range Comments OSMOLALITY URINE (BEAKER) (test iues=146) 466 mOsm/kg 40-1400 URINALYSIS W/ REFLEX URINE [id number] 16:43:00 Test Item Value Reference Range Comments COLOR (BEAKER) (test ioej=809) Yellow CLARITY (BEAKER) (test essi=583) Clear SPECIFIC GRAVITY UA (BEAKER) (test xhfe=330) 1.016 1.001-1.035 PH UA (BEAKER) (test nnoc=538) 5.5 5.0-8.0 PROTEIN UA (BEAKER) (test mssb=743) Negative Negative GLUCOSE UA (BEAKER) (test nqkr=280) Negative Negative KETONES UA (BEAKER) (test bfjt=296) Negative Negative BILIRUBIN UA (BEAKER) (test awuy=984) Negative Negative BLOOD UA (BEAKER) (test mzmt=394) Negative Negative NITRITE UA (BEAKER) (test zzjd=188) Negative Negative LEUKOCYTE ESTERASE UA (BEAKER) (test nakg=562) Negative Negative UROBILINOGEN UA (BEAKER) (test hxmp=995) 0.2 mg/dL 0.2-1.0 RBC UA (BEAKER) (test gsyu=226) < /HPF WBC UA (BEAKER) (test rnhn=065) 2 /HPF SOURCE(BEAKER) (test knpv=9740) CREATININE, RANDOM [id number] 16:38:00 Test Item Value Reference Range Comments CREATININE URINE (BEAKER) (test kqjr=565) 131.8 mg/dL Reference Range: No NormalsPROTHROMBIN [id number] 16:17:00 Test Item Value Reference Range Comments PROTIME (BEAKER) (test tjqj=312) 17.3 seconds 11.7-14.7 INR (BEAKER) (test bhio=125) 1.4 <=5.9 RECOMMENDED COUMADIN/WARFARIN INR THERAPY RANGESSTANDARD DOSE: 2.0 - 3.0 Includes: PROPHYLAXIS forvenous thrombosis, systemic embolization; TREATMENT for venous thrombosis and/or pulmonary embolus.HIGH RISK: Target INR is 2.5-3.5 for patients with mechanical heart valves.[id number] 16:13:00 Test Item Value Reference Range Comments PARTIAL THROMBOPLASTIN TIME (BEAKER) (test 37.6 seconds 22.5-36.0 ghxl=924) OSMOLALITY, [id number] 15:24:00 Test Item Value Reference Range Comments OSMOLALITY, SERUM (BEAKER) (test pule=090) 261 mOsm/kg 275-295 BASIC METABOLIC [id number] 13:00:00 Test Item Value Reference Range Comments SODIUM (BEAKER) (test 115 meq/L 136-145 fgql=062) POTASSIUM (BEAKER) (test 5.3 meq/L 3.5-5.1 Specimen markedly ysrz=459) hemolyzed CHLORIDE (BEAKER) (test 89 meq/L 98-107 aecl=876) CO2 (BEAKER) (test 15 meq/L 22-29 hdxl=006) BLOOD UREA NITROGEN 22 mg/dL 7-21 (BEAKER) (test doxc=379) CREATININE (BEAKER) (test 1.45 mg/dL 0.57-1.25 Specimen markedly akcj=005) hemolyzed GLUCOSE RANDOM (BEAKER) 148 mg/dL 70-105 (test vtxz=171) CALCIUM (BEAKER) (test 8.7 mg/dL 8.4-10.2 mgey=315) EGFR (BEAKER) (test 51 mL/min/1.73 sq m ESTIMATED GFR IS NOT swnw=6781) ACCURATE CREATININE CLEARANCE IN PREDICTING GLOMERULAR FILTRATION RATE. ESTIMATED GFR IS NOT APPLICABLE FOR DIALYSIS PATIENTS. [id number] 12:42:00 Test Item Value Reference Range Comments AMMONIA (BEAKER) (test phxl=680) 46 mol/L 18-72 HEPATIC FUNCTION [id number] 12:06:00 Test Item Value Reference Range Comments TOTAL PROTEIN (BEAKER) (test 7.4 gm/dL 6.0-8.3 Specimen markedly hemolyzed lems=599) ALBUMIN (BEAKER) (test 3.0 g/dL 3.5-5.0 Specimen markedly hemolyzed wonb=6219) BILIRUBIN TOTAL (BEAKER) (test 2.0 mg/dL 0.2-1.2 Specimen markedly hemolyzed czif=466) BILIRUBIN DIRECT (BEAKER) (test 0.7 mg/dL 0.1-0.5 Specimen markedly hemolyzed rnxy=913) ALKALINE PHOSPHATASE (BEAKER) 164 U/L 40-150 (test fhxk=662) AST (SGOT) (BEAKER) (test 113 U/L 5-34 Specimen markedly hemolyzed pvmn=923) ALT (SGPT) (BEAKER) (test 46 U/L 6-55 Specimen markedly hemolyzed odan=218) CBC W/PLT COUNT & AUTO [id number] 11:55:00 Test Item Value Reference Range Comments WHITE BLOOD CELL COUNT (BEAKER) (test smbr=687) 6.4 K/ L 3.5-10.5 RED BLOOD CELL COUNT (BEAKER) (test goqq=601) 2.51 M/ L 4.63-6.08 HEMOGLOBIN (BEAKER) (test sakh=177) 8.8 GM/DL 13.7-17.5 HEMATOCRIT (BEAKER) (test qywv=298) 25.4 % 40.1-51.0 MEAN CORPUSCULAR VOLUME (BEAKER) (test aguv=044) 101.2 fL 79.0-92.2 MEAN CORPUSCULAR HEMOGLOBIN (BEAKER) (test 35.1 pg 25.7-32.2 biub=184) MEAN CORPUSCULAR HEMOGLOBIN CONC (BEAKER) (test 34.6 GM/DL 32.3-36.5 suha=739) RED CELL DISTRIBUTION WIDTH (BEAKER) (test 14.1 % 11.6-14.4 gwht=682) PLATELET COUNT (BEAKER) (test yslh=760) 118 K/CU MM 150-450 MEAN PLATELET VOLUME (BEAKER) (test kers=766) 10.6 fL 9.4-12.4 NUCLEATED RED BLOOD CELLS (BEAKER) (test 0 /100 WBC 0-0 sipz=432) NEUTROPHILS RELATIVE PERCENT (BEAKER) (test 64 % szba=202) LYMPHOCYTES RELATIVE PERCENT (BEAKER) (test 14 % ujwd=806) MONOCYTES RELATIVE PERCENT (BEAKER) (test 12 % dqvy=359) EOSINOPHILS RELATIVE PERCENT (BEAKER) (test 9 % nuge=262) BASOPHILS RELATIVE PERCENT (BEAKER) (test 1 % pysk=067) NEUTROPHILS ABSOLUTE COUNT (BEAKER) (test 4.07 K/ L 1.78-5.38 mewl=913) LYMPHOCYTES ABSOLUTE COUNT (BEAKER) (test 0.89 K/ L 1.32-3.57 mvpy=782) MONOCYTES ABSOLUTE COUNT (BEAKER) (test 0.78 K/ L 0.30-0.82 nvvo=619) EOSINOPHILS ABSOLUTE COUNT (BEAKER) (test 0.57 K/ L 0.04-0.54 erfy=962) BASOPHILS ABSOLUTE COUNT (BEAKER) (test 0.03 K/ L 0.01-0.08 schs=335) IMMATURE GRANULOCYTES-RELATIVE PERCENT (BEAKER) 1 % 0-1 (test rkgf=3289) BODY FLUID CELL COUNT WITH [id number] 21:23:00 Test Item Value Reference Range Comments APPEARANCE FLUID (BEAKER) (test ghrm=500) Bloody Clear COLOR FLUID (BEAKER) (test rxbz=093) Red Colorless, Straw RBC FLUID (BEAKER) (test klnl=468) 7938 /cu mm <=1 ADJUSTED WBC FLUID (BEAKER) (test hibx=8446) 190 /cu mm <=5 LINING CELLS (BEAKER) (test mlyz=2608) 0 /cu mm <=1 NEUTROPHILS FLUID (BEAKER) (test utre=8082) 3 % LYMPHS FLUID (BEAKER) (test ztdf=439) 31 % MONO/MACROPHAGE FLUID (BEAKER) (test yohd=132) 66 % EOSINOPHILS FLUID (BEAKER) (test eafd=789) 0 % BASO FLUID (BEAKER) (test xitd=755) 0 % CONTAINER BODY FLUID (BEAKER) (test stap=6932) EDTA Tube U/S, [id number] 16:59:00Please send ascitic fluid for cell count and differential If Cr > 1.5, do not remove more than 3.5L of ascitic fluid. If > 3L removed, please administer 200 mL of albumin 25% (50 grams) IV x 1Reason for Exam:->ascitesFINAL REPORT Paracentesis dated 05/22/2017 Procedure: Ultrasound-guided paracentesis. Preprocedure diagnosis: Ascites Postprocedure diagnosis: Ascites Conscious sedation: None. Radiologist: Timmy Andrews M.D. Towboat Captain: None Anesthesia: 1% Xylocaine mixed with sodium bicarbonate local anesthesia. Technique: After obtaining informed consent, ultrasound-guided paracentesis was performed under usual sterile technique. Using a 5 luxembourger drainage catheter, puncture was made in the right lower quadrant abdomen. Approximately 12,700 cc of serosanguineous fluid was removed. Patient tolerated the procedure well without complication. Complication : None Graft/Implant: None Estimated Blood Loss: None Impression: Ultrasound- guided paracentesis. Signed: Timmy Andrewseport Verified Date/Time: 2016 16:59:19 Reading Location: [address] Ultrasound Reading Room Electronicallysigned by: TIMMY ANDREWS M.D. on 05/22/2017 04:59 PMANTI-NUCLEAR ANTIBODY (MAGALY)2017-05-22 15:11:00 Test Item Value Reference Range Comments ANTI-NUCLEAR ANTIBODY (MAGALY) (BEAKER) (test Positive Negative ksrg=511) MAGALY TITER AND [id number] 15:11:00 Test Item Value Reference Range Comments MAGALY TITER (BEAKER) (test eqzk=5383) :160 MAGALY PATTERN (BEAKER) (test gnkf=7874) SSA/RO BASIC METABOLIC [id number] 18:25:00 Test Item Value Reference Range Comments SODIUM (BEAKER) (test 121 meq/L 136-145 ylnb=951) POTASSIUM (BEAKER) (test 4.2 meq/L 3.5-5.1 vpck=857) CHLORIDE (BEAKER) (test 91 meq/L 98-107 cmkf=126) CO2 (BEAKER) (test 17 meq/L 22-29 fpoo=313) BLOOD UREA NITROGEN 18 mg/dL 7-21 (BEAKER) (test kytw=077) CREATININE (BEAKER) (test 1.28 mg/dL 0.57-1.25 npfp=997) GLUCOSE RANDOM (BEAKER) 120 mg/dL 70-105 (test pjbk=343) CALCIUM (BEAKER) (test 8.5 mg/dL 8.4-10.2 wahc=457) EGFR (BEAKER) (test 58 mL/min/1.73 sq m ESTIMATED GFR IS NOT wrjv=9474) ACCURATE CREATININE CLEARANCE IN PREDICTING GLOMERULAR FILTRATION RATE. ESTIMATED GFR IS NOT APPLICABLE FOR DIALYSIS PATIENTS. PROTHROMBIN [id number] 17:20:00 Test Item Value Reference Range Comments PROTIME (BEAKER) (test cypv=511) 17.3 seconds 11.7-14.7 INR (BEAKER) (test pnuz=155) 1.4 <=5.9 RECOMMENDED COUMADIN/WARFARIN INR THERAPY RANGESSTANDARD DOSE: 2.0 - 3.0 Includes: PROPHYLAXIS forvenous thrombosis, systemic embolization; TREATMENT for venous thrombosis and/or pulmonary embolus.HIGH RISK: Target INR is 2.5-3.5 for patients with mechanical heart valves.CBC W/PLT COUNT & AUTO [id number] 17:14:00 Test Item Value Reference Range Comments WHITE BLOOD CELL COUNT (BEAKER) (test fuaz=388) 6.9 K/ L 3.5-10.5 RED BLOOD CELL COUNT (BEAKER) (test pzdd=881) 2.34 M/ L 4.63-6.08 HEMOGLOBIN (BEAKER) (test geum=034) 8.0 GM/DL 13.7-17.5 HEMATOCRIT (BEAKER) (test iedq=802) 24.2 % 40.1-51.0 MEAN CORPUSCULAR VOLUME (BEAKER) (test ynqi=333) 103.4 fL 79.0-92.2 MEAN CORPUSCULAR HEMOGLOBIN (BEAKER) (test 34.2 pg 25.7-32.2 ggtl=367) MEAN CORPUSCULAR HEMOGLOBIN CONC (BEAKER) (test 33.1 GM/DL 32.3-36.5 rhxg=449) RED CELL DISTRIBUTION WIDTH (BEAKER) (test 14.5 % 11.6-14.4 bmcz=953) PLATELET COUNT (BEAKER) (test gadt=606) 94 K/CU MM 150-450 MEAN PLATELET VOLUME (BEAKER) (test vwsb=557) 9.9 fL 9.4-12.4 NUCLEATED RED BLOOD CELLS (BEAKER) (test 0 /100 WBC 0-0 zcwz=230) NEUTROPHILS RELATIVE PERCENT (BEAKER) (test 59 % diph=641) LYMPHOCYTES RELATIVE PERCENT (BEAKER) (test 16 % woqh=853) MONOCYTES RELATIVE PERCENT (BEAKER) (test 13 % fteh=512) EOSINOPHILS RELATIVE PERCENT (BEAKER) (test 10 % nybq=871) BASOPHILS RELATIVE PERCENT (BEAKER) (test 1 % jmri=845) NEUTROPHILS ABSOLUTE COUNT (BEAKER) (test 4.08 K/ L 1.78-5.38 qtxd=038) LYMPHOCYTES ABSOLUTE COUNT (BEAKER) (test 1.13 K/ L 1.32-3.57 qliq=577) MONOCYTES ABSOLUTE COUNT (BEAKER) (test ufwu=447) 0.91 K/ L 0.30-0.82 EOSINOPHILS ABSOLUTE COUNT (BEAKER) (test 0.69 K/ L 0.04-0.54 gwib=492) BASOPHILS ABSOLUTE COUNT (BEAKER) (test svev=655) 0.05 K/ L 0.01-0.08 IMMATURE GRANULOCYTES-RELATIVE PERCENT (BEAKER) 1 % 0-1 (test utbw=0422) LIPID [id number] 17:10:00 Test Item Value Reference Range Comments TRIGLYCERIDES (BEAKER) (test fxgs=351) 48 mg/dL CHOLESTEROL (BEAKER) (test qowy=669) 131 mg/dL HDL CHOLESTEROL (BEAKER) (test posz=466) 32 mg/dL LDL CHOLESTEROL CALCULATED (BEAKER) (test 89 mg/dL kwtr=255) Triglyceride Reference Range: Low Risk <150 Borderline 150- 199 High Risk 200-499 Very High Risk >=500Cholesterol Reference Range: Low Risk <200 Borderline 200-239 High Risk > 240HDL Cholesterol Reference Range: Low Risk >=60 High Risk <40LDL Cholesterol Reference Range: Optimal <100 Near Optimal 100-129 Borderline 130-159 High 160-189 Very High >=190HEPATIC FUNCTION [id number] 17:10:00 Test Item Value Reference Range Comments TOTAL PROTEIN (BEAKER) (test swsf=178) 6.7 gm/dL 6.0-8.3 ALBUMIN (BEAKER) (test yzoa=6153) 2.7 g/dL 3.5-5.0 BILIRUBIN TOTAL (BEAKER) (test whqc=372) 2.0 mg/dL 0.2-1.2 BILIRUBIN DIRECT (BEAKER) (test qetk=380) 1.0 mg/dL 0.1-0.5 ALKALINE PHOSPHATASE (BEAKER) (test iwzz=446) 169 U/L 40-150 AST (SGOT) (BEAKER) (test eyoy=112) 77 U/L 5-34 ALT (SGPT) (BEAKER) (test gqfm=471) 42 U/L 6-55 GAMMA GLUTAMYL TRANSFERASE (GGT)2017-05-21 17:10:00 Test Item Value Reference Range Comments GAMMA GLUTAMYL TRANSFERASE (BEAKER) (test njeu=031) 40 U/L 9-64 ANTI-MITOCHONDRIAL AB, REFLEX TO [id number] 11:26:00 Test Item Value Reference Range Comments SCAN RESULT (test kdnm=[id number]) BLOOD [id number] 05:02:00 Test Item Value Reference Range Comments CULTURE (BEAKER) (test ytzu=1431) No growth in 5 days BODY FLUID CULTURE + GRAM [id number] 09:11:00 Test Item Value Reference Range Comments CULTURE (BEAKER) (test xlqs=9476) No growth GRAM STAIN RESULT (BEAKER) (test No WBCs pjrk=7302) GRAM STAIN RESULT (BEAKER) (test No organisms seen bgld=90253) ANTI-NUCLEAR ANTIBODY (MAGALY)2017-04-28 10:00:00 Test Item Value Reference Range Comments ANTI-NUCLEAR ANTIBODY (MAGALY) (BEAKER) (test Positive Negative stla=661) MAGALY TITER AND [id number] 10:00:00 Test Item Value Reference Range Comments MAGALY TITER (BEAKER) (test ajmt=8877) :640 MAGALY PATTERN (BEAKER) (test xxdo=9542) Homogeneous BODY FLUID CELL COUNT WITH [id number] 15:16:00 Test Item Value Reference Range Comments APPEARANCE FLUID (BEAKER) (test dskd=192) Clear Clear COLOR FLUID (BEAKER) (test udnk=185) Yellow Colorless, Straw RBC FLUID (BEAKER) (test vobt=236) 1000 /cu mm <=1 ADJUSTED WBC FLUID (BEAKER) (test wepr=8582) 175 /cu mm <=5 LINING CELLS (BEAKER) (test ijvm=9970) 0 /cu mm <=1 NEUTROPHILS FLUID (BEAKER) (test pgoe=4189) 8 % LYMPHS FLUID (BEAKER) (test qygs=548) 24 % MONO/MACROPHAGE FLUID (BEAKER) (test gstm=322) 68 % EOSINOPHILS FLUID (BEAKER) (test dhsw=798) 0 % BASO FLUID (BEAKER) (test khgv=116) 0 % CONTAINER BODY FLUID (BEAKER) (test rfco=9973) EDTA Tube PROTEIN, BODY [id number] 12:52:00 Test Item Value Reference Range Comments PROTEIN FLUID (BEAKER) (test mkmd=166) 0.9 g/dL Absence of reference range indicates that normals have not been defined.Assay performance has not been validated for this type of specimen.ALBUMIN, BODY [id number] 12:52:00 Test Item Value Reference Range Comments ALBUMIN FLUID (BEAKER) (test khoi=091) 0.4 gm/dL Reference Range: No Normals Assay performance has not been validated for this type of specimen.U/S, [id number] 12:29:00Reason for exam:-> ascites, hepatic encephalopathypending dischargeFINAL REPORT Ultrasound-guided paracentesis. Clinical History: Ascites Informed consent was obtained from the patient and the risks of the procedure were explained including bleeding, infection, bowel perforation and visceral injury. Sedation: 1% Xylocaine was used as local sedation. Conscious sedation protocol was not utilized as no systemic analgesia was administered. Technique: Using sterile technique, ultrasound guidance and a 5 Indonesian coaxial needle, a single pass right lower quadrant paracentesis was performed. The inner needle was removed and the plastic catheter was left in place and connected through sterile tubing to an evacuated container. The procedure yielded 11,200 cc of cloudy yellow fluid. The catheter was then removed. No immediate complications developed. Labs were sent as requested. Estimated blood loss: None Patient disposition: The patient was asymptomatic at the end of the exam. Impression: Successful paracentesis yielding 11,200 cc of fluid Signed: Emmanuel Khanna MDReport Verified Date/Time: 04/26/2017 12:29:41 Reading Location: [address] Body Reading Room [id number] 08:12:00 Test Item Value Reference Range Comments FERRITIN (BEAKER) (test zqjc=166) 896 ng/mL 5-275 HEPATITIS A ANTIBODY, [id number] 08:04:00 Test Item Value Reference Range Comments HEPATITIS A IGG ANTIBODY (BEAKER) (test lnom=4547) Reactive Nonreactive HEPATITIS B SURFACE [id number] 06:40:00 Test Item Value Reference Range Comments HEPATITIS B SURFACE ANTIBODY (BEAKER) (test < mIU/mL <8.0 ekxl=827) BASIC METABOLIC [id number] 06:34:00 Test Item Value Reference Range Comments SODIUM (BEAKER) (test 128 meq/L 136-145 lxjo=569) POTASSIUM (BEAKER) (test 4.6 meq/L 3.5-5.1 vbtt=617) CHLORIDE (BEAKER) (test 100 meq/L 98-107 cxwz=272) CO2 (BEAKER) (test 20 meq/L 22-29 hbuw=390) BLOOD UREA NITROGEN 18 mg/dL 7-21 (BEAKER) (test bkds=211) CREATININE (BEAKER) (test 0.93 mg/dL 0.57-1.25 tvlb=899) GLUCOSE RANDOM (BEAKER) 130 mg/dL 70-105 (test tkbm=551) CALCIUM (BEAKER) (test 8.5 mg/dL 8.4-10.2 adbb=840) EGFR (BEAKER) (test 84 mL/min/1.73 sq m ESTIMATED GFR IS NOT zuow=3204) ACCURATE CREATININE CLEARANCE IN PREDICTING GLOMERULAR FILTRATION RATE. ESTIMATED GFR IS NOT APPLICABLE FOR DIALYSIS PATIENTS. Specimen slightly ictericHEPATIC FUNCTION [id number] 06:34:00 Test Item Value Reference Range Comments TOTAL PROTEIN (BEAKER) (test yxkj=239) 6.9 gm/dL 6.0-8.3 ALBUMIN (BEAKER) (test oxqm=7665) 2.4 g/dL 3.5-5.0 BILIRUBIN TOTAL (BEAKER) (test avkx=563) 3.1 mg/dL 0.2-1.2 BILIRUBIN DIRECT (BEAKER) (test ohug=422) 1.4 mg/dL 0.1-0.5 ALKALINE PHOSPHATASE (BEAKER) (test acsd=612) 83 U/L 40-150 AST (SGOT) (BEAKER) (test giwr=251) 43 U/L 5-34 ALT (SGPT) (BEAKER) (test idor=182) 29 U/L 6-55 Specimen slightly ictericIRON, TIBC, % SAT. (WITHOUT FERRITIN)2017-04-26 06:20: 00 Test Item Value Reference Range Comments IRON (BEAKER) (test gmtc=386) 141 ug/dL 40-160 TOTAL IRON BINDING CAPACITY (BEAKER) (test 153 ug/dL 250-450 uyul=607) IRON % SATURATION (2) (BEAKER) (test hnus=2085) 92 % 20-55 HEPATITIS B SURFACE [id number] 06:15:00 Test Item Value Reference Range Comments HEPATITIS B SURFACE ANTIGEN (2) (BEAKER) (test Nonreactive Nonreactive gpuz=9979) HEPATITIS C [id number] 06:15:00 Test Item Value Reference Range Comments HEPATITIS C ANTIBODY (BEAKER) (test kvul=892) Nonreactive Nonreactive ALPHA FETOPROTEIN (AFP), TUMOR [id number] 06:14:00 Test Item Value Reference Range Comments ALPHA-FETOPROTEIN (BEAKER) (test iril=9359) 4.6 ng/mL <10.0 HEPATITIS B CORE ANTIBODY, [id number] 06:14:00 Test Item Value Reference Range Comments HEPATITIS B CORE TOTAL ANTIBODY (BEAKER) (test Nonreactive Nonreactive gvef=117) PROTHROMBIN [id number] 06:04:00 Test Item Value Reference Range Comments PROTIME (BEAKER) (test joby=878) 18.6 seconds 11.7-14.7 INR (BEAKER) (test ajen=149) 1.6 <=5.9 RECOMMENDED COUMADIN/WARFARIN INR THERAPY RANGESSTANDARD DOSE: 2.0 - 3.0 Includes: PROPHYLAXIS forvenous thrombosis, systemic embolization; TREATMENT for venous thrombosis and/or pulmonary embolus.HIGH RISK: Target INR is 2.5-3.5 for patients with mechanical heart valves.OSMOLALITY, [id number] 15:23:00 Test Item Value Reference Range Comments OSMOLALITY URINE (BEAKER) (test vqpo=771) 578 mOsm/kg 40-1400 RAPID DRUG SCREEN, [id number] 14:50:00 Test Item Value Reference Range Comments BARBITURATE URINE (BEAKER) (test vicu=272) Negative Negative BENZODIAZEPINE SCREEN URINE (BEAKER) (test Negative Negative henb=447) COCAINE (METAB.) SCREEN (BEAKER) (test ekit=5044) Negative Negative METHADONE SCREEN (BEAKER) (test dmhp=4780) Negative Negative OPIATE SCREEN URINE (BEAKER) (test coyv=490) Positive Negative CANNABINOID SCREEN URINE (BEAKER) (test vuzp=630) Negative Negative AMPH/METHAMPH SCREEN (BEAKER) (test ejem=2275) Negative Negative PHENCYCLIDINE SCREEN URINE (BEAKER) (test oaii=620) Negative Negative OXYCODONE SCREEN URINE (BEAKER) (test keyb=9907) Negative Negative DRUG CUTOFF CONC.Cocaine 300 ng/mL Cannabinoid 50 ng/mL Benzodiazepine 200 ng/mLBarbiturate 200 ng/ mLPhencyclidine 25 ng/mLOpiate 300 ng/mLMethadone 300 ng/mLAmphetamine/ 1000 ng/mL MethamphetamineOxycodone 300 ng/mLThis assay provides an unconfirmed qualitative test result for the clinical management of patients in emergency situations. Chain of custody not maintained. Some fqsj-hov-egrwjww medications, as well as adulterants, may cause inaccurate results. Clinical correlation should be applied. A more comprehensive drug screen or confirmation of a detected drug may be performed upon request.BASIC METABOLIC [id number] 14:21:00 Test Item Value Reference Range Comments SODIUM (BEAKER) (test 128 meq/L 136-145 gddz=617) POTASSIUM (BEAKER) (test 4.2 meq/L 3.5-5.1 ejek=151) CHLORIDE (BEAKER) (test 98 meq/L 98-107 cquz=854) CO2 (BEAKER) (test 22 meq/L 22-29 kvsj=314) BLOOD UREA NITROGEN 20 mg/dL 7-21 (BEAKER) (test vbli=785) CREATININE (BEAKER) (test 1.09 mg/dL 0.57-1.25 houc=331) GLUCOSE RANDOM (BEAKER) 132 mg/dL 70-105 (test zrlb=131) CALCIUM (BEAKER) (test 8.7 mg/dL 8.4-10.2 hewy=011) EGFR (BEAKER) (test 70 mL/min/1.73 sq m ESTIMATED GFR IS NOT ihfu=9704) ACCURATE CREATININE CLEARANCE IN PREDICTING GLOMERULAR FILTRATION RATE. ESTIMATED GFR IS NOT APPLICABLE FOR DIALYSIS PATIENTS. Specimen slightly ictericSODIUM, RANDOM [id number] 14:08:00 Test Item Value Reference Range Comments SODIUM URINE (BEAKER) (test lcxw=922) 22 meq/L Reference Range: No NormalsURINALYSIS W/ REFLEX URINE [id number] 13:52:00 Test Item Value Reference Range Comments COLOR (BEAKER) (test ihne=870) Yellow CLARITY (BEAKER) (test oosw=949) Clear SPECIFIC GRAVITY UA (BEAKER) (test rirp=811) 1.019 1.001-1.035 PH UA (BEAKER) (test zvex=918) 5.5 5.0-8.0 PROTEIN UA (BEAKER) (test xxpp=176) 20 mg/dL Negative GLUCOSE UA (BEAKER) (test ujbv=053) Negative Negative KETONES UA (BEAKER) (test ualk=346) Negative Negative BILIRUBIN UA (BEAKER) (test vpmn=737) Positive Negative BLOOD UA (BEAKER) (test rtdq=214) Negative Negative NITRITE UA (BEAKER) (test zfxu=114) Negative Negative LEUKOCYTE ESTERASE UA (BEAKER) (test rlcn=167) Negative Negative UROBILINOGEN UA (BEAKER) (test dlmg=760) 6.0 mg/dL 0.2-1.0 RBC UA (BEAKER) (test gjbt=162) 1 /HPF WBC UA (BEAKER) (test xdiv=970) 3 /HPF MUCUS (BEAKER) (test wmym=7650) Rare SQUAMOUS EPITHELIAL (BEAKER) (test tusm=596) < /HPF SOURCE(BEAKER) (test ggdj=5327) CBC W/PLT COUNT & AUTO [id number] 07:57:00 Test Item Value Reference Range Comments WHITE BLOOD CELL COUNT (BEAKER) (test qcfk=900) 5.4 K/ L 3.5-10.5 RED BLOOD CELL COUNT (BEAKER) (test znva=074) 2.30 M/ L 4.63-6.08 HEMOGLOBIN (BEAKER) (test oijx=543) 8.0 GM/DL 13.7-17.5 HEMATOCRIT (BEAKER) (test jlkc=003) 24.1 % 40.1-51.0 MEAN CORPUSCULAR VOLUME (BEAKER) (test hlra=508) 104.8 fL 79.0-92.2 MEAN CORPUSCULAR HEMOGLOBIN (BEAKER) (test 34.8 pg 25.7-32.2 qseo=766) MEAN CORPUSCULAR HEMOGLOBIN CONC (BEAKER) (test 33.2 GM/DL 32.3-36.5 uwmt=510) RED CELL DISTRIBUTION WIDTH (BEAKER) (test 16.4 % 11.6-14.4 qbuy=836) PLATELET COUNT (BEAKER) (test nfsq=339) 93 K/CU MM 150-450 MEAN PLATELET VOLUME (BEAKER) (test tefz=147) 9.5 fL 9.4-12.4 NUCLEATED RED BLOOD CELLS (BEAKER) (test 0 /100 WBC 0-0 tinf=529) NEUTROPHILS RELATIVE PERCENT (BEAKER) (test 56 % xczo=108) LYMPHOCYTES RELATIVE PERCENT (BEAKER) (test 21 % afgk=946) MONOCYTES RELATIVE PERCENT (BEAKER) (test 16 % nuix=483) EOSINOPHILS RELATIVE PERCENT (BEAKER) (test 6 % mzao=871) BASOPHILS RELATIVE PERCENT (BEAKER) (test 1 % ujnv=006) NEUTROPHILS ABSOLUTE COUNT (BEAKER) (test 3.00 K/ L 1.78-5.38 rcxn=253) LYMPHOCYTES ABSOLUTE COUNT (BEAKER) (test 1.12 K/ L 1.32-3.57 smvb=147) MONOCYTES ABSOLUTE COUNT (BEAKER) (test fxes=257) 0.84 K/ L 0.30-0.82 EOSINOPHILS ABSOLUTE COUNT (BEAKER) (test 0.32 K/ L 0.04-0.54 hlcg=315) BASOPHILS ABSOLUTE COUNT (BEAKER) (test odkx=663) 0.03 K/ L 0.01-0.08 IMMATURE GRANULOCYTES-RELATIVE PERCENT (BEAKER) 1 % 0-1 (test qmgs=9459) BASIC METABOLIC [id number] 01:33:00 Test Item Value Reference Range Comments SODIUM (BEAKER) (test 128 meq/L 136-145 gvuu=318) POTASSIUM (BEAKER) (test 4.5 meq/L 3.5-5.1 wsme=479) CHLORIDE (BEAKER) (test 96 meq/L 98-107 cohj=066) CO2 (BEAKER) (test 23 meq/L 22-29 exiw=439) BLOOD UREA NITROGEN 20 mg/dL 7-21 (BEAKER) (test jdfl=318) CREATININE (BEAKER) (test 0.96 mg/dL 0.57-1.25 sypi=460) GLUCOSE RANDOM (BEAKER) 95 mg/dL 70-105 (test rpwf=377) CALCIUM (BEAKER) (test 9.5 mg/dL 8.4-10.2 ofmq=995) EGFR (BEAKER) (test 81 mL/min/1.73 sq m ESTIMATED GFR IS NOT jwgv=8283) ACCURATE CREATININE CLEARANCE IN PREDICTING GLOMERULAR FILTRATION RATE. ESTIMATED GFR IS NOT APPLICABLE FOR DIALYSIS PATIENTS. Specimen moderately ictericPROTHROMBIN TIME/[id number] 01:30:00 Test Item Value Reference Range Comments PROTIME (BEAKER) (test zqmi=068) 16.8 seconds 11.7-14.7 INR (BEAKER) (test huae=058) 1.4 <=5.9 RECOMMENDED COUMADIN/WARFARIN INR THERAPY RANGESSTANDARD DOSE: 2.0 - 3.0 Includes: PROPHYLAXIS forvenous thrombosis, systemic embolization; TREATMENT for venous thrombosis and/or pulmonary embolus.HIGH RISK: Target INR is 2.5-3.5 for patients with mechanical heart valves.LACTIC ACID, VENOUS, WHOLE [id number] 01:29:00 Test Item Value Reference Range Comments LACTATE BLOOD VENOUS (2) (BEAKER) (test 1.9 mmol/L 0.5-2.2 flbe=5635) Effective 09/26/2015: Units/Reference Range ChangeNew: 0.5-2.2 mmol/L Previous: 5 -20 mg/dLSpecimen moderately icteric
[2017-11-13] MEDS ORDERED: MEPERIDINE HCL 25 MG/0.5 ML ONE ×2 (09:22→10:16)
[2017-11-13 09:53] LABS: Absolute Lymphocytes (CBC) 0.4 K/uL (0.7-4.9); Absolute Monocytes 0.3 K/uL (0.1-1.3)
[2017-11-13 10:12] LABS: ALT/SGPT 35 U/L (12-78); AST/SGOT 28 U/L (15-37); Albumin 2.6 g/dL (3.4-5.0); Alkaline Phosphatase 116 U/L (45-117); BUN Blood Urea Nitrogen 19 mg/dL (7-18); Bicarbonate 29 mmol/L (21-32); Bilirubin Direct 0.2 mg/dL (0-0.2); Bilirubin Total 0.3 mg/dL (0.2-1.0); Glucose Level 95 mg/dL (74-106); Lipase 159 U/L (73-393); Magnesium 2.2 mg/dL (1.8-2.4); Potassium 4.3 mmol/L (3.5-5.1); Protein, Total 7.4 g/dL (6.4-8.2); Sodium Level 134 mmol/L (136-145)
[2017-11-13 10:38] LABS: Absolute Neutrophil 6.6 K/uL (1.8-8.0); Eosinophils % 0.8 % (0-4.4); Hematocrit 22.1 % (39.6-49.0); Lymphocytes % 4.8 % (15.3-44.8); MCH 29.7 pg (27.0-35.0); MCV 86.9 fL (80-100); MPV 6.8 fL (7.6-11.3); Monocytes % 4.2 % (3.3-12.3); RBC Red Blood Cell Count 2.54 M/uL (4.33-5.43)
[2017-11-13 10:49] LABS: Protime INR 1.18
--- NOTE | 2017-11-13 11:04 | RAD REPORT ---
EXAM DESCRIPTION: RAD - Chest Single View - 11/13/2017 9:54 am CLINICAL HISTORY: Chest pain;Dyspnea Chest pain. COMPARISON: Chest Single View dated 01/23/2017; Chest Single View dated 10/30/2016; CHEST PA AND LAT 2 V IEW dated 10/12/2012; CHEST SINGLE VIEW dated 07/23/2009 FINDINGS: Portable technique limits examination quality. The lungs are underinflated resulting in vascular crowding. The heart is normal in size. No displaced fractures. IMPRESSION: Underinflated lungs.
--- NOTE | 2017-11-13 11:10 | EKG ---
Test Date: 2017-11-13 Test Time: 09:17:02 Supervisor Anodizing: JANET MEASUREMENT RESULTS: Intervals: Rate: 102 AL: 132 QRSD: 82 QT: 334 QTc: 435 [place]: P: 47 AL: 132 QRS: 7 T: 36 INTERPRETIVE STATEMENTS: Sinus tachycardia Otherwise normal ECG Compared to ECG 10/30/2016 02:07:45 Sinus rhythm no longer present Electronically Signed On 11-13-17 11:10:04 CDT by David Cortes
[2017-11-13 11:23] LABS: Anisocytosis 1+; Blood Morphology Comment NOTED (NOT SEEN); Platelet Estimate ADEQ; Platelets, Giant FEW; Polychromasia 1+
--- NOTE | 2017-11-13 11:32 | ER ---
Nurse's Notes [facility] Name: Riley Castellano Age: 57 yrs Sex: Male : 1960 Arrival Date: 11/13/2017 Time: 09:00 Bed 4 Private MD: Vanessa Johnson Diagnosis: Chest pain, unspecified;Ascites Presentation: 11/13 09:04 Presenting complaint: Patient states: right sided pain that started last night and pain sv has increased. Pain is worse with breathing. Transition of care: patient was not received from another setting of care. Onset of symptoms was November 12, 2017. Risk Assessment: Do you want to hurt yourself or someone else? Patient reports no desire to harm self or others. Care prior to arrival: None. 09:04 Method Of Arrival: Wheelchair sv 09:04 Acuity: TERRENCE 3 sv 09:30 Initial Sepsis Screen: Does the patient meet any 2 criteria? HR > 90 bpm. Does the sv patient have a suspected source of infection? No. Patient's initial sepsis screen is negative. Triage Assessment: 09:40 General: Appears uncomfortable, Behavior is cooperative, anxious, restless. Pain: sv Complains of pain in right lateral anterior chest Pain currently is 10 out of 10 on a pain scale. Quality of pain is described as sharp, Pain began 1 day ago. Is continuous, Aggravated by breathing Noted to be moaning, restless. EENT: No signs and/or symptoms were reported regarding the EENT system. Neuro: Level of Consciousness is awake, alert, obeys commands, Oriented to person, place, time, situation, Moves all extremities. Full function Speech is normal. Cardiovascular: Patient's skin is warm and dry. Respiratory: Reports pain with respiration since 1 day Airway is patent Respiratory effort is even, unlabored, Respiratory pattern is tachypnea Onset: The symptoms/episode began/occurred yesterday, the patient has moderate shortness of breath. GI: Abdomen is round. Derm: Skin is normal. Musculoskeletal: Range of motion: intact in all extremities. Historical: - Allergies: 09:57 Morphine; sv 09:57 Neomycin; sv - Home Meds: 09:57 calcium carbonate 500 mg calcium (1,250 mg) Oral tab three times a day [Active]; sv insulin NPH human recomb subcutaneous 10 units subcutaneous daily [Active]; Insulin: Regular sliding scale Sub-Q [Active]; magnesium oxide 400 mg Oral cap 2 tab three times a day [Active]; omeprazole 40 mg Oral cpDR 1 cap once daily [Active]; prednisone 5 mg Oral tab 3 tabs once daily [Active]; Seroquel 50 mg Oral tab QHS prn [Active]; sirolimus 1 mg oral tab 6 tabs once daily [Active]; Bactrim DS 800-160 mg Oral tab 1 tab three times a day [Active]; tramadol 50 mg Oral tab Q12h prn [Active]; ursodiol 300 mg Oral cap 1 cap 2 times per day [Active]; Valcyte 450 mg oral tab 1 tabs once daily [Active]; acetaminophen-codeine 300-30 mg Oral tab 1 tab every 6 hours [Active]; - PMHx: 09:57 Hypertension; Diabetes - IDDM; sv - PSHx: 09:57 tyrone hand sx; right knee sx; right elbow; back; liver transplant(September 28, 2017); sv - Immunization history:: Adult Immunizations up to date. - Social history:: Smoking status: Patient/guardian denies using tobacco. - Ebola Screening: : No symptoms or risks identified at this time. - Family history:: not pertinent. - Hospitalizations: : No recent hospitalization is reported. Screenin:40 Abuse screen: Denies threats or abuse. Denies injuries from another. Nutritional sv screening: No deficits noted. Tuberculosis screening: No symptoms or risk factors identified. Fall Risk None identified. Assessment: 10:05 Reassessment: Spoke with Amena in inside lab to have them redraw pt's labs. sv 10:06 General: Appears in no apparent distress. uncomfortable, Behavior is cooperative, aj appropriate for age, agitated. Pain: Complains of pain in back, abdomen and right leg. Neuro: Level of Consciousness is awake, alert, obeys commands, Oriented to person, place, time, situation, Appropriate for age. Cardiovascular: Capillary refill < 3 seconds in bilateral fingers Patient's skin is warm and dry. Rhythm is regular. Respiratory: Airway is patent Respiratory effort is even, unlabored, Respiratory pattern is regular, symmetrical, Breath sounds are clear bilaterally. GI: Abdomen is round noted to have ascites, Reports. Derm: Skin is intact, is healthy with good turgor, Skin is pink, warm \T\ dry. normal. 10:28 Reassessment: Patient states feeling better. Patient states symptoms have improved. aj 11:48 Reassessment: Patient appears in no apparent distress at this time. No changes from aj previously documented assessment. Patient and/or family updated on plan of care and expected duration. Pain level reassessed. Patient is alert, oriented x 3, equal unlabored respirations, skin warm/dry/pink. Patient states feeling better. Patient states symptoms have improved. Vital Signs: 09:11 BP 156 / 80; Pulse 106; Resp 26; Pulse Ox 100% ; Weight 80.74 kg; Height 5 ft. 8 in. sv (172.72 cm); Pain 10/10; 10:00 Pain 10/10; sv 10:11 BP 126 / 86; Pulse 104; Resp 24; Pulse Ox 98% on R/A; aj 11:48 BP 134 / 81; Pulse 97; Resp 18; Pulse Ox 100% on R/A; aj 09:11 Body Mass Index 27.06 (80.74 kg, 172.72 cm) sv ED Course: 09:00 Patient arrived in ED. mr 09:00 Vanessa Johnson is Private Physician. mr 09:07 Eduard Small MD is Attending Physician. rn 09:10 Rose Monge, CHRISTINA is Primary Nurse. sv 09:11 Triage completed. sv 09:15 Patient has correct armband on for positive identification. Placed in gown. Bed in low sv position. Call light in reach. Side rails up X2. Adult w/ patient. monitor worker on. Pulse ox on. NIBP on. Door closed. Pillow given. Head of bed elevated. 09:20 EKG done, by dish technician. reviewed by Eduard Small MD. at1 09:25 Missed attempt(s): 22 gauge in left forearm. Bleeding controlled, band aid applied, sv catheter tip intact. 09:26 Radiology exam delayed due to IV insertion attempt and/or patient not having jb2 appropriate IV at this time. 09:30 Initial lab(s) drawn, by me, sent to lab. Inserted saline lock: 22 gauge in right sv forearm, using aseptic technique. Blood collected. Flushed right forearm with 5 ml normal saline. 09:48 X-ray completed. Portable x-ray completed in exam room. Patient tolerated procedure jb2 well. 09:51 XRAY CXR (1 view) In Process Unspecified. EDMS 10:00 Report given to Evelin VASQUEZ. sv 10:07 Primary Nurse role handed off by Rose Monge, CHRISTINA sv 10:07 Evelin Savage, RN is Primary Nurse. sv 10:51 Note: ct delayed due to pt wanting to wait until transferred out to [place] for any vr testing is done, wants everything to be verified through his recent liver transplant physician. 11:48 No provider procedures requiring assistance completed. IV discontinued, intact, aj bleeding controlled, No redness/swelling at site. Pressure dressing applied. Administered Medications: 09:32 Drug: Demerol 25 mg Route: IVP; Site: right forearm; sv 10:00 Follow up: Pain 03/03 Adult; Response: No adverse reaction; No change in condition sv 10:18 Drug: Demerol 25 mg Route: IVP; Site: left forearm; aj 11:50 Follow up: Response: Pain is decreased aj Outcome: 11:31 Discharge ordered by . rn 11:48 Discharged to home via wheelchair. aj 11:48 Condition: good 11:48 Discharge instructions given to patient, family, Instructed on discharge instructions, follow up and referral plans. Demonstrated understanding of instructions, follow-up care. 11:51 Patient left the ED. aj Signatures: Dispatcher [employer] Rose Blount, Evelin Garner RN, RN RN aj Rivera, Maria mr Baeza, Zion jb2 Eduard Small MD MD rn Davis, Victoria vr gonzales, Amanda, registration manager EKG Tat1
--- NOTE | 2017-11-13 11:33 | EDPHYS ---
Physician Documentation [facility] Name: Riley Castellano Age: 57 yrs Sex: Male : 1960 Arrival Date: 11/13/2017 Time: 09:00 Bed 4 Private MD: Vanessa Johnson ED Physician Eduard Small HPI: 11/13 11:19 This 57 yrs old Male presents to ER via Wheelchair with complaints of rn Breathing Difficulty, Pain All Over. 11:19 The patient has shortness of breath at rest. Onset: The symptoms/episode began/occurred rn at an unknown time. The patient's shortness of breath is aggravated by light activity, supine position, is alleviated by sitting up. Severity of symptoms: At their worst the symptoms were moderate in the emergency department the symptoms are unchanged. The patient has experienced similar episodes in the past. Reports right sided chest and abd pain, worse with laying flat and breathing, no fever, no cough. Takes tramadol, on pain management, no vomiting/diarrhea, has had this pain since surgery. Better when sitting up.. Historical: - Allergies: 09:57 Morphine; sv 09:57 Neomycin; sv - Home Meds: :57 calcium carbonate 500 mg calcium (1,250 mg) Oral tab three times a day [Active]; sv insulin NPH human recomb subcutaneous 10 units subcutaneous daily [Active]; Insulin: Regular sliding scale Sub-Q [Active]; magnesium oxide 400 mg Oral cap 2 tab three times a day [Active]; omeprazole 40 mg Oral cpDR 1 cap once daily [Active]; prednisone 5 mg Oral tab 3 tabs once daily [Active]; Seroquel 50 mg Oral tab QHS prn [Active]; sirolimus 1 mg oral tab 6 tabs once daily [Active]; Bactrim DS 800-160 mg Oral tab 1 tab three times a day [Active]; tramadol 50 mg Oral tab Q12h prn [Active]; ursodiol 300 mg Oral cap 1 cap 2 times per day [Active]; Valcyte 450 mg oral tab 1 tabs once daily [Active]; acetaminophen-codeine 300-30 mg Oral tab 1 tab every 6 hours [Active]; - PMHx: 09:57 Hypertension; Diabetes - IDDM; sv - PSHx: :57 tyrone hand sx; right knee sx; right elbow; back; liver transplant(September 28, 2017); sv - Immunization history:: Adult Immunizations up to date. - Social history:: Smoking status: Patient/guardian denies using tobacco. - Ebola Screening: : No symptoms or risks identified at this time. - Family history:: not pertinent. - Hospitalizations: : No recent hospitalization is reported. ROS: 11:19 Constitutional: Negative for fever, chills, and weight loss, Eyes: Negative for injury, rn pain, redness, and discharge, Neck: Negative for injury, pain, and swelling, Cardiovascular: Negative for palpitations Respiratory: Negative for cough, wheezing Abdomen/GI: + abd pain and distension MS/Extremity: Negative for injury and deformity, Skin: Negative for injury, rash, and discoloration, Neuro: Negative for headache, weakness, numbness, tingling, and seizure. Exam: 11:28 Constitutional: Thin male, moaning, sitting upright Head/Face: Normocephalic, rn atraumatic. ENT: dry MM Neck: Trachea midline, no thyromegaly or masses palpated, and no cervical lymphadenopathy. Supple, full range of motion without nuchal rigidity, or vertebral point tenderness. No Meningismus. Cardiovascular: tachycardic, regular, no murmur Respiratory: + mild tachypnea, no retractions, no wheezing Abdomen/GI: distended abd with well-healed scar, + fluid wave, no rebound Neuro: Awake and alert, GCS 15, oriented to person, place, time, and situation. Cranial nerves II-XII grossly intact. Motor strength 5/5 in all extremities. Sensory grossly intact. Cerebellar exam normal. Normal gait. Vital Signs: 09:11 BP 156 / 80; Pulse 106; Resp 26; Pulse Ox 100% ; Weight 80.74 kg; Height 5 ft. 8 in. sv (172.72 cm); Pain 10/10; 10:00 Pain 10/10; sv 10:11 BP 126 / 86; Pulse 104; Resp 24; Pulse Ox 98% on R/A; aj 11:48 BP 134 / 81; Pulse 97; Resp 18; Pulse Ox 100% on R/A; aj 09:11 Body Mass Index 27.06 (80.74 kg, 172.72 cm) sv MDM: 09:07 Patient medically screened. rn 11:03 Refusal of service: The patient/guardian displays adequate decision making capability rn and despite a detailed discussion of alternatives, benefits, risks, and consequences refuses: CT Scan, Medications. 11:03 ED course: Pt refuses CT to rule out PE, refuses ct abd, wants to be transferred to [facility] transplant service for further care.. 11:28 Differential diagnosis: Anemia Pneumothorax Psychogenic Pulmonary Embolism Sepsis. Data rn reviewed: vital signs, nurses notes, lab test result(s), radiologic studies, plain films. Counseling: I had a detailed discussion with the patient and/or guardian regarding: the historical points, exam findings, and any diagnostic results supporting the discharge/admit diagnosis, lab results, radiology results. ED course: Pt refused CT scans, spoke with liver call center coordinator who spoke with Dr. Hogan, states ok to dc home, gave him appt for thursday.. 11/13 09:17 Order name: Magnesium; Complete Time: 10:26 rn 11/13 09:17 Order name: Blood Culture Adult (2) rn 11/13 09:17 Order name: BMP; Complete Time: 10: rn 11/13 09:17 Order name: CBC with Diff rn 11/13 09:17 Order name: Hepatic Function; Complete Time: 10:26 rn 11/13 09:17 Order name: Lipase; Complete Time: 10:26 rn 11/13 09:17 Order name: PT-INR; Complete Time: 11:04 rn 11/13 09:17 Order name: Ptt, Activated; Complete Time: 11:04 rn 11/13 09:17 Order name: Troponin (emerg Dept Use Only); Complete Time: 10:26 rn 11/13 09:34 Order name: Procalcitonin; Complete Time: 10:55 rn 11/13 09:34 Order name: AMMONIA; Complete Time: 10:26 rn 11/13 10:09 Order name: Type And Screen aj 11/13 10:09 Order name: Type and Screen EDMS 11/13 11:22 Order name: Manual Differential EDMS 11/13 09:17 Order name: XRAY CXR (1 view) rn 11/13 09:17 Order name: EKG; Complete Time: 09:18 rn 11/13 09:17 Order name: Cardiac monitoring; Complete Time: 09:21 rn 11/13 09:17 Order name: EKG - Nurse/Tech; Complete Time: 09:35 rn 11/13 09:17 Order name: IV Saline Lock; Complete Time: 09:36 rn 11/13 09:17 Order name: Labs collected and sent; Complete Time: :36 rn 11/13 09:17 Order name: O2 Per Protocol; Complete Time: :21 rn 11/13 09:17 Order name: O2 Sat Monitoring; Complete Time: 09: rn 11/13 11:39 Order name: Antibody Identification EDMS Administered Medications: 09:32 Drug: Demerol 25 mg Route: IVP; Site: right forearm; sv 10:00 Follow up: Pain 03/03 Adult; Response: No adverse reaction; No change in condition sv 10:18 Drug: Demerol 25 mg Route: IVP; Site: left forearm; aj 11:50 Follow up: Response: Pain is decreased aj Disposition: 11/13/17 11:31 Discharged to Home. Impression: Chest pain, unspecified, Ascites. - Condition is Stable. - Discharge Instructions: Ascites, Nonspecific Chest Pain, Pleurisy. - Medication Reconciliation Form, Thank You Letter, Antibiotic Education, Prescription Opioid Use form. - Follow up: Private Physician; When: 11/16/2017. - Problem is an ongoing problem. - Symptoms have improved. Signatures: Dispatcher [employer] EDRose Glynn RN RN sv Myers, Amanda, RN RN aj Nieto, Roman, MD MD director of teaching and learning: (The following items were deleted from the chart) 11:51 11:31 11/13/2017 11:31 Discharged to Home. Impression: Chest pain, unspecified; aj Ascites. Condition is Stable. Forms are Medication Reconciliation Form, Thank You Letter, Antibiotic Education, Prescription Opioid Use. Follow up: Private Physician; When: 11/16/2017. Problem is an ongoing problem. Symptoms have improved. rn
== END 2017-11-13 11:51 | disposition home or self-care (01) ==
LOC: ER 08:59
DX: R18.8 Other ascites (principal); I10 Essential (primary) hypertension; E11.9 Type 2 diabetes mellitus without complications; Z94.4 Liver transplant status; Z79.4 Long term (current) use of insulin
CPT/HCPCS: 36415; 71045; 80048; 80076; 82140; 83690; 83735; 84145; 84484; 85025; 85610; 85730; 86850; 86900; 86901; 87040 ×2; 93005; 99284; J2175 ×2

== ENCOUNTER 2024-09-10 11:23 | Emergency (ER) | payer OTHER ==
[2024-09-10] MEDS ORDERED: METHYLPREDNISOLONE 125 MG INJ ONE (11:46)
[2024-09-10] MEDS ORDERED: predniSONE 20 MG TAB ONE (11:47)
[2024-09-10] MEDS ORDERED: FAMOTIDINE 20 MG/2 ML VIAL IV ONE (11:47)
[2024-09-10] MEDS ORDERED: NA CHLORIDE 0.9% 1,000 ML ONE (11:47)
[2024-09-10] MEDS ORDERED: DIPHENHYDRAMINE 50 MG/ML VIAL ONE (11:47)
[2024-09-10] MEDS ORDERED: ONDANSETRON 4 MG/2 ML VIAL ONE (11:47)
[2024-09-10 12:21] LABS: Absolute Basophils 0.1 K/uL (0-0.5); Absolute Eosinophils 0.1 K/uL (0-0.5); Absolute Lymphocytes (CBC) 1.5 K/uL (0.7-4.9); Absolute Monocytes 0.7 K/uL (0.1-1.3); Absolute Neutrophil 2.9 K/uL (1.8-8.0); Basophils % 1.3 % (0-1.3); Eosinophils % 1.7 % (0-4.4); Hematocrit 39.2 % (39.6-49.0); Hemoglobin 13.3 g/dL (13.6-17.9); Lymphocytes % 28.3 % (15.3-44.8); MCH 29.6 pg (27.0-35.0); MCHC 33.9 g/dL (32.0-36.0); MCV 87.3 fL (80-100); MPV 7.8 fL (7.6-11.3); Monocytes % 12.6 % (3.3-12.3); Neutrophils % 56.1 % (41.7-73.7); Nucleated Red Blood Cells % 0.1 % (0-0); Platelets 206 thou/uL (152-406); RBC Red Blood Cell Count 4.49 M/uL (4.33-5.43); Red Cell Distribution Width 15.2 % (12.1-15.2)
--- NOTE | 2024-09-10 12:56 | EDPHYS ---
Physician Documentation [facility] Name: Riley Castellano Age: 64 yrs Sex: Male : 1960 Arrival Date: 09/10/2024 Time: 11:23 Bed 20 Private MD: ED Physician Eber Joy HPI: 09/10 11:37 This 64 yrs old Male presents to ER via Ambulatory with complaints of Insect kaye Bite - bees. 11:37 The patient's rash thought to be caused by insect bites. The rash is located on the kaye body diffusely. The rash can be described as erythematous. Associated signs and symptoms: Pertinent positives: burning sensation, itching, nausea, swelling of lips. Severity of symptoms: At their worst the symptoms were moderate in the emergency department the symptoms. The patient presents with itching, localized swelling, rash, redness of skin, runny nose. Associated signs and symptoms: Pertinent positives: hives, facial swelling. Possible causes: bees. Historical: - Allergies: 11:32 Neomycin; ld1 11:32 Morphine; ld1 - PMHx: 11:32 Diabetes - IDDM; Hypertension; ld1 - Immunization history:: Adult Immunizations up to date. - Infectious Disease History:: Denies. - Social history:: Smoking status: Patient denies any tobacco usage or history of. - Family history:: not pertinent. ROS: 11:37 Constitutional: Negative for fever, chills, and weight loss, ENT: Negative for injury, kaye pain, and discharge, Neck: Negative for injury, pain, and swelling, Cardiovascular: Negative for chest pain, palpitations, and edema, Respiratory: Negative for shortness of breath, cough, wheezing, and pleuritic chest pain, Abdomen/GI: Negative for abdominal pain, nausea, vomiting, diarrhea, and constipation, Back: Negative for injury and pain, : Negative for injury, bleeding, discharge, and swelling, Neuro: Negative for headache, weakness, numbness, tingling, and seizure, Psych: Negative for depression, anxiety, suicide ideation, homicidal ideation, and hallucinations, Allergy/Immunology: Negative for hives, rash, and allergies, Endocrine: Negative for neck swelling, polydipsia, polyuria, polyphagia, and marked weight changes, Hematologic/Lymphatic: Negative for swollen nodes, abnormal bleeding, and unusual bruising, 11:37 Eyes: Positive for redness, swelling, 11:37 Skin: Positive for rash, swelling, Exam: 11:46 Constitutional: This is a well developed, well nourished patient who is awake, alert, kaye and in no acute distress. Eyes: Pupils equal round and reactive to light, extra-ocular motions intact. Lids and lashes normal. Conjunctiva and sclera are non-icteric and not injected. Cornea within normal limits. Periorbital areas with no swelling, redness, or edema. Neck: Trachea midline, no thyromegaly or masses palpated, and no cervical lymphadenopathy. Supple, full range of motion without nuchal rigidity, or vertebral point tenderness. No Meningismus. Chest/axilla: Normal chest wall appearance and motion. Nontender with no deformity. No lesions are appreciated. Cardiovascular: Regular rate and rhythm with a normal S1 and S2. No gallops, murmurs, or rubs. Normal PMI, no JVD. No pulse deficits. Respiratory: Lungs have equal breath sounds bilaterally, clear to auscultation and percussion. No rales, rhonchi or wheezes noted. No increased work of breathing, no retractions or nasal flaring. Abdomen/GI: Soft, non-tender, with normal bowel sounds. No distension or tympany. No guarding or rebound. No evidence of tenderness throughout. Back: No spinal tenderness. No costovertebral tenderness. Full range of motion. Male : Normal genitalia with no discharge or lesions. MS/ Extremity: Pulses equal, no cyanosis. Neurovascular intact. Full, normal range of motion., bilateral aka Neuro: Awake and alert, GCS 15, oriented to person, place, time, and situation. Cranial nerves II-XII grossly intact. Motor strength 5/5 in all extremities. Sensory grossly intact. Cerebellar exam normal. Normal gait. Psych: Awake, alert, with orientation to person, place and time. Behavior, mood, and affect are within normal limits. 11:46 Head/face: Noted is erythema, swelling, tenderness, 11:46 Eyes: Periorbital structures: erythema, swelling, 11:46 ENT: Posterior pharynx: Airway: normal, no evidence of obstruction, 11:46 Skin: drug rash, urticaria, Vital Signs: 11:30 BP 159 / 72; Pulse 99; Resp 18; Temp 98.2(TE); Pulse Ox 97% on R/A; Weight 102.06 kg; ld1 Height 5 ft. 8 in. ; Pain 8/10; 12:19 BP 149 / 66; Pulse 93; Resp 18; Pulse Ox 98% on R/A; ld1 13:06 BP 127 / 90; Pulse 90; Resp 18; Temp 98.0; Pulse Ox 100% on R/A; kj2 11:30 Body Mass Index 34.21 (102.06 kg, 172.72 cm) ld1 11:30 Pain Scale: Adult ld1 MDM: 11:28 Medical Screening Exam initiated kaye 11:47 Differential diagnosis: allergic reaction, anaphylaxis, angioedema, urticaria. Data kaye reviewed: vital signs, nurses notes, lab test result(s). Consideration of Admission/Observation Escalation of care including admission/observation considered. I considered the following discharge prescriptions or medication management in the emergency department Medications were administered in the Emergency Department. See MAR. Test considered but Not performed: EKG: no ekg. Care significantly affected by the following chronic conditions: Diabetes, Hypertension, Obesity. 09/10 11:32 Order name: CBC with Diff; Complete Time: 12:45 kaye Administered Medications: 11:44 Not Given (Duplicate Order): prochlorperazinesuppository 25 mg NV once kaye 11:50 Not Given (Patient Refused): fentanyl (pf)25 mcg IVP once ld1 11:50 Not Given (Patient Refused): fentanyl (pf)25 mcg IVP once ld1 12:17 Drug: diphenhydrAMINE IVP 50 mg IVP once Route: IVP; Site: left wrist; ld1 13:12 Follow up: Response: No adverse reaction kj2 12:17 Drug: Famotidine IVP 40 mg IVP once; dilute with 10 mL 0.9% NaCl; give over 2 minutes ld1 Route: IVP; Site: left wrist; 13:11 Follow up: Response: No adverse reaction kj2 12:17 Drug: predniSONE PO 60 mg PO once Route: PO; ld1 13:08 Follow up: Response: No adverse reaction kj2 12:17 Drug: MethylPrednisoLONE IVP 125 mg IVP once Route: IVP; Site: left wrist; ld1 13:06 Follow up: BP 127 / 90; Pulse 90 bpm; Resp 18 bpm; Temp 98.0; Pulse Ox 100% RA kj2 12:17 Drug: Ondansetron IVP 4 mg IVP once; over 2 minutes Route: IVP; Site: left wrist; ld1 13:06 Follow up: Response: No adverse reaction kj2 13:06 Follow up: Response: No adverse reaction kj2 12:18 Drug: NS 0.9% IV 1000 ml IV at 1000 ml once; to be given as a bolus over 60 minutes ld1 Route: IV; Rate: 1000 ml; Site: left wrist; Disposition Summary: 09/10/24 12:55 Discharge Ordered Notes: Location: Home [facility] Problem: new kaye Symptoms: have improved kaye Condition: Stable kaye Diagnosis - Angioneurotic edema kaye - Toxic effect of venom of bees, accidental (unintentional) kaye - Insect allergy status kaye Followup: kaye - With: Private Physician - When: 2 - 3 days - Reason: Recheck today's complaints, Continuance of care, Re-evaluation by your physician Discharge Instructions: - Discharge Summary Sheet [facility] - Bee, Wasp, or Hornet Sting, Adult kaye - Angioedema kaye - Angioedema, [id number] [facility] Forms: - Medication Reconciliation Form [facility] - Antibiotic Education kaye - Prescription Opioid Use kaye - Patient Portal Instructions [facility] - Leadership Thank You Letter [facility] Prescriptions: - EpiPen 2-Bubba - inject 1 applicatorful SUBCUTANEOUS route once; 1 Pack; Refills: 0, Product [facility] Selection Permitted - Pepcid 40 mg Oral tablet - take 1 tablet ORAL route 2 times per day for 7 days; 14 tablet; Refills: 0, [facility] Product Selection Permitted - Benadryl 25 mg Oral capsule - take 2 capsule ORAL route every 6 hours As needed; 45 tablet; Refills: 0, [facility] Product Selection Permitted - Prednisone 20 mg Oral Tablet - take 3 tablets ORAL route once daily for 5 days; 15 tablet; Refills: 0, Product [facility] Selection Permitted Signatures: Dispatcher [employer] EDEber Mcneil MD MD cha Pinkerton, Shawna sp Sims, Lauren, RN RN ld1 Ashly Meade RN kj2 Corrections: (The following items were deleted from the chart) 12:57 12:57 COMPREHENSIVE METABOLIC PANEL+C.LAB.BRZ ordered. EDMS EDMS 13:24 13:05 Misc. Order ordered. primitivo kj2
--- NOTE | 2024-09-10 12:56 | ER ---
Nurse's Notes [facility] Name: Riley Castellano Age: 64 yrs Sex: Male : 1960 Arrival Date: 09/10/2024 Time: 11:23 Bed 20 Private MD: Diagnosis: Angioneurotic edema;Toxic effect of venom of bees, accidental (unintentional);Insect allergy status Presentation: 09/10 11:30 Chief complaint: Patient states: Pt reports being stung 30 minutes ago while mowing by ld1 25 + bees. Coronavirus screen: At this time, the client does not indicate any symptoms associated with coronavirus-19. Ebola Screen: No symptoms or risks identified at this time. Initial Sepsis Screen: Does the patient meet any 2 criteria? No. Patient's initial sepsis screen is negative. Does the patient have a suspected source of infection? No. Patient's initial sepsis screen is negative. Risk Assessment: Do you want to hurt yourself or someone else? Patient reports no desire to harm self or others. Onset of symptoms was September 10, 2024 at 11:32. 11:30 Method Of Arrival: Ambulatory ld1 11:30 Acuity: TERRENCE 2 ld1 Triage Assessment: 11:32 Bite description: bite sustained to face, scalp, back, chest, right arm and left arm by ld1 a bee, animal information: vaccination(s) is unknown. General: Appears in no apparent distress. uncomfortable, Behavior is cooperative, anxious. Pain: Complains of pain in face, scalp, back, chest, right arm and left arm Pain does not radiate. Pain currently is 8 out of 10 on a pain scale. Quality of pain is described as throbbing, Pain began suddenly, Is continuous. EENT: No signs and/or symptoms were reported regarding the EENT system. Neuro: Level of Consciousness is awake, alert, obeys commands, Oriented to person, place, time, situation. Cardiovascular: Capillary refill < 3 seconds Patient's skin is warm and dry. Respiratory: Airway is patent Respiratory effort is even, unlabored. GI: Abdomen is round non-distended. : No signs and/or symptoms were reported regarding the genitourinary system. Derm: No signs and/or symptoms reported regarding the dermatologic system. Musculoskeletal: No signs and/or symptoms reported regarding the musculoskeletal system. Historical: - Allergies: 11:32 Neomycin; ld1 11:32 Morphine; ld1 - PMHx: 11:32 Diabetes - IDDM; Hypertension; ld1 - Immunization history:: Adult Immunizations up to date. - Infectious Disease History:: Denies. - Social history:: Smoking status: Patient denies any tobacco usage or history of. - Family history:: not pertinent. Screenin:[address] [facility] ED Fall Risk Assessment (Adult) History of falling in the last 3 months, ld1 including since admission No falls in past 3 months (0 pts) Confusion or Disorientation No (0 pts) Intoxicated or Sedated No (0 pts) Impaired Gait No (0 pts) Mobility Assist Device Used No (0 pt) Altered Elimination No (0 pt) Score/Fall Risk Level 0 - 2 = Low Risk Oriented to surroundings, Hourly rounding (assess needs \T\ fall precautionary measures) done. Abuse screen: Denies threats or abuse. Denies injuries from another. Nutritional screening: No deficits noted. Tuberculosis screening: No symptoms or risk factors identified. Assessment: 11:25 Reassessment: See triage assessment. ERP at bedside. Removed stingers from patient. Pt ld1 reports taking 50 mg Benadryl prior to arrival. 11:25 Derm: Skin is intact, Skin is pink, warm \T\ dry. Musculoskeletal: No signs and/or ld1 symptoms reported regarding the musculoskeletal system. Vital Signs: 11:30 BP 159 / 72; Pulse 99; Resp 18; Temp 98.2(TE); Pulse Ox 97% on R/A; Weight 102.06 kg; ld1 Height 5 ft. 8 in. ; Pain 8/10; 12:19 BP 149 / 66; Pulse 93; Resp 18; Pulse Ox 98% on R/A; ld1 13:06 BP 127 / 90; Pulse 90; Resp 18; Temp 98.0; Pulse Ox 100% on R/A; kj2 11:30 Body Mass Index 34.21 (102.06 kg, 172.72 cm) ld1 11:30 Pain Scale: Adult ld1 ED Course: 11:24 Patient arrived in ED. im 11:25 Patient has correct armband on for positive identification. Placed in gown. Bed in low ld1 position. Call light in reach. Side rails up X2. Pulse ox on. NIBP on. Door closed. Noise minimized. Warm blanket given. 11:25 No provider procedures requiring assistance completed. ld1 11:28 Eber Joy MD is Attending Physician. kaye 11:30 Sujata Wallace, CHRISTINA is Primary Nurse. ld1 11:32 Triage completed. ld1 11:32 Arm band placed on right wrist. ld1 12:13 Initial lab(s) drawn, by me, sent to lab. Inserted saline lock: 22 gauge in left wrist, em1 using aseptic technique. Blood collected. Flushed with 10 mL NS. 12:15 Provided Education on: call light. kj2 12:19 CBC with Diff Sent. ld1 13:05 IV discontinued, intact, bleeding controlled, No redness/swelling at site. Pressure kj2 dressing applied. Administered Medications: 11:44 Not Given (Duplicate Order): prochlorperazinesuppository 25 mg [place] once kaye 11:50 Not Given (Patient Refused): fentanyl (pf)25 mcg IVP once ld1 11:50 Not Given (Patient Refused): fentanyl (pf)25 mcg IVP once ld1 12:17 Drug: diphenhydrAMINE IVP 50 mg IVP once Route: IVP; Site: left wrist; ld1 13:12 Follow up: Response: No adverse reaction kj2 12:17 Drug: Famotidine IVP 40 mg IVP once; dilute with 10 mL 0.9% NaCl; give over 2 minutes ld1 Route: IVP; Site: left wrist; 13:11 Follow up: Response: No adverse reaction kj2 12:17 Drug: predniSONE PO 60 mg PO once Route: PO; ld1 13:08 Follow up: Response: No adverse reaction kj2 12:17 Drug: MethylPrednisoLONE IVP 125 mg IVP once Route: IVP; Site: left wrist; ld1 13:06 Follow up: BP 127 / 90; Pulse 90 bpm; Resp 18 bpm; Temp 98.0; Pulse Ox 100% RA kj2 12:17 Drug: Ondansetron IVP 4 mg IVP once; over 2 minutes Route: IVP; Site: left wrist; ld1 13:06 Follow up: Response: No adverse reaction kj2 13:06 Follow up: Response: No adverse reaction kj2 12:18 Drug: NS 0.9% IV 1000 ml IV at 1000 ml once; to be given as a bolus over 60 minutes ld1 Route: IV; Rate: 1000 ml; Site: left wrist; Medication: 11:25 VIS not applicable for this client. ld1 Outcome: 12:55 Discharge ordered by . kaye 13:04 Discharged to home ambulatory, kj2 13:04 Condition: stable 13:04 Discharge instructions given to patient, family, Instructed on discharge instructions, follow up and referral plans. Demonstrated understanding of instructions, follow-up care, 13:24 Patient left the ED. kj2 Signatures: Eber Joy MD MD cha Martinez, Eric em1 Sujata Wallace, RN RN ld1 Roxann Hare Krystal, RN RN kj2
[2024-09-10 13:33] VITALS: BP 127/90; TEMP 98; O2SAT 100
== END 2024-09-10 13:24 | disposition home or self-care (01) ==
LOC: ER 11:23
DX: T78.3XXA Angioneurotic edema, initial encounter (principal); T63.441A Toxic effect of venom of bees, accidental (unintentional), initial encounter; Z91.030 Bee allergy status
CPT/HCPCS: 85025; 36415; J7512; J1200; J2919; J2405; J7030; 96374; 96375; 99284